=== PATIENT | male | born 1950 | race Caucasian/White ===

== ENCOUNTER 2018-03-09 01:03 | Inpatient (IN) | payer MEDICARE, MEDICAID ==
[2018-03-09] MEDS ORDERED: Rocuronium Bromide 10 MG/ML (10ML VIAL) ONE (01:10)
[2018-03-09] MEDS ORDERED: fentaNYL Citrate/PF 2,000 MCG in Sodium Chloride 0.9% 60 ML IV SCH (01:16)
[2018-03-09] MEDS ORDERED: Propofol 1,000 MG/100 ML VIAL IV ONE ×3 (01:18→05:57)
[2018-03-09 01:30] LABS: Bilirubin Small (Negative); Blood, Urine Negative (Negative); Clarity CLEAR (Clear); Glucose, Urine (Dipstick) 250 mg/dL (Negative); Leukocyte Negative (Negative); Nitrite Negative (Negative); Protein, Urine (Dipstick) 100 mg/dL (Neg-Trace); Specific Gravity, Urine 1.032 (1.002-1.036); pH, Urine 5.5 (5.0-9.0)
[2018-03-09 01:33] LABS: Bacteria/HPF None Seen HPF (None Seen); Hyaline Casts/LPF 7-10 HYALINE CAST LPF (0-3 Hyaline); Pathc Cast-AUWi Flag 0.87 (0-2.49); RBC/HPF 0-3 HPF (0-3); Squamous Epithelial 0-3 HPF (0-3); WBC/HPF 0-3 HPF (0-3)
[2018-03-09 01:39] LABS: Amphetamine Not Detected (NotDetected); Barbiturates Screen Not Detected (NotDetected); Benzodiazepine Screen Detected (NotDetected); Cocaine Metabolite Screen Not Detected (NotDetected); Medtox Control Line Valid? VALID (VALID); Medtox Reader # READER 4; Methadone Not Detected (NotDetected); Methamphetamine Not Detected (NotDetected); Opiate Screen Not Detected (NotDetected); Oxycodone Screen Not Detected (NotDetected); Phencyclidine (PCP) Not Detected (NotDetected); THC/Cannabinoid Screen Not Detected (NotDetected); Tricyclic Screen Detected (NotDetected)
[2018-03-09 01:40] LABS: #Eosinphils 0.1 thou/uL (0.0-0.7); #Lymphocytes 1.4 thou/uL (1.20-3.40); #Monocytes 0.7 thou/uL (0.11-0.59); #Neutrophils 6.8 thou/uL (1.40-6.50); %Basophils 0.4 % (0.0-1.0); %Eosinophils 1.3 % (0.0-10.0); %Lymphocytes 15.1 % (21.0-51.0); %Neutrophils 75.2 % (42.0-75.0); Hemoglobin 11.2 g/dL (14.0-18.0); Mean Corpuscular HGB CONC 30.7 g/dL (32.0-36.0); Mean Corpuscular Hemoglobin 25.7 pg (27.0-31.0); Mean Platelet Volume 8.9 fL (7.4-10.4); Platelet Count 214 thou/uL (130-400); RBC Distribution Width 17.7 % (11.5-14.5); Red Blood Cell (RBC) Count 4.33 mill/uL (4.70-6.10)
[2018-03-09 01:46] LABS: INR-International Normal Ratio 1.1; Prothrombin Time 14.7 SEC (12.0-14.7)
[2018-03-09] MEDS ORDERED: niCARdipine 20MG In NaCl 20 MG/200 ML BAG ONE (01:47)
[2018-03-09 01:53] LABS: Actual Bicarbonate (HCO3a) 35.4 mEq/L (22-28); Analyzer IN Cardio ER; Base Excess (BEa) 5.6 mEq/L (-2.0 to +3.0); Carboxyhemoglobin (COHb) 0.6 gm% (0.0-3.0); Hemoglobin (Hb) 11.6 g/dL (14.0-18.0); O2 Tension (PaO2) 319.2 mmHg (> 80.0); Potassium - ABG Lab 5.17 mmol/L (3.70-5.30)
[2018-03-09 01:55] LABS: pH, Arterial 7.24 (7.35-7.45)
[2018-03-09 01:56] LABS: CO2 Tension 84.6 mmHg (35.0-45.0); Puncture Site RBA
[2018-03-09 02:06] LABS: Acetaminophen Less than 6.0 mcg/mL (10.0-30.0); Alcohol Less than 10 mg/dL (Less than 10); Lipase 14 U/L (8-78); Salicylate Less than 8.0 mg/dL (15.0-30.0)
[2018-03-09 02:07] LABS: ALT (SGPT) 27 U/L (8-55); AST (SGOT) 22 U/L (5-34); Albumin 3.9 g/dL (3.4-4.8); Alkaline Phosphatase 96 U/L (40-150); Anion Gap 13 mmol/L (10-20); BUN (Urea Nitrogen) 20 mg/dL (8.4-25.7); Bilirubin, Total 0.6 mg/dL (0.2-1.2); Calc. Creatinine Clearance 0 mL/min (70-130); Calcium 9.2 mg/dL (7.8-10.44); Carbon Dioxide 29 mmol/L (23-31); Chloride 101 mmol/L (98-107); Estimated GFR-MDRD 66; Globulin 3.5 g/dL (2.4-3.5); Glucose 271 mg/dL (80-115); Potassium 5.3 mmol/L (3.5-5.1); Protein, Total 7.4 g/dL (5.8-8.1); Sodium 138 mmol/L (136-145)
[2018-03-09] MEDS ORDERED: Piperacillin/Tazobactam 4.5 GM VIAL ONE (02:58)
[2018-03-09] MEDS ORDERED: Lorazepam 2 MG/ML VIAL ONE (03:26)
[2018-03-09] MEDS ORDERED: methylPREDNISolone Sod Succ/PF 125 MG/2 ML VIAL ONE (04:46)
[2018-03-09] MEDS ORDERED: Fentanyl CADD 250 ML IVPB SCH (05:51)
[2018-03-09] MEDS ORDERED: Propofol BOLUS 1,000 MG/100 ML VIAL IV PRN (05:51)
[2018-03-09] MEDS ORDERED: Fentanyl BOLUS 250 ML IVPB PRN (05:51)
[2018-03-09] MEDS ORDERED: DISCONTINUE PREVIOUS NARCOTIC PAIN MEDICATIONS AND BENZODIAZEPINES FS SCH (05:51)
[2018-03-09] MEDS ORDERED: Morphine 4 MG/ML VIAL SLOW IVP PRN (05:52)
[2018-03-09] MEDS ORDERED: Sodium Chloride 0.65% Nasal 44 ML BOT EA NARE PRN (07:10)
[2018-03-09] MEDS ORDERED: Artificial Tears 18 DROP/0.9 ML EA EYE PRN (07:10)
[2018-03-09] MEDS ORDERED: Eucerin (Mineral Oil/Petrolatum,White) 30 gm Jar TOP PRN (07:10)
[2018-03-09] MEDS ORDERED: Diabetic Tussin 200 MG/10 ML UDCUP PO PRN (07:10)
[2018-03-09 07:27] LABS: Actual Bicarbonate (HCO3a) 27.9 mEq/L (22-28); Base Excess (BEa) 4.6 mEq/L (-2.0 to +3.0); CO2 Tension 36.4 mmHg (35.0-45.0); Calcium, Ionized 1.13 mmol/L (1.12-1.30); Carboxyhemoglobin (COHb) 1.2 gm% (0.0-3.0); Hemoglobin (Hb) 10.1 g/dL (14.0-18.0); O2 Tension (PaO2) 68.5 mmHg (> 80.0); Potassium - ABG Lab 4.58 mmol/L (3.70-5.30)
[2018-03-09 07:28] LABS: Puncture Site RRA
[2018-03-09] MEDS ORDERED: Prevnar 13-Val Conj/PF 0.5 ML SYRINGE IM ONE (07:45)
--- NOTE | 2018-03-09 08:32 | CT ---
PRELIMINARY REPORT/[facility]/EMERGENTY AFTER-HOURS PROCEDURE CT Head Without Contrast EXAM DATE/TIME: 03/09/2018 2:43 AM CLINICAL HISTORY: 67 years old, male; Signs and symptoms; Altered mental status/memory loss; Confusion or disorientatio n; Patient HX: M68 presents to the ed via ems due to AMS. Ems reports pinpoint pupils, gave PT 4 narc an and PT is still unresponsive. Edema all over per ems. told ems that "pt takes his medications all at once ". Opa placed by ems and gcs 8 ua. Reports pt's initial bld pressure was 200s/150s. TECHNIQUE: Axial computed tomography images of the head/brain without contrast. COMPARISON: No relevant prior studies available. FINDINGS: Brain: No intracrainal hemorrhage. No midline shift. The brain parenchyma appears normal for age. 6 m m calcified meningioma anterior to the left temporal lobe Ventricles: No ventriculomegaly. Bones/joints: Normal. No acute fracture. Sinuses: Normal as visualized. No acute sinusitis. Mastoid air cells: Normal as visualized. No mastoid effusion. Soft tissues: Normal. IMPRESSION: No acute intracranial abnormality. Thank you for allowing us to participate in the care of your patient. Dictated and Authenticated by: Brandon Townsend MD 03/09/2018 3:16 AM Central Time ([place] & [place]) FINAL REPORT EMERGENCY AFTER HOURS CT OF THE BRAIN WITHOUT CONTRAST: Date: 03/09/18 FINDINGS/IMPRESSION: I agree with the findings and impression given in the preliminary report per [facility] physician. No evide nce of acute intracranial abnormality. POS: [facility]
--- NOTE | 2018-03-09 08:47 | RAD ---
SINGLE VIEW OF THE CHEST: Comparison: 07-11-14 History: Unresponsive. Fall. FINDINGS: Single view of the chest shows an enlarged cardiomediastinal silhouette. An endotracheal tube is seen approximately 3.3 cm from the venita. An NG tube is seen in the stomach. Increased interstitial micheline ings are present. There is no evidence of consolidation, mass, or pleural effusion. IMPRESSION: 1. Appropriate position of lines and tubes. 2. Cardiomegaly. POS: [facility]
--- NOTE | 2018-03-09 08:49 | RAD ---
SINGLE VIEW OF THE CHEST: Comparison: 03-09-18 at 12:20 a.m. History: Central line placement Respiratory failure. Altered mental status. FINDINGS: Single view of the chest shows an enlarged but stable cardiomediastinal silhouette. Endotracheal tube and NG tube are unchanged in position. There is a left IJ central venous catheter with its tip in th e superior vena cava. No pneumothorax is seen. IMPRESSION: Status post central line placement without evidence of complication. POS: [facility]
[2018-03-09] MEDS ORDERED: Dextrose 5% in Water 1,000 ML IV PRN (09:00)
[2018-03-09] MEDS ORDERED: Dextrose 50% Abboject 50 ML SYRINGE SLOW IVP PRN (09:00)
[2018-03-09] MEDS ORDERED: Sodium Chloride 0.9% 1,000 ML IV SCH (09:15)
[2018-03-09] MEDS: Piperacillin/Tazobactam 3.375 GM in Sodium Chloride 0.9% 100 ML IVPB SCH ×3 (10:08→21:57)
[2018-03-09] MEDS: Enoxaparin Sodium 40 MG/0.4 ML SYRINGE SC SCH (10:08)
--- NOTE | 2018-03-09 10:57 | CON ---
DATE OF CONSULTATION: 03/09/2018 TIME SPENT: This is 35 minutes of critical care time. REASON FOR CONSULTATION: Acute respiratory failure. HISTORY OF PRESENT ILLNESS: At the time of this consultation, there is no history and physical available for review. I was able to talk to the daughter at bedside. The patient is 67-year-old. He has had altered mental status for several days. He went to his primary care physician twice, requesting oxygen, but it was determined that he did not need that. I do not have records from that visit, but it looks like he has been seeing doctors over at [facility]. The patient was picked up by EMS last night. He was intubated secondary to altered mental status. I do not see that any confirmatory diagnosis was made in regard to his medical condition. PAST MEDICAL HISTORY: 1. Diabetes mellitus, type 2. 2. Hypertension. 3. Obesity. PAST SURGICAL HISTORY: Cholecystectomy. SOCIAL HISTORY: Quit smoking some time ago. Does not consume alcohol. 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 He lives at home on his daughter's land in [place]. ALLERGIES: NONE. MEDICATIONS: Prior to admission; 1. Amitriptyline 100 mg daily. 2. Furosemide 80 mg daily. 3. Metoprolol 25 mg twice daily. 4. Nexium 40 mg daily. 5. Xanax 0.5 mg, currently 2 mg 3 times daily. 6. Valsartan 320 mg daily. 7. Buspirone 10 mg two times daily. REVIEW OF SYSTEMS: Unobtainable as the patient is currently on mechanical ventilation. PHYSICAL EXAMINATION: VITAL SIGNS: Temperature 98.5, pulse 77, blood pressure 169/95, and O2 sat 94%. Intake since admission not quantitated, output 509 mL. GENERAL: He is intubated and sedated on mechanical ventilation. He is a disheveled-appearing male, who was in no apparent distress. HEENT: Pupils are 2 mm, reactive. Sclerae are anicteric. Oropharynx clear. NECK: No JVD. LUNGS: Clear to auscultation anteriorly. CARDIOVASCULAR: S1 and S2, regular without audible murmur. ABDOMEN: Morbid obesity. EXTREMITIES: No clubbing, cyanosis, or edema. NEUROLOGIC: He withdrawals to pain in all 4 extremities. He has a gag reflex intact. He does not follow commands at this time. LABORATORY DATA: Sodium 138, potassium 5.3, chloride 101, CO2 of 29, BUN 20, creatinine 1.1, and glucose 271. BNP 119. Troponin 0.01. TSH is 0.52. PH was 7.50, pCO2 of 36, pO2 of 68 on SIMV rate of 20, tidal volume 550, PEEP 5, pressure support 10, and FiO2 of 50%. Initially, his pH was 7.24, pCO2 of 84, pO2 of 319 that was on SIMV rate of 16, tidal volume 550. White blood cell count 9, hematocrit 36.4, and platelet count 214. Urinalysis showed some glucosuria and proteinuria. Toxicology screen showed tricyclics and benzodiazepines. His head CT was negative. His chest x-ray shows some wispy bilateral infiltrative changes. ASSESSMENT: The patient presents with a fairly acute encephalopathy, which could be either from infection, metabolic in nature, medication induced, or perhaps due to hypercapnia. RECOMMENDATIONS: 1. I would go ahead and treat him for infection and draw the appropriate cultures. 2. Continue mechanical ventilation. 3. Slow hydration. 4. GI prophylaxis with Protonix. 5. DVT prophylaxis with Lovenox. 6. Consider Neurology consultation if altered mental status continues. Job ID: [id number]
--- NOTE | 2018-03-09 12:08 | HP ---
PRIMARY CARE PHYSICIAN: Maty Rivas, nurse practitioner. REASON FOR ADMISSION: Acute respiratory failure, acute metabolic encephalopathy , CO2 narcosis. HISTORY OF PRESENT ILLNESS: A 67-year-old male, who has underlying history of morbid obesity as well as hypertension, anxiety, and depression, who was brought to emergency room by Paramedics. The patient's daughter is present at bedside, who provided most of the history. The patient is currently intubated and that is why he is not able to provide any history. The patient's daughter reports that for last 2 to 3 days, the patient is acting strange. He is more somnolent, more lethargic. He was falling frequently at home. His speech was also garbled and unable to understand. He was not having any focal motor weakness or any sensory symptoms. He did not have any fever or chills. He has chronic early morning babysitter headache. He is chronically feels daytime somnolence. He has excessive snoring during nighttime. Last night, the patient fell down when he was walking around his home, that is why the patient's called her daughter, who lives nearby and she helped him to put in chair, but when he was in chair, again he fell down and he was fall on the ground without any injury and he was not able to get out from the floor by himself even with help. The patient did not hurt anywhere and he was conscious at that time , but he was appeared more lethargic and somnolent. Paramedics was called and Paramedics brought him to ER. He was more somnolent and that is why Paramedics intubated him. In the emergency room, the patient required central line placement. He was having high blood pressure. The patient's daughter reports that the patient is taking amitriptyline and gabapentin as well as some anxiety medication as well that making him sleepy. The patient's daughter also reports that he was told that he has sleep apnea, but he never had any sleep study done and he was not using any CPAP machine. In the emergency room before arrival, Paramedics tried to give him 4 of Narcan without any response. In the emergency room, the patient was given Solu-Medrol and Zosyn. REVIEW OF SYSTEMS: All review of systems tried to review with the patient, but unable to review at this point because of intubated and sedated. PAST MEDICAL HISTORY: Morbid obesity; obstructive sleep apnea, suspected; hypertension. PAST SURGICAL HISTORY: Cholecystectomy. PAST PSYCHIATRY HISTORY: Reviewed and negative SOCIAL HISTORY: The patient is a former smoker. He quit smoking more than 10 years ago. He lives with his . FAMILY HISTORY: No family history of coronary artery disease, stroke, or cancer. ALLERGIES: NO KNOWN DRUG ALLERGIES. CURRENT HOME MEDICATIONS: 1. Xanax 2 mg p.o. at bedtime p.r.n. 2. Amitriptyline 100 mg p.o. daily. 3. Buspirone 10 mg b.i.d. 4. Nexium 40 mg p.o. daily. 5. Lasix 120 mg daily. 6. Toprol-XL 25 mg p.o. daily. 7. Valsartan with hydrochlorothiazide 1 tablet p.o. daily. EMERGENCY ROOM COURSE: The patient was given Narcan by Paramedics. He was given Solu-Medrol, Zosyn in the emergency room. PHYSICAL EXAMINATION: VITAL SIGNS: On arrival; blood pressure 187/165, pulse 111, respiratory rate 16 , temperature 98.6, saturation 100% on ventilator. Weight 171 kg. GENERAL: The patient is currently intubated, sedated. HEENT: Head; normocephalic, atraumatic. Eyes; pupils are round, reactive to light. Extraocular muscle intact. ENT; oropharynx within normal limit. Endotracheal tube in place. NECK: Short neck. Difficult to assess JVD or thyromegaly. LUNGS: Clear to auscultation without any rhonchi or rales. CARDIAC: S1 and S2, regular without any murmur. ABDOMEN: Morbid obesity present. Bowel sounds present. No peritoneal sign. EXTREMITIES: Bilateral lower extremity edema noted. NEUROLOGIC: Unable to assess at this point because the patient is intubated and sedated. PSYCHIATRIC: Unable to assess at this point. SIGNIFICANT LABORATORY DATA: EKG showing atrial arrhythmia, nonspecific ST-T changes. CT of brain based on my review, no acute intracranial process. Chest x-ray, no acute cardiopulmonary process. CBC; WBC 9.0, hemoglobin 11.2, platelet 214. INR 1.1. Initial ABG; pH 7.24, CO2 is 84.6, O2 , bicarb 35.4, saturation 98.7. BMP; sodium 138, potassium 5.3, chloride 101, carbon dioxide 29, BUN 20, creatinine 1.1, glucose 271, calcium 9.2. LFT; AST 22, ALT 27, alkaline phosphatase 96, albumin 3.9, lipase 14. TSH 0.52. BNP 119.2. Troponin is negative. Lactic acid 0.88. Urinalysis is unremarkable. Urine drug screen; positive for tricyclic and benzodiazepine. Serum drug screen , negative. ASSESSMENT AND PLAN: 1. Acute metabolic encephalopathy due to likely CO2 narcosis. 2. Acute respiratory acidosis due to CO2 narcosis, underlying chronic respiratory acidosis with compensation cannot be entirely excluded. 3. Befgt-dg-ummldjc diastolic congestive heart failure stage C. 4. Obstructive sleep apnea, suspected. 5. Morbid obesity with BMI greater than 50. 6. Hypertension. 7. Anxiety and depression. 8. Normocytic normochromic anemia. PLAN: Admission in ICU. Empiric antibiotic therapy with Zosyn as started by food service aide. Ventilator as per food service aide. Pulmonary group will be consulted. This patient will need outpatient sleep study and possible CPAP machine. We will resume selected home medication including Diovan with hydrochlorothiazide for hypertension. We will also continue BuSpar. Echocardiography will be obtained. We will repeat labs tomorrow. DVT prophylaxis, Lovenox 40 mg subcu daily. Gastrointestinal prophylaxis, Protonix 40 mg IV daily. CODE STATUS: The patient is full code. The patient's is surrogate decision maker. DISPOSITION PLAN: Based on clinical course. Plan of care discussed with the patient's daughter at bedside and answered all her question in detail. Job ID: [id number] MTDD
[2018-03-09] MEDS: Propofol 1,000 MG/100 ML VIAL IV PRN ×3 (15:26→22:57)
--- NOTE | 2018-03-09 15:59 | ULT ---
ULTRASOUND TESTICULAR 03/09/18 HISTORY: Chronic enlarged testicle. COMPARISON: None. FINDINGS: A normal right testicle is not appreciated. There appears to be a fluid hematocrit level within the r ight scrotal sac. There is abnormal papillary mass-like projection along the periphery of the scrotal sac. Left testicle measures 4.6 x 2.4 x 2.7 cm. IMPRESSION: No normal right testicle is appreciated. Appears to be a fluid/hematocrit level in the right scrotal sac with normal papillary projections and thickening along the periphery. This may reflect underlying malignancy which is hemorrhaging. Recommend correlation for history of trauma as a fractured testicl e with hemorrhage and debris is also a possibility. Urology consultation is recommended. POS: [facility]
[2018-03-09] MEDS: Insulin Regular 300 UNITS/3 ML VIAL SC PRN (18:20)
[2018-03-09] MEDS: busPIRone HCl 10 MG TAB PER TUBE SCH (21:57)
[2018-03-09] MEDS: Pantoprazole 40 MG VIAL IVP SCH (21:57)
[2018-03-10] MEDS: fentaNYL Citrate/PF 2,000 MCG in Sodium Chloride 0.9% 60 ML IV SCH (00:29)
[2018-03-10] MEDS: Insulin Regular 300 UNITS/3 ML VIAL SC PRN ×4 (00:31→23:23)
[2018-03-10] MEDS: Piperacillin/Tazobactam 3.375 GM in Sodium Chloride 0.9% 100 ML IVPB SCH ×4 (02:53→22:38)
[2018-03-10 04:42] LABS: Band 7 % (5-11); Hemoglobin 9.9 g/dL (14.0-18.0); Lymphocytes 20 % (21-51); MDiff Complete? YES; Mean Corpuscular HGB CONC 32.5 g/dL (32.0-36.0); Mean Corpuscular Hemoglobin 26.4 pg (27.0-31.0); Mean Corpuscular Volume 81.2 fL (78.0-98.0); Mean Platelet Volume 8.8 fL (7.4-10.4); Monocytes 7 % (0-10); Neutrophil 66 % (42-75); Platelet Count 219 thou/uL (130-400); Platelet Morphology Comment Appears Adequate; RBC Distribution Width 17.6 % (11.5-14.5); Red Blood Cell (RBC) Count 3.75 mill/uL (4.70-6.10); White Blood Cell (WBC) Count 12.2 thou/uL (4.8-10.8)
[2018-03-10 05:19] LABS: Anion Gap 15 mmol/L (10-20); BUN (Urea Nitrogen) 36 mg/dL (8.4-25.7); Calc. Creatinine Clearance 106 mL/min (70-130); Calcium 8.5 mg/dL (7.8-10.44); Carbon Dioxide 29 mmol/L (23-31); Chloride 99 mmol/L (98-107); Estimated GFR-MDRD 43; Glucose 365 mg/dL (80-115); Potassium 4.6 mmol/L (3.5-5.1); Sodium 138 mmol/L (136-145)
[2018-03-10] MEDS: Propofol 1,000 MG/100 ML VIAL IV PRN ×3 (05:45→21:30)
[2018-03-10 07:33] LABS: Actual Bicarbonate (HCO3a) 28.9 mEq/L (22-28); Base Excess (BEa) 3.7 mEq/L (-2.0 to +3.0); CO2 Tension 46.6 mmHg (35.0-45.0); Calcium, Ionized 1.14 mmol/L (1.12-1.30); Carboxyhemoglobin (COHb) 1.5 gm% (0.0-3.0); Hemoglobin (Hb) 10.5 g/dL (14.0-18.0); O2 Tension (PaO2) 73.8 mmHg (> 80.0); Potassium - ABG Lab 4.45 mmol/L (3.70-5.30); pH, Arterial 7.41 (7.35-7.45)
[2018-03-10 07:37] LABS: Puncture Site RRA
[2018-03-10] MEDS ORDERED: Sodium Chloride 0.9% 1,000 ML IV SCH (08:00)
[2018-03-10] MEDS: Acetaminophen 1,000 MG in Premix Bag 1 BAG IVPB PRN ×2 (08:21→22:39)
[2018-03-10] MEDS: Enoxaparin Sodium 40 MG/0.4 ML SYRINGE SC SCH (08:22)
[2018-03-10] MEDS: Pantoprazole 40 MG VIAL IVP SCH (08:22)
[2018-03-10] MEDS: busPIRone HCl 10 MG TAB PER TUBE SCH ×2 (08:22→22:39)
--- NOTE | 2018-03-10 08:49 | PRG ---
DATE OF SERVICE: 03/10/2018 Thirty five minutes critical time. SUBJECTIVE: The patient remains intubated on mechanical ventilation. He becomes extremely agitated when the sedation is let up. OBJECTIVE: VITAL SIGNS: His temperature is 101.4, pulse is 106, blood pressure 100/53. Total intake for 24 hours 431, output 865. HEENT: Unremarkable. NECK: No JVD. LUNGS: Diminished breath sounds in both bases. Some crackles. CARDIAC: S1 and S2. Slightly tachycardic. ABDOMEN: Soft, obese, nontender, nondistended. EXTREMITIES: Edematous. LABORATORY DATA: Sodium 138, potassium 4.6, chloride 99, CO2 of 29, BUN 36, creatinine 1.6, glucose 365. White blood cell count 12.2, hematocrit 30.4, and platelet count 219. PH 7.41, pCO2 of 46, and pO2 of 73 on SIMV rate 14, tidal volume of 500, PEEP 5, pressure support 10, and FiO2 of 50%. An x-ray was not done today. Cultures remain sterile at this point. Testicular ultrasound showed a fluid-filled object in the right scrotal sac with hematocrit density. Echocardiogram demonstrates EF of 50% to 55%. A very difficult echo for them to determine to make definitive conclusions because of the patient's body size. ASSESSMENT: 1. Acute respiratory failure, requiring mechanical ventilation. 2. Bilateral pneumonia. 3. Encephalopathy. 4. Hypercapnic-hypoxic acute respiratory failure, requiring mechanical ventilation. 5. Scrotal mass. 6. Acute renal dysfunction secondary to sepsis. PLAN: 1. The patient is not weanable. I will turn up his PEEP to compensate for his low oxygenation. 2. Bolus with IV fluids. 3. Start maintenance IV fluids. 4. Hold valsartan and hydrochlorothiazide. 5. Continue IV antibiotics. 6. Update family when they become available. 7. Repeat chest x-ray tomorrow. 8. I anticipate him being on mechanical ventilation for the next several days. Job ID: [id number]
[2018-03-10] MEDS ORDERED: Valsartan 80 MG TAB PO SCH (09:00)
[2018-03-10] MEDS ORDERED: Hydrochlorothiazide 25 MG TAB PO SCH (09:00)
[2018-03-10] MEDS: Sodium Chloride 0.9% 1,000 ML IV SCH ×2 (09:00→21:30)
--- NOTE | 2018-03-10 10:54 | PDOC.PN ---
- Subjective Encounter Start Date: 03/10/18 Encounter Start Time: 09:30 -: old records requested/rev pt is on ventilator, today pt has high fever, his BP is low and his renal function worsened, daughter is bedside Patient seen and examined. No overnight events - Objective MAR Reviewed: Yes Vital Signs & Weight: Vital Signs (12 hours) Temp Pulse Resp BP Pulse Ox 03/10/18 10:27 106 H 106/55 L 03/10/18 07:13 106 H 105/54 L 03/10/18 07:00 101.4 F H 03/10/18 06:00 14 03/10/18 04:00 14 03/10/18 02:53 106 H 101/51 L 03/10/18 02:00 14 03/10/18 00:33 105 H 14 93 L 03/10/18 00:00 97.9 F 14 Weight Admit Weight 371 lb Weight 367 lb 4.642 oz Most Recent Monitor Data Heart Rate from ECG 106 NIBP 107/56 NIBP BP-Mean 73 Respiration from ECG 14 SpO2 97 I&O: 03/09/18 03/10/18 03/11/18 06:59 06:59 06:59 Intake Total 431 Output Total 590 865 25 Balance -590 -434 -25 Result Diagrams: 03/10/18 04:29 03/10/18 04:29 Additional Labs: Accuchecks 03/10/18 03/09/18 00:31 18:18 POC Glucose 337 H 322 H Radiology Reviewed by me: Yes (testicular US noted) EKG Reviewed by me: Yes (nsr) Phys Exam - Physical Examination Constitutional: NAD intubated and sedated HEENT: PERRLA, sclera anicteric Neck: supple, full ROM Respiratory: no wheezing, no rhonchi anteriorly Cardiovascular: RRR, no significant murmur, no rub Gastrointestinal: soft, positive bowel sounds Musculoskeletal: pulses present, edema present unable to examine as pt is intubated and sedated Lymphatic: no nodes Deviation from normal: unable to assess as he is intubated and sedated Skin: no rash, normal turgor Dx/Plan (1) Sepsis with acute organ dysfunction Code(s): A41.9 - SEPSIS, UNSPECIFIED ORGANISM; R65.20 - SEVERE SEPSIS WITHOUT SEPTIC SHOCK Status: Acute (2) Bilateral pneumonia Code(s): J18.9 - PNEUMONIA, UNSPECIFIED ORGANISM Status: Acute (3) Acute kidney injury Code(s): N17.9 - ACUTE KIDNEY FAILURE, UNSPECIFIED Status: Acute (4) Acute metabolic encephalopathy Code(s): G93.41 - METABOLIC ENCEPHALOPATHY Status: Acute (5) Acute respiratory acidosis Code(s): E87.2 - ACIDOSIS Status: Acute (6) CO2 narcosis Code(s): R06.89 - OTHER ABNORMALITIES OF BREATHING Status: Acute (7) Mass of right testicle Code(s): N50.9 - DISORDER OF MALE GENITAL ORGANS, UNSPECIFIED Status: Acute (8) NADIA (obstructive sleep apnea) Code(s): G47.33 - OBSTRUCTIVE SLEEP APNEA (ADULT) (PEDIATRIC) Status: Suspected (9) Hypertension Code(s): I10 - ESSENTIAL (PRIMARY) HYPERTENSION Status: Chronic (10) Morbid obesity with BMI of 50.0-59.9, adult Code(s): E66.01 - MORBID (SEVERE) OBESITY DUE TO EXCESS CALORIES; Z68.43 - BODY MASS INDEX (BMI) 50-59.9, ADULT Status: Chronic (11) GERD (gastroesophageal reflux disease) Code(s): K21.9 - GASTRO-ESOPHAGEAL REFLUX DISEASE WITHOUT ESOPHAGITIS Status: Chronic (12) Anxiety and depression Code(s): F41.9 - ANXIETY DISORDER, UNSPECIFIED; F32.9 - MAJOR DEPRESSIVE DISORDER, SINGLE EPISODE, UNSPECIFIED Status: Chronic - Plan cont current plan of care, plan discussed w/ family, continue antibiotics, respiratory therapy * start IVF after bolus * Hold BP meds * continue broad spectrum IV antibiotics * culture done and follow up on that * repeat labs and chest xray tomorrow * discussed with daughter about plan bedside * medication reviewed as below * symptomatic treatment * vent as per pulmonary. Review of Systems - Review of Systems Other: unable to review due to intubated status - Medications/Allergies Allergies/Adverse Reactions: Allergies Allergy/AdvReac Type Severity Reaction Status Date / Time No Allergy Information Allergy Verified 03/09/18 06:10 Available Medications: Current Medications Albuterol/Ipratropium (Duoneb) 3 ml NEB [id number] CELSA Last Admin: 03/10/18 07:13 Dose: 3 ml Artificial Tears (Tears Naturale) 2 drop EA EYE PRN PRN PRN Reason: Dry Eyes Buspirone HCl (Buspar) 10 mg PER TUBE BID [facility] Last Admin: 03/10/18 08:22 Dose: 10 mg Dextrose/Water (Dextrose 50%) 25 gm SLOW IVP PRN PRN PRN Reason: Hypoglycemia Enoxaparin Sodium (Lovenox) 40 mg SC 0900 [facility] Last Admin: 03/10/18 08:22 Dose: 40 mg Glucagon (Glucagon) 1 mg IM PRN PRN PRN Reason: Hypoglycemia Hydralazine HCl (Apresoline) 10 mg SLOW IVP Q4H PRN PRN Reason: SBP > 180 and HR < 70 Fentanyl Citrate 2,000 mcg/ (Sodium Chloride) 100 mls @ 0 mls/hr IV INF CELSA; Protocol Stop: 04/08/18 05:51 Last Admin: 03/10/18 00:29 Dose: 100 mls Fentanyl Citrate (Fentanyl Bolus) 250 mls @ 0 mls/hr IVPB PRN PRN PRN Reason: Breakthrough pain/agitation Stop: 04/08/18 05:51 Dextrose/Water (D5w) 1,000 mls @ 0 mls/hr IV .Q0M PRN PRN Reason: Hypoglycemia Piperacillin Sod/Tazobactam (Sod 3.375 gm/ Sodium Chloride) 100 mls @ 200 mls/ hr IVPB 0300,0900,1500,2100 [facility] Last Admin: 03/10/18 08:21 Dose: 100 mls Sodium Chloride (Normal Saline 0.9%) 1,000 mls @ 100 mls/hr IV .Q10H CELSA Acetaminophen 1,000 mg/ Device 100 mls @ 400 mls/hr IVPB Q6H PRN PRN Reason: Fever/Mild Pain Stop: 03/11/18 08:03 Last Admin: 03/10/18 08:21 Dose: 100 mls Insulin Human Regular (Humulin R) 0 units SC .AGGRESSIVE SLIDING PRN PRN Reason: Aggressive Sliding Scale Last Admin: 03/10/18 00:31 Dose: 11 unit Lorazepam (Ativan) 2 mg SLOW IVP Q1H PRN PRN Reason: Breakthrough agitation Stop: 04/08/18 05:51 Mineral Oil/White Petrolatum (Eucerin Cream) 0 gm TOP BIDPRN PRN PRN Reason: Dry Skin Morphine Sulfate (Morphine) 2 mg SLOW IVP Q4H PRN PRN Reason: Breakthrough Pain Discontinue Previous Narcotic Pain Medications And Benzodiazepines 1 each FS .ONE [facility] Stop: 04/08/18 05:51 Pantoprazole Sodium (Protonix) 40 mg IVP DAILY [facility] Last Admin: 03/10/18 08:22 Dose: 40 mg Propofol (Diprivan) 1,000 mg IV INF PRN; Protocol PRN Reason: TO ACHIEVE GOAL RASS Stop: 04/08/18 05:51 Last Admin: 03/10/18 05:45 Dose: 1,000 mg Propofol (Diprivan Bolus) 20 mg IV Q5MIN PRN PRN Reason: BREAKTHROUGH AGITATION Stop: 04/08/18 05:51 Sodium Chloride ([place] Nasal [place] 0.65%) 0 ml EA NARE QIDPRN PRN PRN Reason: Nasal Congestion Sodium Chloride (Flush - Normal Saline) 10 ml IVF Q12HR [facility] Last Admin: 03/10/18 08:22 Dose: 10 ml Sodium Chloride (Flush - Normal Saline) 10 ml IVF PRN PRN PRN Reason: Saline Flush
--- NOTE | 2018-03-10 21:00 | CON ---
DATE OF CONSULTATION: 03/10/2018 SOURCE OF CONSULTATION: Dr. Lundberg. CONSULTED PHYSICIAN: Dr. Xie. REASON FOR CONSULTATION: Testicular mass. HISTORY OF PRESENT ILLNESS: Mr. Melendrez is a 67-year-old white male, who was hospitalized secondary to not feeling well, being more lethargic with altered mental status and confusion. He was brought in to the hospital via ambulance after he was found unconscious and was ultimately diagnosed with bilateral pneumonia. He is currently on Solu-Medrol and Zosyn. During this time, it was noted the patient had a significantly enlarged scrotum. A scrotal ultrasound was performed, which demonstrates some type of fluid hematocrit level within the right testicle with papillary projections and thickening along the periphery. There were concerns about a possible malignancy and hemorrhage. Therefore, Urology was consulted for further assistance. Upon my arrival to the patient's bedside, he is currently intubated and sedated. There is no family at bedside. All history is obtained from the nursing staff. Per the patient's nurse, they had spoken with the patient's previously and he apparently has seen two urologists for his scrotal issues before. This apparently is a long-standing issue, which is not new. He has had two different opinions with the first urologist recommending some type of a drainage procedure, although the urologist did not feel comfortable performing this. They saw another urologist in [place] who recommended open surgical exploration, but he did not have time to actually undergo the procedure as the patient is now hospitalized here. I do not know either of these urologist's name. No other history can be obtained from the patient at this time. PAST MEDICAL HISTORY: 1. Morbid obesity. 2. Obstructive sleep apnea. 3. Hypertension. PAST SURGICAL HISTORY: Cholecystectomy. SOCIAL HISTORY: The patient is reportedly a former smoker, although he quit more than 10 years ago. He is . Drinking status and illicit drug use status are unknown. FAMILY HISTORY: Noncontributory with no reported history per medical records. REVIEW OF SYSTEMS: His 12-point review of systems cannot be obtained as the patient is currently intubated and sedated. PHYSICAL EXAMINATION: VITAL SIGNS: Temperature 101.1, heart rate 106, blood pressure 105/54, respirations 13, saturation 94% on ventilator. GENERAL: The patient is currently intubated and sedated. He is a large individual and appears morbidly obese. HEENT: Normocephalic, atraumatic. ET tube in place. Trachea midline. Pupils are small, but reactive. Sclerae nonicteric. HEART: Sinus tachycardic. Normal S1 and S2. CHEST: Bilateral coarse breath sounds and crackles. ABDOMEN: Soft, nontender, nondistended. Positive bowel sounds. No obvious masses. Protuberant belly, which is large. : The patient has an extremely large scrotum, which is hard and tense on the right with a mild left hydrocele. The left testicle appears normal by palpation. The penis is somewhat retracted secondary to the swelling in the scrotum. There is a Arellano catheter in place with clear yellow urine. EXTREMITIES: Mild clubbing. No cyanosis. 1+ edema bilaterally. SKIN: Warm and dry. Good turgor. No rashes or lesions. NEUROLOGIC: The patient is currently sedated and intubated. He is not following commands. A full exam was not performed. MUSCULOSKELETAL: No joint deformities or joint erythema noted. LABORATORY DATA: On laboratory evaluation, a full set of labs in the [employer] system, which I have reviewed. Of note, the patient's white count is 12.2 with hemoglobin of 9.9. Creatinine is 1.62. Urinalysis demonstrates small bilirubin, small ketones, negative blood, negative nitrite, negative leukocyte esterase, no rbc's or wbc's. No bacteria. Urine culture is negative. Testicular ultrasound from March 09 demonstrates an abnormal right testicle, which appears to have a fluid hematocrit level within the scrotal sac with papillary projections and thickening along the periphery, which may represent some underlying malignancy, which is hemorrhagic or some kind of testicular fracture. ASSESSMENT AND PLAN: A 67-year-old white male with a large right hydrocele with difficult to examine testicle, which is not entirely visualized properly on ultrasound or by exam. This does feel like hydrocele more than any other type of problem. He is generally beyond the age what will be considered expected for testicular malignancy, although this is not entirely ruled out. The projections seen within the scrotum on my evaluation are more than likely calcification such as "pearls" which are normally found within the hydrocele sacs. The patient may have multiple due to longstanding hydrocele with an inflammation, which may explain the ragged and irregular nature of the hydrocele sac. I would agree with the second urologist whom the patient has seen and the patient probably would do best with a hydrocelectomy with possible orchiectomy done at the same time depending on the evaluation of the testicle at that time. However, given the patient's pneumonia and current critical health status, this is not the time to be performing such as surgery, even in the case of malignancy, this is not an emergency and can be done at another date. I do not suspect malignancy and there is no evidence of infection either. I think this procedure can be deferred to a later date when the patient is more healthy. For now, I will sign off and I think the patient can either follow up with his previous urologist that he was seeing or if he would prefer to see me, he can be given my number and can follow up with me once he has recovered from this hospitalization. I will be available if there are any further questions, but for now, I would not recommend any current intervention. Job ID: [id number]
[2018-03-11] MEDS: Propofol 1,000 MG/100 ML VIAL IV PRN ×6 (01:30→21:01)
[2018-03-11] MEDS: Piperacillin/Tazobactam 3.375 GM in Sodium Chloride 0.9% 100 ML IVPB SCH ×4 (04:00→21:03)
[2018-03-11] MEDS: Sodium Chloride 0.9% 1,000 ML IV SCH ×2 (04:03→13:04)
[2018-03-11] MEDS: Insulin Regular 300 UNITS/3 ML VIAL SC PRN ×4 (04:28→21:10)
[2018-03-11 04:48] LABS: Anion Gap 11 mmol/L (10-20); BUN (Urea Nitrogen) 37 mg/dL (8.4-25.7); Calc. Creatinine Clearance 142 mL/min (70-130); Calcium 8.3 mg/dL (7.8-10.44); Carbon Dioxide 30 mmol/L (23-31); Chloride 101 mmol/L (98-107); Estimated GFR-MDRD 61; Glucose 280 mg/dL (80-115); Potassium 3.9 mmol/L (3.5-5.1); Sodium 138 mmol/L (136-145)
[2018-03-11 05:07] LABS: Hemoglobin 9.7 g/dL (14.0-18.0); Hypochromia SLIGHT = 6-15 cells (100X) (0-5/hpf); Lymphocytes 16 % (21-51); MDiff Complete? YES; Mean Corpuscular HGB CONC 32.5 g/dL (32.0-36.0); Mean Corpuscular Hemoglobin 26.4 pg (27.0-31.0); Mean Corpuscular Volume 81.4 fL (78.0-98.0); Mean Platelet Volume 8.8 fL (7.4-10.4); Monocytes 7 % (0-10); Neutrophil 77 % (42-75); Platelet Count 205 thou/uL (130-400); Platelet Morphology Comment Appears Adequate; RBC Distribution Width 17.8 % (11.5-14.5); Red Blood Cell (RBC) Count 3.66 mill/uL (4.70-6.10); White Blood Cell (WBC) Count 9.7 thou/uL (4.8-10.8)
--- NOTE | 2018-03-11 08:43 | RAD ---
PORTABLE SEMIUPRIGHT FRONTAL CHEST RADIOGRAPH: DATE: 03/11/2018. COMPARISON: 03/09/2018. HISTORY: Unresponsive patient, ventilated patient. FINDINGS: Endotracheal tube, nasogastric tube, and left-sided vascular catheter are present. There is dense op acity in the left base suggesting left lower lobe consolidation/collapse and/or small volume left ple ural effusion. Hazy increased density noted in the right base, nonspecific. IMPRESSION: Lines and tubes as detailed above. Increased density noted in bilateral lung bases. POS: [facility]
[2018-03-11] MEDS: Pantoprazole 40 MG VIAL IVP SCH (09:00)
[2018-03-11] MEDS: Enoxaparin Sodium 40 MG/0.4 ML SYRINGE SC SCH (09:00)
[2018-03-11] MEDS: busPIRone HCl 10 MG TAB PER TUBE SCH ×2 (09:00→21:03)
--- NOTE | 2018-03-11 10:20 | PRG ---
DATE OF SERVICE: 03/11/2018 SUBJECTIVE: Day #2 on the vent, intubated, the vent sedated. OBJECTIVE: VITAL SIGNS: Pulse is 104, blood pressure 106/75, saturations is 94%, respirations set at 10. When his sedation was decreased, became encephalopathic. His I's and O's have been 3540 in, 1410 out. CHEST: Bilateral rhonchi and crackles. CARDIAC: Normal S1, S2. No gallops. ABDOMEN: No masses. LABORATORY DATA: Creatinine is 1.19. White count 9000 and H and H 9 and 27. DIAGNOSTIC DATA: Chest x-ray shows cardiomegaly with bilateral pulmonary infiltrates. IMPRESSION: 1. Respiratory failure. 2. Morbid obesity. 3. Generalized anasarca. 4. Normal ejection fraction. PLAN: He is not weanable at this stage. Continue broad-spectrum antibiotics. All cultures so far negative. His renal function is improving. Continue nutrition and PT. One-half hour of critical time. Job ID: [id number]
--- NOTE | 2018-03-11 11:21 | PDOC.PN ---
- Subjective Encounter Start Date: 03/11/18 Encounter Start Time: 09:35 Patient seen and examined. pt is intubated and sedated, family bedside. No overnight events - Objective MAR Reviewed: Yes Vital Signs & Weight: Vital Signs (12 hours) Temp Pulse Resp BP Pulse Ox 03/11/18 10:00 12 03/11/18 08:00 99.1 F 12 03/11/18 07:47 92 L 03/11/18 06:53 90 104/66 03/11/18 06:00 12 03/11/18 04:00 99.7 F H 12 03/11/18 02:25 95 03/11/18 02:24 105 H 101/59 L 03/11/18 02:00 12 03/11/18 00:55 105 H 12 93 L 03/11/18 00:00 100.8 F H 12 Weight Admit Weight 371 lb Weight 373 lb 7.409 oz Most Recent Monitor Data Heart Rate from ECG 102 NIBP 101/64 NIBP BP-Mean 76 Respiration from ECG 12 SpO2 95 I&O: 03/10/18 03/11/18 03/12/18 06:59 06:59 06:59 Intake Total 431 3540.0 Output Total 865 1410 381 Balance -434 2130.0 -381 Result Diagrams: 03/11/18 04:10 03/11/18 04:10 Additional Labs: Accuchecks 03/11/18 03/10/18 03/10/18 04:13 21:17 18:28 POC Glucose 269 H 290 H 301 H 03/10/18 13:37 POC Glucose 315 H Radiology Reviewed by me: Yes (chest xray reviewed ) EKG Reviewed by me: Yes (nsr) Phys Exam - Physical Examination Constitutional: NAD intubated, sedated HEENT: PERRLA, sclera anicteric Neck: no JVD, supple Respiratory: clear to auscultation bilateral reduced air entry at base anteriorly Cardiovascular: RRR, no significant murmur, no rub Gastrointestinal: soft, no distention, positive bowel sounds Musculoskeletal: pulses present, edema present unable to assess as he is sedated Lymphatic: no nodes Deviation from normal: unable to assess Skin: no rash, normal turgor Dx/Plan (1) Sepsis with acute organ dysfunction Code(s): A41.9 - SEPSIS, UNSPECIFIED ORGANISM; R65.20 - SEVERE SEPSIS WITHOUT SEPTIC SHOCK Status: Acute (2) Bilateral pneumonia Code(s): J18.9 - PNEUMONIA, UNSPECIFIED ORGANISM Status: Acute (3) Acute kidney injury Code(s): N17.9 - ACUTE KIDNEY FAILURE, UNSPECIFIED Status: Acute (4) Acute metabolic encephalopathy Code(s): G93.41 - METABOLIC ENCEPHALOPATHY Status: Acute (5) Acute respiratory acidosis Code(s): E87.2 - ACIDOSIS Status: Acute (6) CO2 narcosis Code(s): R06.89 - OTHER ABNORMALITIES OF BREATHING Status: Acute (7) Mass of right testicle Code(s): N50.9 - DISORDER OF MALE GENITAL ORGANS, UNSPECIFIED Status: Acute (8) NADIA (obstructive sleep apnea) Code(s): G47.33 - OBSTRUCTIVE SLEEP APNEA (ADULT) (PEDIATRIC) Status: Suspected (9) Hypertension Code(s): I10 - ESSENTIAL (PRIMARY) HYPERTENSION Status: Chronic (10) Morbid obesity with BMI of 50.0-59.9, adult Code(s): E66.01 - MORBID (SEVERE) OBESITY DUE TO EXCESS CALORIES; Z68.43 - BODY MASS INDEX (BMI) 50-59.9, ADULT Status: Chronic (11) GERD (gastroesophageal reflux disease) Code(s): K21.9 - GASTRO-ESOPHAGEAL REFLUX DISEASE WITHOUT ESOPHAGITIS Status: Chronic (12) Anxiety and depression Code(s): F41.9 - ANXIETY DISORDER, UNSPECIFIED; F32.9 - MAJOR DEPRESSIVE DISORDER, SINGLE EPISODE, UNSPECIFIED Status: Chronic - Plan cont current plan of care, plan discussed w/ family, continue antibiotics, respiratory therapy * medication reviewed as below * symptomatic treatment * continue vancomycin and zosyn * reduce IVF * continue vent as per pulmonary * not weanable yet * discussed with family bedside and answered their questions * follow culture. Review of Systems - Review of Systems Other: unable to review due to intubated status - Medications/Allergies Allergies/Adverse Reactions: Allergies Allergy/AdvReac Type Severity Reaction Status Date / Time No Allergy Information Allergy Verified 03/09/18 06:10 Available Medications: Current Medications Albuterol/Ipratropium (Duoneb) 3 ml NEB [id number] [facility] Last Admin: 03/11/18 06:52 Dose: 3 ml Artificial Tears (Tears Naturale) 2 drop EA EYE PRN PRN PRN Reason: Dry Eyes Buspirone HCl (Buspar) 10 mg PER TUBE BID [facility] Last Admin: 03/11/18 09:00 Dose: 10 mg Dextrose/Water (Dextrose 50%) 25 gm SLOW IVP PRN PRN PRN Reason: Hypoglycemia Enoxaparin Sodium (Lovenox) 40 mg SC 0900 [facility] Last Admin: 03/11/18 09:00 Dose: 40 mg Glucagon (Glucagon) 1 mg IM PRN PRN PRN Reason: Hypoglycemia Hydralazine HCl (Apresoline) 10 mg SLOW IVP Q4H PRN PRN Reason: SBP > 180 and HR < 70 Fentanyl Citrate 2,000 mcg/ (Sodium Chloride) 100 mls @ 0 mls/hr IV INF [facility]; Protocol Stop: 04/08/18 05:51 Last Admin: 03/10/18 00:29 Dose: 100 mls Fentanyl Citrate (Fentanyl Bolus) 250 mls @ 0 mls/hr IVPB PRN PRN PRN Reason: Breakthrough pain/agitation Stop: 04/08/18 05:51 Dextrose/Water (D5w) 1,000 mls @ 0 mls/hr IV .Q0M PRN PRN Reason: Hypoglycemia Piperacillin Sod/Tazobactam (Sod 3.375 gm/ Sodium Chloride) 100 mls @ 200 mls/ hr IVPB 0300,0900,1500,2100 [facility] Last Admin: 03/11/18 09:00 Dose: 100 mls Sodium Chloride (Normal Saline 0.9%) 1,000 mls @ 100 mls/hr IV .Q10H [facility] Last Admin: 03/11/18 04:03 Dose: Not Given Insulin Human Regular (Humulin R) 0 units SC .AGGRESSIVE SLIDING PRN PRN Reason: Aggressive Sliding Scale Last Admin: 03/11/18 11:06 Dose: 9 unit Lorazepam (Ativan) 2 mg SLOW IVP Q1H PRN PRN Reason: Breakthrough agitation Stop: 04/08/18 05:51 Mineral Oil/White Petrolatum (Eucerin Cream) 0 gm TOP BIDPRN PRN PRN Reason: Dry Skin Morphine Sulfate (Morphine) 2 mg SLOW IVP Q4H PRN PRN Reason: Breakthrough Pain Discontinue Previous Narcotic Pain Medications And Benzodiazepines 1 each FS .ONE [facility] Stop: 04/08/18 05:51 Pantoprazole Sodium (Protonix) 40 mg IVP DAILY [facility] Last Admin: 03/11/18 09:00 Dose: 40 mg Propofol (Diprivan) 1,000 mg IV INF PRN; Protocol PRN Reason: TO ACHIEVE GOAL RASS Stop: 04/08/18 05:51 Last Admin: 03/11/18 09:37 Dose: 1,000 mg Propofol (Diprivan Bolus) 20 mg IV Q5MIN PRN PRN Reason: BREAKTHROUGH AGITATION Stop: 04/08/18 05:51 Sodium Chloride ([place] Nasal [place] 0.65%) 0 ml EA NARE QIDPRN PRN PRN Reason: Nasal Congestion Sodium Chloride (Flush - Normal Saline) 10 ml IVF Q12HR [facility] Last Admin: 03/11/18 09:04 Dose: 10 ml Sodium Chloride (Flush - Normal Saline) 10 ml IVF PRN PRN PRN Reason: Saline Flush
--- NOTE | 2018-03-11 23:30 | EKG ---
Test Reason : Blood Pressure : / mmHG Vent. Rate : 096 BPM Atrial Rate : 192 BPM P-R Int : 000 ms QRS Dur : 088 ms QT Int : 328 ms P-R-T Axes : 085 041 097 degrees QTc Int : 414 ms Atrial flutter with 2:1 A-V conduction Low voltage QRS Nonspecific ST and T wave abnormality Abnormal ECG Confirmed by HALI MEJIA DO ([id number]), medical transcription editor JASKARAN ALVAREZ ([id number]) on 03/11/2018 11:29:33 PM Referred By: Confirmed By:HALI MEJIA DO
--- NOTE | 2018-03-11 23:37 | EKG ---
Test Reason : Blood Pressure : / mmHG Vent. Rate : 083 BPM Atrial Rate : 192 BPM P-R Int : 000 ms QRS Dur : 084 ms QT Int : 392 ms P-R-T Axes : 000 033 052 degrees QTc Int : 460 ms Atrial Flutter Low voltage QRS Nonspecific ST and T wave abnormality Prolonged QT Abnormal ECG Confirmed by HALI MEJIA DO ([id number]), brands editor JASKARAN ALVAREZ ([id number]) on 03/11/2018 11:37:24 PM Referred By: Confirmed By:HALI MEJIA DO
[2018-03-12] MEDS: Propofol 1,000 MG/100 ML VIAL IV PRN ×6 (00:16→20:57)
[2018-03-12] MEDS: Piperacillin/Tazobactam 3.375 GM in Sodium Chloride 0.9% 100 ML IVPB SCH ×4 (03:39→20:01)
[2018-03-12] MEDS: Sodium Chloride 0.9% 1,000 ML IV SCH (03:44)
[2018-03-12 04:32] LABS: Anion Gap 13 mmol/L (10-20); BUN (Urea Nitrogen) 22 mg/dL (8.4-25.7); Calc. Creatinine Clearance 193 mL/min (70-130); Calcium 8.7 mg/dL (7.8-10.44); Carbon Dioxide 29 mmol/L (23-31); Chloride 102 mmol/L (98-107); Estimated GFR-MDRD 85; Glucose 315 mg/dL (80-115); Potassium 4.5 mmol/L (3.5-5.1); Sodium 139 mmol/L (136-145)
[2018-03-12 04:36] LABS: Band 4 % (5-11); Elliptocytes SLIGHT = 2-5 cells (100X) (0-1/hpf); Eosinophils 5 % (0-10); Hemoglobin 10.2 g/dL (14.0-18.0); Hypochromia SLIGHT = 6-15 cells (100X) (0-5/hpf); Lymphocytes 9 % (21-51); MDiff Complete? YES; Mean Corpuscular HGB CONC 29.9 g/dL (32.0-36.0); Mean Corpuscular Hemoglobin 24.7 pg (27.0-31.0); Mean Corpuscular Volume 82.5 fL (78.0-98.0); Mean Platelet Volume 8.8 fL (7.4-10.4); Monocytes 5 % (0-10); Neutrophil 76 % (42-75); Platelet Count 203 thou/uL (130-400); Platelet Morphology Comment Appears Adequate; RBC Distribution Width 17.7 % (11.5-14.5); Reactive Lymphocytes 1 % (0-10); Red Blood Cell (RBC) Count 4.13 mill/uL (4.70-6.10); White Blood Cell (WBC) Count 7.6 thou/uL (4.8-10.8)
[2018-03-12] MEDS: Insulin Regular 300 UNITS/3 ML VIAL SC PRN ×4 (04:50→21:57)
[2018-03-12] MEDS: fentaNYL Citrate/PF 2,000 MCG in Sodium Chloride 0.9% 60 ML IV SCH (06:48)
--- NOTE | 2018-03-12 09:11 | RAD ---
PORTABLE CHEST: HISTORY: On ventilator. CCU followup. COMPARISON: 03/11/2018. FINDINGS: Cardiomegaly. Vascular congestion. Bibasilar atelectasis and/or infiltrates with bilateral effusion s. IMPRESSION: Findings unchanged. POS: [facility]
[2018-03-12] MEDS ORDERED: Furosemide 40 MG/4 ML VIAL SLOW IVP SCH (09:15)
--- NOTE | 2018-03-12 09:26 | PRG ---
DATE OF SERVICE: SUBJECTIVE: A 67-year-old morbidly obese gentleman, remains intubated in the vent, sedated. OBJECTIVE: VITAL SIGNS: Blood pressure is 117/73, saturations are only 90%, pulse 80, respiratory rate 18. CHEST: Decreased breath sounds. No wheezing. CARDIAC: Normal S1 and S2. No gallop. ABDOMEN: No masses. LABORATORY DATA: White count 7000, H and H 10 and 34, platelet count normal. Lytes are normal. IMPRESSION: Respiratory failure, morbid obesity, bilateral bronchopneumonia, encephalopathy. Renal function improved. PLAN: Still not weanable. Continue broad-spectrum antibiotics, Zosyn, neb treatments, nutrition and PT. One-half hour of critical time. Job ID: [id number]
[2018-03-12] MEDS: Enoxaparin Sodium 40 MG/0.4 ML SYRINGE SC SCH (09:36)
[2018-03-12] MEDS: Pantoprazole 40 MG VIAL IVP SCH (09:36)
[2018-03-12] MEDS: busPIRone HCl 10 MG TAB PER TUBE SCH ×2 (09:44→20:01)
--- NOTE | 2018-03-12 10:08 | PDOC.PN ---
- Subjective Encounter Start Date: 03/12/18 Encounter Start Time: 09:30 Patient seen and examined. pt is intubated, No overnight events - Objective MAR Reviewed: Yes Vital Signs & Weight: Vital Signs (12 hours) Temp Pulse Resp BP Pulse Ox 03/12/18 08:00 98.7 F 03/12/18 07:01 95 117/73 03/12/18 06:00 12 03/12/18 04:00 98.8 F 12 03/12/18 02:29 78 105/72 03/12/18 02:00 12 03/12/18 00:39 86 12 93 L 03/12/18 00:00 98.7 F 12 Weight Admit Weight 371 lb Weight 370 lb 2.498 oz Most Recent Monitor Data Heart Rate from ECG 105 NIBP 135/86 NIBP BP-Mean 102 Respiration from ECG 12 SpO2 90 I&O: 03/11/18 03/12/18 03/13/18 06:59 06:59 06:59 Intake Total 3540.0 2916.0 Output Total 1410 2549 315 Balance 2130.0 367.0 -315 Result Diagrams: 03/12/18 04:08 03/12/18 04:08 Additional Labs: Accuchecks 03/12/18 03/11/18 03/11/18 04:01 20:07 16:19 POC Glucose 284 H 303 H 329 H 03/11/18 11:05 POC Glucose 288 H Radiology Reviewed by me: Yes (chest xray reviewed) EKG Reviewed by me: Yes (nsr) Phys Exam - Physical Examination Constitutional: NAD on vent HEENT: PERRLA, sclera anicteric Neck: no JVD, supple Respiratory: no wheezing, no rhonchi reduced air entry at base Cardiovascular: RRR, no significant murmur, no rub Gastrointestinal: soft, positive bowel sounds obesity+ Musculoskeletal: pulses present, edema present unable to assess Lymphatic: no nodes Deviation from normal: unable to assess Skin: no rash, normal turgor Dx/Plan (1) Sepsis with acute organ dysfunction Code(s): A41.9 - SEPSIS, UNSPECIFIED ORGANISM; R65.20 - SEVERE SEPSIS WITHOUT SEPTIC SHOCK Status: Acute (2) Bilateral pneumonia Code(s): J18.9 - PNEUMONIA, UNSPECIFIED ORGANISM Status: Acute (3) Acute kidney injury Code(s): N17.9 - ACUTE KIDNEY FAILURE, UNSPECIFIED Status: Acute (4) Acute metabolic encephalopathy Code(s): G93.41 - METABOLIC ENCEPHALOPATHY Status: Acute (5) Acute respiratory acidosis Code(s): E87.2 - ACIDOSIS Status: Acute (6) CO2 narcosis Code(s): R06.89 - OTHER ABNORMALITIES OF BREATHING Status: Acute (7) Mass of right testicle Code(s): N50.9 - DISORDER OF MALE GENITAL ORGANS, UNSPECIFIED Status: Acute (8) NADIA (obstructive sleep apnea) Code(s): G47.33 - OBSTRUCTIVE SLEEP APNEA (ADULT) (PEDIATRIC) Status: Suspected (9) Hypertension Code(s): I10 - ESSENTIAL (PRIMARY) HYPERTENSION Status: Chronic (10) Morbid obesity with BMI of 50.0-59.9, adult Code(s): E66.01 - MORBID (SEVERE) OBESITY DUE TO EXCESS CALORIES; Z68.43 - BODY MASS INDEX (BMI) 50-59.9, ADULT Status: Chronic (11) GERD (gastroesophageal reflux disease) Code(s): K21.9 - GASTRO-ESOPHAGEAL REFLUX DISEASE WITHOUT ESOPHAGITIS Status: Chronic (12) Anxiety and depression Code(s): F41.9 - ANXIETY DISORDER, UNSPECIFIED; F32.9 - MAJOR DEPRESSIVE DISORDER, SINGLE EPISODE, UNSPECIFIED Status: Chronic - Plan cont current plan of care, continue antibiotics, respiratory therapy * will stop IVF * give one dose of lasix * continue vent as per pulmonary * he is not weanble * continue empiric antibiotics as below. Review of Systems - Review of Systems Other: unable to review due to intubated status - Medications/Allergies Allergies/Adverse Reactions: Allergies Allergy/AdvReac Type Severity Reaction Status Date / Time No Allergy Information Allergy Verified 03/09/18 06:10 Available Medications: Current Medications Albuterol/Ipratropium (Duoneb) 3 ml NEB [id number] [facility] Last Admin: 03/12/18 06:57 Dose: 3 ml Artificial Tears (Tears Naturale) 2 drop EA EYE PRN PRN PRN Reason: Dry Eyes Buspirone HCl (Buspar) 10 mg PER TUBE BID [facility] Last Admin: 03/12/18 09:44 Dose: 10 mg Dextrose/Water (Dextrose 50%) 25 gm SLOW IVP PRN PRN PRN Reason: Hypoglycemia Enoxaparin Sodium (Lovenox) 40 mg SC 0900 [facility] Last Admin: 03/12/18 09:36 Dose: 40 mg Furosemide (Lasix) 40 mg SLOW IVP ONE [facility] Stop: 03/12/18 10:30 Last Admin: 03/12/18 09:44 Dose: 40 mg Glucagon (Glucagon) 1 mg IM PRN PRN PRN Reason: Hypoglycemia Hydralazine HCl (Apresoline) 10 mg SLOW IVP Q4H PRN PRN Reason: SBP > 180 and HR < 70 Fentanyl Citrate 2,000 mcg/ (Sodium Chloride) 100 mls @ 0 mls/hr IV INF [facility]; Protocol Stop: 04/08/18 05:51 Last Admin: 03/12/18 06:48 Dose: 100 mls Fentanyl Citrate (Fentanyl Bolus) 250 mls @ 0 mls/hr IVPB PRN PRN PRN Reason: Breakthrough pain/agitation Stop: 04/08/18 05:51 Dextrose/Water (D5w) 1,000 mls @ 0 mls/hr IV .Q0M PRN PRN Reason: Hypoglycemia Piperacillin Sod/Tazobactam (Sod 3.375 gm/ Sodium Chloride) 100 mls @ 200 mls/ hr IVPB 0300,0900,1500,2100 [facility] Last Admin: 03/12/18 09:36 Dose: 100 mls Insulin Human Regular (Humulin R) 0 units SC .AGGRESSIVE SLIDING PRN PRN Reason: Aggressive Sliding Scale Last Admin: 03/12/18 04:50 Dose: 9 unit Lorazepam (Ativan) 2 mg SLOW IVP Q1H PRN PRN Reason: Breakthrough agitation Stop: 04/08/18 05:51 Mineral Oil/White Petrolatum (Eucerin Cream) 0 gm TOP BIDPRN PRN PRN Reason: Dry Skin Morphine Sulfate (Morphine) 2 mg SLOW IVP Q4H PRN PRN Reason: Breakthrough Pain Discontinue Previous Narcotic Pain Medications And Benzodiazepines 1 each FS .ONE [facility] Stop: 04/08/18 05:51 Pantoprazole Sodium (Protonix) 40 mg IVP DAILY [facility] Last Admin: 03/12/18 09:36 Dose: 40 mg Propofol (Diprivan) 1,000 mg IV INF PRN; Protocol PRN Reason: TO ACHIEVE GOAL RASS Stop: 04/08/18 05:51 Last Admin: 03/12/18 09:37 Dose: 1,000 mg Propofol (Diprivan Bolus) 20 mg IV Q5MIN PRN PRN Reason: BREAKTHROUGH AGITATION Stop: 04/08/18 05:51 Sodium Chloride ([place] Nasal [place] 0.65%) 0 ml EA NARE QIDPRN PRN PRN Reason: Nasal Congestion Sodium Chloride (Flush - Normal Saline) 10 ml IVF Q12HR [facility] Last Admin: 03/12/18 09:37 Dose: 10 ml Sodium Chloride (Flush - Normal Saline) 10 ml IVF PRN PRN PRN Reason: Saline Flush
[2018-03-12] MEDS ORDERED: Insulin Glargine 10 UNITS in Pre-Filled Syringe SC SCH (22:00)
[2018-03-13] MEDS: Acetaminophen 650 MG/20.3 ML UDCUP PER TUBE PRN (00:28)
[2018-03-13] MEDS: Propofol 1,000 MG/100 ML VIAL IV PRN ×6 (00:32→20:30)
[2018-03-13] MEDS: Piperacillin/Tazobactam 3.375 GM in Sodium Chloride 0.9% 100 ML IVPB SCH ×4 (03:50→21:34)
[2018-03-13] MEDS: Insulin Regular 300 UNITS/3 ML VIAL SC PRN ×4 (03:51→21:35)
[2018-03-13 06:37] LABS: Band 1 % (5-11); Hemoglobin 9.9 g/dL (14.0-18.0); Hypochromia SLIGHT = 6-15 cells (100X) (0-5/hpf); Lymphocytes 12 % (21-51); MDiff Complete? YES; Mean Corpuscular HGB CONC 30.9 g/dL (32.0-36.0); Mean Corpuscular Hemoglobin 25.5 pg (27.0-31.0); Mean Corpuscular Volume 82.4 fL (78.0-98.0); Mean Platelet Volume 8.9 fL (7.4-10.4); Monocytes 5 % (0-10); Neutrophil 82 % (42-75); Platelet Count 191 thou/uL (130-400); Platelet Morphology Comment Appears Adequate; RBC Distribution Width 17.5 % (11.5-14.5); Red Blood Cell (RBC) Count 3.89 mill/uL (4.70-6.10); White Blood Cell (WBC) Count 7.1 thou/uL (4.8-10.8)
[2018-03-13 06:43] LABS: Anion Gap 9 mmol/L (10-20); BUN (Urea Nitrogen) 24 mg/dL (8.4-25.7); Calc. Creatinine Clearance 164 mL/min (70-130); Calcium 8.8 mg/dL (7.8-10.44); Carbon Dioxide 35 mmol/L (23-31); Chloride 100 mmol/L (98-107); Estimated GFR-MDRD 71; Glucose 391 mg/dL (80-115); Potassium 4.5 mmol/L (3.5-5.1); Sodium 139 mmol/L (136-145)
[2018-03-13 07:31] LABS: Actual Bicarbonate (HCO3a) 30.4 mEq/L (22-28); Base Excess (BEa) 4.2 mEq/L (-2.0 to +3.0); Calcium, Ionized 1.15 mmol/L (1.12-1.30); Carboxyhemoglobin (COHb) 2.6 gm% (0.0-3.0); Hemoglobin (Hb) 6.6 g/dL (14.0-18.0); O2 Tension (PaO2) 80.8 mmHg (> 80.0); Potassium - ABG Lab 4.33 mmol/L (3.70-5.30); pH, Arterial 7.34 (7.35-7.45)
[2018-03-13 07:32] LABS: Puncture Site RRA
[2018-03-13] MEDS: Lorazepam 2 MG/ML VIAL SLOW IVP PRN (07:57)
[2018-03-13] MEDS: Pantoprazole 40 MG VIAL IVP SCH (08:44)
[2018-03-13] MEDS: Enoxaparin Sodium 40 MG/0.4 ML SYRINGE SC SCH (08:45)
[2018-03-13] MEDS: busPIRone HCl 10 MG TAB PER TUBE SCH ×2 (08:51→21:33)
--- NOTE | 2018-03-13 08:58 | PRG ---
DATE OF SERVICE: 03/13/2018 TIME SPENT: 35 minutes of critical care time. SUBJECTIVE: The patient remains intubated on mechanical ventilation. He is fairly heavily sedated. His is at the bedside. I was able to speak to her. OBJECTIVE: VITAL SIGNS: Temperature is 100.5 with a T-max of 101.0, pulse 105, and blood pressure 121/69. HEENT: Unremarkable. NECK: No adenopathy or JVD. LUNGS: Diminished breath sounds at bases. CARDIAC: S1 and S2. Regular. ABDOMEN: Morbidly obese, soft, and nontender. EXTREMITIES: Edematous. LABORATORY DATA: A pH 7.34, pCO2 of 58, pO2 of 80 on SIMV rate 12, tidal volume 500, PEEP 10, pressure support 10, and FiO2 of 40%. White blood cell count 7.1, hematocrit 32.1, platelet count 191. Sodium 139, potassium 4.5, chloride 100, CO2 of 35, BUN 24, creatinine 1.0, and glucose 391. ASSESSMENT: 1. Bilateral bronchopneumonia. 2. Acute respiratory failure, requiring mechanical ventilation. 3. Hypercapnia. 4. Profound fluid overload. 5. Encephalopathy. 6. Acute renal dysfunction. PLAN: 1. Start acetazolamide. 2. Increase rate on mechanical ventilation. 3. Agree with increasing insulin. 4. Continue antibiotics. 5. Anticipate him being intubated several more days. Job ID: [id number]
--- NOTE | 2018-03-13 09:09 | RAD ---
FRONTAL VIEW CHEST: INDICATION: Ventilated patient. COMPARISON: Previous day. FINDINGS: There is progressive pleural-based density involving the mid to inferior right chest as well as invol ving the mid to inferior left chest. Cardiac silhouette is markedly enlarged with prominence of the pulmonary vasculature. Endotracheal tube terminates at the thoracic inlet level. Prior enteric cath eter is not well visualized on the current exam. There is a suggestion of faint linear density trave rsing the mediastinum that may relate to an indwelling catheter, although this is difficult to confir m. The exam is otherwise grossly stable. IMPRESSION: Progressive bilateral pleural fluid with evidence of decompensated congestive heart failure. POS: [facility]
[2018-03-13] MEDS: acetaZOLAMIDE Sodium 500 MG in Sodium Chloride 0.9% 50 ML IVPB SCH ×2 (09:30→21:33)
--- NOTE | 2018-03-13 10:07 | PDOC.PN ---
- Subjective Encounter Start Date: 03/13/18 Encounter Start Time: 09:00 Patient seen and examined. pt is intubated, sedated, bedside. No overnight events - Objective MAR Reviewed: Yes Vital Signs & Weight: Vital Signs (12 hours) Temp Pulse Resp BP Pulse Ox 03/13/18 08:00 15 03/13/18 07:10 97 03/13/18 07:00 99.3 F 03/13/18 06:36 104 H 114/66 03/13/18 06:35 104 H 12 97 03/13/18 06:00 12 03/13/18 04:00 100.5 F H 12 03/13/18 02:42 105 H 117/67 03/13/18 02:00 12 03/13/18 00:23 104 H 12 96 03/13/18 00:00 101.0 F H 12 03/12/18 22:31 104 H 117/66 Weight Admit Weight 371 lb Weight 370 lb 6.025 oz Most Recent Monitor Data Heart Rate from ECG 106 NIBP 126/73 NIBP BP-Mean 90 Respiration from ECG 18 SpO2 96 I&O: 03/12/18 03/13/18 03/14/18 06:59 06:59 06:59 Intake Total 2916.0 2924 0 Output Total 2549 3940 205 Balance 367.0 -1016 -205 Result Diagrams: 03/13/18 06:16 03/13/18 06:16 Additional Labs: Accuchecks 03/13/18 03/12/18 03/12/18 03:51 21:55 16:31 POC Glucose 370 H 356 H 338 H 03/12/18 11:28 POC Glucose 335 H Radiology Reviewed by me: Yes (chest xray reviewed) EKG Reviewed by me: Yes (nsr) Phys Exam - Physical Examination Constitutional: NAD intubated HEENT: PERRLA, sclera anicteric Neck: no JVD, supple Respiratory: no wheezing, no rales, no rhonchi anteriorly Cardiovascular: RRR, no significant murmur Gastrointestinal: soft, no distention, positive bowel sounds Musculoskeletal: pulses present, edema present Lymphatic: no nodes Skin: no rash, normal turgor Dx/Plan (1) Sepsis with acute organ dysfunction Code(s): A41.9 - SEPSIS, UNSPECIFIED ORGANISM; R65.20 - SEVERE SEPSIS WITHOUT SEPTIC SHOCK Status: Acute (2) Bilateral pneumonia Code(s): J18.9 - PNEUMONIA, UNSPECIFIED ORGANISM Status: Acute (3) Acute kidney injury Code(s): N17.9 - ACUTE KIDNEY FAILURE, UNSPECIFIED Status: Acute (4) Acute metabolic encephalopathy Code(s): G93.41 - METABOLIC ENCEPHALOPATHY Status: Acute (5) Acute respiratory acidosis Code(s): E87.2 - ACIDOSIS Status: Acute (6) CO2 narcosis Code(s): R06.89 - OTHER ABNORMALITIES OF BREATHING Status: Acute (7) Mass of right testicle Code(s): N50.9 - DISORDER OF MALE GENITAL ORGANS, UNSPECIFIED Status: Acute (8) NADIA (obstructive sleep apnea) Code(s): G47.33 - OBSTRUCTIVE SLEEP APNEA (ADULT) (PEDIATRIC) Status: Suspected (9) Hypertension Code(s): I10 - ESSENTIAL (PRIMARY) HYPERTENSION Status: Chronic (10) Morbid obesity with BMI of 50.0-59.9, adult Code(s): E66.01 - MORBID (SEVERE) OBESITY DUE TO EXCESS CALORIES; Z68.43 - BODY MASS INDEX (BMI) 50-59.9, ADULT Status: Chronic (11) GERD (gastroesophageal reflux disease) Code(s): K21.9 - GASTRO-ESOPHAGEAL REFLUX DISEASE WITHOUT ESOPHAGITIS Status: Chronic (12) Anxiety and depression Code(s): F41.9 - ANXIETY DISORDER, UNSPECIFIED; F32.9 - MAJOR DEPRESSIVE DISORDER, SINGLE EPISODE, UNSPECIFIED Status: Chronic - Plan cont current plan of care, continue antibiotics, respiratory therapy * give one dose of lasix * continue empiric antibiotics * discussed with * vent per pulmonary * medication reviewed as below * symptomatic treatment. Review of Systems - Review of Systems Other: unable to review due to intubated status - Medications/Allergies Allergies/Adverse Reactions: Allergies Allergy/AdvReac Type Severity Reaction Status Date / Time No Allergy Information Allergy Verified 03/09/18 06:10 Available Medications: Current Medications Acetaminophen (Tylenol Elixir) 650 mg PER TUBE Q6H PRN PRN Reason: Fever Last Admin: 03/13/18 00:28 Dose: 650 mg Albuterol/Ipratropium (Duoneb) 3 ml NEB [id number] Last Admin: 03/13/18 06:35 Dose: 3 ml Artificial Tears (Tears Naturale) 2 drop EA EYE PRN PRN PRN Reason: Dry Eyes Buspirone HCl (Buspar) 10 mg PER TUBE BID [facility] Last Admin: 03/13/18 08:51 Dose: 10 mg Dextrose/Water (Dextrose 50%) 25 gm SLOW IVP PRN PRN PRN Reason: Hypoglycemia Enoxaparin Sodium (Lovenox) 40 mg SC 0900 [facility] Last Admin: 03/13/18 08:45 Dose: 40 mg Glucagon (Glucagon) 1 mg IM PRN PRN PRN Reason: Hypoglycemia Hydralazine HCl (Apresoline) 10 mg SLOW IVP Q4H PRN PRN Reason: SBP > 180 and HR < 70 Fentanyl Citrate 2,000 mcg/ (Sodium Chloride) 100 mls @ 0 mls/hr IV INF [facility]; Protocol Stop: 04/08/18 05:51 Last Admin: 03/12/18 06:48 Dose: 100 mls Fentanyl Citrate (Fentanyl Bolus) 250 mls @ 0 mls/hr IVPB PRN PRN PRN Reason: Breakthrough pain/agitation Stop: 04/08/18 05:51 Dextrose/Water (D5w) 1,000 mls @ 0 mls/hr IV .Q0M PRN PRN Reason: Hypoglycemia Piperacillin Sod/Tazobactam (Sod 3.375 gm/ Sodium Chloride) 100 mls @ 200 mls/ hr IVPB 0300,0900,1500,2100 [facility] Last Admin: 03/13/18 08:44 Dose: 100 mls Insulin Glargine 10 units/ (Miscellaneous Medication) 0.1 mls @ 0 mls/hr SC HS [facility] Insulin Glargine 10 units/ (Miscellaneous Medication) 0.1 mls @ 0 mls/hr SC QAM [facility] Acetazolamide Sodium 500 mg/ (Sodium Chloride) 50 mls @ 100 mls/hr IVPB BID [facility] Last Admin: 03/13/18 09:30 Dose: 50 mls Insulin Human Regular (Humulin R) 0 units SC .AGGRESSIVE SLIDING PRN PRN Reason: Aggressive Sliding Scale Last Admin: 03/13/18 03:51 Dose: 13 unit Lorazepam (Ativan) 2 mg SLOW IVP Q1H PRN PRN Reason: Breakthrough agitation Stop: 04/08/18 05:51 Last Admin: 03/13/18 07:57 Dose: 2 mg Mineral Oil/White Petrolatum (Eucerin Cream) 0 gm TOP BIDPRN PRN PRN Reason: Dry Skin Morphine Sulfate (Morphine) 2 mg SLOW IVP Q4H PRN PRN Reason: Breakthrough Pain Discontinue Previous Narcotic Pain Medications And Benzodiazepines 1 each FS .ONE [facility] Stop: 04/08/18 05:51 Pantoprazole Sodium (Protonix) 40 mg IVP DAILY [facility] Last Admin: 03/13/18 08:44 Dose: 40 mg Propofol (Diprivan) 1,000 mg IV INF PRN; Protocol PRN Reason: TO ACHIEVE GOAL RASS Stop: 04/08/18 05:51 Last Admin: 03/13/18 07:57 Dose: 1,000 mg Propofol (Diprivan Bolus) 20 mg IV Q5MIN PRN PRN Reason: BREAKTHROUGH AGITATION Stop: 04/08/18 05:51 Sodium Chloride ([place] Nasal [place] 0.65%) 0 ml EA NARE QIDPRN PRN PRN Reason: Nasal Congestion Sodium Chloride (Flush - Normal Saline) 10 ml IVF Q12HR [facility] Last Admin: 03/13/18 08:44 Dose: 10 ml Sodium Chloride (Flush - Normal Saline) 10 ml IVF PRN PRN PRN Reason: Saline Flush
[2018-03-13] MEDS ORDERED: Furosemide 40 MG/4 ML VIAL SLOW IVP SCH (10:15)
[2018-03-13] MEDS: Insulin Glargine 10 UNITS in Pre-Filled Syringe 1 EACH SC SCH (10:25)
[2018-03-13] MEDS ORDERED: Insulin Glargine 10 UNITS in Pre-Filled Syringe SC SCH (21:00)
[2018-03-14] MEDS: Propofol 1,000 MG/100 ML VIAL IV PRN ×6 (00:25→23:12)
[2018-03-14] MEDS: Piperacillin/Tazobactam 3.375 GM in Sodium Chloride 0.9% 100 ML IVPB SCH ×4 (03:22→20:57)
[2018-03-14] MEDS: Insulin Regular 300 UNITS/3 ML VIAL SC PRN ×4 (04:48→20:56)
[2018-03-14 04:56] LABS: Band 16 % (5-11); Eosinophils 1 % (0-10); Hemoglobin 10.3 g/dL (14.0-18.0); Lymphocytes 11 % (21-51); MDiff Complete? YES; Mean Corpuscular HGB CONC 31.4 g/dL (32.0-36.0); Mean Corpuscular Hemoglobin 25.6 pg (27.0-31.0); Mean Corpuscular Volume 81.5 fL (78.0-98.0); Mean Platelet Volume 8.9 fL (7.4-10.4); Metamyelocyte 1 % (0-0); Monocytes 7 % (0-10); Neutrophil 64 % (42-75); Platelet Count 197 thou/uL (130-400); Platelet Morphology Comment Appears Adequate; RBC Distribution Width 17.4 % (11.5-14.5); Red Blood Cell (RBC) Count 4.02 mill/uL (4.70-6.10); White Blood Cell (WBC) Count 7.7 thou/uL (4.8-10.8)
[2018-03-14 05:06] LABS: Anion Gap 12 mmol/L (10-20); BUN (Urea Nitrogen) 19 mg/dL (8.4-25.7); Calc. Creatinine Clearance 191 mL/min (70-130); Calcium 8.9 mg/dL (7.8-10.44); Carbon Dioxide 25 mmol/L (23-31); Chloride 103 mmol/L (98-107); Estimated GFR-MDRD 85; Glucose 357 mg/dL (80-115); Potassium 4.2 mmol/L (3.5-5.1); Sodium 136 mmol/L (136-145)
[2018-03-14] MEDS: Lorazepam 2 MG/ML VIAL SLOW IVP PRN ×2 (06:59→16:28)
[2018-03-14 07:28] LABS: Actual Bicarbonate (HCO3a) 22.2 mEq/L (22-28); Base Excess (BEa) -3.4 mEq/L (-2.0 to +3.0); CO2 Tension 42.4 mmHg (35.0-45.0); Calcium, Ionized 1.19 mmol/L (1.12-1.30); Carboxyhemoglobin (COHb) 1.9 gm% (0.0-3.0); Hemoglobin (Hb) 10.9 g/dL (14.0-18.0); O2 Tension (PaO2) 66.1 mmHg (> 80.0); Puncture Site RRA; pH, Arterial 7.34 (7.35-7.45)
[2018-03-14] MEDS: acetaZOLAMIDE Sodium 500 MG in Sodium Chloride 0.9% 50 ML IVPB SCH ×2 (08:24→20:55)
[2018-03-14] MEDS: Insulin Glargine 10 UNITS in Pre-Filled Syringe 1 EACH SC SCH (08:27)
[2018-03-14] MEDS: Enoxaparin Sodium 40 MG/0.4 ML SYRINGE SC SCH (08:27)
[2018-03-14] MEDS: busPIRone HCl 10 MG TAB PER TUBE SCH ×2 (08:27→21:37)
[2018-03-14] MEDS: Pantoprazole 40 MG VIAL IVP SCH (08:33)
--- NOTE | 2018-03-14 08:47 | RAD ---
CHEST ONE VIEW: History: Dyspnea. Follow up. Comparison: 03-13-18 FINDINGS: Cardiac silhouette remains magnified, enlarged, and partially obscured by bilateral pleural fluid and bibasilar infiltrates that are similar to appearance to the prior study. Pulmonary vasculature remai ns enlarged with bilateral perihilar infiltrates. Patient is markedly rotated rightward on the curren t study. Endotracheal catheter appears unchanged in position. No evidence of pneumothorax. IMPRESSION: Pulmonary edema, pleural fluid, and other findings appear stable. POS: YUEH
[2018-03-14] MEDS ORDERED: Insulin Glargine 25 UNITS in Pre-Filled Syringe 1 EACH SC SCH ×2 (09:00→21:00)
[2018-03-14] MEDS ORDERED: Insulin Glargine 15 UNITS in Pre-Filled Syringe 1 EACH SC SCH (10:00)
--- NOTE | 2018-03-14 10:45 | PRG ---
DATE OF SERVICE: 03/14/2018 TIME SPENT: 35 minutes of critical care time. SUBJECTIVE: The patient remains intubated on mechanical ventilation. He will wake up and the sedation is lowered, but he gets extremely wild. OBJECTIVE: VITAL SIGNS: Temperature is 98.7, pulse 103, blood pressure 170/100, 24-hour intake 1860, output 4540, weight is 374 pounds. HEENT: Unremarkable. NECK: JVD. LUNGS: Coarse breath sounds. CARDIAC: S1, S2, tachycardic. ABDOMEN: Obese, soft. EXTREMITIES: Edematous. LABORATORY DATA: Sodium 136, potassium 4.2, chloride 103, CO2 of 25, BUN 19, creatinine 0.9, glucose 357. White blood cell count 7.7, hematocrit 32.8, and platelet count 197. PH 7.34, pCO2 of 42, pO2 of 66 on SIMV rate 18, tidal volume 500, PEEP 10, pressure support 10, and FiO2 of 40%. His chest x-ray is rotated, probably unchanged. ASSESSMENT: 1. Acute respiratory failure, requiring mechanical ventilation. 2. Bilateral pneumonia. 3. Possible component of diastolic cardiac dysfunction. 4. Improved metabolic alkalosis after being started on Diamox. 5. Fluid overloaded. 6. Encephalopathy. 7. Acute renal dysfunction, which has improved. 8. Diabetes mellitus with elevated blood sugars. PLAN: 1. Dr. Lundberg has increased the patient's insulin. 2. Continue the antibiotics. 3. Continue mechanical ventilation with current settings. 4. Ask Cardiology to consult in regard to the atrial fibrillation and heart failure management. Job ID: [id number]
--- NOTE | 2018-03-14 10:52 | PDOC.PN ---
- Subjective Encounter Start Date: 03/14/18 Encounter Start Time: 09:20 Patient seen and examined. pt is intubated, bedside, No overnight events - Objective MAR Reviewed: Yes Vital Signs & Weight: Vital Signs (12 hours) Temp Pulse Resp BP Pulse Ox 03/14/18 10:12 85 155/90 H 03/14/18 10:00 18 03/14/18 08:00 21 H 03/14/18 07:07 98 03/14/18 07:00 98.7 F 03/14/18 06:43 92 169/94 H 03/14/18 06:41 89 18 97 03/14/18 06:00 18 03/14/18 04:00 98.8 F 18 03/14/18 02:55 98 03/14/18 02:54 94 172/107 H 03/14/18 02:00 18 03/14/18 00:39 80 18 97 03/14/18 00:00 98.7 F 18 Weight Admit Weight 371 lb Weight 369 lb 14.97 oz Most Recent Monitor Data Heart Rate from ECG 89 NIBP 155/90 NIBP BP-Mean 111 Respiration from ECG 18 SpO2 98 I&O: 03/13/18 03/14/18 03/15/18 06:59 06:59 06:59 Intake Total 2924 1860 230 Output Total 3940 4540 840 Balance -1016 -2680 -610 Result Diagrams: 03/14/18 04:42 03/14/18 04:42 Additional Labs: Accuchecks 03/14/18 03/14/18 03/13/18 10:12 04:34 20:49 POC Glucose 335 H 320 H 316 H 03/13/18 16:55 POC Glucose 312 H Radiology Reviewed by me: Yes (chest xray reviewed) EKG Reviewed by me: Yes (nsr) Phys Exam - Physical Examination Constitutional: NAD on vent HEENT: PERRLA, sclera anicteric Neck: no JVD Respiratory: no wheezing, no rales, no rhonchi anteriorly Cardiovascular: RRR, no significant murmur, no rub Gastrointestinal: soft, no distention, positive bowel sounds obesity+ Musculoskeletal: edema present Lymphatic: no nodes Skin: no rash, normal turgor Dx/Plan (1) Sepsis with acute organ dysfunction Code(s): A41.9 - SEPSIS, UNSPECIFIED ORGANISM; R65.20 - SEVERE SEPSIS WITHOUT SEPTIC SHOCK Status: Acute (2) Bilateral pneumonia Code(s): J18.9 - PNEUMONIA, UNSPECIFIED ORGANISM Status: Acute (3) Acute kidney injury Code(s): N17.9 - ACUTE KIDNEY FAILURE, UNSPECIFIED Status: Acute (4) Acute metabolic encephalopathy Code(s): G93.41 - METABOLIC ENCEPHALOPATHY Status: Acute (5) Acute respiratory acidosis Code(s): E87.2 - ACIDOSIS Status: Acute (6) CO2 narcosis Code(s): R06.89 - OTHER ABNORMALITIES OF BREATHING Status: Acute (7) Mass of right testicle Code(s): N50.9 - DISORDER OF MALE GENITAL ORGANS, UNSPECIFIED Status: Acute (8) NADIA (obstructive sleep apnea) Code(s): G47.33 - OBSTRUCTIVE SLEEP APNEA (ADULT) (PEDIATRIC) Status: Suspected (9) Hypertension Code(s): I10 - ESSENTIAL (PRIMARY) HYPERTENSION Status: Chronic (10) Morbid obesity with BMI of 50.0-59.9, adult Code(s): E66.01 - MORBID (SEVERE) OBESITY DUE TO EXCESS CALORIES; Z68.43 - BODY MASS INDEX (BMI) 50-59.9, ADULT Status: Chronic (11) GERD (gastroesophageal reflux disease) Code(s): K21.9 - GASTRO-ESOPHAGEAL REFLUX DISEASE WITHOUT ESOPHAGITIS Status: Chronic (12) Anxiety and depression Code(s): F41.9 - ANXIETY DISORDER, UNSPECIFIED; F32.9 - MAJOR DEPRESSIVE DISORDER, SINGLE EPISODE, UNSPECIFIED Status: Chronic (13) Diabetes type 2, uncontrolled Code(s): E11.65 - TYPE 2 DIABETES MELLITUS WITH HYPERGLYCEMIA Status: Acute - Plan cont current plan of care, plan discussed w/ family, continue antibiotics * will increase lantus 25 unit sc bid * continue aggressive sliding scale insulin * continue lasix * continue IV antibiotics * vent as per pulmonary * discussed with * medication reviewed as below * symptomatic treatment. Review of Systems - Review of Systems Other: unable to review due to intubated status - Medications/Allergies Allergies/Adverse Reactions: Allergies Allergy/AdvReac Type Severity Reaction Status Date / Time No Allergy Information Allergy Verified 03/09/18 06:10 Available Medications: Current Medications Acetaminophen (Tylenol Elixir) 650 mg PER TUBE Q6H PRN PRN Reason: Fever Last Admin: 03/13/18 00:28 Dose: 650 mg Albuterol/Ipratropium (Duoneb) 3 ml NEB [id number] [facility] Last Admin: 03/14/18 06:41 Dose: 3 ml Artificial Tears (Tears Naturale) 2 drop EA EYE PRN PRN PRN Reason: Dry Eyes Buspirone HCl (Buspar) 10 mg PER TUBE BID [facility] Last Admin: 03/14/18 08:27 Dose: 10 mg Dextrose/Water (Dextrose 50%) 25 gm SLOW IVP PRN PRN PRN Reason: Hypoglycemia Enoxaparin Sodium (Lovenox) 40 mg SC 0900 [facility] Last Admin: 03/14/18 08:27 Dose: 40 mg Glucagon (Glucagon) 1 mg IM PRN PRN PRN Reason: Hypoglycemia Hydralazine HCl (Apresoline) 10 mg SLOW IVP Q4H PRN PRN Reason: SBP > 180 and HR < 70 Fentanyl Citrate 2,000 mcg/ (Sodium Chloride) 100 mls @ 0 mls/hr IV INF [facility]; Protocol Stop: 04/08/18 05:51 Last Admin: 03/12/18 06:48 Dose: 100 mls Fentanyl Citrate (Fentanyl Bolus) 250 mls @ 0 mls/hr IVPB PRN PRN PRN Reason: Breakthrough pain/agitation Stop: 04/08/18 05:51 Dextrose/Water (D5w) 1,000 mls @ 0 mls/hr IV .Q0M PRN PRN Reason: Hypoglycemia Piperacillin Sod/Tazobactam (Sod 3.375 gm/ Sodium Chloride) 100 mls @ 200 mls/ hr IVPB 0300,0900,1500,2100 [facility] Last Admin: 03/14/18 08:24 Dose: 100 mls Acetazolamide Sodium 500 mg/ (Sodium Chloride) 50 mls @ 100 mls/hr IVPB BID [facility] Last Admin: 03/14/18 08:24 Dose: 50 mls Insulin Glargine 25 units/ (Miscellaneous Medication) 0.25 mls @ 0 mls/hr SC HS [facility] Insulin Glargine 25 units/ (Miscellaneous Medication) 0.25 mls @ 0 mls/hr SC QAM [facility] Last Admin: 03/14/18 10:22 Dose: Not Given Insulin Glargine 15 units/ (Miscellaneous Medication) 0.15 mls @ 0 mls/hr SC NOW [facility] Stop: 03/14/18 12:00 Last Admin: 03/14/18 10:21 Dose: 0.15 mls Insulin Human Regular (Humulin R) 0 units SC .AGGRESSIVE SLIDING PRN PRN Reason: Aggressive Sliding Scale Last Admin: 03/14/18 10:22 Dose: 11 unit Lorazepam (Ativan) 2 mg SLOW IVP Q1H PRN PRN Reason: Breakthrough agitation Stop: 04/08/18 05:51 Last Admin: 03/14/18 06:59 Dose: 2 mg Mineral Oil/White Petrolatum (Eucerin Cream) 0 gm TOP BIDPRN PRN PRN Reason: Dry Skin Morphine Sulfate (Morphine) 2 mg SLOW IVP Q4H PRN PRN Reason: Breakthrough Pain Discontinue Previous Narcotic Pain Medications And Benzodiazepines 1 each FS .ONE [facility] Stop: 04/08/18 05:51 Pantoprazole Sodium (Protonix) 40 mg IVP DAILY [facility] Last Admin: 03/14/18 08:33 Dose: 40 mg Propofol (Diprivan) 1,000 mg IV INF PRN; Protocol PRN Reason: TO ACHIEVE GOAL RASS Stop: 04/08/18 05:51 Last Admin: 03/14/18 08:05 Dose: 1,000 mg Propofol (Diprivan Bolus) 20 mg IV Q5MIN PRN PRN Reason: BREAKTHROUGH AGITATION Stop: 04/08/18 05:51 Sodium Chloride ([place] Nasal [place] 0.65%) 0 ml EA NARE QIDPRN PRN PRN Reason: Nasal Congestion Sodium Chloride (Flush - Normal Saline) 10 ml IVF Q12HR [facility] Last Admin: 03/14/18 08:33 Dose: 10 ml Sodium Chloride (Flush - Normal Saline) 10 ml IVF PRN PRN PRN Reason: Saline Flush
--- NOTE | 2018-03-14 13:27 | CON ---
DATE OF CONSULTATION: 03/14/2018 INDICATION FOR CONSULTATION: A 67-year-old gentleman who was admitted with acute respiratory failure and metabolic encephalopathy. He has a history of diabetes and hypertension. He has actually been also having intermittent episodes of atrial flutter and atrial fibrillation. On this admission, EKG showed that he was in atrial flutter on the , had apparently been in and out of the atrial flutter and appeared to have some episodes also of atrial fibrillation, but then converted back to sinus rhythm. He has had no significant previous cardiac history. He did have a workup within the last year from a fluid power mechanic, which showed a normal ejection fraction with normal left atrial size. He also had a negative stress test in January 2018. He was admitted at this time due to respiratory failure. He had fallen at home and he was brought to the emergency room after he had some mental status changes and was found to have a low oxygen level, required intubation. He apparently has been remained intubated since the 09 of March and appears to have pneumonia. His BNP was only 119.2. He has had another repeat echocardiogram which shows still a normal ejection fraction. Ejection fraction 50% to 55% with only mild left atrial dilatation, but no other significant abnormalities were noted on the echocardiogram. He has had no EKG changes that would indicate ischemia. His chest x-ray continues to show congestion as well as what appears to be probable pneumonia with pleural effusions. His blood cultures have remained negative. His white blood cell count was elevated, but now has decreased down to 7.7. We were asked to see him due to what was felt to be atrial fibrillation and he did have some short episodes of this on the monitor, but goes in and out of atrial fibrillation to sinus rhythm and atrial flutter. His past medical history, he is still on the ventilator and history is obtained from the family and from the records and also review of the records from where they were sent from his previous fluid power mechanic over in [place]. PAST MEDICAL HISTORY: Significant for diabetes. He has some mild peripheral vascular disease with dilatation of the proximal celiac artery. He has history of hypertension, hypercholesterolemia, obstructive sleep apnea, morbid obesity. He has a history of venous insufficiency of the left greater saphenous vein. He has history of depression. He has had cholecystectomy. SOCIAL HISTORY: He is . He has children who is alive and well. He has smoked in the past about 30 years, stopped about 10 years ago. FAMILY HISTORY: Unremarkable. ALLERGIES: NONE. PRESENT MEDICATIONS: 1. Acetazolamide. 2. Fentanyl. 3. Insulin. 4. Piperacillin. 5. He is taking BuSpar. 6. Lovenox. 7. Ipratropium/albuterol. 8. Protonix. 9. Diprivan. 10. Other p.r.n. medications. 11. Prior to admission, he was taking amitriptyline, furosemide, metoprolol, Nexium, Xanax, valsartan, and buspirone. REVIEW OF SYSTEMS: Obtained via the family. He has had no new HEENT complaints such as visual changes, hearing loss or tinnitus. PULMONARY: He had no history in the past as far as the knows of any significant COPD, asthma, emphysema, bronchitis. He did smoke in the past. CARDIOVASCULAR: He denied any chest pain. There is no history of palpitations. GI: No nausea, vomiting, or diarrhea. : No dysuria, polyuria, or hematuria. He did have scrotal edema. NEUROLOGIC: No history of seizures or syncope. PHYSICAL EXAMINATION: GENERAL: Reveals an elderly gentleman, who is on the ventilator. VITAL SIGNS: Blood pressure is 146/89, heart rate in the 80s to 100s and is in and out of atrial fibrillation to normal sinus rhythm. HEENT: Shows head to be normocephalic and atraumatic. Carotid pulses are present. I could not hear any bruits at this time. There is upper airway noise associated with the ventilator. The patient is on the ventilator. CHEST: Clear to auscultation anteriorly. I could not auscultate posteriorly, but the breath sounds appear to be decreased in the bases. CARDIOVASCULAR: At this time reveals a regular rhythm. I did not hear any gross murmurs, heaves, thrills, bruits, or rubs. ABDOMEN: Shows morbid obesity. Positive bowel sounds are present, but diminished. Did not hear any tenderness obviously. There are no masses. EXTREMITIES: Showed mild lower extremity edema. He does have scrotal edema. Pedal pulses are present, but difficult to palpate due to the edema in the large size extremities. NEUROLOGIC: The patient is sedated. EKG shows atrial flutter and other time shows normal sinus rhythm. There are no acute changes with the rapid heart rate, but he is maintaining. He has not had any significant rapid tachycardia, but the admission EKG on March 09 shows evidence of atrial flutter with a heart rate of only 83 beats per minute. His chest x-ray continues to show pleural effusion and infiltrates and some mild pulmonary edema; however, his BNP was only 119. IMPRESSION: 1. Acute respiratory failure. The patient remains on the ventilator. Appears to have pneumonia, possible sepsis. He is being dealt by the elevated motorman. 2. Atrial fibrillation and flutter. Intermittently, we will start the patient on some IV diltiazem to see if this will control this. In future, may need to be seen by the button sewer hand to undergo ablation of the atrial flutter, then control of the atrial fibrillation. If we are not able to control this with diltiazem, then we could consider Multaq or even flecainide since he has no evidence of ischemia on the EKG and had a normal stress test in January 2018 and has a normal left ventricular systolic function. 3. Metabolic encephalopathy. This is most likely due to hypoxemia associated with chronic obstructive pulmonary disease or underlying respiratory failure. This will be monitored also by Neurology and the primary care service. 4. History of diabetes. This is actually very poor control, most likely associated with underlying infection at this time. 5. Hypertension. This is also slightly elevated, but with the addition of the diltiazem, this may decrease slightly. 6. History of possible diastolic dysfunction. I do not see this on the recent echocardiogram at least on the report, which was read by one of my colleagues. We will continue to follow the patient with you, but we will start low-dose IV diltiazem for the atrial flutter and fibrillation. If this continues, we will ask button sewer hand to see the patient. Job ID: [id number]
[2018-03-14] MEDS: Diltiazem 125 MG in Sodium Chloride 0.9% 100 ML IVPB SCH (13:28)
[2018-03-14] MEDS ORDERED: busPIRone HCl 5 MG TAB PER TUBE SCH (21:30)
[2018-03-15] MEDS: Piperacillin/Tazobactam 3.375 GM in Sodium Chloride 0.9% 100 ML IVPB SCH (02:09)
[2018-03-15] MEDS: Propofol 1,000 MG/100 ML VIAL IV PRN ×6 (02:18→22:40)
[2018-03-15] MEDS: Insulin Regular 300 UNITS/3 ML VIAL SC PRN ×4 (03:08→23:10)
[2018-03-15 06:40] LABS: Anion Gap 11 mmol/L (10-20); BUN (Urea Nitrogen) 16 mg/dL (8.4-25.7); Band 3 % (5-11); Calc. Creatinine Clearance 196 mL/min (70-130); Calcium 9.2 mg/dL (7.8-10.44); Carbon Dioxide 23 mmol/L (23-31); Chloride 105 mmol/L (98-107); Eosinophils 5 % (0-10); Estimated GFR-MDRD 90; Glucose 344 mg/dL (80-115); Hemoglobin 10.3 g/dL (14.0-18.0); Hypochromia SLIGHT = 6-15 cells (100X) (0-5/hpf); Lymphocytes 5 % (21-51); MDiff Complete? YES; Mean Corpuscular HGB CONC 31.1 g/dL (32.0-36.0); Mean Corpuscular Hemoglobin 25.2 pg (27.0-31.0); Mean Platelet Volume 9.1 fL (7.4-10.4); Monocytes 2 % (0-10); Neutrophil 85 % (42-75); Platelet Count 212 thou/uL (130-400); Platelet Morphology Comment Appears Adequate; Potassium 4.3 mmol/L (3.5-5.1); RBC Distribution Width 17.5 % (11.5-14.5); Red Blood Cell (RBC) Count 4.08 mill/uL (4.70-6.10); Sodium 135 mmol/L (136-145); White Blood Cell (WBC) Count 8.5 thou/uL (4.8-10.8)
[2018-03-15 07:00] LABS: Actual Bicarbonate (HCO3a) 21.6 mEq/L (22-28); Base Excess (BEa) -3.9 mEq/L (-2.0 to +3.0); CO2 Tension 41.2 mmHg (35.0-45.0); Calcium, Ionized 1.22 mmol/L (1.12-1.30); Carboxyhemoglobin (COHb) 1.5 gm% (0.0-3.0); Hemoglobin (Hb) 11.7 g/dL (14.0-18.0); O2 Tension (PaO2) 107.5 mmHg (> 80.0); Potassium - ABG Lab 4.11 mmol/L (3.70-5.30); pH, Arterial 7.34 (7.35-7.45)
[2018-03-15 07:07] LABS: Puncture Site RRA
--- NOTE | 2018-03-15 08:15 | RAD ---
PORTABLE CHEST: Comparison: Prior day's exam. History: Respiratory distress. FINDINGS: Endotracheal tube is in satisfactory position. Heart size is enlarged. Parenchymal lung changes appea r stable. IMPRESSION: Stable exam. POS: POPPY
--- NOTE | 2018-03-15 08:42 | PRG ---
DATE OF SERVICE: 03/15/2018 TIME SPENT: This is a 35 minutes of critical care time. SUBJECTIVE: This patient remains intubated on mechanical ventilation. We have been able to make some good progress on weaning his rate, PEEP, and oxygenation overnight. OBJECTIVE: VITAL SIGNS: On exam; his temperature is 98.9 with no recorded fever since midnight 1:14 when he was 101.0, pulse is 81, and blood pressure 155/83. A 24-hour intake 2511 and output 3825. Weight 262 pounds. HEENT: Unremarkable. NECK: No JVD. LUNGS: Diminished breath sounds at bases. CARDIAC: S1 and S2. No regular on a Cardizem drip. ABDOMEN: Soft, obese, nontender, and nondistended. EXTREMITIES: Decreased edema. LABORATORY DATA: Sodium 135, potassium 4.3, chloride 105, CO2 of 23, BUN 16, creatinine 0.8, glucose 344, and calcium 9.2. White blood cell count 8.5, hematocrit 33.1, and platelet count 212. ABG; pH of 7.34, pCO2 of 41, pO2 of 107 on SIMV rate 18, tidal volume of 500, PEEP 10, pressure support 10, and FiO2 of 40%. ASSESSMENT: 1. Acute respiratory failure requiring mechanical ventilation. The patient's oxygenation has improved, I think primarily due to diuresis. 2. Bilateral pneumonia, which also seems to be improving. 3. Atrial fibrillation/atrial flutter. 4. Encephalopathy. 5. Acute renal dysfunction, which is improved. 6. Diabetes mellitus with elevated blood sugars. PLAN: 1. I will switch his insulin over to NPH and increase the dose. 2. Continue antibiotics. 3. Begin weaning respiratory rate, PEEP, and FiO2. 4. Appreciate Dr. Barnes's help in regard to the atrial fibrillation/atrial flutter. 5. I have adjusted his diuretics, so that we are giving Diamox once a day and Lasix once a day, as he started developing mild metabolic acidosis from acetazolamide. I think it will probably take him 2 to 3 days more to get in position, where we can consider extubation. I will keep his family updated. Job ID: [id number]
[2018-03-15] MEDS: Pantoprazole 40 MG VIAL IVP SCH (08:43)
[2018-03-15] MEDS: busPIRone HCl 5 MG TAB PER TUBE SCH ×2 (08:43→19:16)
[2018-03-15] MEDS: Enoxaparin Sodium 40 MG/0.4 ML SYRINGE SC SCH ×2 (08:43→19:16)
[2018-03-15] MEDS: Amoxicillin/Potassium Clav 875 MG TAB PER TUBE SCH ×2 (08:48→19:16)
[2018-03-15] MEDS: acetaZOLAMIDE Sodium 500 MG in Sodium Chloride 0.9% 50 ML IVPB SCH (09:24)
--- NOTE | 2018-03-15 09:32 | PDOC.CTH ---
Cardiology Progress Note - Subjective The pt seen and examined. No overnight events. No response 2/2 vent sedation. Questions were answered to family. - Objective Vital Signs Temp Pulse Resp BP Pulse Ox 03/15/18 08:00 21 H 03/15/18 07:16 100 03/15/18 07:00 98.9 F 03/15/18 06:39 70 155/86 H 03/15/18 06:31 69 18 99 03/15/18 06:00 18 03/15/18 04:00 22 H 03/15/18 03:00 98.5 F 03/15/18 02:21 81 165/94 H 03/15/18 02:00 18 03/15/18 01:02 70 18 98 03/15/18 00:00 18 03/14/18 23:00 99.1 F 03/14/18 22:30 83 155/75 H 03/14/18 22:00 18 Admit Weight 371 lb Weight 362 lb 10.566 oz 03/14/18 03/15/18 03/16/18 06:59 06:59 06:59 Intake Total 1860 2511 30 Output Total 4540 3822 495 Balance -2680 -1314 -465 - Physical Examination Lungs: other: (diminished at bases) Heart: other: (irregular) Abdomen: soft Extremities: other: (BLE dicoloration) - Telemetry Telemetry Rhythm: Afib/Aflutter 80-90s - Labs Result Diagrams: 03/15/18 06:06 03/15/18 06:06 Troponin/CKMB Troponin I Less than 0.010 ng/mL (< 0.028) 03/09/18 01:25 - Assessment/Plan 1. Afib/Aflutter - Well controlled HR with Cardizem 10mg/h; Increase Lovenox to 100mg BID; resume Metoprolol 25mg qd as home med. EP consult was ordered for aflutter management. 2. Acute on Chronic diastolic HF - stable with Lasix 40mg IV qd; resume Metoprolol 25mg qd as home med. 3. Bilat PNA - on ABX IV; managed by PCP/drawing box tender 4. OLYA - improved 5. Acute metabolic encephalopathy - 6. HTN - stable 7. Hyperlipidemia - 8. Insulin depend-DM - 9. NADIA - 10. Mrbid Obesity - 11. Anxiety and depression - MAR reviewed Pt. seen and eval. by me. I agree with the A/P by the ROBOTICS ENGINEER. Chest clear anteriorly. Still on ventilator. Irreg. EP has eval. the pt. and agree that a flutter ablation may be advisable when his pulmonary status improves. * His communications professional is Dr Santino Emmanuel in [place], [place] Review of Systems - Review of Systems Constitutional: reports: see HPI
[2018-03-15] MEDS: Diltiazem 125 MG in Sodium Chloride 0.9% 100 ML IVPB SCH (09:47)
[2018-03-15] MEDS: NPH, Human Insulin Isophane 300 UNIT/3 ML VIAL SC SCH ×2 (09:50→19:17)
[2018-03-15] MEDS ORDERED: Enoxaparin Sodium 60 MG/0.6 ML SYRINGE SC SCH (10:30)
[2018-03-15] MEDS ORDERED: Enoxaparin Sodium 120 MG/0.8 ML SYRINGE SC SCH (10:30)
--- NOTE | 2018-03-15 11:26 | PDOC.PN ---
- Subjective Encounter Start Date: 03/15/18 Encounter Start Time: 09:45 Patient seen and examined. pt is on ventilator, bedside, No overnight events - Objective MAR Reviewed: Yes Vital Signs & Weight: Vital Signs (12 hours) Temp Pulse Resp BP Pulse Ox 03/15/18 10:46 83 143/75 H 03/15/18 10:00 22 H 03/15/18 08:00 21 H 03/15/18 07:16 100 03/15/18 07:00 98.9 F 03/15/18 06:39 70 155/86 H 03/15/18 06:31 69 18 99 03/15/18 06:00 18 03/15/18 04:00 22 H 03/15/18 03:00 98.5 F 03/15/18 02:21 81 165/94 H 03/15/18 02:00 18 03/15/18 01:02 70 18 98 03/15/18 00:00 18 Weight Admit Weight 371 lb Weight 362 lb 10.566 oz Most Recent Monitor Data Heart Rate from ECG 82 NIBP 139/76 NIBP BP-Mean 97 Respiration from ECG 23 SpO2 97 I&O: 03/14/18 03/15/18 03/16/18 06:59 06:59 06:59 Intake Total 1860 2511 90 Output Total 4540 3825 970 [facility] -2680 -1314 -880 Result Diagrams: 03/15/18 06:06 03/15/18 06:06 Additional Labs: Accuchecks 03/15/18 03/15/18 03/14/18 09:50 03:08 20:55 POC Glucose 332 H 333 H 333 H 03/14/18 15:49 POC Glucose 313 H Radiology Reviewed by me: Yes (chest xray reviewed) EKG Reviewed by me: Yes (atrial flutter) Phys Exam - Physical Examination Constitutional: NAD on vent HEENT: PERRLA, sclera anicteric Neck: no JVD, supple Respiratory: no wheezing, no rales, no rhonchi anteriorly Cardiovascular: no significant murmur, irregular Gastrointestinal: soft, no distention, positive bowel sounds Musculoskeletal: pulses present, edema present unable to assess as he is intubated Lymphatic: no nodes Deviation from normal: unable to assess Skin: no rash, normal turgor Dx/Plan (1) Sepsis with acute organ dysfunction Code(s): A41.9 - SEPSIS, UNSPECIFIED ORGANISM; R65.20 - SEVERE SEPSIS WITHOUT SEPTIC SHOCK Status: Acute (2) Bilateral pneumonia Code(s): J18.9 - PNEUMONIA, UNSPECIFIED ORGANISM Status: Acute (3) Acute kidney injury Code(s): N17.9 - ACUTE KIDNEY FAILURE, UNSPECIFIED Status: Acute (4) Acute metabolic encephalopathy Code(s): G93.41 - METABOLIC ENCEPHALOPATHY Status: Acute (5) Acute respiratory acidosis Code(s): E87.2 - ACIDOSIS Status: Acute (6) CO2 narcosis Code(s): R06.89 - OTHER ABNORMALITIES OF BREATHING Status: Acute (7) Mass of right testicle Code(s): N50.9 - DISORDER OF MALE GENITAL ORGANS, UNSPECIFIED Status: Acute (8) NADIA (obstructive sleep apnea) Code(s): G47.33 - OBSTRUCTIVE SLEEP APNEA (ADULT) (PEDIATRIC) Status: Suspected (9) Hypertension Code(s): I10 - ESSENTIAL (PRIMARY) HYPERTENSION Status: Chronic (10) Morbid obesity with BMI of 50.0-59.9, adult Code(s): E66.01 - MORBID (SEVERE) OBESITY DUE TO EXCESS CALORIES; Z68.43 - BODY MASS INDEX (BMI) 50-59.9, ADULT Status: Chronic (11) GERD (gastroesophageal reflux disease) Code(s): K21.9 - GASTRO-ESOPHAGEAL REFLUX DISEASE WITHOUT ESOPHAGITIS Status: Chronic (12) Anxiety and depression Code(s): F41.9 - ANXIETY DISORDER, UNSPECIFIED; F32.9 - MAJOR DEPRESSIVE DISORDER, SINGLE EPISODE, UNSPECIFIED Status: Chronic (13) Diabetes type 2, uncontrolled Code(s): E11.65 - TYPE 2 DIABETES MELLITUS WITH HYPERGLYCEMIA Status: Acute (14) Acute on chronic diastolic ACC/AHA stage C congestive heart failure Code(s): I50.33 - ACUTE ON CHRONIC DIASTOLIC (CONGESTIVE) HEART FAILURE Status : Acute (15) Atrial fibrillation and flutter Code(s): I48.91 - UNSPECIFIED ATRIAL FIBRILLATION; I48.92 - UNSPECIFIED ATRIAL FLUTTER Status: Acute (16) Volume overload Code(s): E87.70 - FLUID OVERLOAD, UNSPECIFIED Status: Acute (17) Anemia, normocytic normochromic Code(s): D64.9 - ANEMIA, UNSPECIFIED Status: Chronic - Plan cont current plan of care, plan discussed w/ family, continue antibiotics, respiratory therapy * medication reviewed as below * symptomatic treatment * insulin changed to NPH * continue IV antibiotics * vent as per pulmonary * continue diuresis * cardiology recommendation appreciated. Review of Systems - Review of Systems Other: unable to review due to intubated status - Medications/Allergies Allergies/Adverse Reactions: Allergies Allergy/AdvReac Type Severity Reaction Status Date / Time No Allergy Information Allergy Verified 03/09/18 06:10 Available Medications: Current Medications Acetaminophen (Tylenol Elixir) 650 mg PER TUBE Q6H PRN PRN Reason: Fever Last Admin: 03/13/18 00:28 Dose: 650 mg Albuterol/Ipratropium (Duoneb) 3 ml NEB [id number]-ON [facility] Last Admin: 03/15/18 06:31 Dose: 3 ml Amoxicillin/Clavulanate Potassium (Augmentin) 875 mg PER TUBE Q12HR [facility] Last Admin: 03/15/18 08:48 Dose: 875 mg Artificial Tears (Tears Naturale) 2 drop EA EYE PRN PRN PRN Reason: Dry Eyes Buspirone HCl (Buspar) 10 mg PER TUBE BID [facility] Last Admin: 03/15/18 08:43 Dose: 10 mg Dextrose/Water (Dextrose 50%) 25 gm SLOW IVP PRN PRN PRN Reason: Hypoglycemia Enoxaparin Sodium (Lovenox) 102 mg SC NOW [facility] Stop: 03/15/18 13:00 Last Admin: 03/15/18 10:16 Dose: 102 mg Enoxaparin Sodium (Lovenox) 120 mg SC 0900,2100 [facility] Enoxaparin Sodium (Lovenox) 40 mg SC 0900,2100 [facility] Furosemide (Lasix) 40 mg SLOW IVP DAILY [facility] Furosemide (Lasix) 40 mg SLOW IVP 1500 [facility] Stop: 03/15/18 17:00 Glucagon (Glucagon) 1 mg IM PRN PRN PRN Reason: Hypoglycemia Hydralazine HCl (Apresoline) 10 mg SLOW IVP Q4H PRN PRN Reason: SBP > 180 and HR < 70 Fentanyl Citrate 2,000 mcg/ (Sodium Chloride) 100 mls @ 0 mls/hr IV INF [facility]; Protocol Stop: 04/08/18 05:51 Last Admin: 03/12/18 06:48 Dose: 100 mls Fentanyl Citrate (Fentanyl Bolus) 250 mls @ 0 mls/hr IVPB PRN PRN PRN Reason: Breakthrough pain/agitation Stop: 04/08/18 05:51 Dextrose/Water (D5w) 1,000 mls @ 0 mls/hr IV .Q0M PRN PRN Reason: Hypoglycemia Diltiazem HCl 125 mg/ Sodium (Chloride) 125 mls @ 5 mls/hr IVPB INF [facility]; Protocol Last Admin: 03/15/18 09:47 Dose: 125 mls Acetazolamide Sodium 500 mg/ (Sodium Chloride) 50 mls @ 100 mls/hr IVPB DAILY [facility]; Protocol Last Admin: 03/15/18 09:24 Dose: 50 mls Insulin Human NPH (Humulin N) 40 unit SC BID [facility] Last Admin: 03/15/18 09:50 Dose: 40 unit Insulin Human Regular (Humulin R) 0 units SC .AGGRESSIVE SLIDING PRN PRN Reason: Aggressive Sliding Scale Last Admin: 03/15/18 09:51 Dose: 11 unit Lorazepam (Ativan) 2 mg SLOW IVP Q1H PRN PRN Reason: Breakthrough agitation Stop: 04/08/18 05:51 Last Admin: 03/14/18 16:28 Dose: 2 mg Metoprolol Succinate (Toprol Xl) 25 mg PO DAILY [facility] Last Admin: 03/15/18 10:16 Dose: 25 mg Mineral Oil/White Petrolatum (Eucerin Cream) 0 gm TOP BIDPRN PRN PRN Reason: Dry Skin Morphine Sulfate (Morphine) 2 mg SLOW IVP Q4H PRN PRN Reason: Breakthrough Pain Discontinue Previous Narcotic Pain Medications And Benzodiazepines 1 each FS .ONE [facility] Stop: 04/08/18 05:51 Pantoprazole Sodium (Protonix) 40 mg IVP DAILY [facility] Last Admin: 03/15/18 08:43 Dose: 40 mg Propofol (Diprivan) 1,000 mg IV INF PRN; Protocol PRN Reason: TO ACHIEVE GOAL RASS Stop: 04/08/18 05:51 Last Admin: 03/15/18 11:10 Dose: 1,000 mg Propofol (Diprivan Bolus) 20 mg IV Q5MIN PRN PRN Reason: BREAKTHROUGH AGITATION Stop: 04/08/18 05:51 Sodium Chloride ([employer] Nasal [place] 0.65%) 0 ml EA NARE QIDPRN PRN PRN Reason: Nasal Congestion Sodium Chloride (Flush - Normal Saline) 10 ml IVF Q12HR [facility] Last Admin: 03/15/18 08:44 Dose: 10 ml Sodium Chloride (Flush - Normal Saline) 10 ml IVF PRN PRN PRN Reason: Saline Flush
[2018-03-15] MEDS ORDERED: Furosemide 40 MG/4 ML VIAL SLOW IVP SCH ×2 (15:00)
[2018-03-15] MEDS: Enoxaparin Sodium 120 MG/0.8 ML SYRINGE SC SCH (19:16)
[2018-03-15] MEDS ORDERED: Enoxaparin Sodium 100 MG/ML SYRINGE SC SCH (21:00)
--- NOTE | 2018-03-15 22:12 | CON ---
DATE OF CONSULTATION: 03/15/2018 REFERRING PHYSICIAN: Dr. Ursula Barnes. REASON FOR CONSULTATION: I was seeing Mr. Melendrez at our [facility] ICU as an Electrophysiology health analytics consultant for the following problems: 1. Persisting atrial flutter, possible typical isthmus dependent in morphology. 2. Admission with acute respiratory arrest and metabolic encephalopathy, possibly due to hypoxia and pneumonia, still intubated. 3. No prior cardiac history. 4. History of echo from last year with normal LVF, normal left atrial size. a. Negative stress test in January 2008. 5. 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 ALLERGIES: NONE NOTED. MEDICATIONS: At home included: 1. Alprazolam. 2. Metoprolol. 3. Amitriptyline. 4. Valsartan. 5. Hydrochlorothiazide. 6. Furosemide. 7. Buspirone. 8. Esomeprazole. SUBJECTIVE: The patient is intubated. History obtained from the chart. It seems that he was admitted with progressive dyspnea for 2-3 days prior to admission. Also, some mental status changes were noted. He is more somnolent and lethargic , falling frequently at home. Speech was garbled, difficult to understand, but did not have any focalizing neurological symptoms otherwise. He had chronic headache, recurrent and has chronic daytime somnolence as well. On admission blood pressure was extremely high. Narcan was given, Solu-Medrol and eventually intubation was necessary. A diagnosis of CO2 narcosis was made. His EKGs were suggestive of atrial flutter throughout his stay. The rates were reasonably well controlled. The echo was evaluated as above. IV diltiazem was used for rate control. He is on full-dose Lovenox for thromboprophylaxis, being treated with antibiotics and respiratory therapy. Rest of 12-point system is unremarkable. PAST SURGICAL HISTORY: No prior history of heart disease or heart attacks. SOCIAL HISTORY: The patient denies smoking, EtOH or drug abuse. FAMILY HISTORY: Not contributory. OBJECTIVE DATA: VITAL SIGNS: Blood pressure is 156/82, heart rate 69, respirations 20, temperature 98.8 degrees Fahrenheit. GENERAL: Reveals a morbidly obese, intubated and sedated man, in no apparent distress and fully responsive. NECK: Supple. Jugular veins difficult to evaluate. CHEST: Coarse without crackles. HEART: Sounds are irregularly irregular. S1 is variable. No murmur or gallop. ABDOMEN: Benign. Bowel sounds positive. LOWER EXTREMITY: Without edema, clubbing, or cyanosis. NEUROLOGIC: The patient is nonfocal. MUSCULOSKELETAL: No joint swelling or deformity. SKIN: Without rash. DATABASE: Chest x-ray shows enlarged cardiac silhouette. Parenchymal lung changes appear to be stable. LABORATORY DATA: White count 7.7, hemoglobin 10.3, platelet count is 197. The sodium 135, potassium 4.3, BUN is 16, creatinine 0.85, 332. The EKG initially revealed a likely typical atrial flutter with variable AV conduction with 83 beats per minute. QT is prolonged at 460. Subsequent EKG shows similar findings. Occasional 2:1 AV conduction is noted. ASSESSMENT AND PLAN: Mr. Melendrez is a 67-year-old man with morbid obesity, diabetes, but preserved left ventricular function, presenting with respiratory failure. He also seems to be in atrial flutter, which he has no history of. IV diltiazem and Lovenox are on board. My plan would be: 1. I agree with the current management. Continue Lovenox and diltiazem for rate control. 2. After clinical stabilization, if atrial flutter persists, he might be considered for KATARINA guided cardioversion or ablation therapy. We will follow up with you. Thank you again for allowing to participate in care of this patient. Job ID: [id number] [facility]
[2018-03-16] MEDS: hydrALAZINE 20 MG/ML VIAL SLOW IVP PRN ×2 (02:07→08:18)
[2018-03-16] MEDS: Propofol 1,000 MG/100 ML VIAL IV PRN (02:10)
[2018-03-16 04:16] LABS: Band 9 % (5-11); Eosinophils 2 % (0-10); Hemoglobin 11.1 g/dL (14.0-18.0); Lymphocytes 18 % (21-51); MDiff Complete? YES; Mean Corpuscular HGB CONC 31.9 g/dL (32.0-36.0); Mean Corpuscular Hemoglobin 25.7 pg (27.0-31.0); Mean Corpuscular Volume 80.5 fL (78.0-98.0); Mean Platelet Volume 9.4 fL (7.4-10.4); Monocytes 9 % (0-10); Neutrophil 62 % (42-75); Platelet Count 236 thou/uL (130-400); Platelet Morphology Comment Appears Adequate; RBC Distribution Width 17.3 % (11.5-14.5); Red Blood Cell (RBC) Count 4.31 mill/uL (4.70-6.10); White Blood Cell (WBC) Count 8.6 thou/uL (4.8-10.8)
[2018-03-16 04:22] LABS: Anion Gap 14 mmol/L (10-20); BUN (Urea Nitrogen) 13 mg/dL (8.4-25.7); Calc. Creatinine Clearance 203 mL/min (70-130); Calcium 9.3 mg/dL (7.8-10.44); Carbon Dioxide 20 mmol/L (23-31); Chloride 106 mmol/L (98-107); Estimated GFR-MDRD Greater than 90; Glucose 268 mg/dL (80-115); Potassium 3.4 mmol/L (3.5-5.1); Sodium 137 mmol/L (136-145)
[2018-03-16] MEDS: Insulin Regular 300 UNITS/3 ML VIAL SC PRN ×4 (05:10→21:42)
[2018-03-16 07:26] LABS: Actual Bicarbonate (HCO3a) 19.9 mEq/L (22-28); Base Excess (BEa) -3.9 mEq/L (-2.0 to +3.0); CO2 Tension 32.2 mmHg (35.0-45.0); Calcium, Ionized 1.23 mmol/L (1.12-1.30); Carboxyhemoglobin (COHb) 1.8 gm% (0.0-3.0); Hemoglobin (Hb) 11.8 g/dL (14.0-18.0); O2 Tension (PaO2) 103.7 mmHg (> 80.0); Potassium - ABG Lab 3.52 mmol/L (3.70-5.30); pH, Arterial 7.41 (7.35-7.45)
[2018-03-16 07:27] LABS: Puncture Site RRA
[2018-03-16] MEDS ORDERED: CCU Electrolyte Replacement 1 EACH FS ONE (07:34)
[2018-03-16] MEDS ORDERED: Potassium Chloride 20 MEQ TAB PO PRN (07:59)
[2018-03-16] MEDS ORDERED: Magnesium 2 GM/NS 0.9% 100 ML 2 GM in Premix Bag 1 BAG IVPB PRN (07:59)
[2018-03-16] MEDS ORDERED: Potassium Phosphate 15 MMOL in Sodium Chloride 0.9% 250 ML 250 ML IV PRN (07:59)
[2018-03-16] MEDS ORDERED: Potassium Chloride 40 MEQ in Sodium Chloride 0.9% 250 ML 250 ML IVPB PRN (07:59)
[2018-03-16] MEDS ORDERED: Potassium Phosphate 12 MMOL in Sodium Chloride 0.9% 250 ML 250 ML IV PRN (07:59)
[2018-03-16] MEDS ORDERED: Magnesium Oxide 400 MG TAB PO PRN ×2 (07:59)
[2018-03-16] MEDS ORDERED: Potassium Phosphate 9 MMOL in Sodium Chloride 0.9% 100 ML IVPB PRN (07:59)
[2018-03-16] MEDS ORDERED: Furosemide 40 MG/4 ML VIAL SLOW IVP SCH (09:00)
--- NOTE | 2018-03-16 09:09 | RAD ---
AP VIEW CHEST: Date: 03/16/18 HISTORY: Ventilator-dependent patient. FINDINGS: Comparison made to previous exam from 03/15/18. AP view of chest demonstrates again endotracheal tube overlying the tracheal air column, distal tip a tacos the venita. There is a left jugular central line, distal tip overlying the SVC. Bilateral pleural effusions seen. Pulmonary vascular congestion seen. Diffuse bilateral air space opacities seen. These are stable and unchanged. IMPRESSION: Stable pleural effusions, pulmonary vascular congestion, and bilateral air space opacities. Radiograp hic appearance of the chest is stable. POS: [facility]
--- NOTE | 2018-03-16 09:38 | PRG ---
DATE OF SERVICE: 03/16/2018 SUBJECTIVE: The patient remains intubated on mechanical ventilation. There have been no acute changes overnight. OBJECTIVE: VITAL SIGNS: Temperature is 100.3, pulse is 93, blood pressure 175/93, and O2 saturation 100%. Total intake for 24 hours 2000, output 4820. Current weight 358 pounds. HEENT: His nguyen has been shaved off. NECK: No JVD. LUNGS: Fairly clear anteriorly. CARDIAC: S1 and S2, regular on a Cardizem drip. ABDOMEN: Obese, soft, and nontender. EXTREMITIES: No edema. LABORATORY DATA: White blood cell count 8.6, hematocrit 34.7, and platelet count 236. A pH 7.41, pCO2 of 33, pO2 of 104, that is on SIMV rate 16, tidal volume 500, PEEP 8, pressure support 10, and FiO2 of 35%. Sodium 137, potassium 3.4, chloride 106, CO2 of 20, BUN 13, creatinine 0.8, glucose 268. ASSESSMENT: 1. Acute respiratory failure, requiring mechanical ventilation. 2. Diastolic congestive heart failure. 3. Atrial flutter. 4. Pneumonia. 5. Encephalopathy. 6. Acute renal dysfunction, which is improved. 7. Diabetes mellitus with continued elevated blood sugars. PLAN: 1. I put him on spontaneous breathing this morning, he actually looks good on that. We are going to try to lighten his sedation and see if he might be a candidate for extubation. I have increased his NPH insulin. We will continue his oral antibiotics. 2. I will update the family when they arrive. 3. Continue with diuresis. Job ID: [id number]
[2018-03-16] MEDS: Enoxaparin Sodium 40 MG/0.4 ML SYRINGE SC SCH ×2 (10:41→21:41)
[2018-03-16] MEDS: Enoxaparin Sodium 120 MG/0.8 ML SYRINGE SC SCH ×2 (10:41→23:02)
[2018-03-16] MEDS: busPIRone HCl 5 MG TAB PER TUBE SCH ×2 (10:41→23:20)
[2018-03-16] MEDS: Amoxicillin/Potassium Clav 875 MG TAB PER TUBE SCH ×2 (10:43→21:47)
[2018-03-16] MEDS: Pantoprazole 40 MG VIAL IVP SCH (10:43)
[2018-03-16] MEDS: acetaZOLAMIDE Sodium 500 MG in Sodium Chloride 0.9% 50 ML IVPB SCH (10:43)
[2018-03-16] MEDS: NPH, Human Insulin Isophane 300 UNIT/3 ML VIAL SC SCH ×2 (10:45→21:42)
--- NOTE | 2018-03-16 10:50 | PDOC.PN ---
- Subjective Encounter Start Date: 03/16/18 Encounter Start Time: 10:00 Patient seen and examined. pt is on vent, No overnight events - Objective MAR Reviewed: Yes Vital Signs & Weight: Vital Signs (12 hours) Temp Pulse Resp BP Pulse Ox 03/16/18 10:34 106 H 206/121 H 03/16/18 08:18 88 199/131 H 03/16/18 08:00 99.7 F H 22 H 98 03/16/18 06:50 90 186/97 H 03/16/18 06:41 87 22 H 99 03/16/18 06:00 22 H 03/16/18 05:00 100.3 F H 03/16/18 04:00 22 H 03/16/18 02:44 79 193/95 H 03/16/18 02:07 69 03/16/18 02:00 98.5 F 21 H 03/16/18 00:17 69 18 95 03/16/18 00:00 16 98 03/15/18 23:00 98.7 F Weight Admit Weight 371 lb Weight 358 lb 0.491 oz Most Recent Monitor Data Heart Rate from ECG 105 NIBP 206/121 NIBP BP-Mean 149 Respiration from ECG 29 SpO2 98 I&O: 03/15/18 03/16/18 03/17/18 06:59 06:59 06:59 Intake Total 2511 2000 Output Total 5680 1217 240 [facility]1314 -2820 -240 Result Diagrams: 03/16/18 03:30 03/16/18 03:30 Additional Labs: Accuchecks 03/16/18 03/15/18 03/15/18 04:58 23:08 15:44 POC Glucose 243 H 274 H 296 H Radiology Reviewed by me: Yes (chest xray reviewed) EKG Reviewed by me: Yes (afib/flutter) Phys Exam - Physical Examination Constitutional: NAD on vent HEENT: PERRLA, sclera anicteric Neck: no JVD, supple Respiratory: no wheezing, no rales, no rhonchi anteriorly and limited due to obesity Cardiovascular: no significant murmur, irregular Gastrointestinal: soft, positive bowel sounds obesity+ Musculoskeletal: edema present Lymphatic: no nodes Skin: normal turgor Dx/Plan (1) Sepsis with acute organ dysfunction Code(s): A41.9 - SEPSIS, UNSPECIFIED ORGANISM; R65.20 - SEVERE SEPSIS WITHOUT SEPTIC SHOCK Status: Acute (2) Bilateral pneumonia Code(s): J18.9 - PNEUMONIA, UNSPECIFIED ORGANISM Status: Acute (3) Acute kidney injury Code(s): N17.9 - ACUTE KIDNEY FAILURE, UNSPECIFIED Status: Acute (4) Acute metabolic encephalopathy Code(s): G93.41 - METABOLIC ENCEPHALOPATHY Status: Acute (5) Acute respiratory acidosis Code(s): E87.2 - ACIDOSIS Status: Acute (6) CO2 narcosis Code(s): R06.89 - OTHER ABNORMALITIES OF BREATHING Status: Acute (7) Mass of right testicle Code(s): N50.9 - DISORDER OF MALE GENITAL ORGANS, UNSPECIFIED Status: Acute (8) NADIA (obstructive sleep apnea) Code(s): G47.33 - OBSTRUCTIVE SLEEP APNEA (ADULT) (PEDIATRIC) Status: Suspected (9) Hypertension Code(s): I10 - ESSENTIAL (PRIMARY) HYPERTENSION Status: Chronic (10) Morbid obesity with BMI of 50.0-59.9, adult Code(s): E66.01 - MORBID (SEVERE) OBESITY DUE TO EXCESS CALORIES; Z68.43 - BODY MASS INDEX (BMI) 50-59.9, ADULT Status: Chronic (11) GERD (gastroesophageal reflux disease) Code(s): K21.9 - GASTRO-ESOPHAGEAL REFLUX DISEASE WITHOUT ESOPHAGITIS Status: Chronic (12) Anxiety and depression Code(s): F41.9 - ANXIETY DISORDER, UNSPECIFIED; F32.9 - MAJOR DEPRESSIVE DISORDER, SINGLE EPISODE, UNSPECIFIED Status: Chronic (13) Diabetes type 2, uncontrolled Code(s): E11.65 - TYPE 2 DIABETES MELLITUS WITH HYPERGLYCEMIA Status: Acute (14) Acute on chronic diastolic ACC/AHA stage C congestive heart failure Code(s): I50.33 - ACUTE ON CHRONIC DIASTOLIC (CONGESTIVE) HEART FAILURE Status : Acute (15) Atrial fibrillation and flutter Code(s): I48.91 - UNSPECIFIED ATRIAL FIBRILLATION; I48.92 - UNSPECIFIED ATRIAL FLUTTER Status: Acute (16) Volume overload Code(s): E87.70 - FLUID OVERLOAD, UNSPECIFIED Status: Acute (17) Anemia, normocytic normochromic Code(s): D64.9 - ANEMIA, UNSPECIFIED Status: Chronic - Plan cont current plan of care, continue antibiotics, respiratory therapy * currently on cardizem drip * antibiotic changed to augmentin * medication reviewed as below * symptomatic treatment * vent as per pulmonary * supportive care. * insulin dose increased today by pulmonary Review of Systems - Review of Systems Other: unable to review due to intubated status - Medications/Allergies Allergies/Adverse Reactions: Allergies Allergy/AdvReac Type Severity Reaction Status Date / Time No Allergy Information Allergy Verified 03/09/18 06:10 Available Medications: Current Medications Acetaminophen (Tylenol Elixir) 650 mg PER TUBE Q6H PRN PRN Reason: Fever Last Admin: 03/13/18 00:28 Dose: 650 mg Albuterol/Ipratropium (Duoneb) 3 ml NEB [id number] COUNT INCLUDES THE [facility] Last Admin: 03/16/18 06:41 Dose: 3 ml Amoxicillin/Clavulanate Potassium (Augmentin) 875 mg PER TUBE Q12HR COUNT INCLUDES THE [facility] Last Admin: 03/15/18 19:16 Dose: 875 mg Artificial Tears (Tears Naturale) 2 drop EA EYE PRN PRN PRN Reason: Dry Eyes Buspirone HCl (Buspar) 10 mg PER TUBE BID COUNT INCLUDES THE [facility] Last Admin: 03/15/18 19:16 Dose: 10 mg Clonidine (Catapres) 0.2 mg PER TUBE TID PRN PRN Reason: SBP Greater Than 170 Dextrose/Water (Dextrose 50%) 25 gm SLOW IVP PRN PRN PRN Reason: Hypoglycemia Enoxaparin Sodium (Lovenox) 120 mg SC 0900,2100 COUNT INCLUDES THE [facility] Last Admin: 03/15/18 19:16 Dose: 120 mg Enoxaparin Sodium (Lovenox) 40 mg SC 0900,2100 COUNT INCLUDES THE [facility] Last Admin: 03/15/18 19:16 Dose: 40 mg Furosemide (Lasix) 40 mg SLOW IVP DAILY COUNT INCLUDES THE [facility] Glucagon (Glucagon) 1 mg IM PRN PRN PRN Reason: Hypoglycemia Hydralazine HCl (Apresoline) 10 mg SLOW IVP Q4H PRN PRN Reason: SBP > 180 and HR < 70 Last Admin: 03/16/18 08:18 Dose: 10 mg Fentanyl Citrate 2,000 mcg/ (Sodium Chloride) 100 mls @ 0 mls/hr IV INF COUNT INCLUDES THE [facility]; Protocol Stop: 04/08/18 05:51 Last Admin: 03/12/18 06:48 Dose: 100 mls Fentanyl Citrate (Fentanyl Bolus) 250 mls @ 0 mls/hr IVPB PRN PRN PRN Reason: Breakthrough pain/agitation Stop: 04/08/18 05:51 Dextrose/Water (D5w) 1,000 mls @ 0 mls/hr IV .Q0M PRN PRN Reason: Hypoglycemia Diltiazem HCl 125 mg/ Sodium (Chloride) 125 mls @ 5 mls/hr IVPB INF CELSA; Protocol Last Admin: 03/15/18 09:47 Dose: 125 mls Acetazolamide Sodium 500 mg/ (Sodium Chloride) 50 mls @ 100 mls/hr IVPB DAILY CELSA; Protocol Last Admin: 03/15/18 09:24 Dose: 50 mls Potassium Chloride 40 meq/ (Sodium Chloride) 270 mls @ 135 mls/hr IVPB ASDIR PRN PRN Reason: FOR SERUM K+ 2.5 - 3.5 Potassium Chloride 40 meq/ (Device) 100 mls @ 50 mls/hr IVPB ASDIR PRN PRN Reason: FOR SERUM K+ 2.5 - 3.5 Magnesium Sulfate 1 gm/ Sodium (Chloride) 102 mls @ 102 mls/hr IV PRN PRN PRN Reason: MAG LEVEL 1.4 - 2.0 Magnesium Sulfate 2 gm/ Device 100 mls @ 100 mls/hr IVPB ASDIR PRN PRN Reason: MAGNESIUM < 1.4 Potassium Phosphate 9 mmol/ (Sodium Chloride) 103 mls @ 25.75 mls/hr IVPB ASDIR PRN PRN Reason: Phosphate 1.0-1.8 Potassium Phosphate 12 mmol/ (Sodium Chloride) 254 mls @ 63.5 mls/hr IV ASDIR PRN PRN Reason: Serum phosphate 0.5-0.9 Potassium Phosphate 15 mmol/ (Sodium Chloride) 255 mls @ 63.75 mls/hr IV ASDIR PRN PRN Reason: Serum Phos < 0.5 Insulin Human NPH (Humulin N) 60 unit SC BID CELSA Insulin Human Regular (Humulin R) 0 units SC .AGGRESSIVE SLIDING PRN PRN Reason: Aggressive Sliding Scale Last Admin: 03/16/18 05:10 Dose: 6 unit Lorazepam (Ativan) 2 mg SLOW IVP Q1H PRN PRN Reason: Breakthrough agitation Stop: 04/08/18 05:51 Last Admin: 03/14/18 16:28 Dose: 2 mg Magnesium Oxide (Magnesium Oxide) 400 mg PO BIDPRN PRN PRN Reason: FOR SERUM MAG 1.4 - 2.0 Magnesium Oxide (Magnesium Oxide) 800 mg PO PRN PRN PRN Reason: FOR SERUM MAG < 1.4 Metoprolol Succinate (Toprol Xl) 25 mg PO DAILY COUNT INCLUDES THE [facility] Last Admin: 03/15/18 10:16 Dose: 25 mg Mineral Oil/White Petrolatum (Eucerin Cream) 0 gm TOP BIDPRN PRN PRN Reason: Dry Skin Miscellaneous Medication (Phos-Nak) 1 pkt PO TIDPRN PRN PRN Reason: FOR PHOS LEVEL 1.0 - 1.8 Miscellaneous Medication (Phos-Nak) 2 pkt PO TIDPRN PRN PRN Reason: FOR PHOS LEVEL 0.5 - 1.0 Morphine Sulfate (Morphine) 2 mg SLOW IVP Q4H PRN PRN Reason: Breakthrough Pain Discontinue Previous Narcotic Pain Medications And Benzodiazepines 1 each FS .ONE COUNT INCLUDES THE [facility] Stop: 04/08/18 05:51 Pantoprazole Sodium (Protonix) 40 mg IVP DAILY COUNT INCLUDES THE [facility] Last Admin: 03/15/18 08:43 Dose: 40 mg Potassium Chloride (K-Dur) 40 meq PO ASDIR PRN PRN Reason: FOR SERUM K+ 2.5 - 3.5 Potassium Chloride (Klor-Con) 40 meq PER TUBE ASDIR PRN PRN Reason: FOR SERUM K+ 2.5-3.5 Propofol (Diprivan) 1,000 mg IV INF PRN; Protocol PRN Reason: TO ACHIEVE GOAL RASS Stop: 04/08/18 05:51 Last Admin: 03/16/18 02:10 Dose: 1,000 mg Propofol (Diprivan Bolus) 20 mg IV Q5MIN PRN PRN Reason: BREAKTHROUGH AGITATION Stop: 04/08/18 05:51 Sodium Chloride ([place] Nasal [place] 0.65%) 0 ml EA NARE QIDPRN PRN PRN Reason: Nasal Congestion Sodium Chloride (Flush - Normal Saline) 10 ml IVF Q12HR COUNT INCLUDES THE [facility] Last Admin: 03/15/18 19:17 Dose: 10 ml Sodium Chloride (Flush - Normal Saline) 10 ml IVF PRN PRN PRN Reason: Saline Flush
[2018-03-16] MEDS: cloNIDine 0.2 MG TAB PER TUBE PRN (10:52)
[2018-03-16] MEDS: Potassium Chloride 40 MEQ in Premix Bag 1 BAG IVPB PRN (11:14)
[2018-03-16] MEDS: Diltiazem 125 MG in Sodium Chloride 0.9% 100 ML IVPB SCH ×2 (11:20→23:00)
--- NOTE | 2018-03-16 12:04 | PDOC.CTH ---
Cardiology Progress Note - Subjective The pt seen and examined. No overnight events. No cardiac complaints. No follow commands although off vent sedation since 0730 this AM. - Objective Vital Signs Temp Pulse Resp BP Pulse Ox 03/16/18 10:52 206/121 H 03/16/18 10:34 106 H 206/121 H 03/16/18 10:00 99.7 F H 25 H 03/16/18 08:18 88 199/131 H 03/16/18 08:00 99.7 F H 22 H 98 03/16/18 06:50 90 186/97 H 03/16/18 06:41 87 22 H 99 03/16/18 06:00 22 H 03/16/18 05:00 100.3 F H 03/16/18 04:00 22 H 03/16/18 02:44 79 193/95 H 03/16/18 02:07 69 03/16/18 02:00 98.5 F 21 H 03/16/18 00:17 69 18 95 03/16/18 00:00 16 98 Admit Weight 371 lb Weight 358 lb 0.491 oz 03/15/18 03/16/18 03/17/18 06:59 06:59 06:59 Intake Total 2511 2000 110 Output Total 3825 4868 600 Balance -0581 -7378 -162 - Physical Examination Lungs: other: (diminished at bases) Heart: other: (irregular) Abdomen: soft Extremities: other: (generalized edema) - Telemetry Telemetry Rhythm: AFlutter - Labs Result Diagrams: 03/16/18 03:30 03/16/18 03:30 Troponin/CKMB Troponin I Less than 0.010 ng/mL (< 0.028) 03/09/18 01:25 - Assessment/Plan 1. Afib/Aflutter - HR up to 100-110 with Cardizem 5 mg/h, which increased to 10mg/h now; Stop Toprol (since Toprol cannot crash) and change to Coreg 6.25mg BID. On Lovenox to 160 mg BID; possible CTI ablation by EP when he is extubated (thank you for EP input). 2. Acute on Chronic diastolic HF - stable with Lasix 40mg IV qd; Change Coreg 6.25mg BID (since Toprol cannot crash) 3. Bilat PNA - on ABX IV; managed by PCP/single stroke preformer 4. OLYA - improved 5. Acute metabolic encephalopathy - 6. HTN - stable 7. Hyperlipidemia - 8. Insulin depend-DM - 9. NADIA - 10. Mrbid Obesity - 11. Anxiety and depression - MAR reviewed * His scale operator is Dr Santino Emmanuel in [place], [place] Pt. seen and eval. by me. I agree with the A/P by the JEWEL[employer] CASTING MODEL MAKER. EP input appreciated. Neurologically he is still not responding. Chest is clear anteriorly. Regular rhythm but still in atrial flutter..Possible anoxic injury. Review of Systems - Review of Systems Constitutional: reports: see HPI EENTM: reports: see HPI Respiratory: reports: see HPI
[2018-03-16] MEDS ORDERED: Carvedilol 3.125 MG TAB PO SCH (12:30)
--- NOTE | 2018-03-16 16:51 | PRG ---
DATE OF SERVICE: 03/16/2018 ELECTROPHYSIOLOGY FOLLOWUP NOTE SUBJECTIVE: Mr. Melendrez seems to be doing unchanged, still intubated on ventilatory support overnight. OBJECTIVE: VITAL SIGNS: Blood pressure is 134/84, heart rate 87, respirations 25, temperature 99.7 degrees Fahrenheit. GENERAL: Reveals a morbidly obese, intubated, sedated man, in no apparent distress. NECK: Supple. Jugular veins not distended. CHEST: Coarse without crackles. HEART: Sounds are irregular. S1 and S2 are variable. No murmur or gallop. ET tube is in place. ABDOMEN: Benign. Bowel sounds positive. EXTREMITIES: Lower extremities without edema, clubbing, or cyanosis. DATABASE: EKG reviewed revealing continued atrial flutter with variable rate AV conduction. White cell count is 8.6, hemoglobin 11.1, platelet count is 236. Sodium 137, potassium 3.4, BUN 13, creatinine 0.82. ASSESSMENT AND PLAN: Mr. Melendrez is a pleasant 67-year-old man with history of respiratory failure, newly found atrial flutter with variable ventricular rate. He is still on respiratory support. Atrial flutter reasonably controlled with diltiazem. Our plan is to continue rate control until respiratory optimization and at that point, consideration for KATARINA-guided cardioversion or ablation therapy will be considered. We will follow with you. In the meantime, continue diltiazem and anticoagulation. Job ID: [id number]
[2018-03-16] MEDS: Carvedilol 6.25 MG TAB PO SCH (16:52)
--- NOTE | 2018-03-16 17:21 | CT ---
CT BRAIN: 03/16/18 HISTORY: Lethargy. Noncontrast enhanced CT images of the brain is obtained on 03/16/18. Comparison made to previous exam from 03/09/18. CT brain demonstrates nasogastric and endotracheal tubes to be in place. The brain demonstrates no evidence of acute intracranial masses, hemorrhages or strokes. No evidence of sub or epidural hematoma seen. Some mucosal thickening seen in the ethmoid sinuses and the right and left maxillary sinuses. Moderat e bilateral sphenoid sinus mucosal thickening also seen. IMPRESSION: No evidence of acute intracranial pathology seen. POS: [facility]
[2018-03-17 04:53] LABS: Hemoglobin 10.5 g/dL (14.0-18.0); Mean Corpuscular HGB CONC 31.5 g/dL (32.0-36.0); Mean Corpuscular Hemoglobin 25.8 pg (27.0-31.0); Mean Corpuscular Volume 81.9 fL (78.0-98.0); Mean Platelet Volume 9.7 fL (7.4-10.4); Platelet Count 266 thou/uL (130-400); RBC Distribution Width 17.6 % (11.5-14.5); Red Blood Cell (RBC) Count 4.09 mill/uL (4.70-6.10); White Blood Cell (WBC) Count 10.1 thou/uL (4.8-10.8)
[2018-03-17 05:10] LABS: Anion Gap 15 mmol/L (10-20); BUN (Urea Nitrogen) 20 mg/dL (8.4-25.7); Calc. Creatinine Clearance 196 mL/min (70-130); Calcium 9.3 mg/dL (7.8-10.44); Carbon Dioxide 22 mmol/L (23-31); Chloride 106 mmol/L (98-107); Estimated GFR-MDRD Greater than 90; Glucose 266 mg/dL (80-115); Potassium 3.5 mmol/L (3.5-5.1); Sodium 139 mmol/L (136-145)
[2018-03-17 05:16] LABS: Band 16 % (5-11); Eosinophils 3 % (0-10); Lymphocytes 4 % (21-51); MDiff Complete? YES; Monocytes 9 % (0-10); Neutrophil 68 % (42-75)
[2018-03-17] MEDS: Insulin Regular 300 UNITS/3 ML VIAL SC PRN ×4 (05:22→22:49)
[2018-03-17] MEDS: Potassium Chloride 40 MEQ in Premix Bag 1 BAG IVPB PRN (07:33)
[2018-03-17] MEDS ORDERED: NPH, Human Insulin Isophane 300 UNIT/3 ML VIAL SC SCH (07:48)
[2018-03-17 07:57] LABS: Actual Bicarbonate (HCO3a) 24.4 mEq/L (22-28); Base Excess (BEa) -0.7 mEq/L (-2.0 to +3.0); CO2 Tension 42.2 mmHg (35.0-45.0); Calcium, Ionized 1.22 mmol/L (1.12-1.30); Carboxyhemoglobin (COHb) 1.8 gm% (0.0-3.0); Hemoglobin (Hb) 11.1 g/dL (14.0-18.0); O2 Tension (PaO2) 84.2 mmHg (> 80.0); pH, Arterial 7.38 (7.35-7.45)
[2018-03-17 07:58] LABS: Puncture Site L.R.
[2018-03-17] MEDS ORDERED: DC Sedation Protocol FS SCH (08:17)
[2018-03-17] MEDS ORDERED: Furosemide 40 MG/4 ML VIAL SLOW IVP SCH (08:17)
[2018-03-17] MEDS: Enoxaparin Sodium 40 MG/0.4 ML SYRINGE SC SCH ×2 (08:22→21:54)
[2018-03-17] MEDS: busPIRone HCl 5 MG TAB PER TUBE SCH ×2 (08:22→21:53)
[2018-03-17] MEDS: Amoxicillin/Potassium Clav 875 MG TAB PER TUBE SCH ×2 (08:22→21:53)
[2018-03-17] MEDS: Enoxaparin Sodium 120 MG/0.8 ML SYRINGE SC SCH ×2 (08:22→21:54)
[2018-03-17] MEDS: Carvedilol 6.25 MG TAB PO SCH ×3 (08:22→17:40)
--- NOTE | 2018-03-17 08:22 | PDOC.CTH ---
Cardiology Progress Note - Subjective The pt seen and examined. No overnight events. Turn his head to voice stimulation, but no follow commands - Objective Vital Signs Temp Pulse Resp BP Pulse Ox 03/17/18 08:09 72 137/50 L 03/17/18 07:33 71 25 H 96 03/17/18 07:00 99.4 F 03/17/18 06:00 22 H 03/17/18 04:00 99.9 F H 23 H 03/17/18 02:39 71 132/63 03/17/18 02:00 23 H 03/17/18 00:58 70 23 H 92 L 03/17/18 00:00 100.0 F H 24 H 03/16/18 22:27 70 133/63 03/16/18 22:00 27 H Admit Weight 371 lb Weight 354 lb 11.58 oz 03/16/18 03/17/18 03/18/18 06:59 06:59 06:59 Intake Total 1999 1487.8 Output Total 4820 1735 45 Balance -2820 -247.2 -45 - Physical Examination Lungs: CTA Heart: other: (irregular) Abdomen: soft Extremities: other: (Generalized edema) - Telemetry Telemetry Rhythm: AFlutter 70-80s - Labs Result Diagrams: 03/17/18 03:15 03/17/18 03:15 Troponin/CKMB Troponin I Less than 0.010 ng/mL (< 0.028) 03/09/18 01:25 - Assessment/Plan 1. Afib/Aflutter - well controlled HR, 70-80s with Cardizem 10 mg/h and Coreg 6.25mg BID. On Lovenox to 160 mg BID; possible CTI ablation by EP when he is extubated (thank you for EP input). 2. Acute on Chronic diastolic HF - stable with Lasix 40mg IV qd and Coreg 6.25mg BID. 3. Bilat PNA - on ABX IV; managed by PCP/crude oil treater 4. OLYA - improved 5. Acute metabolic encephalopathy - responds to voice stimulation, but no movement to all ext. 6. HTN - stable 7. Hyperlipidemia - 8. Insulin depend-DM - 9. NADIA - 10. Mrbid Obesity - 11. Anxiety and depression - MAR reviewed * His fur glosser is Dr Santino Emmanuel in [place], [place] Pt. seen and eval. by me. I agree with the A/P by the CIGARETTE MAKING EXAMINER. He is still not responding and likely has suffered an anoxix injury. He remains in atrial fluttter but the rate is controlled. depending on the neurologic status he will be offerd ablation of the flutter.He remains on the vent. Review of Systems - Review of Systems Constitutional: reports: see HPI EENTM: reports: see HPI Respiratory: reports: see HPI Cardiac (ROS): reports: see HPI ABD/GI: reports: see HPI
[2018-03-17] MEDS: NPH, Human Insulin Isophane 300 UNIT/3 ML VIAL SC SCH ×2 (08:24→22:51)
[2018-03-17] MEDS: Pantoprazole 40 MG VIAL IVP SCH (08:25)
--- NOTE | 2018-03-17 08:48 | RAD ---
CHEST 1 VIEW: HISTORY: Dyspnea. Followup. COMPARISON: 03/16/2018. FINDINGS: Cardiac silhouette is magnified and enlarged. Pulmonary vasculature is engorged. Patchy bilateral p erihilar infiltrates and multifocal airspace disease are again demonstrated but slightly less than on the prior study. Hemidiaphragms are now better visualized. Mediastinum is midline. Endotracheal catheter is unchanged in position. Nasogastric tube remains in completely visualized. No evidence of pneumothorax. monitoring analyst leads overlie the chest. IMPRESSION: Some improvement in aeration of the lung bases, although extensive pulmonary edema with patchy infilt rates persist. POS: [facility]
[2018-03-17] MEDS: Furosemide 20 MG/2 ML VIAL SLOW IVP SCH (08:50)
--- NOTE | 2018-03-17 09:25 | PRG ---
DATE OF SERVICE: 03/17/2018 TIME SPENT: 35 minutes critical time. SUBJECTIVE: The patient remains intubated on mechanical ventilation. He will wake up and move his head from [id number]. He will not follow any other commands specifically. OBJECTIVE: VITAL SIGNS: His temperature is 99.4 with a T-max of 100, pulse 71, blood pressure 143/61. A 24-hour intake 1487, output 1735, weight is currently at 354 pounds. HEENT: Unremarkable except for the endotracheal tube and orogastric tube in place. NECK: No JVD. CHEST: Clear anteriorly. CARDIAC: S1, S2 regular. ABDOMEN: Morbidly obese. EXTREMITIES: Edematous. LABORATORY DATA: PH of 7.38, pCO2 of 42, PO2 of 84, that is on CPAP 5, pressure support 10, FiO2 of 35%. White blood cell count 10, hematocrit 33.5, platelet count 266. Sodium 139, potassium 3.5, chloride 106, CO2 of 23, BUN 20, creatinine 0.8, glucose 266. ASSESSMENT: 1. Acute respiratory failure requiring mechanical ventilation. 2. Acute diastolic heart failure. 3. Pneumonia. 4. Atrial flutter. 5. Encephalopathy with negative CT scan of the head yesterday. 6. Acute renal dysfunction, which is improved. 7. Diabetes mellitus. PLAN: 1. We are going to extubate him to high-flow oxygen and see how he does. I think he may have myopathy of critical illness too, so he will like to be monitored closely after extubation. 2. Discontinue the acetazolamide. Continue Lasix for 1 more day, then consider stopping. 3. Dr. Lundberg has increased NPH insulin. Job ID: [id number]
--- NOTE | 2018-03-17 10:03 | PDOC.PN ---
- Subjective Encounter Start Date: 03/17/18 Encounter Start Time: 09:00 Patient seen and examined. this morning pt is extubated, family bedside No overnight events - Objective MAR Reviewed: Yes Vital Signs & Weight: Vital Signs (12 hours) Temp Pulse Resp BP Pulse Ox 03/17/18 08:22 137/50 L 03/17/18 08:09 72 137/50 L 03/17/18 07:33 71 25 H 96 03/17/18 07:00 99.4 F 03/17/18 06:00 22 H 03/17/18 04:00 99.9 F H 23 H 03/17/18 02:39 71 132/63 03/17/18 02:00 23 H 03/17/18 00:58 70 23 H 92 L 03/17/18 00:00 100.0 F H 24 H 03/16/18 22:27 70 133/63 Weight Admit Weight 371 lb Weight 354 lb 11.58 oz Most Recent Monitor Data Heart Rate from ECG 72 NIBP 146/71 NIBP BP-Mean 96 Respiration from ECG 26 SpO2 100 I&O: 03/16/18 03/17/18 03/18/18 06:59 06:59 06:59 Intake Total 1999 1487.8 Output Total 4820 1735 310 Balance -2820 -247.2 -310 Result Diagrams: 03/17/18 03:15 03/17/18 03:15 Additional Labs: Accuchecks 03/17/18 03/17/18 03/16/18 09:44 04:52 21:05 POC Glucose 223 H 271 H 248 H 03/16/18 03/16/18 15:19 11:03 POC Glucose 279 H 260 H Radiology Reviewed by me: Yes (chest xray reivewed) EKG Reviewed by me: Yes (aflutter) Phys Exam - Physical Examination Constitutional: NAD HEENT: PERRLA, moist MMs, sclera anicteric Neck: no JVD, supple Respiratory: no wheezing, no rales, no rhonchi anteriorly limited due to obesity Cardiovascular: no significant murmur, irregular Gastrointestinal: soft, non-tender, no distention, positive bowel sounds obesity+ Musculoskeletal: pulses present, edema present Lymphatic: no nodes Skin: normal turgor Dx/Plan (1) Sepsis with acute organ dysfunction Code(s): A41.9 - SEPSIS, UNSPECIFIED ORGANISM; R65.20 - SEVERE SEPSIS WITHOUT SEPTIC SHOCK Status: Acute (2) Bilateral pneumonia Code(s): J18.9 - PNEUMONIA, UNSPECIFIED ORGANISM Status: Acute (3) Acute kidney injury Code(s): N17.9 - ACUTE KIDNEY FAILURE, UNSPECIFIED Status: Acute (4) Acute metabolic encephalopathy Code(s): G93.41 - METABOLIC ENCEPHALOPATHY Status: Acute (5) Acute respiratory acidosis Code(s): E87.2 - ACIDOSIS Status: Acute (6) CO2 narcosis Code(s): R06.89 - OTHER ABNORMALITIES OF BREATHING Status: Acute (7) Mass of right testicle Code(s): N50.9 - DISORDER OF MALE GENITAL ORGANS, UNSPECIFIED Status: Acute (8) NADIA (obstructive sleep apnea) Code(s): G47.33 - OBSTRUCTIVE SLEEP APNEA (ADULT) (PEDIATRIC) Status: Suspected (9) Hypertension Code(s): I10 - ESSENTIAL (PRIMARY) HYPERTENSION Status: Chronic (10) Morbid obesity with BMI of 50.0-59.9, adult Code(s): E66.01 - MORBID (SEVERE) OBESITY DUE TO EXCESS CALORIES; Z68.43 - BODY MASS INDEX (BMI) 50-59.9, ADULT Status: Chronic (11) GERD (gastroesophageal reflux disease) Code(s): K21.9 - GASTRO-ESOPHAGEAL REFLUX DISEASE WITHOUT ESOPHAGITIS Status: Chronic (12) Anxiety and depression Code(s): F41.9 - ANXIETY DISORDER, UNSPECIFIED; F32.9 - MAJOR DEPRESSIVE DISORDER, SINGLE EPISODE, UNSPECIFIED Status: Chronic (13) Diabetes type 2, uncontrolled Code(s): E11.65 - TYPE 2 DIABETES MELLITUS WITH HYPERGLYCEMIA Status: Acute (14) Acute on chronic diastolic ACC/AHA stage C congestive heart failure Code(s): I50.33 - ACUTE ON CHRONIC DIASTOLIC (CONGESTIVE) HEART FAILURE Status : Acute (15) Atrial fibrillation and flutter Code(s): I48.91 - UNSPECIFIED ATRIAL FIBRILLATION; I48.92 - UNSPECIFIED ATRIAL FLUTTER Status: Acute (16) Volume overload Code(s): E87.70 - FLUID OVERLOAD, UNSPECIFIED Status: Acute (17) Anemia, normocytic normochromic Code(s): D64.9 - ANEMIA, UNSPECIFIED Status: Chronic - Plan cont current plan of care, plan discussed w/ family, continue antibiotics, PT/OT , respiratory therapy * continue augmentin * continue lasix * currently on cardizem drip and lovenox, cardiology and EP following for aflutter/afib * will start PT * discussed with family bedside * monitor in CCU as he is still lethargic and weak, his CT brain is negative. Review of Systems - Review of Systems Other: not reliable with pt as he is lethargic and unable to communicate - Medications/Allergies Allergies/Adverse Reactions: Allergies Allergy/AdvReac Type Severity Reaction Status Date / Time No Allergy Information Allergy Verified 03/09/18 06:10 Available Medications: Current Medications Acetaminophen (Tylenol Elixir) 650 mg PER TUBE Q6H PRN PRN Reason: Fever Last Admin: 03/13/18 00:28 Dose: 650 mg Albuterol/Ipratropium (Duoneb) 3 ml NEB [id number] [facility] Last Admin: 03/17/18 07:33 Dose: 3 ml Amoxicillin/Clavulanate Potassium (Augmentin) 875 mg PER TUBE Q12HR [facility] Last Admin: 03/17/18 08:22 Dose: 875 mg Artificial Tears (Tears Naturale) 2 drop EA EYE PRN PRN PRN Reason: Dry Eyes Buspirone HCl (Buspar) 10 mg PER TUBE BID [facility] Last Admin: 03/17/18 08:22 Dose: 10 mg Carvedilol (Coreg) 6.25 mg PO BID-[facility] Last Admin: 03/17/18 08:22 Dose: 6.25 mg Clonidine (Catapres) 0.2 mg PER TUBE TID PRN PRN Reason: SBP Greater Than 170 Last Admin: 03/16/18 10:52 Dose: 0.2 mg Dextrose/Water (Dextrose 50%) 25 gm SLOW IVP PRN PRN PRN Reason: Hypoglycemia Enoxaparin Sodium (Lovenox) 120 mg SC 0900,2100 [facility] Last Admin: 03/17/18 08:22 Dose: 120 mg Enoxaparin Sodium (Lovenox) 40 mg SC 0900,2100 [facility] Last Admin: 03/17/18 08:22 Dose: 40 mg Furosemide (Lasix) 20 mg SLOW IVP DAILY [facility] Last Admin: 03/17/18 08:50 Dose: 20 mg Glucagon (Glucagon) 1 mg IM PRN PRN PRN Reason: Hypoglycemia Hydralazine HCl (Apresoline) 10 mg SLOW IVP Q4H PRN PRN Reason: SBP > 180 and HR < 70 Last Admin: 03/16/18 08:18 Dose: 10 mg Dextrose/Water (D5w) 1,000 mls @ 0 mls/hr IV .Q0M PRN PRN Reason: Hypoglycemia Diltiazem HCl 125 mg/ Sodium (Chloride) 125 mls @ 5 mls/hr IVPB INF [facility]; Protocol Last Admin: 03/16/18 23:00 Dose: 125 mls Potassium Chloride 40 meq/ (Sodium Chloride) 270 mls @ 135 mls/hr IVPB ASDIR PRN PRN Reason: FOR SERUM K+ 2.5 - 3.5 Potassium Chloride 40 meq/ (Device) 100 mls @ 50 mls/hr IVPB ASDIR PRN PRN Reason: FOR SERUM K+ 2.5 - 3.5 Last Admin: 03/17/18 07:33 Dose: 100 mls Magnesium Sulfate 1 gm/ Sodium (Chloride) 102 mls @ 102 mls/hr IV PRN PRN PRN Reason: MAG LEVEL 1.4 - 2.0 Magnesium Sulfate 2 gm/ Device 100 mls @ 100 mls/hr IVPB ASDIR PRN PRN Reason: MAGNESIUM < 1.4 Potassium Phosphate 9 mmol/ (Sodium Chloride) 103 mls @ 25.75 mls/hr IVPB ASDIR PRN PRN Reason: Phosphate 1.0-1.8 Potassium Phosphate 12 mmol/ (Sodium Chloride) 254 mls @ 63.5 mls/hr IV ASDIR PRN PRN Reason: Serum phosphate 0.5-0.9 Potassium Phosphate 15 mmol/ (Sodium Chloride) 255 mls @ 63.75 mls/hr IV ASDIR PRN PRN Reason: Serum Phos < 0.5 Insulin Human NPH (Humulin N) 75 unit SC BID [facility] Last Admin: 03/17/18 08:24 Dose: 75 unit Insulin Human Regular (Humulin R) 0 units SC .AGGRESSIVE SLIDING PRN PRN Reason: Aggressive Sliding Scale Last Admin: 03/17/18 05:22 Dose: 9 unit Magnesium Oxide (Magnesium Oxide) 400 mg PO BIDPRN PRN PRN Reason: FOR SERUM MAG 1.4 - 2.0 Magnesium Oxide (Magnesium Oxide) 800 mg PO PRN PRN PRN Reason: FOR SERUM MAG < 1.4 Mineral Oil/White Petrolatum (Eucerin Cream) 0 gm TOP BIDPRN PRN PRN Reason: Dry Skin Miscellaneous Medication (Phos-Nak) 1 pkt PO TIDPRN PRN PRN Reason: FOR PHOS LEVEL 1.0 - 1.8 Miscellaneous Medication (Phos-Nak) 2 pkt PO TIDPRN PRN PRN Reason: FOR PHOS LEVEL 0.5 - 1.0 Miscellaneous Medication (Dc Sedation Protocol) 1 each FS ASDIR [facility] Morphine Sulfate (Morphine) 2 mg SLOW IVP Q4H PRN PRN Reason: Breakthrough Pain Pantoprazole Sodium (Protonix) 40 mg IVP DAILY [facility] Last Admin: 03/17/18 08:25 Dose: 40 mg Potassium Chloride (K-Dur) 40 meq PO ASDIR PRN PRN Reason: FOR SERUM K+ 2.5 - 3.5 Potassium Chloride (Klor-Con) 40 meq PER TUBE ASDIR PRN PRN Reason: FOR SERUM K+ 2.5-3.5 Sodium Chloride ([place] Nasal [place] 0.65%) 0 ml EA NARE QIDPRN PRN PRN Reason: Nasal Congestion Sodium Chloride (Flush - Normal Saline) 10 ml IVF Q12HR [facility] Last Admin: 03/17/18 08:26 Dose: 10 ml Sodium Chloride (Flush - Normal Saline) 10 ml IVF PRN PRN PRN Reason: Saline Flush
[2018-03-17] MEDS: Diltiazem 125 MG in Sodium Chloride 0.9% 100 ML IVPB SCH (12:06)
--- NOTE | 2018-03-17 19:16 | RAD ---
KUB: 03/17/18 PROVIDED CLINICAL HISTORY: Dobhoff placement. FINDINGS: Evaluation is limited by patient motion. The distal aspects of an enteric catheter are suggested over lying the left upper quadrant. IMPRESSION: Limited exam. POS: PAVEL
[2018-03-18] MEDS: Diltiazem 125 MG in Sodium Chloride 0.9% 100 ML IVPB SCH (01:39)
[2018-03-18 05:20] LABS: Anion Gap 12 mmol/L (10-20); BUN (Urea Nitrogen) 20 mg/dL (8.4-25.7); Calc. Creatinine Clearance 227 mL/min (70-130); Calcium 9.3 mg/dL (7.8-10.44); Carbon Dioxide 27 mmol/L (23-31); Chloride 107 mmol/L (98-107); Estimated GFR-MDRD Greater than 90; Glucose 160 mg/dL (80-115); Potassium 3.6 mmol/L (3.5-5.1); Sodium 142 mmol/L (136-145)
[2018-03-18 05:33] LABS: Anisocytosis SLIGHT = 6-15 cells (100X) (0-5/hpf); Band 3 % (5-11); Eosinophils 5 % (0-10); Hemoglobin 10.7 g/dL (14.0-18.0); Hypochromia SLIGHT = 6-15 cells (100X) (0-5/hpf); Lymphocytes 15 % (21-51); MDiff Complete? YES; Mean Corpuscular HGB CONC 31.3 g/dL (32.0-36.0); Mean Corpuscular Hemoglobin 25.9 pg (27.0-31.0); Mean Corpuscular Volume 82.8 fL (78.0-98.0); Mean Platelet Volume 8.9 fL (7.4-10.4); Monocytes 12 % (0-10); Neutrophil 65 % (42-75); Platelet Count 290 thou/uL (130-400); Platelet Morphology Comment Appears Adequate; RBC Distribution Width 17.4 % (11.5-14.5); Red Blood Cell (RBC) Count 4.13 mill/uL (4.70-6.10); White Blood Cell (WBC) Count 9.6 thou/uL (4.8-10.8)
--- NOTE | 2018-03-18 08:14 | RAD ---
PORTABLE CHEST: Date: 03/18/18 PROVIDED CLINICAL HISTORY: Respiratory insufficiency. FINDINGS: Comparison with 03/17/18. Examination is limited by patient body habitus. Endotracheal and enteric catheters are suggested, not well visualized. Left IJ central line is again partially seen. Prominence of the pulmonary vasculatu re and pulmonary interstitium are redemonstrated. There is deviation of the tracheal air shadow right mann at the level of the thoracic inlet, the etiology and significance of which are not certain. IMPRESSION: 1. Findings compatible with volume overload/congestive failure with alveolar edema. Infection could also have this appearance. 2. Deviation of the tracheal air shadow rightward in the region of the thoracic inlet, etiology and significance are uncertain. Consider correlation with CT. CODE T. POS: POPPY
[2018-03-18] MEDS: Carvedilol 6.25 MG TAB PO SCH ×2 (08:36→16:51)
[2018-03-18] MEDS: busPIRone HCl 5 MG TAB PER TUBE SCH ×2 (08:36→20:38)
[2018-03-18] MEDS: Pantoprazole 40 MG VIAL IVP SCH (08:37)
[2018-03-18] MEDS: Amoxicillin/Potassium Clav 875 MG TAB PER TUBE SCH ×2 (08:37→20:39)
[2018-03-18] MEDS: Enoxaparin Sodium 40 MG/0.4 ML SYRINGE SC SCH ×2 (08:37→20:39)
[2018-03-18] MEDS: Furosemide 20 MG/2 ML VIAL SLOW IVP SCH (08:37)
[2018-03-18] MEDS: Enoxaparin Sodium 120 MG/0.8 ML SYRINGE SC SCH ×2 (08:37→20:39)
[2018-03-18] MEDS: NPH, Human Insulin Isophane 300 UNIT/3 ML VIAL SC SCH ×2 (08:42→20:46)
--- NOTE | 2018-03-18 10:08 | PDOC.PN ---
- Subjective Encounter Start Date: 03/18/18 Encounter Start Time: 09:30 pt continue to be lethargic, less responsive, Patient seen and examined. No overnight events - Objective MAR Reviewed: Yes Vital Signs & Weight: Vital Signs (12 hours) Temp Pulse Resp BP Pulse Ox 03/18/18 08:36 156/78 H 03/18/18 08:00 99 03/18/18 07:45 100 03/18/18 07:43 74 25 H 100 03/18/18 07:00 99.0 F 03/18/18 04:00 98.6 F 03/18/18 03:30 100 03/18/18 00:32 73 20 100 03/18/18 00:00 98.4 F Weight Admit Weight 371 lb Weight 267 lb 13.786 oz Most Recent Monitor Data Heart Rate from ECG 74 NIBP 154/76 NIBP BP-Mean 102 Respiration from ECG 25 SpO2 99 I&O: 03/17/18 03/18/18 03/19/18 06:59 06:59 06:59 Intake Total 1487.8 1279 Output Total 1735 2426 565 Balance -247.2 -1147 -565 Result Diagrams: 03/18/18 04:45 03/18/18 04:45 Additional Labs: Accuchecks 03/18/18 03/17/18 03/17/18 04:46 22:42 16:07 POC Glucose 149 H 169 H 151 H Radiology Reviewed by me: Yes (chest xray reviewed) EKG Reviewed by me: Yes (aflutter) Phys Exam - Physical Examination Constitutional: NAD lethargic HEENT: PERRLA, sclera anicteric dubhuff tube in place Neck: no JVD, supple Respiratory: no wheezing, no rales, no rhonchi Cardiovascular: no significant murmur, no rub Gastrointestinal: soft, non-tender, no distention, positive bowel sounds Musculoskeletal: pulses present, edema present Lymphatic: no nodes Skin: normal turgor Dx/Plan (1) Sepsis with acute organ dysfunction Code(s): A41.9 - SEPSIS, UNSPECIFIED ORGANISM; R65.20 - SEVERE SEPSIS WITHOUT SEPTIC SHOCK Status: Acute (2) Bilateral pneumonia Code(s): J18.9 - PNEUMONIA, UNSPECIFIED ORGANISM Status: Acute (3) Acute kidney injury Code(s): N17.9 - ACUTE KIDNEY FAILURE, UNSPECIFIED Status: Acute (4) Acute metabolic encephalopathy Code(s): G93.41 - METABOLIC ENCEPHALOPATHY Status: Acute (5) Acute respiratory acidosis Code(s): E87.2 - ACIDOSIS Status: Acute (6) CO2 narcosis Code(s): R06.89 - OTHER ABNORMALITIES OF BREATHING Status: Acute (7) Mass of right testicle Code(s): N50.9 - DISORDER OF MALE GENITAL ORGANS, UNSPECIFIED Status: Acute (8) NADIA (obstructive sleep apnea) Code(s): G47.33 - OBSTRUCTIVE SLEEP APNEA (ADULT) (PEDIATRIC) Status: Suspected (9) Hypertension Code(s): I10 - ESSENTIAL (PRIMARY) HYPERTENSION Status: Chronic (10) Morbid obesity with BMI of 50.0-59.9, adult Code(s): E66.01 - MORBID (SEVERE) OBESITY DUE TO EXCESS CALORIES; Z68.43 - BODY MASS INDEX (BMI) 50-59.9, ADULT Status: Chronic (11) GERD (gastroesophageal reflux disease) Code(s): K21.9 - GASTRO-ESOPHAGEAL REFLUX DISEASE WITHOUT ESOPHAGITIS Status: Chronic (12) Anxiety and depression Code(s): F41.9 - ANXIETY DISORDER, UNSPECIFIED; F32.9 - MAJOR DEPRESSIVE DISORDER, SINGLE EPISODE, UNSPECIFIED Status: Chronic (13) Diabetes type 2, uncontrolled Code(s): E11.65 - TYPE 2 DIABETES MELLITUS WITH HYPERGLYCEMIA Status: Acute (14) Acute on chronic diastolic ACC/AHA stage C congestive heart failure Code(s): I50.33 - ACUTE ON CHRONIC DIASTOLIC (CONGESTIVE) HEART FAILURE Status : Acute (15) Atrial fibrillation and flutter Code(s): I48.91 - UNSPECIFIED ATRIAL FIBRILLATION; I48.92 - UNSPECIFIED ATRIAL FLUTTER Status: Acute (16) Volume overload Code(s): E87.70 - FLUID OVERLOAD, UNSPECIFIED Status: Acute (17) Anemia, normocytic normochromic Code(s): D64.9 - ANEMIA, UNSPECIFIED Status: Chronic - Plan cont current plan of care, continue antibiotics * will consult neurology for his continuos encephalopathy * medication reviewed as below * symptomatic treatment. * monitor in ccu * continue tube feeding Review of Systems - Review of Systems Other: unable to review due to encephalopathy - Medications/Allergies Allergies/Adverse Reactions: Allergies Allergy/AdvReac Type Severity Reaction Status Date / Time No Allergy Information Allergy Verified 03/09/18 06:10 Available Medications: Current Medications Acetaminophen (Tylenol Elixir) 650 mg PER TUBE Q6H PRN PRN Reason: Fever Last Admin: 03/13/18 00:28 Dose: 650 mg Albuterol/Ipratropium (Duoneb) 3 ml NEB [id number] [facility] Last Admin: 03/18/18 07:43 Dose: 3 ml Amoxicillin/Clavulanate Potassium (Augmentin) 875 mg PER TUBE Q12HR [facility] Last Admin: 03/18/18 08:37 Dose: 875 mg Artificial Tears (Tears Naturale) 2 drop EA EYE PRN PRN PRN Reason: Dry Eyes Buspirone HCl (Buspar) 10 mg PER TUBE BID [facility] Last Admin: 03/18/18 08:36 Dose: 10 mg Carvedilol (Coreg) 6.25 mg PO BID-[facility] Last Admin: 03/18/18 08:36 Dose: 6.25 mg Clonidine (Catapres) 0.2 mg PER TUBE TID PRN PRN Reason: SBP Greater Than 170 Last Admin: 03/16/18 10:52 Dose: 0.2 mg Dextrose/Water (Dextrose 50%) 25 gm SLOW IVP PRN PRN PRN Reason: Hypoglycemia Enoxaparin Sodium (Lovenox) 120 mg SC 0900,2100 [facility] Last Admin: 03/18/18 08:37 Dose: 120 mg Enoxaparin Sodium (Lovenox) 40 mg SC 0900,2100 [facility] Last Admin: 03/18/18 08:37 Dose: 40 mg Furosemide (Lasix) 20 mg SLOW IVP DAILY [facility] Last Admin: 03/18/18 08:37 Dose: 20 mg Glucagon (Glucagon) 1 mg IM PRN PRN PRN Reason: Hypoglycemia Hydralazine HCl (Apresoline) 10 mg SLOW IVP Q4H PRN PRN Reason: SBP > 180 and HR < 70 Last Admin: 03/16/18 08:18 Dose: 10 mg Dextrose/Water (D5w) 1,000 mls @ 0 mls/hr IV .Q0M PRN PRN Reason: Hypoglycemia Diltiazem HCl 125 mg/ Sodium (Chloride) 125 mls @ 5 mls/hr IVPB INF [facility]; Protocol Last Admin: 03/18/18 01:39 Dose: 125 mls Potassium Chloride 40 meq/ (Sodium Chloride) 270 mls @ 135 mls/hr IVPB ASDIR PRN PRN Reason: FOR SERUM K+ 2.5 - 3.5 Potassium Chloride 40 meq/ (Device) 100 mls @ 50 mls/hr IVPB ASDIR PRN PRN Reason: FOR SERUM K+ 2.5 - 3.5 Last Admin: 03/17/18 07:33 Dose: 100 mls Magnesium Sulfate 1 gm/ Sodium (Chloride) 102 mls @ 102 mls/hr IV PRN PRN PRN Reason: MAG LEVEL 1.4 - 2.0 Magnesium Sulfate 2 gm/ Device 100 mls @ 100 mls/hr IVPB ASDIR PRN PRN Reason: MAGNESIUM < 1.4 Potassium Phosphate 9 mmol/ (Sodium Chloride) 103 mls @ 25.75 mls/hr IVPB ASDIR PRN PRN Reason: Phosphate 1.0-1.8 Potassium Phosphate 12 mmol/ (Sodium Chloride) 254 mls @ 63.5 mls/hr IV ASDIR PRN PRN Reason: Serum phosphate 0.5-0.9 Potassium Phosphate 15 mmol/ (Sodium Chloride) 255 mls @ 63.75 mls/hr IV [facility]IR PRN PRN Reason: Serum Phos < 0.5 Insulin Human NPH (Humulin N) 75 unit SC BID [facility] Last Admin: 03/18/18 08:42 Dose: 75 unit Insulin Human Regular (Humulin R) 0 units SC .AGGRESSIVE SLIDING PRN PRN Reason: Aggressive Sliding Scale Last Admin: 03/17/18 22:49 Dose: 3 unit Magnesium Oxide (Magnesium Oxide) 400 mg PO BIDPRN PRN PRN Reason: FOR SERUM MAG 1.4 - 2.0 Magnesium Oxide (Magnesium Oxide) 800 mg PO PRN PRN PRN Reason: FOR SERUM MAG < 1.4 Mineral Oil/White Petrolatum (Eucerin Cream) 0 gm TOP BIDPRN PRN PRN Reason: Dry Skin Miscellaneous Medication (Phos-Nak) 1 pkt PO TIDPRN PRN PRN Reason: FOR PHOS LEVEL 1.0 - 1.8 Miscellaneous Medication (Phos-Nak) 2 pkt PO TIDPRN PRN PRN Reason: FOR PHOS LEVEL 0.5 - 1.0 Miscellaneous Medication (Dc Sedation Protocol) 1 each FS ASDIR [facility] Morphine Sulfate (Morphine) 2 mg SLOW IVP Q4H PRN PRN Reason: Breakthrough Pain Pantoprazole Sodium (Protonix) 40 mg IVP DAILY [facility] Last Admin: 03/18/18 08:37 Dose: 40 mg Potassium Chloride (K-Dur) 40 meq PO ASDIR PRN PRN Reason: FOR SERUM K+ 2.5 - 3.5 Potassium Chloride (Klor-Con) 40 meq PER TUBE ASDIR PRN PRN Reason: FOR SERUM K+ 2.5-3.5 Sodium Chloride ([place] Nasal [place] 0.65%) 0 ml EA NARE QIDPRN PRN PRN Reason: Nasal Congestion Sodium Chloride (Flush - Normal Saline) 10 ml IVF Q12HR [facility] Last Admin: 03/18/18 08:38 Dose: 10 ml Sodium Chloride (Flush - Normal Saline) 10 ml IVF PRN PRN PRN Reason: Saline Flush
[2018-03-18 13:58] LABS: Actual Bicarbonate (HCO3a) 29.9 mEq/L (22-28); Base Excess (BEa) 3.4 mEq/L (-2.0 to +3.0); CO2 Tension 55.1 mmHg (35.0-45.0); Calcium, Ionized 1.22 mmol/L (1.12-1.30); Carboxyhemoglobin (COHb) 1.6 gm% (0.0-3.0); Hemoglobin (Hb) 11.5 g/dL (14.0-18.0); O2 Tension (PaO2) 87.2 mmHg (> 80.0); Potassium - ABG Lab 3.62 mmol/L (3.70-5.30); pH, Arterial 7.35 (7.35-7.45)
[2018-03-18] MEDS ORDERED: Scopolamine 1.5 mg/72 hour Patch TD SCH (14:00)
[2018-03-18 14:04] LABS: ALV-art Gradient 93.475 (0-20); Puncture Site L.R.
[2018-03-18] MEDS: Insulin Regular 300 UNITS/3 ML VIAL SC PRN (16:22)
[2018-03-18] MEDS: cloNIDine 0.2 MG TAB PER TUBE PRN (20:39)
[2018-03-18] MEDS: hydrALAZINE 20 MG/ML VIAL SLOW IVP PRN (20:40)
--- NOTE | 2018-03-18 23:59 | PRG ---
DATE OF SERVICE: 03/18/2018 SUBJECTIVE: Mr. Melendrez remains encephalopathic. OBJECTIVE: He is quite large, 5 foot 10, 267 pounds. He has significant abdominal obesity. His heart rate in the 80s, blood pressure 150/75, respiratory rate in the 20s. His lungs are clear. Heart, regular rhythm. Abdomen is soft. Extremities without asymmetry. LABORATORY DATA: White count 9.6, hemoglobin 10.7, platelets 290. Sodium 142, potassium 3.6, chloride 107, bicarb 27, BUN 20, creatinine 0.72. Blood gas on high-flow nasal cannula 35%, pH 7.35, CO2 55, pO2 87. Chest radiograph suggestive of pulmonary edema. Intake and output was negative 1147 today. IMPRESSION: 1. Status post extubation yesterday for acute diastolic heart failure, respiratory failure, pulmonary edema and pneumonia. 2. Atrial flutter. 3. Encephalopathy of unclear etiology. 4. Acute on chronic kidney disease. 5. Diabetes. PLAN: To place him back on BiPAP just for support for now. Continue to monitor him in the critical care unit. PROGNOSIS: Remains quite guarded. Critical care time 35 minutes throughout the day Job ID: [id number] MTDD
--- NOTE | 2018-03-19 00:57 | CON ---
DATE OF CONSULTATION: CHIEF COMPLAINT: Altered mental status. HISTORY OF PRESENT ILLNESS: Neurology consult was requested to evaluate the patient for encephalopathy. I reviewed his medical record and the patient seems to have been admitted earlier this month on March 09. Per ER note, the patient was completely unresponsive with a Rawlins Coma Scale of 8, and with initial blood pressures of 200s over 150s. He was brought in and did not respond to Narcan. The patient was intubated for a while and he has just been extubated 24 hours ago. The patient was altered for several days. He went to his primary care physician twice prior to that hospitalization, requesting oxygen, but his pulse ox was normal, but he has been seeing various physicians over [facility] [place], he was intubated due to altered mental status and for airway protection. PREVIOUS MEDICAL HISTORY: 1. Diabetes, type 2. 2. Hypertension. 3. Obesity. PAST SURGICAL HISTORY: Per chart, cholecystectomy. SOCIAL HISTORY: Not drinking or smoking. 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 Lives at home in [place]. ALLERGIES: NO KNOWN DRUG ALLERGIES. MEDICATIONS: Medications prior to admission seem to be listed in the chart as: 1. Amitriptyline. 2. Furosemide. 3. Metoprolol. 4. Nexium. 5. Xanax. 6. Valsartan. 7. Buspirone. REVIEW OF SYSTEMS: Unobtainable. PHYSICAL EXAMINATION: VITAL SIGNS: Blood pressure was 143/76, pulse is 74, and respiratory rate 27. He was extubated. He was mouth breathing and he was on high-flow nasal cannula. CHEST: Clear vesicular breathing. CARDIOVASCULAR: S1 and S2 heard. No murmurs. ABDOMEN: Soft. No organomegaly noted. NEUROLOGIC: Motor examination, bulk normal. Tone was decreased on the right side with flaccidity in the right upper extremity. He has bilateral leg edema and normal tone in the lower extremities. Pupils were 3 mm reactive. Gag was present. On motor exam, he had no withdrawal to any stimuli other than slight movement of his face. Deep tendon reflexes were absent. DIAGNOSTIC DATA: Review of his lab workup, he had CT of the brain performed on 03/09/2018, and that imaging showed normal appearance of brain parenchyma, 6 mm calcified meningioma anterior to the left temporal lobe. No ventriculomegaly. No fracture. LABORATORY WORKUP: White count 9.6, hemoglobin 10.7, hematocrit 34.1, and platelets are 290. Chemistry; sodium 142, potassium 3.6, chloride 107, bicarbonate 27, BUN 20, creatinine 0.72, and glucose is 160. Coags, no recent coagulation workup was available. IMPRESSION: The patient is a 67-year-old man with unknown cause of his altered mental status. He had 2 CT scans performed so far, none of them have shown any acute intracranial pathology and is unable to do an MRI due to his size. At this time, I am unable to determine why he would have altered mental status unless he has had a small pontine infarct which may not be seen on the CT head. TREATMENT PLAN: I recommend another CT head. I will try to obtain it in the morning, and if we do not see any further strokes, the best imaging we can do at that point would be a CT angiogram to look at his cerebral vasculature in more detail. I will follow up the patient with you tomorrow. Job ID: [id number]
[2018-03-19] MEDS: hydrALAZINE 20 MG/ML VIAL SLOW IVP PRN (03:36)
[2018-03-19] MEDS: Insulin Regular 300 UNITS/3 ML VIAL SC PRN ×4 (03:37→20:58)
[2018-03-19 04:21] LABS: Anion Gap 12 mmol/L (10-20); BUN (Urea Nitrogen) 22 mg/dL (8.4-25.7); Calc. Creatinine Clearance 216 mL/min (70-130); Calcium 9.4 mg/dL (7.8-10.44); Carbon Dioxide 28 mmol/L (23-31); Chloride 106 mmol/L (98-107); Estimated GFR-MDRD Greater than 90; Glucose 225 mg/dL (80-115); Potassium 3.5 mmol/L (3.5-5.1); Sodium 142 mmol/L (136-145)
[2018-03-19 04:27] LABS: Hemoglobin 10.8 g/dL (14.0-18.0); Mean Corpuscular HGB CONC 30.4 g/dL (32.0-36.0); Mean Corpuscular Hemoglobin 24.6 pg (27.0-31.0); Mean Platelet Volume 8.9 fL (7.4-10.4); Platelet Count 333 thou/uL (130-400); RBC Distribution Width 17.2 % (11.5-14.5); White Blood Cell (WBC) Count 8.5 thou/uL (4.8-10.8)
[2018-03-19] MEDS: cloNIDine 0.2 MG TAB PER TUBE PRN (04:31)
[2018-03-19] MEDS: Potassium Chloride 40 MEQ in Premix Bag 1 BAG IVPB PRN (05:08)
[2018-03-19 06:43] LABS: Band 12 % (5-11); Lymphocytes 11 % (21-51); MDiff Complete? YES; Monocytes 9 % (0-10); Neutrophil 68 % (42-75)
[2018-03-19] MEDS: Carvedilol 6.25 MG TAB PER TUBE SCH ×2 (08:14→17:06)
[2018-03-19] MEDS: Pantoprazole 40 MG VIAL IVP SCH (09:27)
[2018-03-19] MEDS: Enoxaparin Sodium 40 MG/0.4 ML SYRINGE SC SCH ×2 (09:28→20:56)
[2018-03-19] MEDS: Furosemide 20 MG/2 ML VIAL SLOW IVP SCH (09:28)
[2018-03-19] MEDS: Enoxaparin Sodium 120 MG/0.8 ML SYRINGE SC SCH ×2 (09:28→20:56)
[2018-03-19] MEDS: Amoxicillin/Potassium Clav 875 MG TAB PER TUBE SCH ×2 (09:29→20:56)
[2018-03-19] MEDS: NPH, Human Insulin Isophane 300 UNIT/3 ML VIAL SC SCH ×2 (09:29→21:16)
--- NOTE | 2018-03-19 10:02 | PDOC.PN ---
- Subjective Encounter Start Date: 03/19/18 Encounter Start Time: 10:00 Subjective: Seen and examined still very somnolent/lethargic - Objective Vital Signs & Weight: Vital Signs (12 hours) Temp Pulse Resp BP Pulse Ox 03/19/18 08:14 170/77 H 03/19/18 08:00 99.6 F 03/19/18 07:36 81 24 H 98 03/19/18 07:34 78 26 H 98 03/19/18 04:31 228/112 H 03/19/18 03:36 90 03/19/18 03:00 98.0 F 03/19/18 00:25 90 20 98 03/19/18 00:23 88 21 H 98 03/19/18 00:00 99.8 F H Weight Admit Weight 371 lb Weight 351 lb 10.197 oz Most Recent Monitor Data Heart Rate from ECG 92 NIBP 170/77 NIBP BP-Mean 108 Respiration from ECG 23 SpO2 97 I&O: 03/18/18 03/19/18 03/20/18 06:59 06:59 06:59 Intake Total 1279 1783 80 Output Total 2426 2568 230 Balance -1147 -785 -150 Result Diagrams: 03/19/18 03:30 03/19/18 03:30 Additional Labs: Accuchecks 03/19/18 03/18/18 03/18/18 03:35 20:46 16:03 POC Glucose 214 H 229 H 184 H 03/18/18 10:03 POC Glucose 144 H Phys Exam - Physical Examination HEENT: PERRLA, moist MMs, sclera anicteric Neck: no nodes, no JVD, supple Respiratory: no wheezing, no rales, no rhonchi, clear to auscultation bilateral Cardiovascular: RRR, no significant murmur, no rub Gastrointestinal: non-tender, no distention, positive bowel sounds Musculoskeletal: pulses present Dx/Plan (1) Acute kidney injury Code(s): N17.9 - ACUTE KIDNEY FAILURE, UNSPECIFIED Status: Acute (2) Acute metabolic encephalopathy Code(s): G93.41 - METABOLIC ENCEPHALOPATHY Status: Acute (3) Acute on chronic diastolic ACC/AHA stage C congestive heart failure Code(s): I50.33 - ACUTE ON CHRONIC DIASTOLIC (CONGESTIVE) HEART FAILURE Status : Acute (4) Acute respiratory acidosis Code(s): E87.2 - ACIDOSIS Status: Acute (5) Atrial fibrillation and flutter Code(s): I48.91 - UNSPECIFIED ATRIAL FIBRILLATION; I48.92 - UNSPECIFIED ATRIAL FLUTTER Status: Acute (6) Diabetes type 2, uncontrolled Code(s): E11.65 - TYPE 2 DIABETES MELLITUS WITH HYPERGLYCEMIA Status: Acute (7) Hypertension Code(s): I10 - ESSENTIAL (PRIMARY) HYPERTENSION Status: Chronic (8) Morbid obesity with BMI of 50.0-59.9, adult Code(s): E66.01 - MORBID (SEVERE) OBESITY DUE TO EXCESS CALORIES; Z68.43 - BODY MASS INDEX (BMI) 50-59.9, ADULT Status: Chronic - Plan 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
--- NOTE | 2018-03-19 10:03 | RAD ---
PORTABLE CHEST: Date: 03/19/18 HISTORY: Respiratory distress. COMPARISON: Prior day's study. FINDINGS: Heart size is enlarged. Parenchymal lung changes in the left base appear improved as compared to the prior exam. Dobbhoff feeding tube is seen, tip below hemidiaphragm. Aorta appears tortuous. IMPRESSION: 1. Cardiomegaly. No change in position of left sided central line. 2. Improving parenchymal changes in the left base. POS: [facility]
[2018-03-19] MEDS: busPIRone HCl 5 MG TAB PER TUBE SCH ×2 (10:46→20:56)
[2018-03-19] MEDS: Diltiazem 125 MG in Sodium Chloride 0.9% 100 ML IVPB SCH (11:56)
--- NOTE | 2018-03-19 13:37 | PRG ---
DATE OF SERVICE: 03/19/2018 SUBJECTIVE: Tnoe Melendrez remains on BiPAP. He is actually more lucid this morning. He answered yes and no and nodded to some questions and did squeeze hands. OBJECTIVE: VITAL SIGNS: Afebrile. Heart rates in the 70s, blood pressure 139/77, respiratory rate 21. LUNGS: Clear. HEART: Regular rate and rhythm. ABDOMEN: Soft and fairly massive. LABORATORY DATA: White count 8.5, hemoglobin 10.8, and platelets 333,000. Sodium 142, potassium 3.5, chloride 106, bicarb 28, BUN 22, and creatinine 0.7, glucose 225. Intake and outputs, negative 785. Chest radiograph reviewed by me is unchanged. The haziness at the left base may be a little bit better. IMPRESSION: 1. Acute on chronic respiratory failure with hypercarbia. 2. Morbid obesity. 3. Status post mechanical ventilation, extubated on Tuesday, clinically stable with BiPAP. 4. Atrial flutter. 5. Improving encephalopathy likely of critical illness. 6. Acute on chronic kidney disease. 7. Diabetes. PLAN: Continue supportive care. Might consider with removing the BiPAP during the day tomorrow. Job ID: [id number]
--- NOTE | 2018-03-19 15:59 | PRG ---
DATE OF SERVICE: 03/19/2018 CHIEF COMPLAINT: Altered mental status. HISTORY OF PRESENT ILLNESS: I spoke to his in great detail. The patient's reported 3 to 4 months ago, he had gained a lot of fluid and he has congestive heart failure and was weighing up to 360 pounds and he was told by his doctor that he had 35 pounds of fluid within him. He cut out a lot of the eating, but he again started eating heavy. He was getting sick. thought he was also developing dementia. He has had forgetfulness 2 days before this admission and he was talking out of his head per . On the day of admission, she found him on the floor in the bathroom. He locked himself in, but was able to open the door for her to go in. She brought him to a chair and he then slumped to the floor while she was still in the kitchen. He did not become unconscious. He was never unconscious at home and looked like during the EMS transit, he became unconscious. Because in the ER note, it was stated that the patient was unconscious at the time he arrived to the ER. He could not get off the floor at home. Today, he is much more alert and awake. He is being ventilated with CPAP and is following commands. INTERVAL WORKUP,: VITAL SIGNS: Blood pressure was 154/76 and pulse was 76. He is on BiPAP and O2 saturations are 100 on BiPAP. He is afebrile and temperature is 99.6. GENERAL APPEARANCE: He is on CPAP and is following all commands. NEUROLOGIC: He is able to follow simple one-step commands. Does laugh. He has hand floral assistant of 80% bilaterally and he is able to move all 4 extremities, although he has generalized weakness likely due to deconditioning. IMPRESSION: The patient is a 68-year-old man. This consult was requested for altered level of consciousness, but now that he is much more alert and waking up. is quite satisfied with his progress. TREATMENT/RECOMMENDATIONS: I requested another CT of the head just to make sure there was no interval change. Call Neurology as needed. Job ID: [id number]
[2018-03-20] MEDS: cloNIDine 0.2 MG TAB PER TUBE PRN ×2 (01:14→13:27)
[2018-03-20] MEDS: Insulin Regular 300 UNITS/3 ML VIAL SC PRN ×3 (04:34→20:47)
[2018-03-20 04:53] LABS: Band 5 % (5-11); Eosinophils 8 % (0-10); Hemoglobin 10.8 g/dL (14.0-18.0); Lymphocytes 22 % (21-51); MDiff Complete? YES; Mean Corpuscular HGB CONC 30.7 g/dL (32.0-36.0); Mean Corpuscular Hemoglobin 25.5 pg (27.0-31.0); Mean Platelet Volume 9.1 fL (7.4-10.4); Monocytes 5 % (0-10); Neutrophil 60 % (42-75); Platelet Count 366 thou/uL (130-400); RBC Distribution Width 17.3 % (11.5-14.5); Red Blood Cell (RBC) Count 4.26 mill/uL (4.70-6.10)
[2018-03-20 05:05] LABS: Anion Gap 15 mmol/L (10-20); BUN (Urea Nitrogen) 24 mg/dL (8.4-25.7); Calc. Creatinine Clearance 227 mL/min (70-130); Calcium 9.5 mg/dL (7.8-10.44); Carbon Dioxide 28 mmol/L (23-31); Chloride 106 mmol/L (98-107); Estimated GFR-MDRD Greater than 90; Glucose 193 mg/dL (80-115); Potassium 3.6 mmol/L (3.5-5.1); Sodium 145 mmol/L (136-145)
[2018-03-20] MEDS: busPIRone HCl 5 MG TAB PER TUBE SCH ×2 (08:01→20:45)
[2018-03-20] MEDS: Pantoprazole 40 MG VIAL IVP SCH (08:02)
[2018-03-20] MEDS: Amoxicillin/Potassium Clav 875 MG TAB PER TUBE SCH ×2 (08:02→20:45)
[2018-03-20] MEDS: Enoxaparin Sodium 120 MG/0.8 ML SYRINGE SC SCH ×2 (08:02→20:45)
[2018-03-20] MEDS: Carvedilol 6.25 MG TAB PER TUBE SCH ×2 (08:02→16:23)
[2018-03-20] MEDS: Furosemide 20 MG/2 ML VIAL SLOW IVP SCH (08:03)
[2018-03-20] MEDS: Enoxaparin Sodium 40 MG/0.4 ML SYRINGE SC SCH ×2 (08:03→20:45)
--- NOTE | 2018-03-20 08:23 | RAD ---
AP CHEST: History: Ventilator dependent patient. Date: 03-20-18 Comparison: 03-19-18 FINDINGS: AP chest demonstrates placement of a left jugular central line, distal tip overlying the SVC. A feedi ng tube is in place. Pulmonary vascular congestion is seen. No evidence of effusions seen. EKG leads seen over the chest. IMPRESSION: Pulmonary vascular congestion seen. No evidence of acute intrathoracic abnormalities seen. POS: [facility]
--- NOTE | 2018-03-20 09:02 | PRG ---
DATE OF SERVICE: 03/20/2018 SUBJECTIVE: Mr. Melendrez has remained extubated over the weekend. He is still extremely weak. He is requiring BiPAP intermittently. OBJECTIVE: VITAL SIGNS: On exam, his temperature is 98.5, pulse 77, and blood pressure 170/110. A 24-hour intake 1985 and output 2079. HEENT: Unremarkable. NECK: No adenopathy, JVD, or bruits. LUNGS: Fairly clear anteriorly. CARDIAC: S1 and S2. Regular. ABDOMEN: Obese and soft. EXTREMITIES: No edema. NEUROMUSCULAR: He has difficulty moving all 4 extremities. LABORATORY DATA: White blood cell count 8, hematocrit 35.3, and platelet count 366. Sodium 145, potassium 3.6, chloride 106, CO2 of 28, BUN 24, creatinine 0.7, and glucose 193. ASSESSMENT: 1. Critical illness myopathy. 2. Status post mechanical ventilation for pneumonia and diastolic heart failure. 3. Atrial flutter. 4. Encephalopathy. 5. Diabetes mellitus. PLAN: 1. Continue BiPAP intermittently as needed. 2. Continue care in CCU as he is too weak to go to the floor. 3. At some point, he will need an EP study. I am not sure he is strong enough to endure that yet. 4. Continue daily low-dose diuretics. 5. Continue NPH insulin. Job ID: [id number]
--- NOTE | 2018-03-20 09:03 | PDOC.CTH ---
Cardiology Progress Note - Subjective The pt seen and examined. No overnight events. On Bipap and try to speak. Plan for ablation by EP today. - Objective Vital Signs Temp Pulse Resp BP Pulse Ox 03/20/18 08:50 99 03/20/18 08:02 171/77 H 03/20/18 08:00 98.7 F 03/20/18 07:33 77 23 H 96 03/20/18 07:32 77 30 H 96 03/20/18 04:00 98.5 F 03/20/18 02:25 77 25 H 97 03/20/18 01:14 171/77 H 03/20/18 00:00 97.5 F L Admit Weight 371 lb Weight 349 lb 13.977 oz 03/19/18 03/20/18 03/21/18 06:59 06:59 06:59 Intake Total 1783 1986 100 Output Total 2568 2080 500 Balance -025 94 400 - Physical Examination Lungs: other: (coarses and diminished at bases) Heart: other: (irregular) Abdomen: soft Extremities: other: (generalized edema) - Telemetry Telemetry Rhythm: Aflutter - Labs Result Diagrams: 03/20/18 03:30 03/20/18 03:30 Troponin/CKMB Troponin I Less than 0.010 ng/mL (< 0.028) 03/09/18 01:25 - Assessment/Plan 1. Afib/Aflutter - well controlled HR, 70-80s with Coreg 12.5mg BID. On Lovenox to 160 mg BID; Plan for CTI ablation by EP today. 2. Acute on Chronic diastolic HF - stable with Lasix 20mg IV qd and Coreg 12.5mg BID. 3. Bilat PNA - on ABX IV; managed by PCP/timber selector 4. OLYA - improved 5. Acute metabolic encephalopathy - responds to voice stimulation and try to speak; Managed by neurology service. 6. HTN - stable 7. Hyperlipidemia - 8. Insulin depend-DM - 9. NADIA - 10. Mrbid Obesity - 11. Anxiety and depression - MAR reviewed * His housing liaison is Dr Santino Emmanuel in [place], [place] Pt. seen and eval. by me. I agree with the A/P by the SOCK LINING EXAMINER. He remains extremely weak and deconditioned. His mental status has significantly improved. He remains in atrial flutter. When strong and stable enough he will likely undergo ablation of flutter. Review of Systems - Review of Systems Constitutional: reports: see HPI
[2018-03-20] MEDS: NPH, Human Insulin Isophane 300 UNIT/3 ML VIAL SC SCH ×2 (10:27→20:47)
[2018-03-20] MEDS ORDERED: NPH, Human Insulin Isophane 300 UNIT/3 ML VIAL SC SCH (11:00)
--- NOTE | 2018-03-20 11:45 | PDOC.PN ---
- Subjective Encounter Start Date: 03/20/18 Encounter Start Time: 11:43 Subjective: Seen and examined still very weak - Objective Vital Signs & Weight: Vital Signs (12 hours) Temp Pulse Resp BP Pulse Ox 03/20/18 10:42 95 03/20/18 08:50 99 03/20/18 08:02 171/77 H 03/20/18 08:00 98.7 F 95 03/20/18 07:33 77 23 H 96 03/20/18 07:32 77 30 H 96 03/20/18 04:00 98.5 F 03/20/18 02:25 77 25 H 97 03/20/18 01:14 171/77 H 03/20/18 00:00 97.5 F L Weight Admit Weight 371 lb Weight 349 lb 13.977 oz Most Recent Monitor Data Heart Rate from ECG 77 NIBP 144/89 NIBP BP-Mean 107 Respiration from ECG 25 SpO2 95 I&O: 03/19/18 03/20/18 03/21/18 06:59 06:59 06:59 Intake Total 1783 1986 100 Output Total 2568 2080 1100 Balance - Result Diagrams: 03/20/18 03:30 03/20/18 03:30 Additional Labs: Accuchecks 03/20/18 03/20/18 03/19/18 10:36 04:34 20:54 POC Glucose 158 H 169 H 230 H 03/19/18 03/19/18 15:51 12:03 POC Glucose 227 H 203 H Phys Exam - Physical Examination Weak HEENT: moist MMs, sclera anicteric Neck: no nodes, supple Respiratory: no wheezing, no rales, no rhonchi Transmitted sounds Cardiovascular: no significant murmur Gastrointestinal: soft, non-tender, positive bowel sounds obese Musculoskeletal: pulses present Dx/Plan (1) Acute kidney injury Code(s): N17.9 - ACUTE KIDNEY FAILURE, UNSPECIFIED Status: Acute (2) Acute metabolic encephalopathy Code(s): G93.41 - METABOLIC ENCEPHALOPATHY Status: Acute (3) Acute on chronic diastolic ACC/AHA stage C congestive heart failure Code(s): I50.33 - ACUTE ON CHRONIC DIASTOLIC (CONGESTIVE) HEART FAILURE Status : Acute (4) Acute respiratory acidosis Code(s): E87.2 - ACIDOSIS Status: Acute (5) Atrial fibrillation and flutter Code(s): I48.91 - UNSPECIFIED ATRIAL FIBRILLATION; I48.92 - UNSPECIFIED ATRIAL FLUTTER Status: Acute (6) Diabetes type 2, uncontrolled Code(s): E11.65 - TYPE 2 DIABETES MELLITUS WITH HYPERGLYCEMIA Status: Acute (7) Hypertension Code(s): I10 - ESSENTIAL (PRIMARY) HYPERTENSION Status: Chronic (8) Morbid obesity with BMI of 50.0-59.9, adult Code(s): E66.01 - MORBID (SEVERE) OBESITY DUE TO EXCESS CALORIES; Z68.43 - BODY MASS INDEX (BMI) 50-59.9, ADULT Status: Chronic (9) Lethargic Code(s): R53.83 - OTHER FATIGUE Status: Acute - Plan plan discussed w/ family, PT/OT, respiratory therapy CT scan and EP study on hold till tommorrow -: Resume tube feeding -: Gentle diuresis -: 1/2 dose of insulin this morning untill tube feeding fully re-established * .
[2018-03-20] MEDS: Acetaminophen 650 MG/20.3 ML UDCUP PER TUBE PRN (13:28)
[2018-03-20] MEDS: hydrALAZINE 20 MG/ML VIAL SLOW IVP PRN ×2 (15:09→21:04)
--- NOTE | 2018-03-20 16:00 | PRG ---
DATE OF SERVICE: 03/20/2018 This is an electrophysiology followup note. REFERRING PHYSICIAN: Dr. Ursula Barnes. SUBJECTIVE: Aneesh is extubated over 24 hours. Still has required high-flow oxygen supplementation and poorly conversational. Continues in atrial flutter. OBJECTIVE DATA: VITAL SIGNS: Blood pressure is 170/103, heart rate 92, respirations 12. The patient is afebrile. GENERAL: Alert and oriented man with elevated BMI, in no apparent distress. NECK: Supple. Jugular veins not distended. CHEST: Coarse. No wheezing or crackles are heard. HEART: Sounds are regular rate and rhythm. No murmur or gallop. ABDOMEN: Benign. Bowel sounds positive. EXTREMITIES: Lower extremity without edema, clubbing, or cyanosis. DATABASE: The EKG was reviewed today revealing an atrial flutter with 3:1 AV conduction. Telemetry strips reveals continued rate control. White count 8, hemoglobin 10.8 , platelet count is 366. Sodium 145, potassium 3.6, BUN is 24, and creatinine 0.7. ASSESSMENT AND PLAN: Mr. Melendrez is a 68-year-old man, who presented with newly found atrial flutter with rapid rates and respiratory failure. He is now better from the respiratory standpoint, extubated after adequate treatment for pneumonia. He has been continuing in atrial flutter, even though now the ventricular rates are much better from the carvedilol p.o. and his IV diltiazem drip is off. I have discussed the treatment options with the sister at the bedside, also over the phone with the . The pros and cons about potential KATARINA guided ablation therapy. At this point, I would like to hold off, hence recent extubation with improvement in respiratory status, this option could be re-entertained. In the meantime, continue carvedilol and anticoagulation with Lovenox. We will follow with you. Job ID: [id number] [facility]
[2018-03-20] MEDS: Fluconazole In NaCl,Iso-Osm 200 MG in Premix Bag 1 BAG IVPB SCH (18:02)
[2018-03-21] MEDS: hydrALAZINE 20 MG/ML VIAL SLOW IVP PRN ×2 (02:02→06:32)
[2018-03-21] MEDS: Insulin Regular 300 UNITS/3 ML VIAL SC PRN ×5 (04:04→20:42)
[2018-03-21 05:25] LABS: Hemoglobin 11.5 g/dL (14.0-18.0); Mean Corpuscular HGB CONC 30.7 g/dL (32.0-36.0); Mean Corpuscular Hemoglobin 25.4 pg (27.0-31.0); Mean Corpuscular Volume 82.8 fL (78.0-98.0); Mean Platelet Volume 9.1 fL (7.4-10.4); Platelet Count 393 thou/uL (130-400); RBC Distribution Width 17.3 % (11.5-14.5); White Blood Cell (WBC) Count 8.3 thou/uL (4.8-10.8)
[2018-03-21 05:29] LABS: Anion Gap 13 mmol/L (10-20); BUN (Urea Nitrogen) 27 mg/dL (8.4-25.7); Calc. Creatinine Clearance 209 mL/min (70-130); Calcium 9.5 mg/dL (7.8-10.44); Carbon Dioxide 30 mmol/L (23-31); Chloride 104 mmol/L (98-107); Estimated GFR-MDRD Greater than 90; Glucose 242 mg/dL (80-115); Potassium 3.8 mmol/L (3.5-5.1); Sodium 143 mmol/L (136-145)
[2018-03-21 05:33] LABS: Band 6 % (5-11); Eosinophils 9 % (0-10); Lymphocytes 18 % (21-51); MDiff Complete? YES; Monocytes 3 % (0-10); Neutrophil 64 % (42-75)
--- NOTE | 2018-03-21 07:53 | RAD ---
AP CHEST: History: Ventilator dependent patient. Date: 03-21-18 Comparison: 03-20-18 FINDINGS: AP view chest demonstrates Dobbhoff feeding tube in place. Left jugular central line is in place. Dis mina tip overlies the superior SVC. Pulmonary vascular congestion is seen. No evidence of effusions, pneumonia, or pneumothorax seen. IMPRESSION: Pulmonary vascular congestion. Otherwise unremarkable AP chest. POS: [facility]
[2018-03-21] MEDS: Carvedilol 6.25 MG TAB PER TUBE SCH (08:19)
[2018-03-21] MEDS: busPIRone HCl 5 MG TAB PER TUBE SCH ×2 (08:19→20:41)
[2018-03-21] MEDS: Valsartan 80 MG TAB PER TUBE SCH (08:20)
[2018-03-21] MEDS: Amoxicillin/Potassium Clav 875 MG TAB PER TUBE SCH ×2 (08:20→20:41)
[2018-03-21] MEDS: Amlodipine 10 MG TAB PER TUBE SCH (08:20)
[2018-03-21] MEDS: Furosemide 20 MG/2 ML VIAL SLOW IVP SCH (08:21)
[2018-03-21] MEDS: Pantoprazole 40 MG VIAL IVP SCH (08:22)
[2018-03-21] MEDS: Enoxaparin Sodium 40 MG/0.4 ML SYRINGE SC SCH ×2 (08:22→20:41)
[2018-03-21] MEDS: Enoxaparin Sodium 120 MG/0.8 ML SYRINGE SC SCH ×2 (08:22→20:41)
[2018-03-21] MEDS: NPH, Human Insulin Isophane 300 UNIT/3 ML VIAL SC SCH ×2 (08:24→20:42)
--- NOTE | 2018-03-21 08:42 | CT ---
PRELIMINARY REPORT/[facility]/EMERGENTY AFTER-HOURS PROCEDURE CT Head Without Contrast EXAM DATE/TIME: 03/21/2018 3:37 AM CLINICAL HISTORY: 68 years old, male; Signs and symptoms; Altered mental status/memory loss and other: Respiratory fail ure; Confusion or disorientation; Patient HX: AMS, respiratory failure. PT is intubated, respiratory failure and pneumonia. PT is coming off sedation. No waking up as he should. TECHNIQUE: Axial computed tomography images of the head/brain without contrast. COMPARISON: CT Brain WO Con 03/16/2018 4:26 PM FINDINGS: Brain: Mild generalized volume loss of the brain. Small calcified meningioma at the anterior left tem poral lobe. No brain edema. No intracranial hemorrhage. Ventricles: Normal. No ventriculomegaly. Bones/joints: See Mastoid Air Cells Finding. Sinuses: Dependent fluid in the sphenoid sinus may signify sinusitis. Mastoid air cells: Mild partial opacification of the mastoid air cells. No perceptible mastoid fractu re. No osseous erosion, overlying inflammation, or subperiosteal abscess to indicate mastoiditis. Soft tissues: Normal. IMPRESSION: 1. Dependent fluid in the sphenoid sinus may signify sinusitis. 2. No acute brain findings. Thank you for allowing us to participate in the care of your patient. Dictated and Authenticated by: Henrry Beck MD 03/21/2018 3:57 AM Central Time ([place] & [place]) FINAL REPORT CT BRAIN WITHOUT CONTRAST: I agree with the preliminary report given by Dr. Henrry Beck of [facility]. POS: [facility]
--- NOTE | 2018-03-21 10:21 | PRG ---
DATE OF SERVICE: 03/21/2018 SUBJECTIVE: The patient remains in the CCU. He is actually up in a chair today. He will speak to me when spoken to and he follows some commands. OBJECTIVE: VITAL SIGNS: Temperature is 98.4, pulse 79, blood pressure 185/126, 24-hour intake 1546, output 2470. Weight 321 pounds. HEENT: Unremarkable. NECK: No JVD. LUNGS: Clear anteriorly. CARDIAC: S1 and S2, regular. ABDOMEN: Soft, obese, and nontender. EXTREMITIES: Edematous. LABORATORY DATA: Sodium 143, potassium 3.8, chloride 104, CO2 of 30, BUN 27, creatinine 0.7, glucose 242. White blood cell count 8.3, hematocrit 37.3, and platelet count 393. Chest x-ray, lung field looks fairly clear. ASSESSMENT: 1. Slowly improving encephalopathy. 2. Status post acute respiratory failure requiring mechanical ventilation. 3. Critical illness myopathy. 4. Atrial flutter. 5. Diabetes mellitus. PLAN: 1. Added valsartan to his antihypertensive regimen. 2. Up in a chair as tolerated. 3. Continue ICU care for the time being. Job ID: [id number]
--- NOTE | 2018-03-21 10:52 | PDOC.PN ---
- Subjective Encounter Start Date: 03/21/18 Encounter Start Time: 10:50 Subjective: arousable, minimally responsive to questions - Objective MAR Reviewed: Yes Vital Signs & Weight: Vital Signs (12 hours) Temp Pulse Resp BP Pulse Ox 03/21/18 08:20 103 H 155/92 H 03/21/18 08:19 155/92 H 03/21/18 07:37 99 03/21/18 07:14 100 29 H 99 03/21/18 06:32 87 185/126 H 03/21/18 03:00 98.4 F 03/21/18 02:24 87 25 H 100 03/21/18 02:02 90 181/101 H 03/21/18 01:45 100 03/21/18 00:00 98.5 F Weight Admit Weight 371 lb Weight 321 lb 3.416 oz Most Recent Monitor Data Heart Rate from ECG 79 NIBP 185/126 NIBP BP-Mean 145 Respiration from ECG 19 SpO2 100 I&O: 03/20/18 03/21/18 03/22/18 06:59 06:59 06:59 Intake Total 1985 1546 Output Total 2079 2470 Balance -94 -924 Result Diagrams: 03/21/18 04:00 03/21/18 04:00 Additional Labs: Accuchecks 03/21/18 03/21/18 03/20/18 08:31 04:05 20:47 POC Glucose 197 H 241 H 229 H 03/20/18 15:24 POC Glucose 210 H Phys Exam - Physical Examination Neck: no JVD bilat rhonchi Cardiovascular: no significant murmur, irregular Gastrointestinal: soft, positive bowel sounds Musculoskeletal: edema present Dx/Plan (1) Acute metabolic encephalopathy Code(s): G93.41 - METABOLIC ENCEPHALOPATHY Status: Acute (2) Acute on chronic diastolic ACC/AHA stage C congestive heart failure Code(s): I50.33 - ACUTE ON CHRONIC DIASTOLIC (CONGESTIVE) HEART FAILURE Status : Acute (3) Acute respiratory acidosis Code(s): E87.2 - ACIDOSIS Status: Acute (4) Atrial fibrillation and flutter Code(s): I48.91 - UNSPECIFIED ATRIAL FIBRILLATION; I48.92 - UNSPECIFIED ATRIAL FLUTTER Status: Acute (5) CO2 narcosis Code(s): R06.89 - OTHER ABNORMALITIES OF BREATHING Status: Chronic (6) Diabetes type 2, uncontrolled Code(s): E11.65 - TYPE 2 DIABETES MELLITUS WITH HYPERGLYCEMIA Status: Acute Qualifiers: Glycemic state: with hyperglycemia Qualified Code(s): E11.65 - Type 2 diabetes mellitus with hyperglycemia (7) Anemia, normocytic normochromic Code(s): D64.9 - ANEMIA, UNSPECIFIED Status: Chronic (8) GERD (gastroesophageal reflux disease) Code(s): K21.9 - GASTRO-ESOPHAGEAL REFLUX DISEASE WITHOUT ESOPHAGITIS Status: Chronic Qualifiers: Esophagitis presence: esophagitis presence not specified Qualified Code(s) : K21.9 - Gastro-esophageal reflux disease without esophagitis (9) Hypertension Code(s): I10 - ESSENTIAL (PRIMARY) HYPERTENSION Status: Chronic Qualifiers: Hypertension type: essential hypertension Qualified Code(s): I10 - Essential (primary) hypertension (10) Morbid obesity with BMI of 50.0-59.9, adult Code(s): E66.01 - MORBID (SEVERE) OBESITY DUE TO EXCESS CALORIES; Z68.43 - BODY MASS INDEX (BMI) 50-59.9, ADULT Status: Chronic - Plan cont coreg, anticoag -: BIPAP prn -: Nutrition per Dobhof -: accu/ss/long acting insulin * .
[2018-03-21] MEDS ORDERED: Carvedilol 6.25 MG TAB PO SCH (12:15)
--- NOTE | 2018-03-21 12:17 | PDOC.CTH ---
Cardiology Progress Note - Subjective The pt seen and examined. No overnight events. No cardiac complaints. He was up to chair this AM. - Objective Vital Signs Temp Pulse Resp BP Pulse Ox 03/21/18 08:20 103 H 155/92 H 03/21/18 08:19 155/92 H 03/21/18 07:37 99 03/21/18 07:14 100 29 H 99 03/21/18 06:32 87 185/126 H 03/21/18 03:00 98.4 F 03/21/18 02:24 87 25 H 100 03/21/18 02:02 90 181/101 H 03/21/18 01:45 100 Admit Weight 371 lb Weight 321 lb 3.416 oz 03/20/18 03/21/18 03/22/18 06:59 06:59 06:59 Intake Total 1985 1546 Output Total 2079 2310 Balance -94 -924 - Physical Examination General/Neuro: other: (drowsy and confused) Lungs: other: (coarses and diminished at bases) Heart: other: (irregular) Abdomen: soft Extremities: other: (Generalized edema) - Telemetry Telemetry Rhythm: Aflutter - Labs Result Diagrams: 03/21/18 04:00 03/21/18 04:00 Troponin/CKMB Troponin I Less than 0.010 ng/mL (< 0.028) 03/09/18 01:25 - Assessment/Plan 1. Afib/Aflutter - well controlled HR, 70-80s with Coreg, which changed from 12.5mg to 25mg BID. On Lovenox to 160 mg BID; Plan for CTI ablation by EP when the family agree. 2. Acute on Chronic diastolic HF - stable with Lasix 20mg IV qd and Coreg. 3. Bilat PNA - on ABX IV; managed by PCP/nuclear plant technical advisor 4. OLYA - improved 5. Acute metabolic encephalopathy - responds to voice stimulation and try to speak; Managed by neurology service. 6. HTN - Increase Coreg from 12.5mg to 25mg BID. 7. Hyperlipidemia - 8. Insulin depend-DM - 9. NADIA - 10. Mrbid Obesity - 11. Anxiety and depression - MAR reviewed * His associate brand manager is Dr Santino Emmanuel in [place], [place] Pt. seen and tolerated by me. I agree with the A/P by the PNEUMATIC TESTER.He is more alert each day but still extremely weak. Plan for flutter ablation when stable. Review of Systems - Review of Systems Constitutional: reports: see HPI EENTM: reports: see HPI Respiratory: reports: see HPI
--- NOTE | 2018-03-21 13:41 | PDOC.CTH ---
Cardiology Progress Note - Subjective EP PROGRESS NOTE: 03/21/18 Seen and evaluated as follow up for atrial flutter. Extubated x 2 days. On room air. Poor interaction with questionable orientationl. No family bedside - ROS not able to obtain ROS - Objective Vital Signs Temp Pulse Resp BP Pulse Ox 03/21/18 08:20 103 H 155/92 H 03/21/18 08:19 155/92 H 03/21/18 07:37 99 03/21/18 07:14 100 29 H 99 03/21/18 06:32 87 185/126 H 03/21/18 03:00 98.4 F 03/21/18 02:24 87 25 H 100 03/21/18 02:02 90 181/101 H 03/21/18 01:45 100 Admit Weight 371 lb Weight 321 lb 3.416 oz 03/20/18 03/21/18 03/22/18 06:59 06:59 06:59 Intake Total 1986 1546 Output Total 2080 2470 Balance -94 -924 - Physical Examination General/Neuro: alert & oriented x3, NAD Neck: carotid US brisk, no JVD present Lungs: unlabored respirations Heart: PMI normal, other: Abdomen: NT/ND, soft - Telemetry Telemetry Rhythm: 2:1 Atrial flutter. ventricular rates 75-90 - Labs Result Diagrams: 03/21/18 04:00 03/21/18 04:00 Troponin/CKMB Troponin I Less than 0.010 ng/mL (< 0.028) 03/09/18 01:25 - Assessment/Plan 1. Atrial flutter, -likely typical morphology -rate controlled -recommend KATARINA guided EP study with ablation once family is agreeable 2. CHADS2-VASC: 4 (age, HTN, DM, vascular disease) - continue lovenox 120mg for anticoagulation 3. Pneumonia -resolving -per pulmonology
[2018-03-21] MEDS: Carvedilol 25 MG TAB PO SCH (17:00)
[2018-03-21] MEDS: Fluconazole In NaCl,Iso-Osm 200 MG in Premix Bag 1 BAG IVPB SCH (18:05)
[2018-03-22] MEDS: Insulin Regular 300 UNITS/3 ML VIAL SC PRN (05:25)
[2018-03-22 05:51] LABS: Band 4 % (5-11); Eosinophils 5 % (0-10); Hemoglobin 10.6 g/dL (14.0-18.0); Lymphocytes 19 % (21-51); MDiff Complete? YES; Mean Corpuscular HGB CONC 30.5 g/dL (32.0-36.0); Mean Corpuscular Hemoglobin 25.4 pg (27.0-31.0); Mean Corpuscular Volume 83.3 fL (78.0-98.0); Mean Platelet Volume 8.7 fL (7.4-10.4); Monocytes 7 % (0-10); Neutrophil 65 % (42-75); Platelet Count 375 thou/uL (130-400); RBC Distribution Width 17.2 % (11.5-14.5); Red Blood Cell (RBC) Count 4.15 mill/uL (4.70-6.10); White Blood Cell (WBC) Count 8.5 thou/uL (4.8-10.8)
[2018-03-22 06:05] LABS: Anion Gap 13 mmol/L (10-20); BUN (Urea Nitrogen) 30 mg/dL (8.4-25.7); Calc. Creatinine Clearance 205 mL/min (70-130); Calcium 9.4 mg/dL (7.8-10.44); Carbon Dioxide 30 mmol/L (23-31); Chloride 105 mmol/L (98-107); Estimated GFR-MDRD Greater than 90; Glucose 201 mg/dL (80-115); Potassium 3.7 mmol/L (3.5-5.1); Sodium 144 mmol/L (136-145)
--- NOTE | 2018-03-22 08:59 | PRG ---
DATE OF SERVICE: 03/22/2018 SUBJECTIVE: Mr. Melendrez has progressed to where he can answer yes/no questions fairly reliably. He is still disoriented to time and place. OBJECTIVE: VITAL SIGNS: Temperature 97.9, pulse 80, blood pressure 181/88. A 24-hour intake 2207, output 1635. HEENT: Unremarkable except for left naris NG tube. NECK: No JVD. CHEST: Clear anteriorly. CARDIAC: S1, S2. Regular. ABDOMEN: Soft, obese, nontender. EXTREMITIES: No profound edema. LABORATORY DATA: White blood cell count 8.5, hematocrit 34.6, platelet count 375. Sodium 144, potassium 3.7, chloride 105, CO2 of 30, BUN 30, creatinine 0.7, glucose 201. ASSESSMENT: 1. Status post prolonged respiratory failure requiring mechanical ventilation from diastolic heart failure and pneumonia. 2. Critical illness myopathy, which is slowly improving. 3. Atrial flutter. 4. Diabetes mellitus. PLAN: He has probably progressed to the point where he can go to [facility]. I have encouraged the to begin thinking about LTAC placement. He will probably need to have his atrial flutter addressed prior to going to the LTAC. Job ID: [id number]
[2018-03-22] MEDS: Valsartan 80 MG TAB PER TUBE SCH (09:38)
[2018-03-22] MEDS: Amoxicillin/Potassium Clav 875 MG TAB PER TUBE SCH ×2 (09:38→22:23)
[2018-03-22] MEDS: Amlodipine 10 MG TAB PER TUBE SCH (09:38)
[2018-03-22] MEDS: Carvedilol 25 MG TAB PO SCH ×2 (09:38→17:32)
[2018-03-22] MEDS: busPIRone HCl 5 MG TAB PER TUBE SCH ×2 (09:39→22:23)
[2018-03-22] MEDS: NPH, Human Insulin Isophane 300 UNIT/3 ML VIAL SC SCH ×2 (09:40→22:24)
[2018-03-22] MEDS: Pantoprazole 40 MG VIAL IVP SCH (09:40)
[2018-03-22] MEDS: Enoxaparin Sodium 120 MG/0.8 ML SYRINGE SC SCH ×2 (09:40→22:24)
[2018-03-22] MEDS: Enoxaparin Sodium 40 MG/0.4 ML SYRINGE SC SCH ×2 (09:40→22:24)
[2018-03-22] MEDS: Furosemide 20 MG/2 ML VIAL SLOW IVP SCH (09:40)
--- NOTE | 2018-03-22 10:31 | PDOC.PN ---
- Subjective Encounter Start Date: 03/22/18 Encounter Start Time: 10:30 Subjective: alert, follows simple instructions - Objective MAR Reviewed: Yes Vital Signs & Weight: Vital Signs (12 hours) Temp Pulse Resp Pulse Ox 03/22/18 08:00 97.9 F 03/22/18 07:22 78 25 H 98 03/22/18 04:00 97.5 F L 03/22/18 02:24 22 H 99 03/22/18 00:00 98.0 F 03/21/18 23:56 78 24 H 99 Weight Admit Weight 371 lb Weight 329 lb 2.402 oz Most Recent Monitor Data Heart Rate from ECG 79 NIBP 169/88 NIBP BP-Mean 115 Respiration from ECG 21 SpO2 94 I&O: 03/21/18 03/22/18 03/23/18 06:59 06:59 06:59 Intake Total 1546 2207 90 Output Total 2470 1635 340 Balance -924 572 -250 Result Diagrams: 03/22/18 05:30 03/22/18 05:30 Additional Labs: Accuchecks 03/22/18 03/21/18 03/21/18 05:22 20:41 16:55 POC Glucose 199 H 255 H 242 H 03/21/18 11:37 POC Glucose 217 H Phys Exam - Physical Examination Neck: no JVD Respiratory: clear to auscultation bilateral Cardiovascular: no significant murmur, irregular Gastrointestinal: soft, positive bowel sounds Musculoskeletal: edema present Neurological: non-focal Dx/Plan (1) Acute metabolic encephalopathy Code(s): G93.41 - METABOLIC ENCEPHALOPATHY Status: Acute (2) Acute on chronic diastolic ACC/AHA stage C congestive heart failure Code(s): I50.33 - ACUTE ON CHRONIC DIASTOLIC (CONGESTIVE) HEART FAILURE Status : Acute (3) Acute respiratory acidosis Code(s): E87.2 - ACIDOSIS Status: Acute (4) Atrial fibrillation and flutter Code(s): I48.91 - UNSPECIFIED ATRIAL FIBRILLATION; I48.92 - UNSPECIFIED ATRIAL FLUTTER Status: Acute (5) CO2 narcosis Code(s): R06.89 - OTHER ABNORMALITIES OF BREATHING Status: Chronic (6) Diabetes type 2, uncontrolled Code(s): E11.65 - TYPE 2 DIABETES MELLITUS WITH HYPERGLYCEMIA Status: Acute Qualifiers: Glycemic state: with hyperglycemia Qualified Code(s): E11.65 - Type 2 diabetes mellitus with hyperglycemia (7) Anemia, normocytic normochromic Code(s): D64.9 - ANEMIA, UNSPECIFIED Status: Chronic (8) GERD (gastroesophageal reflux disease) Code(s): K21.9 - GASTRO-ESOPHAGEAL REFLUX DISEASE WITHOUT ESOPHAGITIS Status: Chronic Qualifiers: Esophagitis presence: esophagitis presence not specified Qualified Code(s) : K21.9 - Gastro-esophageal reflux disease without esophagitis (9) Hypertension Code(s): I10 - ESSENTIAL (PRIMARY) HYPERTENSION Status: Chronic Qualifiers: Hypertension type: essential hypertension Qualified Code(s): I10 - Essential (primary) hypertension (10) Morbid obesity with BMI of 50.0-59.9, adult Code(s): E66.01 - MORBID (SEVERE) OBESITY DUE TO EXCESS CALORIES; Z68.43 - BODY MASS INDEX (BMI) 50-59.9, ADULT Status: Chronic - Plan has dobhoff, speech eval -: rate controlled atrial flutter- future EP eval -: cont coreg, amlodipine, lasix -: long discssion with daughter-does not listen to suggestions ongoing. she -: decided on her plan- home with home health * .
[2018-03-22] MEDS: Acetaminophen 650 MG/20.3 ML UDCUP PER TUBE PRN (10:40)
[2018-03-22] MEDS: Ibuprofen 100 MG/5 ML UDCUP PER TUBE PRN (13:54)
[2018-03-22] MEDS: Fluconazole In NaCl,Iso-Osm 200 MG in Premix Bag 1 BAG IVPB SCH (17:39)
--- NOTE | 2018-03-22 19:29 | PDOC.CTH ---
Cardiology Progress Note - Subjective The pt seen and examined. No overnight events. No cardiac complaints. - Objective Vital Signs Temp Pulse Pulse Pulse Resp BP BP 03/22/18 18:31 99.0 F 78 20 03/22/18 16:00 97.7 F 03/22/18 13:45 78 77 140/82 126/74 03/22/18 12:57 77 21 H 03/22/18 12:00 99.2 F 03/22/18 08:00 97.9 F BP Pulse Ox Pulse Ox Pulse Ox 03/22/18 18:31 145/83 H 96 03/22/18 16:00 03/22/18 13:45 90 L 94 L 03/22/18 12:57 100 03/22/18 12:00 03/22/18 08:00 96 Admit Weight 371 lb Weight 329 lb 2.402 oz 03/21/18 03/22/18 03/23/18 06:59 06:59 06:59 Intake Total 1546 2207 640 Output Total 2470 1635 1190 Balance -924 572 -550 - Physical Examination General/Neuro: alert & oriented x3 Lungs: other: (diminished at bases) Heart: other: (irregular) Abdomen: soft Extremities: other: (generalized edema) - Telemetry Telemetry Rhythm: afib/aflutter - Labs Result Diagrams: 03/22/18 05:30 03/22/18 05:30 Troponin/CKMB Troponin I Less than 0.010 ng/mL (< 0.028) 03/09/18 01:25 - Assessment/Plan 1. Afib/Aflutter - well controlled HR, 70-80s with Coreg 25mg BID. On Lovenox to 160 mg BID; Plan for CTI ablation by EP when the family is agreeable. 2. Acute on Chronic diastolic HF - stable with Lasix 20mg IV qd and Coreg. 3. Bilat PNA - on ABX IV; managed by PCP/patient coordinator front desk 4. OLYA - improved 5. Acute metabolic encephalopathy - responds to voice stimulation and try to speak; Managed by neurology service. 6. HTN - Increase Coreg from 12.5mg to 25mg BID. 7. Hyperlipidemia - 8. Insulin depend-DM - 9. NADIA - 10. Mrbid Obesity - 11. Anxiety and depression - MAR reviewed * His hand wrapper operator is Dr Santino Emmanuel in [place], [place] Pt. seen and eval. by me. He is somewhat improved over yesterday. I agree with the A/P by the OPERATIONS VOCATIONAL INSTRUCTOR. Chest clear. irreg. Rate controlled. Review of Systems - Review of Systems Cardiac (ROS): reports: no symptoms reported
--- NOTE | 2018-03-23 00:47 | PRG ---
DATE OF SERVICE: 03/22/2018 SUBJECTIVE: Mr. Melendrez is still poorly responsive. Discussed with the since he is responding to her better, but no apparent distress is present. He continues to be monitored in the ICU. His blood pressure and vital signs are stable. OBJECTIVE: VITAL SIGNS: Blood pressure is , heart rate 78, and respirations 12. The patient is afebrile. GENERAL: This is an alert, but poorly responsive man, who is morbidly obese, in no apparent distress. NECK: Supple. Jugular veins not distended. LUNGS: Coarse, but without crackles. HEART: Sounds are irregular. S1 and S2 are variable. No murmur or gallop. ABDOMEN: Benign. Bowel sounds positive. EXTREMITIES: Lower extremities without edema, clubbing, or cyanosis. DATABASE: The telemetry strips reviewed, continued atrial flutter with controlled ventricular rates are present. ASSESSMENT AND PLAN: Mr. Melendrez is a very pleasant 68-year-old man, who presented with respiratory failure and newly found atrial flutter. He is now finally extubated and seems to be stabilizing from a pulmonary standpoint. He continues in atrial flutter, but with controlled rate. His hemodynamics are also stable. As I discussed with the again today, it would be reasonable to consider him to undergo a KATARINA and cardioversion versus a flutter ablation procedure. Long-term, this likely reduces his chance for strokes as well as improve hemodynamics and less chance for heart failure recurrence either. For now, they are still awaiting for the patient's mental status to improve. Please notify us once the patient and family is ready for the procedure. Job ID: [id number] [facility]
[2018-03-23] MEDS: hydrALAZINE 20 MG/ML VIAL SLOW IVP PRN ×2 (03:39→16:54)
[2018-03-23] MEDS: Insulin Regular 300 UNITS/3 ML VIAL SC PRN ×3 (05:21→16:48)
[2018-03-23 05:36] LABS: Band 16 % (5-11); Eosinophils 5 % (0-10); Hemoglobin 11.1 g/dL (14.0-18.0); Lymphocytes 23 % (21-51); MDiff Complete? YES; Mean Corpuscular HGB CONC 30.8 g/dL (32.0-36.0); Mean Corpuscular Hemoglobin 25.7 pg (27.0-31.0); Mean Corpuscular Volume 83.6 fL (78.0-98.0); Mean Platelet Volume 9.1 fL (7.4-10.4); Monocytes 7 % (0-10); Neutrophil 49 % (42-75); Platelet Count 417 thou/uL (130-400); RBC Distribution Width 17.2 % (11.5-14.5); White Blood Cell (WBC) Count 9.9 thou/uL (4.8-10.8)
[2018-03-23 06:02] LABS: Anion Gap 14 mmol/L (10-20); BUN (Urea Nitrogen) 31 mg/dL (8.4-25.7); Calc. Creatinine Clearance 200 mL/min (70-130); Calcium 9.7 mg/dL (7.8-10.44); Carbon Dioxide 29 mmol/L (23-31); Chloride 104 mmol/L (98-107); Estimated GFR-MDRD Greater than 90; Glucose 245 mg/dL (80-115); Potassium 4.1 mmol/L (3.5-5.1); Sodium 143 mmol/L (136-145)
[2018-03-23] MEDS: Ibuprofen 100 MG/5 ML UDCUP PER TUBE PRN (08:46)
[2018-03-23] MEDS: Furosemide 20 MG/2 ML VIAL SLOW IVP SCH (08:46)
[2018-03-23] MEDS: Enoxaparin Sodium 40 MG/0.4 ML SYRINGE SC SCH ×2 (08:47→20:55)
[2018-03-23] MEDS: Enoxaparin Sodium 120 MG/0.8 ML SYRINGE SC SCH ×2 (08:47→20:56)
[2018-03-23] MEDS: Amoxicillin/Potassium Clav 875 MG TAB PER TUBE SCH ×2 (08:48→20:55)
[2018-03-23] MEDS: busPIRone HCl 5 MG TAB PER TUBE SCH ×2 (08:48→20:55)
[2018-03-23] MEDS: Valsartan 80 MG TAB PER TUBE SCH (08:48)
[2018-03-23] MEDS: NPH, Human Insulin Isophane 300 UNIT/3 ML VIAL SC SCH ×2 (08:48→20:56)
[2018-03-23] MEDS: Carvedilol 25 MG TAB PO SCH ×2 (08:48→16:48)
[2018-03-23] MEDS: Amlodipine 10 MG TAB PER TUBE SCH (08:48)
[2018-03-23] MEDS: Pantoprazole 40 MG VIAL IVP SCH (08:49)
--- NOTE | 2018-03-23 09:43 | PRG ---
DATE OF SERVICE: 03/23/2018 SUBJECTIVE: Mr. Melendrez is not near as talkative as he was in the preceding 2 days. His is at the bedside. It has been his first night outside of the ICU last night. He did wear BiPAP. OBJECTIVE: VITAL SIGNS: Temperature 98.8, pulse 98, O2 saturation 98%, blood pressure 154/95. HEENT: Unremarkable. NECK: No JVD. LUNGS: Distant, but clear breath sounds. CARDIAC: S1 and S2, regular. ABDOMEN: Obese. EXTREMITIES: Edematous. LABORATORY DATA: White blood cell count 9.9, hematocrit 36, and platelet count 417. Sodium 143, potassium 4.1, chloride 104, CO2 of 29, BUN 31, creatinine 0.7, glucose 245. ASSESSMENT: 1. Status post respiratory failure for pneumonia and heart failure. 2. Atrial flutter. 3. Critical illness myopathy. 4. Diabetes mellitus. PLAN: 1. Increase activity as tolerated. 2. LTAC placement. 3. Need to back down on his NPH insulin given the hypoglycemia noted earlier today. Job ID: [id number]
--- NOTE | 2018-03-23 10:13 | PDOC.PN ---
- Subjective Encounter Start Date: 03/23/18 Encounter Start Time: 10:12 Subjective: minimal verbal responce - Objective MAR Reviewed: Yes Vital Signs & Weight: Vital Signs (12 hours) Temp Pulse Resp BP BP Pulse Ox 03/23/18 08:48 98 161/105 H 03/23/18 08:02 98 03/23/18 08:00 98 24 H 99 03/23/18 07:45 98.8 F 101 H 24 H 154/95 H 94 L 03/23/18 03:56 99.2 F 94 22 H 181/104 H 100 03/23/18 03:39 91 03/23/18 02:28 91 28 H 97 03/23/18 00:24 98 03/23/18 00:20 88 27 H 03/22/18 23:57 99.0 F 82 20 171/89 H 96 Weight Admit Weight 371 lb 11.19 oz Weight 331 lb Most Recent Monitor Data Heart Rate from ECG 78 NIBP 139/75 NIBP BP-Mean 96 Respiration from ECG 20 SpO2 96 I&O: 03/22/18 03/23/18 03/24/18 06:59 06:59 06:59 Intake Total 2207 1910 80 Output Total 1635 1890 Balance 572 20 80 Result Diagrams: 03/23/18 04:37 03/23/18 04:37 Additional Labs: Accuchecks 03/23/18 03/22/18 03/22/18 04:37 20:20 17:58 POC Glucose 232 H 106 118 H 03/22/18 03/22/18 03/22/18 17:25 16:23 11:08 POC Glucose 54 L* 65 L 134 H Phys Exam - Physical Examination Neck: no JVD decresed BS Cardiovascular: irregular Gastrointestinal: soft, non-tender, positive bowel sounds Musculoskeletal: edema present Dx/Plan (1) Acute metabolic encephalopathy Code(s): G93.41 - METABOLIC ENCEPHALOPATHY Status: Acute (2) Acute on chronic diastolic ACC/AHA stage C congestive heart failure Code(s): I50.33 - ACUTE ON CHRONIC DIASTOLIC (CONGESTIVE) HEART FAILURE Status : Acute (3) Acute respiratory acidosis Code(s): E87.2 - ACIDOSIS Status: Acute (4) Atrial fibrillation and flutter Code(s): I48.91 - UNSPECIFIED ATRIAL FIBRILLATION; I48.92 - UNSPECIFIED ATRIAL FLUTTER Status: Acute (5) CO2 narcosis Code(s): R06.89 - OTHER ABNORMALITIES OF BREATHING Status: Chronic (6) Diabetes type 2, uncontrolled Code(s): E11.65 - TYPE 2 DIABETES MELLITUS WITH HYPERGLYCEMIA Status: Acute Qualifiers: Glycemic state: with hyperglycemia Qualified Code(s): E11.65 - Type 2 diabetes mellitus with hyperglycemia (7) Anemia, normocytic normochromic Code(s): D64.9 - ANEMIA, UNSPECIFIED Status: Chronic (8) GERD (gastroesophageal reflux disease) Code(s): K21.9 - GASTRO-ESOPHAGEAL REFLUX DISEASE WITHOUT ESOPHAGITIS Status: Chronic Qualifiers: Esophagitis presence: esophagitis presence not specified Qualified Code(s) : K21.9 - Gastro-esophageal reflux disease without esophagitis (9) Hypertension Code(s): I10 - ESSENTIAL (PRIMARY) HYPERTENSION Status: Chronic Qualifiers: Hypertension type: essential hypertension Qualified Code(s): I10 - Essential (primary) hypertension (10) Morbid obesity with BMI of 50.0-59.9, adult Code(s): E66.01 - MORBID (SEVERE) OBESITY DUE TO EXCESS CALORIES; Z68.43 - BODY MASS INDEX (BMI) 50-59.9, ADULT Status: Chronic - Plan atrial flutter -rate controlled on coreg -: nutrition per dobhoff- failed swallow -: cont acccu/ss-LA insulin dose decreased -hypoglcia -: probable LTAC- discuaaed with family * .
--- NOTE | 2018-03-23 11:05 | PDOC.CTH ---
Cardiology Progress Note - Subjective The pt seen and examined. No overnight events. He nodded his head with questions; however, he cannot follow any commands or answer questions. - Objective Vital Signs Temp Pulse Resp BP BP Pulse Ox 03/23/18 08:48 98 161/105 H 03/23/18 08:02 98 03/23/18 08:00 98 24 H 94 L 03/23/18 07:45 98.8 F 101 H 24 H 154/95 H 94 L 03/23/18 03:56 99.2 F 94 22 H 181/104 H 100 03/23/18 03:39 91 03/23/18 02:28 91 28 H 97 03/23/18 00:24 98 03/23/18 00:20 88 27 H 03/22/18 23:57 99.0 F 82 20 171/89 H 96 Admit Weight 371 lb 11.19 oz Weight 331 lb 03/22/18 03/23/18 03/24/18 06:59 06:59 06:59 Intake Total 2207 1910 80 Output Total 1635 1890 Balance 572 20 80 - Physical Examination Lungs: other: (corases and diminished at bases) Heart: RRR Abdomen: soft Extremities: other: (generalized edema) - Telemetry Telemetry Rhythm: SR90s - Labs Result Diagrams: 03/24/18 04:20 03/24/18 04:20 Troponin/CKMB Troponin I Less than 0.010 ng/mL (< 0.028) 03/09/18 01:25 - Assessment/Plan 1. Afib/Aflutter - well controlled HR, 80-90s with Coreg 25mg BID. On Lovenox to 160 mg BID; Plan for CTI ablation by EP when the family is agreeable. 2. Acute on Chronic diastolic HF - stable with Lasix 20mg IV qd, BBlocker and ARB. 3. Bilat PNA - on ABX IV; managed by PCP/call center coordinator 4. OLYA - improved 5. Acute metabolic encephalopathy - responds to voice stimulation and try to speak; Managed by neurology service. 6. HTN - Incrases Valsartan 80mg from qd to BID. 7. Hyperlipidemia - 8. Insulin depend-DM - 9. NADIA - 10. Mrbid Obesity - 11. Anxiety and depression - MAR reviewed * His underground bolting machine operator is Dr Santino Emmanuel in [place], [place] Pt. seen and eval. by me. I agree with the A/P by the NURSE COORDINATOR. I spoke to the family today and answered their questions. he was up in the Tesha-chair. still not conversing. Chest clear anteriorly. irreg. Plan for possible ablation when stable. Review of Systems - Review of Systems Constitutional: reports: see HPI EENTM: reports: see HPI
[2018-03-23] MEDS ORDERED: Metoprolol Tartrate 25 MG TAB PO SCH (11:30)
--- NOTE | 2018-03-23 13:41 | PDOC.CTH ---
Cardiology Progress Note - Subjective EP PROGRESS NOTE: 03/23/18 Seen and evaluated as follow up for atrial flutter. remains extubated on room air. Poor interaction with questionable orientation. bedside. Reporting hypertension today. - ROS not able to obtain ROS - Objective Vital Signs Temp Pulse Resp BP BP Pulse Ox 03/23/18 11:54 98 F 78 18 137/76 94 L 03/23/18 08:48 98 161/105 H 03/23/18 08:02 98 03/23/18 08:00 98 24 H 94 L 03/23/18 07:45 98.8 F 101 H 24 H 154/95 H 94 L 03/23/18 03:56 99.2 F 94 22 H 181/104 H 100 03/23/18 03:39 91 03/23/18 02:28 91 28 H 97 Admit Weight 371 lb 11.19 oz Weight 331 lb 03/22/18 03/23/18 03/24/18 06:59 06:59 06:59 Intake Total 2207 1910 160 Output Total 1635 1890 Balance 572 20 160 - Physical Examination General/Neuro: NAD Neck: carotid US brisk, no JVD present Lungs: CTA, unlabored respirations Heart: PMI normal Abdomen: NT/ND, soft - Telemetry Telemetry Rhythm: AFlutter, CVR - Labs Result Diagrams: 03/24/18 04:20 03/24/18 04:20 Troponin/CKMB Troponin I Less than 0.010 ng/mL (< 0.028) 03/09/18 01:25 - Assessment/Plan 1. Atrial flutter, -likely typical morphology -rate controlled -recommend KATARINA guided EP study with CTI ablation once family is agreeable 2. CHADS2-VASC: 4 (age, HTN, DM, vascular disease) - continue lovenox 120mg for anticoagulation 3. Pneumonia -resolving -per pulmonology 4. Hypertension Spoke with at length yesterday and again today. Not ready to move forward with ablation yet, she is waiting for mental status to clear. Continue anticoagulation for CVA prevention. Addendum - Physician - Physician Attestation Date/Time: 03/24/18 9704 I personally performed or re-performed the physical examination and medical decision making. I have verified all documentation or findings, including history, physical exam and/or medical decision making documented by Ms. Velazquez.
[2018-03-23] MEDS: Acetaminophen 650 MG/20.3 ML UDCUP PER TUBE PRN (16:48)
[2018-03-23] MEDS: Fluconazole In NaCl,Iso-Osm 200 MG in Premix Bag 1 BAG IVPB SCH (19:00)
[2018-03-23] MEDS: Valsartan 80 MG TAB PO SCH (20:55)
--- NOTE | 2018-03-23 23:07 | EKG ---
Test Reason : Blood Pressure : / mmHG Vent. Rate : 077 BPM Atrial Rate : 231 BPM P-R Int : 000 ms QRS Dur : 074 ms QT Int : 360 ms P-R-T Axes : 250 -09 023 degrees QTc Int : 407 ms Atrial flutter with 3:1 A-V conduction Low voltage QRS Nonspecific ST and T wave abnormality Abnormal ECG When compared with ECG of 09-MAR-2018 03:05, QT has shortened Confirmed by SHREYA CASTANEDA M.D. ([id number]) on 03/23/2018 11:07:43 PM Referred By: [facility] Confirmed By:SHREYA CASTANEDA M.D.
[2018-03-24 04:41] LABS: Band 3 % (5-11); Eosinophils 1 % (0-10); Hemoglobin 10.5 g/dL (14.0-18.0); Hypochromia SLIGHT = 6-15 cells (100X) (0-5/hpf); Lymphocytes 16 % (21-51); MDiff Complete? YES; Mean Corpuscular HGB CONC 30.3 g/dL (32.0-36.0); Mean Corpuscular Hemoglobin 25.4 pg (27.0-31.0); Mean Corpuscular Volume 83.7 fL (78.0-98.0); Monocytes 6 % (0-10); Neutrophil 74 % (42-75); Platelet Count 388 thou/uL (130-400); Platelet Morphology Comment Appears Adequate; RBC Distribution Width 17.2 % (11.5-14.5); Red Blood Cell (RBC) Count 4.15 mill/uL (4.70-6.10); White Blood Cell (WBC) Count 8.6 thou/uL (4.8-10.8)
[2018-03-24 04:44] LABS: Anion Gap 13 mmol/L (10-20); BUN (Urea Nitrogen) 29 mg/dL (8.4-25.7); Calc. Creatinine Clearance 192 mL/min (70-130); Calcium 9.6 mg/dL (7.8-10.44); Carbon Dioxide 31 mmol/L (23-31); Chloride 103 mmol/L (98-107); Estimated GFR-MDRD Greater than 90; Glucose 218 mg/dL (80-115); Potassium 4.1 mmol/L (3.5-5.1); Sodium 143 mmol/L (136-145)
[2018-03-24] MEDS: Insulin Regular 300 UNITS/3 ML VIAL SC PRN (05:06)
[2018-03-24] MEDS: Valsartan 80 MG TAB PO SCH ×2 (08:31→21:33)
[2018-03-24] MEDS: Amoxicillin/Potassium Clav 875 MG TAB PER TUBE SCH ×2 (08:31→21:33)
[2018-03-24] MEDS: Amlodipine 10 MG TAB PER TUBE SCH (08:31)
[2018-03-24] MEDS: busPIRone HCl 5 MG TAB PER TUBE SCH ×2 (08:31→21:33)
[2018-03-24] MEDS: Carvedilol 25 MG TAB PO SCH ×2 (08:31→17:45)
[2018-03-24] MEDS: Furosemide 20 MG/2 ML VIAL SLOW IVP SCH (08:32)
[2018-03-24] MEDS: Enoxaparin Sodium 120 MG/0.8 ML SYRINGE SC SCH ×2 (08:32→21:33)
[2018-03-24] MEDS: Enoxaparin Sodium 40 MG/0.4 ML SYRINGE SC SCH ×2 (08:32→21:34)
[2018-03-24] MEDS: NPH, Human Insulin Isophane 300 UNIT/3 ML VIAL SC SCH ×2 (08:58→22:05)
[2018-03-24] MEDS: Pantoprazole 40 MG VIAL IVP SCH (09:22)
--- NOTE | 2018-03-24 09:41 | PRG ---
DATE OF SERVICE: Mr. Melendrez is doing better. He is starting to converse a little more with his family. OBJECTIVE: VITAL SIGNS: On exam, his temperature is 98.5, pulse 80, respiratory rate 24, O2 saturation 92% on room air, blood pressure 171/90. HEENT: Unremarkable. NECK: No JVD. LUNGS: Clear. CARDIAC: S1 and S2 regular. ABDOMEN: Soft. EXTREMITIES: No edema. LABORATORY: Sodium 143, potassium 4.1, chloride 103, CO2 of 31, BUN 29, creatinine 0.7, glucose 218. White blood cell count 8.6, hematocrit 34.7, platelet count 388. ASSESSMENT: 1. Status post acute respiratory failure requiring mechanical ventilation. 2. Status post diastolic heart failure. 3. Atrial flutter. 4. Critical illness myopathy. 5. Status post pneumonia. 6. Diabetes mellitus. PLAN: The patient needs to continue physical therapy. He is on oral antibiotics. We will stop Diflucan after tomorrow's dose. I still would encourage LTAC placement if possible, although family seems resistant to that happening. Job ID: [id number]
--- NOTE | 2018-03-24 10:32 | PDOC.PN ---
- Subjective Encounter Start Date: 03/24/18 Encounter Start Time: 10:30 Subjective: oriented to person and year - Objective MAR Reviewed: Yes Vital Signs & Weight: Vital Signs (12 hours) Temp Pulse Resp BP Pulse Ox 03/24/18 08:31 80 03/24/18 08:06 80 24 H 92 L 03/24/18 08:00 92 L 03/24/18 07:58 94 L 03/24/18 07:26 98.5 F 77 24 H 171/90 H 94 L 03/24/18 04:00 98.9 F 77 18 138/104 H 97 03/24/18 02:34 24 H 97 03/24/18 00:16 78 22 H 97 03/24/18 00:00 98.6 F 70 18 167/97 H 97 03/23/18 23:12 76 24 H 93 L Weight Admit Weight 371 lb 11.19 oz Weight 346 lb 3 oz Most Recent Monitor Data Heart Rate from ECG 78 NIBP 139/75 NIBP BP-Mean 96 Respiration from ECG 20 SpO2 96 I&O: 03/23/18 03/24/18 03/25/18 06:59 06:59 06:59 Intake Total 1910 2470 30 Output Total 1890 1800 Balance 20 670 30 Result Diagrams: 03/24/18 04:20 03/24/18 04:20 Additional Labs: Accuchecks 03/23/18 03/23/18 03/23/18 20:14 16:48 10:56 POC Glucose 198 H 221 H 248 H Phys Exam - Physical Examination Neck: no JVD Respiratory: clear to auscultation bilateral Cardiovascular: RRR, no significant murmur Gastrointestinal: soft, non-tender, positive bowel sounds Musculoskeletal: no edema Dx/Plan (1) Acute metabolic encephalopathy Code(s): G93.41 - METABOLIC ENCEPHALOPATHY Status: Acute (2) Acute on chronic diastolic ACC/AHA stage C congestive heart failure Code(s): I50.33 - ACUTE ON CHRONIC DIASTOLIC (CONGESTIVE) HEART FAILURE Status : Acute (3) Acute respiratory acidosis Code(s): E87.2 - ACIDOSIS Status: Acute (4) Atrial fibrillation and flutter Code(s): I48.91 - UNSPECIFIED ATRIAL FIBRILLATION; I48.92 - UNSPECIFIED ATRIAL FLUTTER Status: Acute (5) CO2 narcosis Code(s): R06.89 - OTHER ABNORMALITIES OF BREATHING Status: Chronic (6) Diabetes type 2, uncontrolled Code(s): E11.65 - TYPE 2 DIABETES MELLITUS WITH HYPERGLYCEMIA Status: Acute Qualifiers: Glycemic state: with hyperglycemia Qualified Code(s): E11.65 - Type 2 diabetes mellitus with hyperglycemia (7) Anemia, normocytic normochromic Code(s): D64.9 - ANEMIA, UNSPECIFIED Status: Chronic (8) GERD (gastroesophageal reflux disease) Code(s): K21.9 - GASTRO-ESOPHAGEAL REFLUX DISEASE WITHOUT ESOPHAGITIS Status: Chronic Qualifiers: Esophagitis presence: esophagitis presence not specified Qualified Code(s) : K21.9 - Gastro-esophageal reflux disease without esophagitis (9) Hypertension Code(s): I10 - ESSENTIAL (PRIMARY) HYPERTENSION Status: Chronic Qualifiers: Hypertension type: essential hypertension Qualified Code(s): I10 - Essential (primary) hypertension (10) Morbid obesity with BMI of 50.0-59.9, adult Code(s): E66.01 - MORBID (SEVERE) OBESITY DUE TO EXCESS CALORIES; Z68.43 - BODY MASS INDEX (BMI) 50-59.9, ADULT Status: Chronic - Plan some improvement in mentation -: still on nutrition per Dobhoff -: cont lasix, coreg, valsartan, amlodipine -: cont po antibx -: family still committed to home with HH * .
--- NOTE | 2018-03-24 14:10 | PDOC.CTH ---
Cardiology Progress Note - Subjective The pt seen and examined. No overnight events. No cardiac complaints. He is more alerted and speaks clear more today. - Objective Vital Signs Temp Pulse Pulse Pulse Resp BP BP 03/24/18 13:03 74 20 03/24/18 11:15 98.6 F 77 19 03/24/18 10:55 77 75 146/87 H 146/90 H 03/24/18 08:31 80 03/24/18 08:06 80 24 H 03/24/18 08:00 03/24/18 07:58 03/24/18 07:26 98.5 F 77 24 H 03/24/18 04:00 98.9 F 77 18 03/24/18 02:34 24 H BP Pulse Ox Pulse Ox Pulse Ox 03/24/18 13:03 93 L 03/24/18 11:15 169/103 H 03/24/18 10:55 90 L 92 L 03/24/18 08:31 03/24/18 08:06 92 L 03/24/18 08:00 92 L 03/24/18 07:58 94 L 03/24/18 07:26 171/90 H 94 L 03/24/18 04:00 138/104 H 97 03/24/18 02:34 97 Admit Weight 371 lb 11.19 oz Weight 346 lb 3 oz 03/23/18 03/24/18 03/25/18 06:59 06:59 06:59 Intake Total 1910 2470 60 Output Total 1890 1800 Balance 20 670 60 - Physical Examination General/Neuro: other: (intermittent confused) Lungs: other: (diminished at bases) Heart: other: (irregular) Abdomen: soft Extremities: other: (generalized edema) - Telemetry Telemetry Rhythm: AFib - Labs Result Diagrams: 03/24/18 04:20 03/24/18 04:20 Troponin/CKMB Troponin I Less than 0.010 ng/mL (< 0.028) 03/09/18 01:25 - Assessment/Plan 1. Afib/Aflutter - well controlled HR, 80-90s with Coreg 25mg BID. On Lovenox to 160 mg BID; Plan for CTI ablation by EP when the family is agreeable. 2. Acute on Chronic diastolic HF - stable with Lasix 20mg IV qd, BBlocker and ARB. 3. Bilat PNA - on ABX IV; managed by PCP/stem processing machine operator 4. OLYA - improved 5. Acute metabolic encephalopathy - responds to voice stimulation and try to speak; Managed by neurology service. 6. HTN - Incrases Valsartan 80mg from qd to BID. 7. Hyperlipidemia - 8. Insulin depend-DM - 9. NADIA - 10. Mrbid Obesity - 11. Anxiety and depression - MAR reviewed * His video game technician is Dr Santino Emmanuel in [place], [place] Pt. seen and eval. by me. I agree with the A/P by the HEAD OF QUALITY. I spoke to the family yesterday and answered their questions. He is still not conversing very well but better than yesterday. Chest clear anteriorly. irreg. Plan for possible ablation when stable. Review of Systems - Review of Systems Constitutional: reports: no symptoms reported EENTM: reports: no symptoms reported Respiratory: reports: no symptoms reported Cardiac (ROS): reports: no symptoms reported ABD/GI: reports: no symptoms reported : reports: no symptoms reported
--- NOTE | 2018-03-24 15:04 | PDOC.CTH ---
Cardiology Progress Note - Subjective EP PROGRESS NOTE: 03/24/18 Seen and evaluated as follow up for atrial flutter. Remains extubated on room air. Poor interaction with questionable orientation. bedside. No significant changes overnight. - Objective Vital Signs Temp Pulse Pulse Pulse Resp BP BP 03/24/18 13:03 74 20 03/24/18 11:15 98.6 F 77 19 03/24/18 10:55 77 75 146/87 H 146/90 H 03/24/18 08:31 80 03/24/18 08:06 80 24 H 03/24/18 08:00 03/24/18 07:58 03/24/18 07:26 98.5 F 77 24 H 03/24/18 04:00 98.9 F 77 18 BP Pulse Ox Pulse Ox Pulse Ox 03/24/18 13:03 93 L 03/24/18 11:15 169/103 H 03/24/18 10:55 90 L 92 L 03/24/18 08:31 03/24/18 08:06 92 L 03/24/18 08:00 92 L 03/24/18 07:58 94 L 03/24/18 07:26 171/90 H 94 L 03/24/18 04:00 138/104 H 97 Admit Weight 371 lb 11.19 oz Weight 346 lb 3 oz 03/23/18 03/24/18 03/25/18 06:59 06:59 06:59 Intake Total 1910 2470 60 Output Total 1890 1800 Balance 20 670 60 - Physical Examination General/Neuro: NAD, other: (alert.) Neck: carotid US brisk, no JVD present Lungs: CTA, unlabored respirations Heart: PMI normal Abdomen: NT/ND, soft - Telemetry Telemetry Rhythm: Atrial flutter, controlled ventricular rates - Labs Result Diagrams: 03/24/18 04:20 03/24/18 04:20 Troponin/CKMB Troponin I Less than 0.010 ng/mL (< 0.028) 03/09/18 01:25 - Assessment/Plan 1. Atrial flutter, -likely typical morphology -rate controlled -recommend KATARINA guided EP study with CTI ablation once family is agreeable 2. CHADS2-VASC: 4 (age, HTN, DM, vascular disease) - continue lovenox 120mg for anticoagulation 3. Pneumonia -resolving -per pulmonology 4. Hypertension Not ready to move forward with ablation yet, as is wanting for mental status to clear first. Continue anticoagulation for CVA prevention. Signing off. If family decides they are ready to proceed with ablation please do not hesitate to contact me.
[2018-03-24] MEDS: Fluconazole In NaCl,Iso-Osm 200 MG in Premix Bag 1 BAG IVPB SCH (17:54)
[2018-03-25 04:51] LABS: Anion Gap 14 mmol/L (10-20); BUN (Urea Nitrogen) 24 mg/dL (8.4-25.7); Calc. Creatinine Clearance 215 mL/min (70-130); Calcium 9.6 mg/dL (7.8-10.44); Carbon Dioxide 30 mmol/L (23-31); Chloride 103 mmol/L (98-107); Estimated GFR-MDRD Greater than 90; Glucose 175 mg/dL (80-115); Sodium 143 mmol/L (136-145)
[2018-03-25 04:54] LABS: Band 7 % (5-11); Eosinophils 3 % (0-10); Hemoglobin 10.9 g/dL (14.0-18.0); Lymphocytes 21 % (21-51); MDiff Complete? YES; Mean Corpuscular Hemoglobin 25.9 pg (27.0-31.0); Mean Corpuscular Volume 83.5 fL (78.0-98.0); Mean Platelet Volume 9.5 fL (7.4-10.4); Monocytes 6 % (0-10); Neutrophil 62 % (42-75); Platelet Count 368 thou/uL (130-400); Platelet Morphology Comment Appears Adequate; RBC Distribution Width 17.2 % (11.5-14.5); Red Blood Cell (RBC) Count 4.21 mill/uL (4.70-6.10); White Blood Cell (WBC) Count 8.6 thou/uL (4.8-10.8)
[2018-03-25] MEDS: Insulin Regular 300 UNITS/3 ML VIAL SC PRN (05:27)
--- NOTE | 2018-03-25 08:55 | PDOC.PN ---
- Subjective Encounter Start Date: 03/25/18 (f/u critical illness myopathy) Encounter Start Time: 08:54 Subjective: Pt grunts answers - not forming words, not able to lift arms or move hands -: No overnight events - Objective Vital Signs & Weight: Vital Signs (12 hours) Temp Pulse Resp BP Pulse Ox 03/25/18 08:00 99.4 F 82 32 H 166/101 H 93 L 03/25/18 07:24 83 22 H 93 L 03/25/18 04:00 98.8 F 82 27 H 174/99 H 95 03/25/18 00:00 98.1 F 77 28 H 146/77 H 95 03/24/18 23:47 78 25 H 97 Weight Admit Weight 371 lb 11.19 oz Weight 348 lb 4 oz Most Recent Monitor Data Heart Rate from ECG 78 NIBP 139/75 NIBP BP-Mean 96 Respiration from ECG 20 SpO2 96 I&O: 03/24/18 03/25/18 03/26/18 06:59 06:59 06:59 Intake Total 2470 2630 Output Total 1800 2500 Balance 670 130 Result Diagrams: 03/25/18 04:15 03/25/18 04:15 Additional Labs: Accuchecks 03/25/18 03/24/18 03/24/18 04:37 22:06 16:18 POC Glucose 171 H 154 H 116 H 03/24/18 10:29 POC Glucose 173 H EKG Reviewed by me: Yes (tele - a flutter 80's, occ pvc's) Phys Exam - Physical Examination Constitutional: NAD smiles, moves head to voice, attempts to answer questions pupils equal and round decreased breath sounds at bases Cardiovascular: RRR, no significant murmur Gastrointestinal: soft abdominal wall edema generalized edema throughout arms/legs Deviation from normal: bilateral heel ulcers Dx/Plan (1) Acute respiratory failure Code(s): J96.00 - ACUTE RESPIRATORY FAILURE, UNSP W HYPOXIA OR HYPERCAPNIA Status: Resolved Qualifiers: Respiratory failure complication: hypercapnia Qualified Code(s): J96.02 - Acute respiratory failure with hypercapnia (2) Atrial fibrillation and flutter Code(s): I48.91 - UNSPECIFIED ATRIAL FIBRILLATION; I48.92 - UNSPECIFIED ATRIAL FLUTTER Status: Chronic (3) Bilateral pneumonia Code(s): J18.9 - PNEUMONIA, UNSPECIFIED ORGANISM Status: Acute (4) Diabetes type 2, uncontrolled Code(s): E11.65 - TYPE 2 DIABETES MELLITUS WITH HYPERGLYCEMIA Status: Acute Qualifiers: Glycemic state: with hyperglycemia Qualified Code(s): E11.65 - Type 2 diabetes mellitus with hyperglycemia (5) Anxiety and depression Code(s): F41.9 - ANXIETY DISORDER, UNSPECIFIED; F32.9 - MAJOR DEPRESSIVE DISORDER, SINGLE EPISODE, UNSPECIFIED Status: Chronic (6) CO2 narcosis Code(s): R06.89 - OTHER ABNORMALITIES OF BREATHING Status: Chronic (7) GERD (gastroesophageal reflux disease) Code(s): K21.9 - GASTRO-ESOPHAGEAL REFLUX DISEASE WITHOUT ESOPHAGITIS Status: Chronic Qualifiers: Esophagitis presence: esophagitis presence not specified Qualified Code(s) : K21.9 - Gastro-esophageal reflux disease without esophagitis (8) Hypertension Code(s): I10 - ESSENTIAL (PRIMARY) HYPERTENSION Status: Chronic Qualifiers: Hypertension type: essential hypertension Qualified Code(s): I10 - Essential (primary) hypertension (9) Morbid obesity with BMI of 50.0-59.9, adult Code(s): E66.01 - MORBID (SEVERE) OBESITY DUE TO EXCESS CALORIES; Z68.43 - BODY MASS INDEX (BMI) 50-59.9, ADULT Status: Chronic (10) NADIA (obstructive sleep apnea) Code(s): G47.33 - OBSTRUCTIVE SLEEP APNEA (ADULT) (PEDIATRIC) Status: Suspected (11) Critical illness myopathy Code(s): G72.81 - CRITICAL ILLNESS MYOPATHY Status: Acute - Plan * Reviewed orders - change PPI to oral * Pt passed swallow test - diet with limitations per ST * d/c dobhoff if doing well today * continue other meds - appreciate multiple specialists following patient for heart, breathing * pneumonia - on oral antibiotics * heel ulcers - appreciate wound care * * PT/OT - anticipate pt will require LTAC due to the profound weakness * IS as able * * dvt prophy - on full dose lovenox for a flutter * gi prophy - for now, PPI. do not see this on his home med list * code status full * * discussed basic details about plan of care with patient who nodded, and RN. * pt remains at high risk in current condition.
[2018-03-25] MEDS: Enoxaparin Sodium 120 MG/0.8 ML SYRINGE SC SCH ×2 (09:50→20:50)
[2018-03-25] MEDS: Enoxaparin Sodium 40 MG/0.4 ML SYRINGE SC SCH ×2 (09:51→20:51)
[2018-03-25] MEDS: Carvedilol 25 MG TAB PO SCH ×2 (09:51→16:27)
[2018-03-25] MEDS: Amlodipine 10 MG TAB PER TUBE SCH (09:51)
[2018-03-25] MEDS: Furosemide 20 MG/2 ML VIAL SLOW IVP SCH (09:52)
[2018-03-25] MEDS: Valsartan 80 MG TAB PO SCH ×2 (09:52→20:51)
[2018-03-25] MEDS: Amoxicillin/Potassium Clav 875 MG TAB PER TUBE SCH ×2 (09:52→20:51)
[2018-03-25] MEDS: NPH, Human Insulin Isophane 300 UNIT/3 ML VIAL SC SCH ×2 (09:53→22:37)
[2018-03-25] MEDS: busPIRone HCl 5 MG TAB PER TUBE SCH ×2 (10:01→20:51)
--- NOTE | 2018-03-25 13:07 | PRG ---
DATE OF SERVICE: 03/25/2018 SUBJECTIVE: He is actually more talkative today than he has been. He is partially oriented. OBJECTIVE: VITAL SIGNS: On exam, temperature 98.6, pulse 80, respirations 24, O2 saturations 96%, and blood pressure 164/91. HEENT: Unremarkable. He has Dobhoff tube in his left naris. NECK: No JVD. CHEST: Clear. CARDIAC: S1, S2. Regular. ABDOMEN: Obese. EXTREMITIES: No edema. LABORATORY DATA: Sodium 143, potassium 4, chloride 103, CO2 of 30, BUN 24, creatinine 0.7, glucose 175. White blood cell count 8.6, hematocrit 35.2, and platelet count 368. ASSESSMENT: 1. Slowly improving encephalopathy. 2. Status post respiratory failure from diastolic heart failure and pneumonia. 3. Atrial flutter. 4. Critical illness myopathy. 5. Diabetes mellitus. PLAN: He is to the point where he needs to go to an LTAC or to rehab for further care. I reviewed his orders have nothing to add to the present situation. I think Diflucan can be stopped after today as I will give him 5 days of treatment for the thrush. Job ID: [id number]
[2018-03-25] MEDS: Acetaminophen 650 MG/20.3 ML UDCUP PER TUBE PRN (16:27)
[2018-03-25] MEDS: Fluconazole In NaCl,Iso-Osm 200 MG in Premix Bag 1 BAG IVPB SCH (17:03)
[2018-03-26 04:41] LABS: Anion Gap 14 mmol/L (10-20); BUN (Urea Nitrogen) 19 mg/dL (8.4-25.7); Calc. Creatinine Clearance 219 mL/min (70-130); Calcium 9.4 mg/dL (7.8-10.44); Carbon Dioxide 29 mmol/L (23-31); Chloride 103 mmol/L (98-107); Estimated GFR-MDRD Greater than 90; Glucose 117 mg/dL (80-115); Sodium 142 mmol/L (136-145)
[2018-03-26 04:47] LABS: Band 8 % (5-11); Eosinophils 9 % (0-10); Hemoglobin 10.9 g/dL (14.0-18.0); Lymphocytes 19 % (21-51); MDiff Complete? YES; Mean Corpuscular HGB CONC 30.2 g/dL (32.0-36.0); Mean Corpuscular Hemoglobin 25.2 pg (27.0-31.0); Mean Corpuscular Volume 83.2 fL (78.0-98.0); Mean Platelet Volume 9.1 fL (7.4-10.4); Monocytes 4 % (0-10); Neutrophil 60 % (42-75); Platelet Count 400 thou/uL (130-400); Platelet Morphology Comment Appears Increased; RBC Morphology Normal; Red Blood Cell (RBC) Count 4.34 mill/uL (4.70-6.10); White Blood Cell (WBC) Count 8.4 thou/uL (4.8-10.8)
[2018-03-26] MEDS: Valsartan 80 MG TAB PO SCH ×2 (09:28→20:33)
[2018-03-26] MEDS: Amlodipine 10 MG TAB PER TUBE SCH (09:28)
[2018-03-26] MEDS: busPIRone HCl 5 MG TAB PER TUBE SCH ×2 (09:28→20:33)
[2018-03-26] MEDS: Furosemide 20 MG/2 ML VIAL SLOW IVP SCH (09:28)
[2018-03-26] MEDS: Carvedilol 25 MG TAB PO SCH ×2 (09:28→17:10)
[2018-03-26] MEDS: Enoxaparin Sodium 120 MG/0.8 ML SYRINGE SC SCH ×2 (09:29→20:33)
[2018-03-26] MEDS: Amoxicillin/Potassium Clav 875 MG TAB PER TUBE SCH (09:30)
[2018-03-26] MEDS: Acetaminophen 650 MG/20.3 ML UDCUP PER TUBE PRN (09:35)
[2018-03-26] MEDS: Enoxaparin Sodium 40 MG/0.4 ML SYRINGE SC SCH ×2 (09:36→20:33)
[2018-03-26] MEDS: NPH, Human Insulin Isophane 300 UNIT/3 ML VIAL SC SCH ×2 (09:38→21:12)
--- NOTE | 2018-03-26 14:04 | PRG ---
DATE OF SERVICE: 03/26/2018 SUBJECTIVE: Mr. Melendrez is doing fairly well. He is actually carrying on a conversation without much difficulty. OBJECTIVE: VITAL SIGNS: On exam, temperature 98, pulse 79, respirations 20, O2 saturation 94% on room air. HEENT: Unremarkable. NECK: No JVD. LUNGS: Clear. CARDIAC: S1, S2. Regular. ABDOMEN: Obese, soft. EXTREMITIES: Trace edema. LABORATORY DATA: White blood cell count 8.4, hematocrit 36.1, and platelet count 400. Sodium 142, potassium 4, chloride 103, CO2 of 29, BUN 19, creatinine 0.7, and glucose 117. ASSESSMENT: 1. The patient is recovering nicely after episode of acute respiratory failure. 2. Improved encephalopathy. 3. Diastolic cardiac dysfunction. 4. Pneumonia. 5. Atrial flutter. PLAN: He is mainly a rehab project at this point. I think it would be okay to go ahead and safely discontinue his antibiotics, would anticipate him going to rehab soon. Job ID: [id number]
[2018-03-27 05:07] LABS: Band 7 % (5-11); Eosinophils 7 % (0-10); Hemoglobin 10.9 g/dL (14.0-18.0); Lymphocytes 24 % (21-51); MDiff Complete? YES; Mean Corpuscular HGB CONC 30.2 g/dL (32.0-36.0); Mean Corpuscular Hemoglobin 24.9 pg (27.0-31.0); Mean Corpuscular Volume 82.5 fL (78.0-98.0); Mean Platelet Volume 9.4 fL (7.4-10.4); Metamyelocyte 1 % (0-0); Monocytes 8 % (0-10); Neutrophil 51 % (42-75); Platelet Count 363 thou/uL (130-400); Platelet Morphology Comment Appears Adequate; RBC Distribution Width 16.9 % (11.5-14.5); Red Blood Cell (RBC) Count 4.35 mill/uL (4.70-6.10); White Blood Cell (WBC) Count 8.1 thou/uL (4.8-10.8)
[2018-03-27 05:08] LABS: Anion Gap 13 mmol/L (10-20); BUN (Urea Nitrogen) 19 mg/dL (8.4-25.7); Calc. Creatinine Clearance 216 mL/min (70-130); Calcium 9.5 mg/dL (7.8-10.44); Carbon Dioxide 29 mmol/L (23-31); Chloride 103 mmol/L (98-107); Estimated GFR-MDRD Greater than 90; Glucose 153 mg/dL (80-115); Potassium 4.1 mmol/L (3.5-5.1); Sodium 141 mmol/L (136-145)
--- NOTE | 2018-03-27 09:54 | PRG ---
DATE OF SERVICE: 03/27/2018 SUBJECTIVE: He is awake, alert, in good spirits. OBJECTIVE: VITAL SIGNS: On exam, temperature 99, pulse 102, respirations 18, O2 saturation 93% on room air, blood pressure 158/100. HEENT: Unremarkable. NECK: No adenopathy, JVD, or bruits. LUNGS: Clear. CARDIAC: S1, S2 regular. ABDOMEN: Soft, obese. EXTREMITIES: No edema. LABORATORY DATA: White blood cell count 8.1, hematocrit 35.9, and platelet count 363. Sodium 141, potassium 4.1, chloride 103, CO2 of 29, BUN 19, creatinine 0.7, glucose 153. ASSESSMENT: 1. No change in clinical status. The patient continues to recover nicely after episode of acute respiratory failure. 2. Encephalopathy, improved. 3. Diastolic cardiac dysfunction. 4. Pneumonia. 5. Atrial flutter. PLAN: 1. I really think he needs to go to rehab, but his is insisting on taking him home after he has a little more rehab here. I am somewhat concerned about him being on high-dose anticoagulation and I would encourage Cardiology to convert him over to Eliquis or Xarelto if this is needed because I am worried about development of abdominal hematomas in this patient. 2. Antibiotics were stopped yesterday. Job ID: [id number]
[2018-03-27] MEDS: busPIRone HCl 5 MG TAB PER TUBE SCH ×2 (10:15→21:16)
[2018-03-27] MEDS: Valsartan 80 MG TAB PO SCH ×2 (10:16→21:16)
[2018-03-27] MEDS: Carvedilol 25 MG TAB PO SCH ×2 (10:17→19:05)
[2018-03-27] MEDS: Amlodipine 10 MG TAB PER TUBE SCH (10:17)
[2018-03-27] MEDS: Furosemide 20 MG/2 ML VIAL SLOW IVP SCH (10:18)
[2018-03-27] MEDS: Acetaminophen 650 MG/20.3 ML UDCUP PER TUBE PRN (10:18)
[2018-03-27] MEDS: NPH, Human Insulin Isophane 300 UNIT/3 ML VIAL SC SCH ×2 (10:18→21:15)
[2018-03-27] MEDS: Enoxaparin Sodium 120 MG/0.8 ML SYRINGE SC SCH ×2 (10:18→21:16)
[2018-03-27] MEDS: Enoxaparin Sodium 40 MG/0.4 ML SYRINGE SC SCH ×2 (10:19→21:15)
--- NOTE | 2018-03-27 13:19 | PDOC.CTH ---
Cardiology Progress Note - Subjective The pt seen and examined. No overnight events. No cardiac complaints. - Objective Vital Signs Temp Pulse Resp BP Pulse Ox 03/27/18 10:59 98.2 F 25 H 148/101 H 03/27/18 10:17 102 H 03/27/18 07:36 102 H 18 93 L 03/27/18 07:19 99.0 F 85 26 H 158/100 H 92 L 03/27/18 04:00 98.7 F 83 20 143/94 H 96 Admit Weight 371 lb 11.19 oz Weight 337 lb 2 oz 03/26/18 03/27/18 03/28/18 06:59 06:59 06:59 Intake Total 1440 320 Output Total 2875 1900 Balance -1435 -1580 - Physical Examination General/Neuro: other: Lungs: CTA (diminished at bases) Heart: other: (irregular) Abdomen: soft Extremities: other: (generalized edema) - Telemetry Telemetry Rhythm: Aflutter 90s - Labs Result Diagrams: 03/28/18 04:29 03/28/18 04:29 Troponin/CKMB Troponin I Less than 0.010 ng/mL (< 0.028) 03/09/18 01:25 - Assessment/Plan 1. Afib/Aflutter - well controlled HR, 80-90s with Coreg 25mg BID. On Lovenox 160 mg BID; Plan for CTI ablation by EP when the family is agreeable. 2. Acute on Chronic diastolic HF - stable with Lasix 20mg IV qd, BBlocker and ARB. 3. Bilat PNA - on ABX IV; managed by PCP/deep sea diver 4. OLYA - improved 5. Acute metabolic encephalopathy - responds to voice stimulation and try to speak; Managed by neurology service. 6. HTN - stable 7. Hyperlipidemia - 8. Insulin depend-DM - managed by PCP 9. NADIA - about 10-15 sec NADIA during sleep; may need Cpap during sleep 10. Mrbid Obesity - 11. Anxiety and depression - MAR reviewed * His order booker is Dr Santino Emmanuel in [place], [place] Pt. seen and eval. by me. No cardiac problems, he remains in atrial flutter with a controlled rate . I agree with the A/P by the DRILLING RIG OPERATOR. Chest clear. Irreg, no edema. Cardiac status stable. Review of Systems - Review of Systems Constitutional: reports: no symptoms reported EENTM: reports: no symptoms reported Respiratory: reports: no symptoms reported Cardiac (ROS): reports: no symptoms reported ABD/GI: reports: no symptoms reported : reports: no symptoms reported Musculoskeletal: reports: no symptoms reported
--- NOTE | 2018-03-27 14:24 | PDOC.PN ---
- Subjective Encounter Start Date: 03/26/18 Encounter Start Time: 14:22 Subjective: Lying in med, minimally responding, awake but not alert - Objective Vital Signs & Weight: Vital Signs (12 hours) Temp Pulse Pulse Pulse Resp BP BP 03/27/18 13:24 78 20 03/27/18 10:59 98.2 F 25 H 03/27/18 10:17 102 H 100 102 H 162/102 H 144/122 H 03/27/18 07:36 102 H 18 03/27/18 07:19 99.0 F 85 26 H 03/27/18 04:00 98.7 F 83 20 BP Pulse Ox 03/27/18 13:24 92 L 03/27/18 10:59 148/101 H 03/27/18 10:17 03/27/18 07:36 93 L 03/27/18 07:19 158/100 H 92 L 03/27/18 04:00 143/94 H 96 Weight Admit Weight 371 lb 11.19 oz Weight 337 lb 2 oz Most Recent Monitor Data Heart Rate from ECG 78 NIBP 139/75 NIBP BP-Mean 96 Respiration from ECG 20 SpO2 96 I&O: 03/26/18 03/27/18 03/28/18 06:59 06:59 06:59 Intake Total 1440 320 Output Total 2875 1900 Balance -1435 -1580 Result Diagrams: 03/27/18 04:45 03/27/18 04:45 Additional Labs: Accuchecks 03/27/18 03/26/18 10:57 16:39 POC Glucose 206 H 72 Phys Exam - Physical Examination HEENT: PERRLA, moist MMs, sclera anicteric, TM's clear, oral pharynx no lesions , 2+ tonsils Neck: no nodes, no JVD Respiratory: no wheezing, no rales, no rhonchi Cardiovascular: RRR, no significant murmur Gastrointestinal: soft, non-tender, no distention Musculoskeletal: edema present spontaneolusly moves his extremities some, but no meaningful movement, not Deviation from normal: awake, minimally alert Dx/Plan (1) Acute metabolic encephalopathy Code(s): G93.41 - METABOLIC ENCEPHALOPATHY Status: Acute Comment: Minimal improveement in the last few days, awake, minimally alert. Some times follows command (2) Bilateral pneumonia Code(s): J18.9 - PNEUMONIA, UNSPECIFIED ORGANISM Status: Acute Comment: completed abx, extubated 03/21 (3) Acute on chronic diastolic ACC/AHA stage C congestive heart failure Code(s): I50.33 - ACUTE ON CHRONIC DIASTOLIC (CONGESTIVE) HEART FAILURE Status : Acute Comment: lasix (4) Critical illness myopathy Code(s): G72.81 - CRITICAL ILLNESS MYOPATHY Status: Acute Comment: PT (5) Diabetes type 2, uncontrolled Code(s): E11.65 - TYPE 2 DIABETES MELLITUS WITH HYPERGLYCEMIA Status: Acute Qualifiers: Glycemic state: with hyperglycemia Qualified Code(s): E11.65 - Type 2 diabetes mellitus with hyperglycemia Comment: CONTINUE INSULIN, ACCUCHECK AND SS (6) Morbid obesity with BMI of 50.0-59.9, adult Code(s): E66.01 - MORBID (SEVERE) OBESITY DUE TO EXCESS CALORIES; Z68.43 - BODY MASS INDEX (BMI) 50-59.9, ADULT Status: Chronic (7) NADIA (obstructive sleep apnea) Code(s): G47.33 - OBSTRUCTIVE SLEEP APNEA (ADULT) (PEDIATRIC) Status: Suspected (8) Afib Code(s): I48.91 - UNSPECIFIED ATRIAL FIBRILLATION Status: Acute Comment: RATE CONTROLLED WITH BB, Therapeutic Lovenox, convert to oral AC before DC, OP ablation if interested - Plan cont current plan of care, plan discussed w/ family, mckinnon catheter, PT/OT, speech therapy, DVT proph w/lovenox to decide inpatient rehab/ [facility]/ Home She has wheel chair, walker, hospital bed I have discontinued Dobhoff and Mckinnon OK to DC at any point once placement is decided. I have just placed order for DC in am, not reconciled medicines as i ma not sure when DC happens. This is just to start the process of discharge. Start AC before DC and advise follow up with PCP, NEURO, CARDS, EP for possible ablation * .
--- NOTE | 2018-03-27 14:39 | PDOC.PN ---
- Subjective Encounter Start Date: 03/27/18 Encounter Start Time: 14:37 Subjective: responding minimally, eating more compared to previous days - Objective Vital Signs & Weight: Vital Signs (12 hours) Temp Pulse Pulse Pulse Resp BP BP 03/27/18 13:24 78 20 03/27/18 10:59 98.2 F 25 H 03/27/18 10:17 102 H 100 102 H 162/102 H 144/122 H 03/27/18 07:36 102 H 18 03/27/18 07:19 99.0 F 85 26 H 03/27/18 04:00 98.7 F 83 20 BP Pulse Ox 03/27/18 13:24 92 L 03/27/18 10:59 148/101 H 03/27/18 10:17 03/27/18 07:36 93 L 03/27/18 07:19 158/100 H 92 L 03/27/18 04:00 143/94 H 96 Weight Admit Weight 371 lb 11.19 oz Weight 337 lb 2 oz Most Recent Monitor Data Heart Rate from ECG 78 NIBP 139/75 NIBP BP-Mean 96 Respiration from ECG 20 SpO2 96 I&O: 03/26/18 03/27/18 03/28/18 06:59 06:59 06:59 Intake Total 1440 320 Output Total 2875 1900 Balance -1435 -1580 Result Diagrams: 03/27/18 04:45 03/27/18 04:45 Additional Labs: Accuchecks 03/27/18 03/26/18 10:57 16:39 POC Glucose 206 H 72 Phys Exam - Physical Examination HEENT: PERRLA, moist MMs, sclera anicteric, TM's clear, oral pharynx no lesions , 2+ tonsils Neck: no nodes, no JVD, supple, full ROM Respiratory: no wheezing, no rales Cardiovascular: no significant murmur, no rub, irregular Gastrointestinal: soft, non-tender, no distention Musculoskeletal: edema present spontaneouly moves limbs, does not follow commands Deviation from normal: awake, minimally alert Dx/Plan (1) Acute metabolic encephalopathy Code(s): G93.41 - METABOLIC ENCEPHALOPATHY Status: Acute Comment: Minimal improveement in the last few days, awake, minimally alert. Some times follows command (2) Bilateral pneumonia Code(s): J18.9 - PNEUMONIA, UNSPECIFIED ORGANISM Status: Acute Comment: completed abx, extubated 03/21 (3) Acute on chronic diastolic ACC/AHA stage C congestive heart failure Code(s): I50.33 - ACUTE ON CHRONIC DIASTOLIC (CONGESTIVE) HEART FAILURE Status : Acute Comment: lasix (4) Critical illness myopathy Code(s): G72.81 - CRITICAL ILLNESS MYOPATHY Status: Acute Comment: PT (5) Diabetes type 2, uncontrolled Code(s): E11.65 - TYPE 2 DIABETES MELLITUS WITH HYPERGLYCEMIA Status: Acute Qualifiers: Glycemic state: with hyperglycemia Qualified Code(s): E11.65 - Type 2 diabetes mellitus with hyperglycemia Comment: CONTINUE INSULIN, ACCUCHECK AND SS (6) Morbid obesity with BMI of 50.0-59.9, adult Code(s): E66.01 - MORBID (SEVERE) OBESITY DUE TO EXCESS CALORIES; Z68.43 - BODY MASS INDEX (BMI) 50-59.9, ADULT Status: Chronic (7) NADIA (obstructive sleep apnea) Code(s): G47.33 - OBSTRUCTIVE SLEEP APNEA (ADULT) (PEDIATRIC) Status: Suspected (8) Afib Code(s): I48.91 - UNSPECIFIED ATRIAL FIBRILLATION Status: Acute Comment: RATE CONTROLLED WITH BB, Therapeutic Lovenox, convert to oral AC before DC, OP ablation if interested - Plan cont current plan of care, plan discussed w/ family, mckinnon catheter, PT/OT, speech therapy, DVT proph w/lovenox to decide inpatient rehab/ [facility]/ Home She has wheel chair, walker, hospital bed I have discontinued Dobhoff and Mckinnon OK to DC at any point once placement is decided. I have just placed order for DC in am, not reconciled medicines as i ma not sure when DC happens. This is just to start the process of discharge. Start AC before DC and advise follow up with PCP, NEURO, CARDS, EP for possible ablation * .
[2018-03-28 04:53] LABS: Anion Gap 15 mmol/L (10-20); BUN (Urea Nitrogen) 16 mg/dL (8.4-25.7); Calc. Creatinine Clearance 247 mL/min (70-130); Calcium 8.9 mg/dL (7.8-10.44); Carbon Dioxide 26 mmol/L (23-31); Chloride 105 mmol/L (98-107); Estimated GFR-MDRD Greater than 90; Glucose 174 mg/dL (80-115); Potassium 3.7 mmol/L (3.5-5.1); Sodium 142 mmol/L (136-145)
[2018-03-28 05:00] LABS: Hemoglobin 10.8 g/dL (14.0-18.0); Hypochromia SLIGHT = 6-15 cells (100X) (0-5/hpf); Lymphocytes 10 % (21-51); MDiff Complete? YES; Mean Corpuscular Hemoglobin 25.5 pg (27.0-31.0); Mean Corpuscular Volume 82.2 fL (78.0-98.0); Mean Platelet Volume 9.6 fL (7.4-10.4); Monocytes 6 % (0-10); Neutrophil 84 % (42-75); Platelet Count 376 thou/uL (130-400); Platelet Morphology Comment Appears Adequate; RBC Distribution Width 16.7 % (11.5-14.5); Red Blood Cell (RBC) Count 4.25 mill/uL (4.70-6.10); White Blood Cell (WBC) Count 7.5 thou/uL (4.8-10.8)
[2018-03-28] MEDS: Furosemide 20 MG/2 ML VIAL SLOW IVP SCH ×2 (05:44→15:05)
--- NOTE | 2018-03-28 08:17 | PRG ---
DATE OF SERVICE: 03/28/2018 SUBJECTIVE: The patient remains in the IMCU. He is a little less talkative today than he has been in the previous days. OBJECTIVE: VITAL SIGNS: Temperature 98.7, pulse 102, respirations 26, O2 sat 94%, and blood pressure 161/99. HEENT: Unremarkable. NECK: No JVD. LUNGS: Clear. CARDIAC: S1 and S2, regular. ABDOMEN: Soft. EXTREMITIES: No edema. LABORATORY DATA: White blood cell count 7.5, hematocrit of 34.9, and platelet count 376. Sodium 142, potassium 3.7, chloride 105, CO2 of 26, BUN 16, creatinine 0.6, and glucose 174. ASSESSMENT: 1. Status post respiratory failure related to pneumonia and diastolic heart failure. 2. Severe deconditioning. 3. Atrial flutter. PLAN: 1. From my standpoint, he is ready for the next level of care, whether that be medical floor, rehab, or LTAC. There are no acute pulmonary issues. I would withhold any sedating medication. 2. I would recommend clarifying with Cardiology whether or not he needs to be on the high-dose Lovenox. Job ID: [id number]
--- NOTE | 2018-03-28 08:38 | PDOC.CTH ---
Cardiology Progress Note - Subjective The pt seen and examined. No overnight events. He is very upset this AM and does not answer any questions. - Objective Vital Signs Temp Pulse Resp BP Pulse Ox 03/28/18 07:35 98.7 F 102 H 26 H 161/99 H 94 L 03/28/18 07:29 91 28 H 94 L 03/28/18 04:00 99.1 F 81 22 H 142/80 H 91 L 03/28/18 02:14 78 20 92 L 03/27/18 23:55 75 26 H 95 03/27/18 23:53 98.6 F 77 20 132/82 96 Admit Weight 371 lb 11.19 oz Weight 336 lb 6 oz 03/27/18 03/28/18 03/29/18 06:59 06:59 06:59 Intake Total 320 682 Output Total 1900 3000 Balance -9900 -4998 - Physical Examination Lungs: other: (coarses and dminished at bases) Heart: other: (irregular) Abdomen: soft Extremities: other: (mild generalized edema) - Telemetry Telemetry Rhythm: Aflutter 80s - Labs Result Diagrams: 03/28/18 04:29 03/28/18 04:29 Troponin/CKMB Troponin I Less than 0.010 ng/mL (< 0.028) 03/09/18 01:25 - Assessment/Plan 1. Afib/Aflutter - well controlled HR, 80-90s with Coreg 25mg BID. On Lovenox 160 mg BID, which will be stopped and start Eliquis 5mg BID from tonight. Plan for CTI ablation by EP when the family is agreeable. 2. Acute on Chronic diastolic HF - stable with Lasix 20mg IV qd, BBlocker and ARB. 3. Bilat PNA - on ABX IV; managed by PCP/ceramic research engineer 4. OLYA - improved 5. Acute metabolic encephalopathy - responds to voice stimulation and try to speak; Managed by neurology service. 6. HTN - stable 7. Hyperlipidemia - 8. Insulin depend-DM - managed by PCP 9. NADIA - about 10-15 sec NADIA during sleep; may need Cpap during sleep 10. Mrbid Obesity - 11. Anxiety and depression - The pt is very upset today for unknown reason today. MAR reviewed * His quilting machine helper is Dr Santino Emmanuel in [place], [place] Pt. seen and eval. by me. No cardiac problems . I agree with the A/P by the SUPERVISOR CELL MAINTENANCE. Chest clear. Irreg, trace edema. Cardiac status stable. Review of Systems - Review of Systems Constitutional: reports: see HPI
[2018-03-28] MEDS: busPIRone HCl 5 MG TAB PER TUBE SCH ×2 (09:36→20:20)
[2018-03-28] MEDS: Valsartan 80 MG TAB PO SCH ×2 (09:36→20:20)
[2018-03-28] MEDS: Carvedilol 25 MG TAB PO SCH ×2 (09:36→17:59)
[2018-03-28] MEDS: Amlodipine 10 MG TAB PER TUBE SCH (09:36)
[2018-03-28] MEDS: Enoxaparin Sodium 40 MG/0.4 ML SYRINGE SC SCH (09:37)
[2018-03-28] MEDS: Enoxaparin Sodium 120 MG/0.8 ML SYRINGE SC SCH (09:37)
[2018-03-28] MEDS: NPH, Human Insulin Isophane 300 UNIT/3 ML VIAL SC SCH (09:39)
[2018-03-28 14:30] VITALS: BMI 48.2
--- NOTE | 2018-03-28 16:38 | PDOC.PN ---
- Subjective Encounter Start Date: 03/28/18 Encounter Start Time: 16:36 Subjective: no new events ON.care discussed w at bedside -: does not want ablation this admit.Would like [facility] or home w HH -: Max assist per PT - Objective MAR Reviewed: Yes Vital Signs & Weight: Vital Signs (12 hours) Temp Pulse Pulse Pulse Resp BP BP 03/28/18 15:57 97.6 F 74 22 H 03/28/18 13:13 74 28 H 03/28/18 10:26 69 106 H 94/57 L 144/87 H 03/28/18 09:36 102 H 03/28/18 09:00 03/28/18 07:35 98.7 F 102 H 26 H 03/28/18 07:29 91 28 H BP Pulse Ox 03/28/18 15:57 128/66 03/28/18 13:13 99 03/28/18 10:26 03/28/18 09:36 03/28/18 09:00 88 L 03/28/18 07:35 161/99 H 94 L 03/28/18 07:29 94 L Weight Admit Weight 371 lb 11.19 oz Weight 336 lb 6 oz Most Recent Monitor Data Heart Rate from ECG 78 NIBP 139/75 NIBP BP-Mean 96 Respiration from ECG 20 SpO2 96 I&O: 03/27/18 03/28/18 03/29/18 06:59 06:59 06:59 Intake Total 320 682 Output Total 1900 3000 Balance -1580 -2318 Result Diagrams: 03/28/18 04:29 03/28/18 04:29 Additional Labs: Accuchecks 03/28/18 03/28/18 03/27/18 16:18 10:10 21:04 POC Glucose 90 154 H 146 H 03/27/18 16:29 POC Glucose 142 H Microbiology 03/09/18 09:59 Venous blood - Right Hand Blood Culture - Final NO GROWTH IN 5 DAYS 03/09/18 09:45 Central Line - Left external jugular vein Blood Culture - Final NO GROWTH IN 5 DAYS 03/09/18 01:25 Venous blood - Right Hand Blood Culture - Final NO GROWTH IN 5 DAYS 03/09/18 01:25 Venous blood - Right Arm Blood Culture - Final NO GROWTH IN 5 DAYS 03/09/18 01:15 Urine Bladder Tap Urine Culture - Final NO GROWTH AT 48 HOURS Laboratory Tests 03/09/18 01:25 B-Natriuretic Peptide 119.2 H Phys Exam - Physical Examination Constitutional: NAD pale,being held up in sitting position by two people HEENT: PERRLA, moist MMs, sclera anicteric, oral pharynx no lesions Neck: no nodes Respiratory: no wheezing, no rales, no rhonchi reduced at bases Cardiovascular: no significant murmur, irregular Gastrointestinal: soft, non-tender, no distention, positive bowel sounds Musculoskeletal: no edema, pulses present Neurological: non-focal, normal sensation, moves all 4 limbs Psychiatric: normal affect Skin: no rash Dx/Plan (1) Atrial fibrillation and flutter Code(s): I48.91 - UNSPECIFIED ATRIAL FIBRILLATION; I48.92 - UNSPECIFIED ATRIAL FLUTTER Status: Chronic (2) Acute on chronic diastolic ACC/AHA stage C congestive heart failure Code(s): I50.33 - ACUTE ON CHRONIC DIASTOLIC (CONGESTIVE) HEART FAILURE Status : Acute Comment: lasix (3) Bilateral pneumonia Code(s): J18.9 - PNEUMONIA, UNSPECIFIED ORGANISM Status: Acute Comment: completed abx, extubated 03/21 (4) Critical illness myopathy Code(s): G72.81 - CRITICAL ILLNESS MYOPATHY Status: Acute Comment: PT (5) Acute metabolic encephalopathy Code(s): G93.41 - METABOLIC ENCEPHALOPATHY Status: Acute Comment: Minimal improveement in the last few days, awake, minimally alert. Some times follows command (6) Diabetes type 2, uncontrolled Code(s): E11.65 - TYPE 2 DIABETES MELLITUS WITH HYPERGLYCEMIA Status: Acute Qualifiers: Glycemic state: with hyperglycemia Qualified Code(s): E11.65 - Type 2 diabetes mellitus with hyperglycemia Comment: CONTINUE INSULIN, ACCUCHECK AND SS (7) Anemia, normocytic normochromic Code(s): D64.9 - ANEMIA, UNSPECIFIED Status: Chronic (8) Anxiety and depression Code(s): F41.9 - ANXIETY DISORDER, UNSPECIFIED; F32.9 - MAJOR DEPRESSIVE DISORDER, SINGLE EPISODE, UNSPECIFIED Status: Chronic (9) GERD (gastroesophageal reflux disease) Code(s): K21.9 - GASTRO-ESOPHAGEAL REFLUX DISEASE WITHOUT ESOPHAGITIS Status: Chronic Qualifiers: Esophagitis presence: esophagitis presence not specified Qualified Code(s) : K21.9 - Gastro-esophageal reflux disease without esophagitis (10) Hypertension Code(s): I10 - ESSENTIAL (PRIMARY) HYPERTENSION Status: Chronic Qualifiers: Hypertension type: essential hypertension Qualified Code(s): I10 - Essential (primary) hypertension (11) Morbid obesity with BMI of 50.0-59.9, adult Code(s): E66.01 - MORBID (SEVERE) OBESITY DUE TO EXCESS CALORIES; Z68.43 - BODY MASS INDEX (BMI) 50-59.9, ADULT Status: Chronic (12) NADIA (obstructive sleep apnea) Code(s): G47.33 - OBSTRUCTIVE SLEEP APNEA (ADULT) (PEDIATRIC) Status: Suspected Comment: Refusing Bipap (13) Acute kidney injury Code(s): N17.9 - ACUTE KIDNEY FAILURE, UNSPECIFIED Status: Resolved - Plan plan discussed w/ family, PT/OT, respiratory therapy, incentive spirometry, out of bed/ambulate, DVT proph w/SCDs had a long,futile discussion w who exhibit no grasp of prognosis -: cont supportive care. Pt needs Bipap once finishes OP sleep study -: Home O2 eval and arrangements ordered -: OAC per cardiology.discussed .cont Lasix,BB,ARB.stop lovenox BID -: finished ABx.monitor. * .Pt in no shape to go home even w HH.Family expect a different result though most likely will be re-admitted soon . * will try to arrange [facility] for rehab. * HD stable. * am labs Review of Systems - Review of Systems Other: can not be obtained as he doesn't participate. speaks for him - Medications/Allergies Allergies/Adverse Reactions: Allergies Allergy/AdvReac Type Severity Reaction Status Date / Time No Allergy Information Allergy Verified 03/09/18 06:10 Available Medications: Current Medications Acetaminophen (Tylenol Elixir) 650 mg PER TUBE Q6H PRN PRN Reason: Fever Last Admin: 03/27/18 10:18 Dose: 650 mg Albuterol/Ipratropium (Duoneb) 3 ml NEB [id number] [facility] Last Admin: 03/28/18 13:13 Dose: 3 ml Amlodipine Besylate (Norvasc) 10 mg PER TUBE DAILY [facility] Last Admin: 03/28/18 09:36 Dose: 10 mg Apixaban (Eliquis) 5 mg PO BID [facility] Artificial Tears (Tears Naturale) 2 drop EA EYE PRN PRN PRN Reason: Dry Eyes Last Admin: 03/21/18 14:16 Dose: 2 drop Buspirone HCl (Buspar) 10 mg PER TUBE BID [facility] Last Admin: 03/28/18 09:36 Dose: 10 mg Carvedilol (Coreg) 25 mg PO BID-[facility] Last Admin: 03/28/18 09:36 Dose: 25 mg Dextrose/Water (Dextrose 50%) 25 gm SLOW IVP PRN PRN PRN Reason: Hypoglycemia Last Admin: 03/22/18 17:32 Dose: 25 gm Furosemide (Lasix) 20 mg SLOW IVP 0600,1400 [facility] Last Admin: 03/28/18 15:05 Dose: 20 mg Glucagon (Glucagon) 1 mg IM PRN PRN PRN Reason: Hypoglycemia Hydralazine HCl (Apresoline) 10 mg SLOW IVP Q4H PRN PRN Reason: SBP > 180 and HR < 70 Last Admin: 03/23/18 16:54 Dose: 10 mg Dextrose/Water (D5w) 1,000 mls @ 0 mls/hr IV .Q0M PRN PRN Reason: Hypoglycemia Potassium Chloride 40 meq/ (Sodium Chloride) 270 mls @ 135 mls/hr IVPB ASDIR PRN PRN Reason: FOR SERUM K+ 2.5 - 3.5 Potassium Chloride 40 meq/ (Device) 100 mls @ 50 mls/hr IVPB ASDIR PRN PRN Reason: FOR SERUM K+ 2.5 - 3.5 Last Admin: 03/19/18 05:08 Dose: 100 mls Magnesium Sulfate 1 gm/ Sodium (Chloride) 102 mls @ 102 mls/hr IV PRN PRN PRN Reason: MAG LEVEL 1.4 - 2.0 Magnesium Sulfate 2 gm/ Device 100 mls @ 100 mls/hr IVPB ASDIR PRN PRN Reason: MAGNESIUM < 1.4 Potassium Phosphate 9 mmol/ (Sodium Chloride) 103 mls @ 25.75 mls/hr IVPB ASDIR PRN PRN Reason: Phosphate 1.0-1.8 Potassium Phosphate 12 mmol/ (Sodium Chloride) 254 mls @ 63.5 mls/hr IV ASDIR PRN PRN Reason: Serum phosphate 0.5-0.9 Potassium Phosphate 15 mmol/ (Sodium Chloride) 255 mls @ 63.75 mls/hr IV ASDIR PRN PRN Reason: Serum Phos < 0.5 Insulin Human NPH (Humulin N) 50 unit SC BID [facility] Last Admin: 03/28/18 09:39 Dose: 50 unit Insulin Human Regular (Humulin R) 0 units SC .AGGRESSIVE SLIDING PRN PRN Reason: Aggressive Sliding Scale Last Admin: 03/25/18 05:27 Dose: 3 unit Magnesium Oxide (Magnesium Oxide) 400 mg PO BIDPRN PRN PRN Reason: FOR SERUM MAG 1.4 - 2.0 Magnesium Oxide (Magnesium Oxide) 800 mg PO PRN PRN PRN Reason: FOR SERUM MAG < 1.4 Mineral Oil/White Petrolatum (Eucerin Cream) 0 gm TOP BIDPRN PRN PRN Reason: Dry Skin Miscellaneous Medication (Phos-Nak) 1 pkt PO TIDPRN PRN PRN Reason: FOR PHOS LEVEL 1.0 - 1.8 Miscellaneous Medication (Phos-Nak) 2 pkt PO TIDPRN PRN PRN Reason: FOR PHOS LEVEL 0.5 - 1.0 Pantoprazole Sodium (Protonix) 40 mg PO DAILY [facility] Last Admin: 03/28/18 09:36 Dose: 40 mg Potassium Chloride (K-Dur) 40 meq PO ASDIR PRN PRN Reason: FOR SERUM K+ 2.5 - 3.5 Potassium Chloride (Klor-Con) 40 meq PER TUBE ASDIR PRN PRN Reason: FOR SERUM K+ 2.5-3.5 Sodium Chloride ([place] Nasal [place] 0.65%) 0 ml EA NARE QIDPRN PRN PRN Reason: Nasal Congestion Sodium Chloride (Flush - Normal Saline) 10 ml IVF Q12HR [facility] Last Admin: 03/28/18 09:38 Dose: 10 ml Sodium Chloride (Flush - Normal Saline) 10 ml IVF PRN PRN PRN Reason: Saline Flush Last Admin: 03/28/18 05:44 Dose: 10 ml Valsartan (Diovan) 80 mg PO BID [facility] Last Admin: 03/28/18 09:36 Dose: 80 mg
[2018-03-28] MEDS: Apixaban 5 MG TAB PO SCH (20:20)
[2018-03-28] MEDS: Acetaminophen 650 MG/20.3 ML UDCUP PER TUBE PRN (20:21)
[2018-03-29 04:59] LABS: Anion Gap 15 mmol/L (10-20); BUN (Urea Nitrogen) 16 mg/dL (8.4-25.7); Calc. Creatinine Clearance 209 mL/min (70-130); Calcium 9.4 mg/dL (7.8-10.44); Carbon Dioxide 27 mmol/L (23-31); Chloride 103 mmol/L (98-107); Estimated GFR-MDRD Greater than 90; Glucose 147 mg/dL (80-115); Potassium 3.6 mmol/L (3.5-5.1); Sodium 141 mmol/L (136-145)
[2018-03-29 05:10] LABS: Hemoglobin 11.4 g/dL (14.0-18.0); Mean Corpuscular HGB CONC 30.7 g/dL (32.0-36.0); Mean Corpuscular Hemoglobin 25.3 pg (27.0-31.0); Mean Corpuscular Volume 82.5 fL (78.0-98.0); Platelet Count 387 thou/uL (130-400); RBC Distribution Width 16.7 % (11.5-14.5); Red Blood Cell (RBC) Count 4.52 mill/uL (4.70-6.10); White Blood Cell (WBC) Count 7.4 thou/uL (4.8-10.8)
[2018-03-29 05:11] LABS: Band 3 % (5-11); Eosinophils 5 % (0-10); Lymphocytes 33 % (21-51); MDiff Complete? YES; Monocytes 10 % (0-10); Neutrophil 49 % (42-75); Platelet Morphology Comment Appears Adequate
[2018-03-29] MEDS: NPH, Human Insulin Isophane 300 UNIT/3 ML VIAL SC SCH ×3 (06:35→20:43)
--- NOTE | 2018-03-29 09:04 | PRG ---
DATE OF SERVICE: 03/29/2018 SUBJECTIVE: The patient is more talkative today. No distress. His is at the bedside. OBJECTIVE: VITAL SIGNS: On exam, temperature is 99.0, pulse 99, blood pressure 150/76, and O2 sat 92%. HEENT: Unremarkable. NECK: No JVD. LUNGS: Diminished, but clear breath sounds. CARDIAC: S1 and S2, regular. ABDOMEN: Soft. EXTREMITIES: No edema. LABORATORY DATA: White blood cell count 7.4, hematocrit 37.3, and platelet count 387. Sodium 141, potassium 3.6, BUN 16, creatinine 0.7, and glucose 147. ASSESSMENT: 1. Severe debilitation. 2. Status post respiratory failure, requiring mechanical ventilation. 3. Pneumonia, diastolic heart failure. 4. Atrial flutter. PLAN: At this point, really just awaiting placement at rehab. He is doing well, otherwise. Job ID: [id number]
[2018-03-29] MEDS: Carvedilol 25 MG TAB PO SCH ×2 (10:02→17:00)
[2018-03-29] MEDS: busPIRone HCl 5 MG TAB PER TUBE SCH ×2 (10:02→20:42)
[2018-03-29] MEDS: Amlodipine 10 MG TAB PER TUBE SCH (10:02)
[2018-03-29] MEDS: Apixaban 5 MG TAB PO SCH ×2 (10:02→20:42)
[2018-03-29] MEDS: Valsartan 80 MG TAB PO SCH ×2 (10:02→20:42)
[2018-03-29] MEDS: Furosemide 20 MG/2 ML VIAL SLOW IVP SCH (10:06)
--- NOTE | 2018-03-29 11:51 | PDOC.PN ---
- Subjective Encounter Start Date: 03/29/18 Encounter Start Time: 11:50 Subjective: feels weak but OK. at bedside and care discussed -: all Qs answered.reports poor appetite -: Pt does not particpate in interview much likley too weak - Objective MAR Reviewed: Yes Vital Signs & Weight: Vital Signs (12 hours) Temp Pulse Resp BP Pulse Ox 03/29/18 10:02 99 03/29/18 07:55 92 L 03/29/18 07:14 92 L 03/29/18 07:12 99 25 H 92 L 03/29/18 07:10 99.0 F 97 25 H 150/76 H 99 03/29/18 04:00 99.1 F 85 22 H 157/91 H 92 L 03/29/18 02:28 89 33 H 93 L 03/29/18 00:47 81 22 H 96 03/29/18 00:00 99.1 F 84 21 H 130/73 95 Weight Admit Weight 371 lb 11.19 oz Weight 316 lb 3.2 oz Most Recent Monitor Data Heart Rate from ECG 78 NIBP 139/75 NIBP BP-Mean 96 Respiration from ECG 20 SpO2 96 I&O: 03/28/18 03/29/18 03/30/18 06:59 06:59 06:59 Intake Total 682 1290 Output Total 3000 3700 Balance -2318 -2410 Result Diagrams: 03/29/18 04:33 03/29/18 04:33 Additional Labs: Accuchecks 03/29/18 03/29/18 03/28/18 10:47 04:12 20:18 POC Glucose 226 H 132 H 100 03/28/18 16:18 POC Glucose 90 Microbiology 03/09/18 09:59 Venous blood - Right Hand Blood Culture - Final NO GROWTH IN 5 DAYS 03/09/18 09:45 Central Line - Left external jugular vein Blood Culture - Final NO GROWTH IN 5 DAYS 03/09/18 01:25 Venous blood - Right Hand Blood Culture - Final NO GROWTH IN 5 DAYS 03/09/18 01:25 Venous blood - Right Arm Blood Culture - Final NO GROWTH IN 5 DAYS 03/09/18 01:15 Urine Bladder Tap Urine Culture - Final NO GROWTH AT 48 HOURS Selected Entries 03/09/18 03/28/18 03/29/18 05:41 14:30 05:00 Weight 371 lb 11.19 oz 336 lb 6 oz 316 lb 3.2 oz Phys Exam - Physical Examination Constitutional: NAD pale and somnolent HEENT: PERRLA, sclera anicteric, oral pharynx no lesions dry mucosa Neck: no nodes, no JVD, supple, full ROM Respiratory: no wheezing, no rales, no rhonchi Cardiovascular: no significant murmur, irregular Gastrointestinal: soft, non-tender, positive bowel sounds distenede. large testicular swelling likley hydrocoele Musculoskeletal: pulses present, edema present Neurological: non-focal, normal sensation, moves all 4 limbs Psychiatric: normal affect, A&O x 3 Skin: no rash Dx/Plan (1) Atrial fibrillation and flutter Code(s): I48.91 - UNSPECIFIED ATRIAL FIBRILLATION; I48.92 - UNSPECIFIED ATRIAL FLUTTER Status: Chronic Comment: on BB,Eliquis. Rate controlled. (2) Acute on chronic diastolic ACC/AHA stage C congestive heart failure Code(s): I50.33 - ACUTE ON CHRONIC DIASTOLIC (CONGESTIVE) HEART FAILURE Status : Acute Comment: lasix.will change to PO (3) Bilateral pneumonia Code(s): J18.9 - PNEUMONIA, UNSPECIFIED ORGANISM Status: Acute Comment: completed abx, extubated 03/21 (4) Critical illness myopathy Code(s): G72.81 - CRITICAL ILLNESS MYOPATHY Status: Acute Comment: PT (5) Acute metabolic encephalopathy Code(s): G93.41 - METABOLIC ENCEPHALOPATHY Status: Acute Comment: much improved (6) Diabetes type 2, uncontrolled Code(s): E11.65 - TYPE 2 DIABETES MELLITUS WITH HYPERGLYCEMIA Status: Acute Qualifiers: Glycemic state: with hyperglycemia Qualified Code(s): E11.65 - Type 2 diabetes mellitus with hyperglycemia Comment: CONTINUE INSULIN, ACCUCHECK AND SS (7) Anemia, normocytic normochromic Code(s): D64.9 - ANEMIA, UNSPECIFIED Status: Chronic (8) Anxiety and depression Code(s): F41.9 - ANXIETY DISORDER, UNSPECIFIED; F32.9 - MAJOR DEPRESSIVE DISORDER, SINGLE EPISODE, UNSPECIFIED Status: Chronic (9) GERD (gastroesophageal reflux disease) Code(s): K21.9 - GASTRO-ESOPHAGEAL REFLUX DISEASE WITHOUT ESOPHAGITIS Status: Chronic Qualifiers: Esophagitis presence: esophagitis presence not specified Qualified Code(s) : K21.9 - Gastro-esophageal reflux disease without esophagitis (10) Hypertension Code(s): I10 - ESSENTIAL (PRIMARY) HYPERTENSION Status: Chronic Qualifiers: Hypertension type: essential hypertension Qualified Code(s): I10 - Essential (primary) hypertension (11) Morbid obesity with BMI of 50.0-59.9, adult Code(s): E66.01 - MORBID (SEVERE) OBESITY DUE TO EXCESS CALORIES; Z68.43 - BODY MASS INDEX (BMI) 50-59.9, ADULT Status: Chronic (12) NADIA (obstructive sleep apnea) Code(s): G47.33 - OBSTRUCTIVE SLEEP APNEA (ADULT) (PEDIATRIC) Status: Suspected Comment: Refusing Bipap (13) Acute kidney injury Code(s): N17.9 - ACUTE KIDNEY FAILURE, UNSPECIFIED Status: Resolved (14) Hydrocele Code(s): N43.3 - HYDROCELE, UNSPECIFIED Status: Chronic Qualifiers: Hydrocele type: unspecified Qualified Code(s): N43.3 - Hydrocele, unspecified - Plan plan discussed w/ family, PT/OT, respiratory therapy, incentive spirometry, out of bed/ambulate, DVT proph w/SCDs Clinically stable and ready for next site of care.Refreed to [facility] -: cont meds as below. change Lasix to PO. leave Arellano in as pt not able to -: get OOB to BSC/bathroom. -: OP urology F/U for testicular swelling/hydrocoele. -: monitor lytes. * . Review of Systems - Review of Systems Constitutional: weakness, malaise. negative: fever, chills, sweats, other Cardiovascular: negative: chest pain, palpitations, orthopnea, paroxysmal nocturnal dyspnea, edema, light headedness, other Gastrointestinal: Nausea. negative: Vomiting, Abdominal Pain, Diarrhea, Constipation, Melena, Hematochezia, Other Genitourinary: negative: Dysuria, Frequency, Incontinence, Hematuria, Retention , Other Musculoskeletal: negative: Neck Pain, Shoulder Pain, Arm Pain, Back Pain, Hand Pain, Leg Pain, Foot Pain, Other - Medications/Allergies Allergies/Adverse Reactions: Allergies Allergy/AdvReac Type Severity Reaction Status Date / Time No Allergy Information Allergy Verified 03/09/18 06:10 Available Medications: Current Medications Acetaminophen (Tylenol Elixir) 650 mg PER TUBE Q6H PRN PRN Reason: Fever Last Admin: 03/28/18 20:21 Dose: 650 mg Albuterol/Ipratropium (Duoneb) 3 ml NEB [id number] [facility] Last Admin: 03/29/18 07:12 Dose: 3 ml Amlodipine Besylate (Norvasc) 10 mg PER TUBE DAILY [facility] Last Admin: 03/29/18 10:02 Dose: 10 mg Apixaban (Eliquis) 5 mg PO BID [facility] Last Admin: 03/29/18 10:02 Dose: 5 mg Artificial Tears (Tears Naturale) 2 drop EA EYE PRN PRN PRN Reason: Dry Eyes Last Admin: 03/21/18 14:16 Dose: 2 drop Buspirone HCl (Buspar) 10 mg PER TUBE BID [facility] Last Admin: 03/29/18 10:02 Dose: 10 mg Carvedilol (Coreg) 25 mg PO BID-[facility] Last Admin: 03/29/18 10:02 Dose: 25 mg Dextrose/Water (Dextrose 50%) 25 gm SLOW IVP PRN PRN PRN Reason: Hypoglycemia Last Admin: 03/22/18 17:32 Dose: 25 gm Furosemide (Lasix) 20 mg SLOW IVP 0600,1400 [facility] Last Admin: 03/29/18 10:06 Dose: 20 mg Glucagon (Glucagon) 1 mg IM PRN PRN PRN Reason: Hypoglycemia Hydralazine HCl (Apresoline) 10 mg SLOW IVP Q4H PRN PRN Reason: SBP > 180 and HR < 70 Last Admin: 03/23/18 16:54 Dose: 10 mg Dextrose/Water (D5w) 1,000 mls @ 0 mls/hr IV .Q0M PRN PRN Reason: Hypoglycemia Potassium Chloride 40 meq/ (Sodium Chloride) 270 mls @ 135 mls/hr IVPB ASDIR PRN PRN Reason: FOR SERUM K+ 2.5 - 3.5 Potassium Chloride 40 meq/ (Device) 100 mls @ 50 mls/hr IVPB ASDIR PRN PRN Reason: FOR SERUM K+ 2.5 - 3.5 Last Admin: 03/19/18 05:08 Dose: 100 mls Magnesium Sulfate 1 gm/ Sodium (Chloride) 102 mls @ 102 mls/hr IV PRN PRN PRN Reason: MAG LEVEL 1.4 - 2.0 Magnesium Sulfate 2 gm/ Device 100 mls @ 100 mls/hr IVPB ASDIR PRN PRN Reason: MAGNESIUM < 1.4 Potassium Phosphate 9 mmol/ (Sodium Chloride) 103 mls @ 25.75 mls/hr IVPB ASDIR PRN PRN Reason: Phosphate 1.0-1.8 Potassium Phosphate 12 mmol/ (Sodium Chloride) 254 mls @ 63.5 mls/hr IV ASDIR PRN PRN Reason: Serum phosphate 0.5-0.9 Potassium Phosphate 15 mmol/ (Sodium Chloride) 255 mls @ 63.75 mls/hr IV ASDIR PRN PRN Reason: Serum Phos < 0.5 Insulin Human NPH (Humulin N) 50 unit SC BID [facility] Last Admin: 03/29/18 10:03 Dose: 50 unit Insulin Human Regular (Humulin R) 0 units SC .AGGRESSIVE SLIDING PRN PRN Reason: Aggressive Sliding Scale Last Admin: 03/25/18 05:27 Dose: 3 unit Magnesium Oxide (Magnesium Oxide) 400 mg PO BIDPRN PRN PRN Reason: FOR SERUM MAG 1.4 - 2.0 Magnesium Oxide (Magnesium Oxide) 800 mg PO PRN PRN PRN Reason: FOR SERUM MAG < 1.4 Mineral Oil/White Petrolatum (Eucerin Cream) 0 gm TOP BIDPRN PRN PRN Reason: Dry Skin Miscellaneous Medication (Phos-Nak) 1 pkt PO TIDPRN PRN PRN Reason: FOR PHOS LEVEL 1.0 - 1.8 Miscellaneous Medication (Phos-Nak) 2 pkt PO TIDPRN PRN PRN Reason: FOR PHOS LEVEL 0.5 - 1.0 Pantoprazole Sodium (Protonix) 40 mg PO DAILY [facility] Last Admin: 03/29/18 10:02 Dose: 40 mg Potassium Chloride (K-Dur) 40 meq PO ASDIR PRN PRN Reason: FOR SERUM K+ 2.5 - 3.5 Potassium Chloride (Klor-Con) 40 meq PER TUBE ASDIR PRN PRN Reason: FOR SERUM K+ 2.5-3.5 Sodium Chloride ([place] Nasal [place] 0.65%) 0 ml EA NARE QIDPRN PRN PRN Reason: Nasal Congestion Sodium Chloride (Flush - Normal Saline) 10 ml IVF Q12HR [facility] Last Admin: 03/29/18 10:03 Dose: 10 ml Sodium Chloride (Flush - Normal Saline) 10 ml IVF PRN PRN PRN Reason: Saline Flush Last Admin: 03/28/18 05:44 Dose: 10 ml Valsartan (Diovan) 80 mg PO BID [facility] Last Admin: 03/29/18 10:02 Dose: 80 mg
--- NOTE | 2018-03-29 11:52 | PDOC.CTH ---
Cardiology Progress Note - Subjective The pt seen and examined. No overnight events. No cardiac complaints. The pt is more alert today, but not follows commands well. Eating well without any difficulties. has not decided about Aflutter tx, including RFA. She concerns if the pt will have another sedation which may affect his mental status. - Objective Vital Signs Temp Pulse Resp BP Pulse Ox 03/29/18 10:02 99 03/29/18 07:55 92 L 03/29/18 07:14 92 L 03/29/18 07:12 99 25 H 92 L 03/29/18 07:10 99.0 F 97 25 H 150/76 H 99 03/29/18 04:00 99.1 F 85 22 H 157/91 H 92 L 03/29/18 02:28 89 33 H 93 L 03/29/18 00:47 81 22 H 96 03/29/18 00:00 99.1 F 84 21 H 130/73 95 Admit Weight 371 lb 11.19 oz Weight 316 lb 3.2 oz 03/28/18 03/29/18 03/30/18 06:59 06:59 06:59 Intake Total 682 1290 Output Total 3000 3700 Balance -2318 -2410 - Physical Examination General/Neuro: other: (confused) Lungs: other: (coarses and diminished at bases) Heart: other: (irregular) Abdomen: soft Extremities: other: (mild generalized edema) - Telemetry Telemetry Rhythm: Aflutter 80s - Labs Result Diagrams: 03/29/18 04:33 03/29/18 04:33 Troponin/CKMB Troponin I Less than 0.010 ng/mL (< 0.028) 03/09/18 01:25 - Assessment/Plan 1. Afib/Aflutter - well controlled HR 80-90s with Coreg 25mg BID. On Eliquis 5mg BID. Plan for CTI ablation by EP when the family is agreeable. 2. Acute on Chronic diastolic HF - stable with Lasix 20mg IV qd, BBlocker and ARB. 3. 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 OLYA - improved 5. Acute metabolic encephalopathy - responds to voice stimulation and try to speak; Managed by neurology service. 6. HTN - stable 7. Hyperlipidemia - 8. Insulin depend-DM - managed by PCP 9. NADIA - about 10-15 sec NADIA during sleep; may need Cpap during sleep 10. Mrbid Obesity - 11. Anxiety and depression - The pt is very upset today for unknown reason today. MAR reviewed * His die presser is Dr Santino Emmanuel in [place], [place] Overall cardiac status is stable. I will sign off. Review of Systems - Review of Systems Constitutional: reports: see HPI EENTM: reports: see HPI Respiratory: reports: see HPI Cardiac (ROS): reports: see HPI ABD/GI: reports: see HPI
[2018-03-29] MEDS: Acetaminophen 650 MG/20.3 ML UDCUP PER TUBE PRN (13:03)
[2018-03-29] MEDS ORDERED: ALPRAZolam 0.5 MG TAB PO PRN (16:27)
[2018-03-30 04:37] LABS: Mean Corpuscular HGB CONC 30.8 g/dL (32.0-36.0); Mean Corpuscular Hemoglobin 25.5 pg (27.0-31.0); Mean Platelet Volume 9.7 fL (7.4-10.4); Platelet Count 347 thou/uL (130-400); RBC Distribution Width 16.8 % (11.5-14.5); White Blood Cell (WBC) Count 6.9 thou/uL (4.8-10.8)
[2018-03-30 04:46] LABS: Anion Gap 15 mmol/L (10-20); BUN (Urea Nitrogen) 19 mg/dL (8.4-25.7); Calc. Creatinine Clearance 203 mL/min (70-130); Calcium 9.2 mg/dL (7.8-10.44); Carbon Dioxide 28 mmol/L (23-31); Chloride 103 mmol/L (98-107); Estimated GFR-MDRD Greater than 90; Glucose 191 mg/dL (80-115); Potassium 3.7 mmol/L (3.5-5.1); Sodium 142 mmol/L (136-145)
[2018-03-30 05:05] LABS: Band 6 % (5-11); Eosinophils 1 % (0-10); Hypochromia SLIGHT = 6-15 cells (100X) (0-5/hpf); Lymphocytes 22 % (21-51); MDiff Complete? YES; Monocytes 2 % (0-10); Neutrophil 67 % (42-75); Platelet Morphology Comment Appears Adequate; Reactive Lymphocytes 2 % (0-10)
[2018-03-30] MEDS: Insulin Regular 300 UNITS/3 ML VIAL SC PRN ×2 (06:27→11:34)
[2018-03-30] MEDS ORDERED: Furosemide 80 MG TAB PO SCH (07:30)
[2018-03-30] MEDS: Carvedilol 25 MG TAB PO SCH (09:11)
[2018-03-30] MEDS: Acetaminophen 650 MG/20.3 ML UDCUP PER TUBE PRN (09:17)
[2018-03-30] MEDS: Amlodipine 10 MG TAB PER TUBE SCH (09:17)
[2018-03-30] MEDS: Apixaban 5 MG TAB PO SCH (09:17)
[2018-03-30] MEDS: Valsartan 80 MG TAB PO SCH (09:18)
[2018-03-30] MEDS: busPIRone HCl 5 MG TAB PER TUBE SCH (09:18)
[2018-03-30] MEDS: NPH, Human Insulin Isophane 300 UNIT/3 ML VIAL SC SCH (09:19)
--- NOTE | 2018-03-30 09:39 | PRG ---
DATE OF SERVICE: 03/30/2018 SUBJECTIVE: It is anticipated that Mr. Melendrez will move down to [place] for rehab today. He seems to be doing well. He is having some peripheral neuropathy pain. He has been off his gabapentin since admission. OBJECTIVE: VITAL SIGNS: Today, temperature is 98.6, pulse 79, blood pressure 107/66. A 24-hour intake 880, output 1200. HEENT: Unremarkable. NECK: No JVD. CHEST: Clear anteriorly. CARDIAC: S1, S2. Regular. ABDOMEN: Soft. EXTREMITIES: No edema. LABORATORY DATA: White blood cell count 6.9, hematocrit 35.7, and platelet count 347. Sodium 142, potassium 3.7, chloride 103, CO2 of 28, BUN 19, creatinine 0.7, glucose 191. ASSESSMENT: 1. No overall change in his pulmonary status. He is doing well extubated. 2. Severe debilitation. 3. Status post respiratory failure related to heart failure and pneumonia. 4. Atrial flutter. 5. Peripheral neuropathy. PLAN: 1. Restart his gabapentin. 2. He is stable for transfer to rehab. Job ID: [id number]
[2018-03-30] MEDS ORDERED: Gabapentin 300 MG CAP PO SCH ×2 (10:00→15:00)
[2018-03-30 12:36] VITALS: TEMP 98.8
--- NOTE | 2018-03-30 13:37 | DIS ---
DATE OF ADMISSION: 03/09/2018 DATE OF DISCHARGE: 03/30/2018 CONDITION AT THE TIME OF DISCHARGE: Stable and improved. DISCHARGE DISPOSITION: [facility] in [place]. PRIMARY CARE PHYSICIAN: Maty Rivas. PRIMARY PROGRAM WRITER: Dr. Santino Jordan in [place], [place]. DISCHARGE DIAGNOSES: 1. Atrial fibrillation and flutter, currently controlled on beta-blockers. Family has refused ablation during this hospitalization. 2. Acute on chronic diastolic heart failure. 3. Bilateral pneumonia. 4. Acute kidney insufficiency, improved. 5. Acute metabolic encephalopathy, resolved. 6. Hypertension. 7. Dyslipidemia. 8. Diabetes mellitus. 9. Severe obstructive sleep apnea. 10. Morbid obesity. 11. Anxiety and depression. DISCHARGE MEDICATIONS: As follows; gabapentin 800 mg p.o. t.i.d., Nexium 40 mg daily. Valsartan/hydrochlorothiazide 320/12.5 mg daily, Elavil 100 mg daily, Xanax 2 mg at bedtime p.r.n., buspirone 10 mg p.o. b.i.d., NPH 50 units b.i.d., DuoNeb's p.r.n. every 6 hours, Lasix 80 mg daily, carvedilol 25 mg daily, Eliquis 5 mg p.o. b.i.d., amlodipine 10 mg daily, Xanax 1 mg p.o. b.i.d., Tylenol p.r.n. IN-HOUSE CONSULTATION: 1. Pulmonary Medicine, Dr. Pollard. 2. Urology, Dr. Xie. 3. Cardiology, Dr. Barnes. 4. Neurology, Dr. Parada and Dr. Randi Briseno. 5. Electrophysiology, Dr. Hendrickson. PROCEDURES DONE IN THE HOSPITAL: 1. CT scan of the brain upon presentation, which did not show any acute intracranial abnormality. 2. Transthoracic echocardiogram on 03/09/2018, which shows EF of 50% to 55%. 3. Testicular ultrasound, which shows findings consistent with a possible testicular most likely hydrocele with fluid and hematocrit level in the right scrotal sac with papillary projections. 4. Multiple chest x-rays while he was here. 5. Repeat CT scan of the brain on 03/16/2018, which was once again negative for any acute intracranial pathology. HISTORY OF PRESENTING ILLNESS: Mr. Melendrez is a 68-year-old male with known history of diabetes, obesity, sleep apnea, anxiety and depression, who was brought to the ER by Paramedics for altered mental status. He was reportedly more lethargic and somnolent, and was falling frequently at home. In the emergency room, he was hypertensive. A central line was placed. He was also given Solu-Medrol and Zosyn in the ER. His blood pressure was 187/165. He was intubated and sedated for airway protection. Presumptive admission diagnosis is acute metabolic encephalopathy, likely due to CO2 narcosis with underlying chronic respiratory acidosis and sleep apnea. He was also found to have acute on chronic diastolic congestive heart failure with elevated BNP. Please see admission history and physical for further details. HOSPITAL COURSE: The patient was seen by Pulmonary Critical Care physician, Dr. Pollard, after he was admitted to CCU. He was gradually weaned off mechanical ventilation and was extubated successfully. Neurology was consulted as well for his presentation with significant altered mental status. He was seen by Dr. Briseno on 03/18/[address] scan was once again repeated, which did not show any acute intracranial abnormality. It was thought to be secondary to metabolic encephalopathy, which gradually improved. The patient was found to have significant testicular swelling, and then, testicular ultrasound was done, which showed some concerns for right testicular mass. Urology was consulted, and Dr. Xie saw the patient. His recommendations were that this mass is likely a hydrocele with calcifications. He was not a surgical candidate because of acute illness, and in any case, this was not an emergency, and it was recommended that he follows up with Urology in the outpatient setting for a hydrocelectomy. Cardiology was consulted. The patient developed atrial fibrillation with RVR in the hospital. Dr. Barnes saw the patient, and echo was done, which was consistent with some diastolic dysfunction. He was treated initially with Cardizem and later amiodarone drip, which was later changed to oral. He was also started on anticoagulation with initially Lovenox b.i.d., which was changed later to Eliquis p.o. b.i.d. once he was extubated. He was also seen by Dr. Hendrickson for atrial fibrillation versus flutter, and he recommended ablation, which the patient's family, mainly his declined. She would rather get it done in the outpatient setting. The patient eventually stabilized up to the point, where next level of care was recommended for him. Rehab was recommended, but the family wanted to take him home. The patient was maximum assist with any movement and the most he can do by himself is lie in bed. Eventually, the family came around and agreed that they cannot take care of this patient at home and requested rehab placement. [facility] was recommended and they accepted the patient today, and he will be discharged. The patient was also treated with IV antibiotics and later oral antibiotics for possible bilateral pneumonia in the hospital and he has finished the course of antibiotics. His encephalopathy has significantly improved, and he has been started on his Neurontin. He was seen and examined prior to discharge. PHYSICAL EXAMINATION: VITAL SIGNS: This morning vital signs, temperature 98.8, heart rate anywhere from 80s to 90s, blood pressure of 132/86, respirations 20 to 22, saturating anywhere from 93% to 98% on nasal cannula at 2 L/minute. It is recommended that he undergo a formal sleep study as he most likely has undiagnosed sleep apnea. He will see Dr. Pollard in the outpatient setting once he is done with his rehab. He was noncompliant with his BiPAP that was ordered for him for nighttime in the hospital. The patient remains somewhat in a guarded condition, but much improved condition at the time of discharge. The family has exhibited lack of knowledge and lack of understanding about prognosis. This makes the patient more susceptible for readmission or decompensation. At this time, he is hemodynamically stable and cleared by Cardiology and Pulmonary Medicine for discharge. He is being discharged. DISCHARGE PLAN: Discharge plan was discussed with the , who verbalized understanding. TOTAL TIME SPENT: 40 minutes. Job ID: [id number]
[2018-03-30 16:13] VITALS: BP 113/73
--- NOTE | 2018-03-31 17:43 | PQF ---
JORGE SEYMOUR RICHA MD [id number] CLINICAL DOCUMENTATION CLARIFICATION FORM: POST DISCHARGE Addendum to original discharge summary date: ____ Late entry note date: __ DATE: 03/31/18 ATTN: Please exercise your independent, professional judgment in responding to the clarification form. Clinical indicators are provided on the bottom of this form for your review Diagnosis: Sepsis Present on Admission (POA): [ ] Yes [ ] No [ ] Unable to determine Coding guidelines require hospitals to identify whether a diagnosis was present on admission (POA) or not. To accurately assign the appropriate POA indicator, this information must be clearly documented within the medical record. CLINICAL INDICATORS - SIGNS / SYMPTOMS / LABS Documentation to support POA status Elevated WBC Elevated respiratory rate RISK FACTORS: Documentation to support POA status Acute respiratory failure Acute heart failure TREATMENT: Documentation to support POA status Zosyn on admission (This form is maintained as a part of the permanent medical record) 2014 [employer]. All Rights Reserved Cristian [email or web address] [phone] MTDD
== END 2018-03-30 13:17 | DRG 207 ==
LOC: ERS 01:03 → CCU 05:30 → IMCU/EMU 03-22 18:30
PROVIDERS: ADMIT Internal Medicine; ATTEND Internal Medicine
PROC: 5A1955Z Respiratory Ventilation, Greater than 96 Consecutive Hours (ICD-10-PCS; principal; 2018-03-09)
PROC: 0BH17EZ Insertion of Endotracheal Airway into Trachea, Via Natural or Artificial Opening (ICD-10-PCS; 2018-03-09)
DX: J96.01 Acute respiratory failure with hypoxia (principal); J18.9 Pneumonia, unspecified organism; I50.33 Acute on chronic diastolic (congestive) heart failure; G93.41 Metabolic encephalopathy; A41.9 Sepsis, unspecified organism; R65.20 Severe sepsis without septic shock; I48.92 Unspecified atrial flutter; N17.9 Acute kidney failure, unspecified; G72.81 Critical illness myopathy; Z68.43 Body mass index [BMI] 50.0-59.9, adult; G47.33 Obstructive sleep apnea (adult) (pediatric); E66.01 Morbid (severe) obesity due to excess calories; F41.9 Anxiety disorder, unspecified; F32.9 Major depressive disorder, single episode, unspecified; I48.91 Unspecified atrial fibrillation; E11.9 Type 2 diabetes mellitus without complications; I11.0 Hypertensive heart disease with heart failure; E78.5 Hyperlipidemia, unspecified; N43.3 Hydrocele, unspecified; Z79.899 Other long term (current) drug therapy; Z79.4 Long term (current) use of insulin; D64.9 Anemia, unspecified; K21.9 Gastro-esophageal reflux disease without esophagitis
CPT/HCPCS: 31500; 36415; 36416; 36556; 51702; 70450; 70460; 71045; 74018; 76870; 80048; 80053; 80306; 80307; 81003; 81015; 82805; 83605; 83690; 83880; 84145; 84443; 84484; 85007; 85025; 85027; 85610; 85730; 87040; 87086; 93005; 93010; 93306; 94002; 94003; 94640; 94660; 96365; 96366; 96368; 96375; 99292; C9113; J0131; J0360; J1120; J1450; J1650; J1815; J1825; J1940; J2060; J2543; J2704; J2930; J3010; J3480; J7050; J7620

== ENCOUNTER 2019-02-07 20:24 | Inpatient (IN) | payer MEDICARE, MEDICAID ==
[2019-02-07] MEDS ORDERED: Furosemide 40 MG/4 ML VIAL ONE (20:52)
[2019-02-07] MEDS ORDERED: Labetalol HCl 100 MG/20 ML VIAL ONE (20:52)
[2019-02-07 20:56] LABS: #Eosinphils 0.1 thou/uL (0.0-0.7); #Lymphocytes 1.2 thou/uL (1.20-3.40); #Monocytes 1.2 thou/uL (0.11-0.59); #Neutrophils 12.9 thou/uL (1.40-6.50); %Basophils 0.3 % (0.0-1.0); %Eosinophils 0.8 % (0.0-10.0); %Lymphocytes 7.6 % (21.0-51.0); %Monocytes 7.7 % (0.0-10.0); %Neutrophils 83.6 % (42.0-75.0); Hemoglobin 12.8 g/dL (14.0-18.0); Mean Corpuscular HGB CONC 31.9 g/dL (32.0-36.0); Mean Corpuscular Hemoglobin 26.5 pg (27.0-31.0); Mean Corpuscular Volume 83.2 fL (78.0-98.0); Mean Platelet Volume 9.1 fL (7.4-10.4); Platelet Count 221 thou/uL (130-400); RBC Distribution Width 15.3 % (11.5-14.5); Red Blood Cell (RBC) Count 4.84 mill/uL (4.70-6.10); White Blood Cell (WBC) Count 15.4 thou/uL (4.8-10.8)
[2019-02-07 20:58] LABS: Actual Bicarbonate (HCO3a) 25.4 mEq/L (22-28); Analyzer IN Cardio ER; Base Excess (BEa) 0.2 mEq/L (-2.0 to +3.0); CO2 Tension 43.4 mmHg (35.0-45.0); Calcium, Ionized 1.19 mmol/L (1.12-1.30); Carboxyhemoglobin (COHb) 1.2 gm% (0.0-3.0); Hemoglobin (Hb) 12.9 g/dL (14.0-18.0); Potassium - ABG Lab 4.26 mmol/L (3.70-5.30); pH, Arterial 7.39 (7.35-7.45)
[2019-02-07 21:04] LABS: O2 Tension (PaO2) 57.8 mmHg (> 80.0); Puncture Site RRA
[2019-02-07 21:18] LABS: ALT (SGPT) 22 U/L (8-55); AST (SGOT) 21 U/L (5-34); Alkaline Phosphatase 75 U/L (40-110); Anion Gap 14 mmol/L (10-20); BUN (Urea Nitrogen) 18 mg/dL (8.4-25.7); Bilirubin, Total 0.7 mg/dL (0.2-1.2); Calc. Creatinine Clearance 0 mL/min (70-130); Calcium 9.3 mg/dL (7.8-10.44); Carbon Dioxide 30 mmol/L (23-31); Chloride 98 mmol/L (98-107); Estimated GFR-MDRD 74; Globulin 3.7 g/dL (2.4-3.5); Glucose 351 mg/dL (80-115); Potassium 4.5 mmol/L (3.5-5.1); Protein, Total 7.7 g/dL (5.8-8.1); Sodium 137 mmol/L (136-145)
--- NOTE | 2019-02-07 21:21 | RAD ---
EXAM: XR Chest 1 View Portable PROVIDED CLINICAL HISTORY: Dyspnea COMPARISON: 03/21/2018 FINDINGS: Evaluation is limited by patient body habitus. The cardiac silhouette appears enlarged, which may be least partially on the basis of portable technique. Prominence of the pulmonary vasculature. No focal airspace disease, pleural fluid or pneumothorax apparent. IMPRESSION: Limited study with findings suggesting congestive failure.
[2019-02-07] MEDS ORDERED: Dextrose 5% in Water 1,000 ML IV PRN (22:14)
[2019-02-07] MEDS ORDERED: Dextrose 50% Abboject 50 ML SYRINGE SLOW IVP PRN (22:14)
--- NOTE | 2019-02-07 22:44 | PDOC.EVN ---
Event Note - Event Note Event Note: [id number]
[2019-02-08 00:17] LABS: Troponin I Less than 0.010 ng/mL (< 0.028)
[2019-02-08 03:04] LABS: Troponin I Less than 0.010 ng/mL (< 0.028)
--- NOTE | 2019-02-08 03:08 | HP ---
CHIEF COMPLAINT: Shortness of breath. HISTORY OF PRESENT ILLNESS: Mr. Melendrez is a 68-year-old male with past medical history of congestive heart failure, diastolic; diabetes type 2; obesity, among others, was brought to the emergency room by EMS with shortness of breath for the last 2 days. Denies chest pain, nausea, vomiting, or abdominal pain. Patient also noticed significant weight gain and bilateral leg swelling. The patient arrived on CPAP to the emergency room. The patient's blood pressure on route was 230 systolic. The patient was given 3 sprays of nitroglycerin and 1 inch of paste. In the emergency room, the patient was in respiratory distress on CPAP. Chest x-ray shows pulmonary vascular congestion. The patient was given 40 mg of IV Lasix. The patient is feeling little better. The patient is being admitted to hospital for further management. PAST MEDICAL HISTORY: 1. Congestive heart failure, diastolic. 2. Obesity. 3. Diabetes mellitus type 2. 4. Anxiety and depression. 5. Atrial fibrillation. 6. Obstructive sleep apnea. PAST SURGICAL HISTORY: Cholecystectomy. SOCIAL HISTORY: The patient is a former smoker. Lives at home with family. FAMILY HISTORY: Reviewed and noncontributory. HOME MEDICATIONS: Please see home medication reconciliation form for updated medications. ALLERGIES: NO KNOWN ALLERGIES, UNCONFIRMED. REVIEW OF SYSTEMS: Review of 14 systems negative except what is mentioned in history of present illness. PHYSICAL EXAMINATION: GENERAL: The patient is awake, alert, in moderate respiratory distress, morbidly obese. VITAL SIGNS: Blood pressure 132/85, pulse is 90, respiratory rate is 20, oxygen saturations 94% on 2 L/minute nasal cannula, temperature 99.1. HEAD: Normocephalic, atraumatic. NECK: Supple. No JVD. CHEST: Few bibasilar crackles. HEART: S1, S2. Regular, tachycardic. ABDOMEN: Obese, soft. Bowel sounds present. NEUROLOGIC: Awake, alert, and oriented. The patient is slow in answering questions and sometimes he gets confused. PSYCHIATRIC: Unable to assess. EXTREMITIES: Both legs are swollen, edematous, and erythematous. LABORATORY DATA: Chest x-ray as mentioned above in history of present illness. Glucose is elevated at 351. ABGs showed a pH of 7.39, pCO2 of 43, PO2 of 57. This was done on room air. WBC count is 15.4, hemoglobin 12.8, and platelets 221. BNP is 62. Troponin 0.01. ASSESSMENT AND PLAN: 1. Acute on chronic congestive heart failure, diastolic. 2. Morbid obesity. 3. Diabetes mellitus type 2 with hyperglycemia. 4. History of atrial fibrillation. 5. Anticoagulated on Eliquis. 6. Hypertension. PLAN: 1. Admit. 2. Telemetry monitoring. 3. IV diuresis. 4. 2D echo. 5. Consider Cardiology consultation in a.m. for evaluation and further recommendations. 6. Oxygen to keep saturation more than 92%. 7. Reconcile home medications. 8. DVT prophylaxis. Continue home anticoagulants. 9. Expected length of stay, 2 midnights or more. Job ID: [id number]
[2019-02-08 05:18] LABS: #Eosinphils 0.2 thou/uL (0.0-0.7); #Lymphocytes 1.5 thou/uL (1.20-3.40); #Monocytes 1.3 thou/uL (0.11-0.59); #Neutrophils 11.6 thou/uL (1.40-6.50); %Basophils 0.2 % (0.0-1.0); %Eosinophils 1.1 % (0.0-10.0); %Lymphocytes 10.2 % (21.0-51.0); %Monocytes 8.6 % (0.0-10.0); Hemoglobin 12.4 g/dL (14.0-18.0); Mean Corpuscular Hemoglobin 26.8 pg (27.0-31.0); Mean Corpuscular Volume 83.7 fL (78.0-98.0); Mean Platelet Volume 9.1 fL (7.4-10.4); Platelet Count 212 thou/uL (130-400); RBC Distribution Width 15.2 % (11.5-14.5); Red Blood Cell (RBC) Count 4.62 mill/uL (4.70-6.10); White Blood Cell (WBC) Count 14.5 thou/uL (4.8-10.8)
[2019-02-08 05:21] LABS: Anion Gap 15 mmol/L (10-20); BUN (Urea Nitrogen) 16 mg/dL (8.4-25.7); Calc. Creatinine Clearance 159 mL/min (70-130); Calcium 9.5 mg/dL (7.8-10.44); Carbon Dioxide 30 mmol/L (23-31); Chloride 97 mmol/L (98-107); Estimated GFR-MDRD 84; Glucose 312 mg/dL (80-115); Potassium 4.3 mmol/L (3.5-5.1); Sodium 138 mmol/L (136-145)
[2019-02-08] MEDS: Furosemide 40 MG/4 ML VIAL SLOW IVP SCH ×2 (06:09→13:39)
[2019-02-08] MEDS: Aspirin Chewable 81 MG TAB PO SCH (08:06)
[2019-02-08] MEDS: Famotidine 20 MG TAB PO SCH ×2 (08:06→21:11)
[2019-02-08] MEDS: HumaLOG 300 UNITS/3 ML VIAL SC PRN ×4 (08:13→21:12)
[2019-02-08] MEDS ORDERED: Lorazepam 2 MG/ML VIAL SLOW IVP PRN (10:04)
[2019-02-08] MEDS ORDERED: buPROPion HCl 100 MG TAB PO SCH (10:30)
[2019-02-08] MEDS ORDERED: Gabapentin 300 MG CAP PO SCH (10:30)
[2019-02-08] MEDS ORDERED: Apixaban 5 MG TAB PO SCH (10:30)
[2019-02-08] MEDS ORDERED: Carvedilol 25 MG TAB PO SCH (10:30)
[2019-02-08] MEDS: Donepezil HCl 5 MG TAB PO SCH (10:40)
[2019-02-08] MEDS ORDERED: Insulin Glargine 70 UNITS in Pre-Filled Syringe 1 EACH SC SCH (10:45)
--- NOTE | 2019-02-08 14:30 | PDOC.HOSPP ---
- Subjective Encounter Date: 02/08/19 Encounter Time: 14:20 Subjective: f/u for acute dyspnea with hx of diastolic dysfunction, NADIA but not on CPAP and tx with IV Lasix. Family reports pt non-compliant at home with diet, limited mobility after doing well with Home health and PT services over the last several months. Family not able to manage him or motivate him to do anything or adhere to treatments. - Objective Vital Signs & Weight: Vital Signs (12 hours) Temp Pulse Resp BP Pulse Ox 02/08/19 11:22 98.1 F 95 18 162/79 H 96 02/08/19 07:51 98.2 F 95 18 150/80 H 95 02/08/19 04:04 98.3 F 107 H 18 157/73 H 97 Weight Weight 315 lb 12.8 oz I&O: 02/07/19 02/08/19 02/09/19 06:59 06:59 06:59 Output Total 400 Balance -400 Result Diagrams: 02/08/19 04:38 02/08/19 04:38 Additional Labs: Accuchecks 02/08/19 10:39 POC Glucose 396 H Laboratory Tests 02/07/19 02/07/19 02/07/19 20:34 20:34 20:34 WBC 15.4 H Hgb 12.8 L Neutrophils % 83.6 H Troponin I 0.010 B-Natriuretic Peptide 62.3 02/07/19 02/08/19 02/08/19 23:41 02:29 04:38 WBC Hgb Neutrophils % 80.0 H Troponin I Less than 0.010 Less than 0.010 B-Natriuretic Peptide Radiology Reviewed by me: Yes (PCXR - bilat vasc prominence) EKG Reviewed by me: Yes (Tele - A-fib in 70's) Hospitalist ROS - Medication Medications: Active Medications Generic Name Dose Route Start Last Admin Trade Name Freq PRN Reason Stop Dose Admin Aspirin 81 mg 02/08/19 09:00 02/08/19 08:06 Aspirin Chewable PO 81 mg DAILY CELSA Administration Donepezil HCl 5 mg 02/08/19 21:00 02/08/19 10:40 Aricept PO 5 mg HS CELSA Administration Famotidine 20 mg 02/08/19 09:00 02/08/19 08:06 Pepcid PO 20 mg BID CELSA Administration Furosemide 40 mg 02/08/19 06:00 02/08/19 13:39 Lasix SLOW IVP 40 mg 0600,1400 CELSA Administration Insulin Human Lispro 0 units 02/07/19 22:14 02/08/19 11:30 Humalog SC 6 unit .MILD SLIDING SCALE PRN Administration Mild Correctional Scale - Exam General - other findings: falls asleep while talking Eye: PERRL, anicteric sclera ENT: normocephalic atraumatic, no oropharyngeal lesions Neck: supple, symmetric, no JVD, no thyromegaly Heart: no murmur, no gallops, no rubs, normal peripheral pulses, irregular Respiratory: no wheezes Respiratory - other findings: diminished bilat, few crackles Gastrointestinal: soft, non-tender, normal bowel sounds, no palpable masses Gastrointestinal - other findings: obese Extremities: no cyanosis, 2+ LE edema Skin: normal turgor, no lesions Neurological: cranial nerve grossly intact, no new deficit Musculoskeletal: normal tone, generalized weakness Psychiatric: A&O x 3, lethargic Hosp A/P (1) Acute on chronic diastolic ACC/AHA stage C congestive heart failure Code(s): I50.33 - ACUTE ON CHRONIC DIASTOLIC (CONGESTIVE) HEART FAILURE Status : Acute Plan: Continue Lasix 40mg IV BID, check 2D echo, consider Cardiology evaluation, appears exacerbation related to non-compliance with fluids/diet/meds (2) Acute metabolic encephalopathy Code(s): G93.41 - METABOLIC ENCEPHALOPATHY Status: Acute Plan: Multifactorial including non-compliance with CPAP tx, meds/diet/hypoxia (3) Diabetes type 2, uncontrolled Code(s): E11.65 - TYPE 2 DIABETES MELLITUS WITH HYPERGLYCEMIA Status: Chronic Qualifiers: Glycemic state: with hyperglycemia Qualified Code(s): E11.65 - Type 2 diabetes mellitus with hyperglycemia Plan: Resume home insulin regimen, ISS, check A1C, consider dietitian consult (4) Anxiety and depression Code(s): F41.9 - ANXIETY DISORDER, UNSPECIFIED; F32.9 - MAJOR DEPRESSIVE DISORDER, SINGLE EPISODE, UNSPECIFIED Status: Chronic Plan: Resume home regimen, monitor clinical response (5) Morbid obesity with BMI of 50.0-59.9, adult Code(s): E66.01 - MORBID (SEVERE) OBESITY DUE TO EXCESS CALORIES; Z68.43 - BODY MASS INDEX (BMI) 50.0-59.9, ADULT Status: Chronic (6) NADIA (obstructive sleep apnea) Code(s): G47.33 - OBSTRUCTIVE SLEEP APNEA (ADULT) (PEDIATRIC) Status: Chronic Plan: Non-compliant with any tx and family report pt will not wear a CPAP - Plan plan discussed w/ family, PT/OT, social sciences professor, respiratory therapy, out of bed/ambulate, DVT proph w/SCDs Continue Lasix 40mg IV BID Consult Pulmonology service regarding NADIA Resume home BP regimen Check 2D echo PT evaluation for functional assessment AM lab: BMP, CBC, A1C
[2019-02-08] MEDS: Carvedilol 25 MG TAB PO SCH (15:58)
[2019-02-08] MEDS ORDERED: Ziprasidone 20 MG VIAL IM PRN (20:01)
[2019-02-08] MEDS ORDERED: INSULIN GLARGINE HUM REC ANLOG 70 UNIT SC SCH (21:00)
[2019-02-08] MEDS: Insulin Glargine 70 UNITS in Pre-Filled Syringe 1 EACH SC SCH (21:10)
[2019-02-08] MEDS: buPROPion HCl 100 MG TAB PO SCH (21:11)
[2019-02-08] MEDS: traZODone HCl 50 MG TAB PO SCH (21:11)
[2019-02-08] MEDS: Apixaban 5 MG TAB PO SCH (21:11)
[2019-02-08] MEDS: Gabapentin 300 MG CAP PO SCH (21:19)
[2019-02-08 22:40] LABS: Actual Bicarbonate (HCO3a) 35.6 mEq/L (22-28); Base Excess (BEa) 7.8 mEq/L (-2.0 to +3.0); Calcium, Ionized 1.18 mmol/L (1.12-1.30); Carboxyhemoglobin (COHb) 2.2 gm% (0.0-3.0); Hemoglobin (Hb) 12.4 g/dL (14.0-18.0); O2 Tension (PaO2) 61.8 mmHg (> 80.0); Potassium - ABG Lab 4.07 mmol/L (3.70-5.30); pH, Arterial 7.35 (7.35-7.45)
[2019-02-08 22:41] LABS: CO2 Tension 66.1 mmHg (35.0-45.0)
[2019-02-08 22:42] LABS: Puncture Site RRADIAL
[2019-02-08 22:43] LABS: ALV-art Gradient 112.255 (0-20)
[2019-02-09] MEDS: Furosemide 40 MG/4 ML VIAL SLOW IVP SCH ×2 (06:16→13:04)
[2019-02-09] MEDS: Apixaban 5 MG TAB PO SCH ×2 (08:43→20:02)
[2019-02-09] MEDS: Carvedilol 25 MG TAB PO SCH ×2 (08:43→18:00)
[2019-02-09] MEDS: Aspirin Chewable 81 MG TAB PO SCH (08:43)
[2019-02-09] MEDS: Gabapentin 300 MG CAP PO SCH ×2 (08:43→20:01)
[2019-02-09] MEDS: Famotidine 20 MG TAB PO SCH ×2 (08:44→20:02)
[2019-02-09] MEDS: buPROPion HCl 100 MG TAB PO SCH ×2 (08:44→20:01)
[2019-02-09] MEDS: Insulin Glargine 70 UNITS in Pre-Filled Syringe 1 EACH SC SCH (08:46)
[2019-02-09] MEDS: HumaLOG 300 UNITS/3 ML VIAL SC PRN ×3 (08:47→18:27)
[2019-02-09] MEDS: ZINC 50 MG PO SCH (08:55)
[2019-02-09] MEDS ORDERED: Spironolactone 25 MG TAB PO SCH (12:15)
[2019-02-09 13:11] LABS: Hemoglobin 12.3 g/dL (14.0-18.0); Mean Corpuscular HGB CONC 31.7 g/dL (32.0-36.0); Mean Corpuscular Hemoglobin 26.3 pg (27.0-31.0); Mean Corpuscular Volume 83.1 fL (78.0-98.0); Mean Platelet Volume 9.1 fL (7.4-10.4); Platelet Count 225 thou/uL (130-400); RBC Distribution Width 15.1 % (11.5-14.5); Red Blood Cell (RBC) Count 4.67 mill/uL (4.70-6.10); White Blood Cell (WBC) Count 13.9 thou/uL (4.8-10.8)
[2019-02-09 13:16] LABS: Hemoglobin A1c 9.8 % (4.0-6.0)
[2019-02-09 13:29] LABS: Anion Gap 12 mmol/L (10-20); BUN (Urea Nitrogen) 21 mg/dL (8.4-25.7); Calc. Creatinine Clearance 147 mL/min (70-130); Calcium 9.7 mg/dL (7.8-10.44); Carbon Dioxide 32 mmol/L (23-31); Chloride 95 mmol/L (98-107); Estimated GFR-MDRD 77; Glucose 343 mg/dL (80-115); Potassium 4.3 mmol/L (3.5-5.1); Sodium 135 mmol/L (136-145)
[2019-02-09 13:33] LABS: Anisocytosis SLIGHT = 6-15 cells (100X) (0-5/hpf); Band 14 % (5-11); Hypochromia SLIGHT = 6-15 cells (100X) (0-5/hpf); Lymphocytes 11 % (21-51); MDiff Complete? YES; Monocytes 10 % (0-10); Neutrophil 65 % (42-75); Platelet Morphology Comment Appears Adequate; Polychromasia SLIGHT = 2-3 cells (100X) (0-2/hpf)
--- NOTE | 2019-02-09 15:52 | PDOC.HOSPP ---
- Subjective Encounter Date: 02/09/19 Encounter Time: 15:49 Subjective: 68 y/o male with morbid obesity associated with NADIA and OHS, chronic CHF, DM, atrial fib/flutter admitted with worsening SOB. Report feeling marginalaly better. No fever. - Objective Vital Signs & Weight: Vital Signs (12 hours) Temp Pulse Pulse Resp BP BP BP 02/09/19 11:57 97.8 F 78 17 139/71 02/09/19 10:58 71 131/69 02/09/19 08:00 96.8 F L 105 H 18 165/79 H 02/09/19 06:00 88 20 166/77 H 02/09/19 04:01 97.3 F L 94 18 124/58 L Pulse Ox 02/09/19 11:57 90 L 02/09/19 10:58 02/09/19 08:00 94 L 02/09/19 06:00 97 02/09/19 04:01 96 Weight Weight 314 lb 12.8 oz I&O: 02/08/19 02/09/19 02/10/19 06:59 06:59 06:59 Intake Total 1240 Output Total 400 2300 Balance -400 -1060 Result Diagrams: 02/09/19 13:00 02/09/19 13:00 Additional Labs: Accuchecks 02/09/19 02/09/19 02/08/19 10:49 05:49 21:11 POC Glucose 353 H 295 H 341 H 02/08/19 02/08/19 17:13 05:17 POC Glucose 382 H 275 H Hospitalist ROS - Medication Medications: Active Medications Generic Name Dose Route Start Last Admin Trade Name Howie PRN Reason Stop Dose Admin Apixaban 5 mg 02/08/19 21:00 02/09/19 08:43 Eliquis PO 5 mg BID CELSA Administration Aspirin 81 mg 02/08/19 09:00 02/09/19 08:43 Aspirin Chewable PO 81 mg DAILY CELSA Administration Bupropion HCl 100 mg 02/08/19 21:00 02/09/19 08:44 Wellbutrin PO 100 mg BID CELSA Administration Carvedilol 25 mg 02/08/19 17:00 02/09/19 08:43 Coreg PO 25 mg BID-WM CELSA Administration Donepezil HCl 5 mg 02/08/19 21:00 02/08/19 10:40 Aricept PO 5 mg HS CELSA Administration Famotidine 20 mg 02/08/19 09:00 02/09/19 08:44 Pepcid PO 20 mg BID CELSA Administration Furosemide 40 mg 02/08/19 06:00 02/09/19 13:04 Lasix SLOW IVP 40 mg 0600,1400 CELSA Administration Gabapentin 600 mg 02/08/19 21:00 02/09/19 08:43 Neurontin PO 600 mg BID CELSA Administration Insulin Human Lispro 0 units 02/07/19 22:14 02/09/19 13:09 Humalog SC 6 unit .MILD SLIDING SCALE PRN Administration Mild Correctional Scale Patient's Home 0 each 02/09/19 09:00 02/09/19 08:55 Medication Zinc 50 PO Not Given Mg DAILY CELSA Trazodone HCl 50 mg 02/08/19 21:00 02/08/19 21:11 Desyrel PO 50 mg HS CELSA Administration Ziprasidone 10 mg 02/08/19 20:01 02/08/19 20:36 Geodon IM 02/09/19 20:02 10 mg ONE PRN Administration Agitation - Exam General - other findings: sleepy. morbidly obese Eye: anicteric sclera ENT: normocephalic atraumatic Neck: supple Heart: irregular Respiratory: no ronchi Respiratory - other findings: diminished air movement both bases. Gastrointestinal: soft, normal bowel sounds Extremities - other findings: mild to moderate bilateral leg edema Neurological: cranial nerve grossly intact, no focal deficits Neurological - other findings: drowsy. Oriented x 3 Hosp A/P (1) Acute respiratory failure Code(s): J96.00 - ACUTE RESPIRATORY FAILURE, UNSP W HYPOXIA OR HYPERCAPNIA Status: Resolved Qualifiers: Respiratory failure complication: hypercapnia Qualified Code(s): J96.02 - Acute respiratory failure with hypercapnia (2) Acute metabolic encephalopathy Code(s): G93.41 - METABOLIC ENCEPHALOPATHY Status: Acute (3) Acute on chronic diastolic ACC/AHA stage C congestive heart failure Code(s): I50.33 - ACUTE ON CHRONIC DIASTOLIC (CONGESTIVE) HEART FAILURE Status : Acute (4) Acute respiratory acidosis Code(s): E87.2 - ACIDOSIS Status: Acute (5) Afib Code(s): I48.91 - UNSPECIFIED ATRIAL FIBRILLATION Status: Acute (6) Volume overload Code(s): E87.70 - FLUID OVERLOAD, UNSPECIFIED Status: Acute (7) Atrial fibrillation and flutter Code(s): I48.91 - UNSPECIFIED ATRIAL FIBRILLATION; I48.92 - UNSPECIFIED ATRIAL FLUTTER Status: Chronic (8) CO2 narcosis Code(s): R06.89 - OTHER ABNORMALITIES OF BREATHING Status: Chronic (9) Diabetes type 2, uncontrolled Code(s): E11.65 - TYPE 2 DIABETES MELLITUS WITH HYPERGLYCEMIA Status: Chronic Qualifiers: Glycemic state: with hyperglycemia Qualified Code(s): E11.65 - Type 2 diabetes mellitus with hyperglycemia (10) GERD (gastroesophageal reflux disease) Code(s): K21.9 - GASTRO-ESOPHAGEAL REFLUX DISEASE WITHOUT ESOPHAGITIS Status: Chronic Qualifiers: Esophagitis presence: esophagitis presence not specified Qualified Code(s) : K21.9 - Gastro-esophageal reflux disease without esophagitis (11) Hypertension Code(s): I10 - ESSENTIAL (PRIMARY) HYPERTENSION Status: Chronic Qualifiers: Hypertension type: essential hypertension Qualified Code(s): I10 - Essential (primary) hypertension (12) Morbid obesity with BMI of 50.0-59.9, adult Code(s): E66.01 - MORBID (SEVERE) OBESITY DUE TO EXCESS CALORIES; Z68.43 - BODY MASS INDEX (BMI) 50.0-59.9, ADULT Status: Chronic (13) NADIA (obstructive sleep apnea) Code(s): G47.33 - OBSTRUCTIVE SLEEP APNEA (ADULT) (PEDIATRIC) Status: Chronic - Plan Add spironolactone to lasix Increase lantus to 80 bid . Continue sliding scale insulin Consult cardiology Monitor electrolytes and replete as needed Pulmonology consulted also.
--- NOTE | 2019-02-09 17:48 | CON ---
DATE OF CONSULTATION: 02/09/2019 SERVICE: Pulmonary Medicine. REASON FOR CONSULTATION: Sleep apnea. HISTORY OF PRESENT ILLNESS: The patient is a 68-year-old white male with past medical history significant for morbid obesity and metabolic syndrome. He presents to the hospital with increasing shortness of breath. Since he has been in the hospital, he was found to have high blood pressures, was given some nitroglycerin paste. His blood pressures came down, he has been aggressively diuresed. He has tolerated this well, and shortness of breath is improved dramatically. He denies any current fevers, chills, nausea, or vomiting. His shortness of breath came on over about a week. PAST MEDICAL HISTORY: 1. Chronic diastolic heart failure. 2. Morbid obesity. 3. Type 2 diabetes mellitus. 4. Anxiety disorder. 5. Major depressive disorder. 6. Atrial fibrillation. 7. Obstructive sleep apnea. PAST SURGICAL HISTORY: Cholecystectomy. SOCIAL HISTORY: Negative for alcohol, tobacco, or illicit drug use that we are aware of. He has a former history of smoking. He has greater than [id number] history of smoking. Denies any exposure to chemicals, dust, asbestos, or tuberculosis. FAMILY HISTORY: Noncontributory. ALLERGIES: NO KNOWN DRUG ALLERGIES. MEDICATIONS: List of his inpatient medications was reviewed. No specific updates were made at this time. REVIEW OF SYSTEMS: General; head, ears, eyes, nose, throat; cardiovascular; respiratory; GI; ; musculoskeletal; neurologic; and skin are negative except as assessment in the HPI. PHYSICAL EXAMINATION: VITAL SIGNS: Afebrile, pulse 75, respirations 14, and saturation 98% on room air. GENERAL: The patient is awake and alert, in no apparent distress. LUNGS: Wonderful air entry with no prolonged expiratory phase. Dependent crackles are noted. HEART: Normal rate and regular. ABDOMEN: Soft, nontender, and nondistended. Bowel sounds are positive. MUSCULOSKELETAL: No cyanosis or clubbing. No pitting in the bilateral lower extremities. NEUROLOGIC: Grossly nonfocal. LABORATORY DATA: WBC 13.9, hemoglobin 12.3, platelets 225,000. A pH 7.35, pCO2 of 66, pO2 of 62. Creatinine 0.97. Basic metabolic profile is otherwise unremarkable. Troponin is negative x3, BNP 62. Liver function studies are unremarkable. IMAGIN. Chest x-ray demonstrates elevated left hemidiaphragm. Pulmonary vascular congestion and possible left-sided pleural effusion are noted. Soft tissue attenuation is present. 2. Echocardiogram demonstrates absolutely nothing. Soft tissue attenuation prevents any accurate windows. ASSESSMENT: 1. Acute hypoxic respiratory failure. 2. Acute on chronic diastolic heart failure. 3. Morbid obesity. 4. Obstructive sleep apnea, established. DISCUSSION AND PLAN: The patient is doing fine from respiratory standpoint. He needs to be diuresed down to euvolemia. In the outpatient setting, he can follow up with Dr. Pollard if Mr. Melendrez is committed to getting on non-invasive therapy for NADIA again. He tells me today that he has a history of not being complaint with therapy for NADIA and is not interested in pursuing therapy. He understands that failing to treat severe NADIA can result in sudden cardiac , atrial fibrillation, kidney problems, stroke, and dementia. At this point, he has no requirements for in-hospital Pulmonary opinion, and I will sign off. Please call if the patient's condition deteriorates. 70 minutes have been devoted to this patient in various activities. I personally reviewed all imaging studies and laboratory data noted within this document. For fifty percent of this time, I was interacting with the patient at the bedside or coordinating care with the care team. For the remainder of the time I was immediately available to the patient in the hospital unit. Job ID: [id number] MTDD
[2019-02-09] MEDS: Donepezil HCl 5 MG TAB PO SCH (20:02)
[2019-02-09] MEDS: Atorvastatin Calcium 20 MG TAB PO SCH (20:02)
[2019-02-09] MEDS: traZODone HCl 50 MG TAB PO SCH (20:03)
[2019-02-09] MEDS: Insulin Glargine 80 UNITS in Pre-Filled Syringe 1 EACH SC SCH (21:33)
--- NOTE | 2019-02-09 23:54 | CON ---
DATE OF CONSULTATION: HISTORY OF PRESENT ILLNESS: The patient is an unfortunate 68-year-old gentleman ,who presented with increasing dyspnea. The patient has a previous history of diastolic heart failure. He was admitted with difficulty breathing and dyspnea. The patient is confused and unable to give a coherent history. PAST MEDICAL HISTORY: 1. Congestive heart failure. 2. Diabetes mellitus. 3. History of atrial fibrillation. 4. Morbid obesity. 5. Dementia. PAST SURGICAL HISTORY: Cholecystectomy. SOCIAL HISTORY: ALLERGIES: NO KNOWN DRUG ALLERGIES. MEDICATIONS: See nursing. PHYSICAL EXAMINATION: GENERAL: Obese gentleman, who is confused. VITAL SIGNS: Blood pressure 149/80. NECK: Full. LUNGS: Clear to auscultation. HEART: Regular rate and rhythm. Normal S1 and S2. ABDOMEN: Markedly distended. EXTREMITIES: Showed moderate bilateral edema. LABORATORY RESULTS: Sodium 135, potassium 4.3, chloride 95, bicarbonate 32, BUN 21, creatinine 0.96, glucose 343. White blood cell count 13.9, hemoglobin 12.3, hematocrit 38.8, platelets are 225. His EKG revealed sinus tachycardia, otherwise normal ECG. Chest x-ray revealed mild pulmonary edema. IMPRESSION: 1. Hypertensive crisis. 2. Mild pulmonary edema. 3. History of atrial fibrillation. 4. Diabetes mellitus. 5. Morbid obesity. 6. History of dementia. This gentleman presented with a hypertensive crisis with systolic blood pressure over 230. The patient is morbidly obese. It is imperative that he have a close monitoring with his blood pressure. We will follow this patient with you through his hospitalization. Job ID: [id number] MTDD
[2019-02-10 05:29] LABS: Albumin 3.8 g/dL (3.4-4.8); Anion Gap 12 mmol/L (10-20); BUN (Urea Nitrogen) 28 mg/dL (8.4-25.7); BUN/Creatinine Ratio 31.11; Calc. Creatinine Clearance 154 mL/min (70-130); Carbon Dioxide 36 mmol/L (23-31); Chloride 96 mmol/L (98-107); Estimated GFR-MDRD 84; Glucose 248 mg/dL (80-115); Phosphorus 3.9 mg/dL (2.3-4.7); Potassium 4.4 mmol/L (3.5-5.1); Sodium 140 mmol/L (136-145)
[2019-02-10] MEDS: Furosemide 40 MG/4 ML VIAL SLOW IVP SCH ×2 (06:12→13:48)
[2019-02-10] MEDS ORDERED: Spironolactone 25 MG TAB PO SCH (08:00)
[2019-02-10] MEDS: Gabapentin 300 MG CAP PO SCH ×3 (08:52→22:10)
[2019-02-10] MEDS: Spironolactone 25 MG TAB PO SCH (08:52)
[2019-02-10] MEDS: buPROPion HCl 100 MG TAB PO SCH ×3 (08:53→22:09)
[2019-02-10] MEDS: Apixaban 5 MG TAB PO SCH ×3 (08:53→22:11)
[2019-02-10] MEDS: Metolazone 2.5 MG TAB PO SCH (08:53)
[2019-02-10] MEDS: Famotidine 20 MG TAB PO SCH ×3 (08:53→22:13)
[2019-02-10] MEDS: metFORMIN 500 MG TAB PO SCH ×2 (08:53→16:37)
[2019-02-10] MEDS: Aspirin Chewable 81 MG TAB PO SCH (08:53)
[2019-02-10] MEDS: Lisinopril 10 MG TAB PO SCH (08:53)
[2019-02-10] MEDS: Carvedilol 25 MG TAB PO SCH ×2 (08:53→16:37)
[2019-02-10] MEDS: Insulin Glargine 80 UNITS in Pre-Filled Syringe 1 EACH SC SCH ×2 (08:54→21:58)
[2019-02-10] MEDS: HumaLOG 300 UNITS/3 ML VIAL SC PRN ×2 (08:59→11:49)
[2019-02-10] MEDS: ZINC 50 MG PO SCH (09:27)
[2019-02-10 13:51] LABS: Actual Bicarbonate (HCO3a) 34.7 mEq/L (22-28); Analyzer IN Cardio OR; Base Excess (BEa) 6.7 mEq/L (-2.0 to +3.0); Calcium, Ionized 1.21 mmol/L (1.12-1.30); Carboxyhemoglobin (COHb) 1.6 gm% (0.0-3.0); Hemoglobin (Hb) 11.9 g/dL (14.0-18.0); O2 Tension (PaO2) 74.6 mmHg (> 80.0); Potassium - ABG Lab 4.07 mmol/L (3.70-5.30); pH, Arterial 7.32 (7.35-7.45)
[2019-02-10 13:52] LABS: CO2 Tension 68.6 mmHg (35.0-45.0); Puncture Site RR
--- NOTE | 2019-02-10 15:41 | PDOC.HOSPP ---
- Subjective Subjective: Patient appeared somnolent and mildly encephalopathic. - Objective Vital Signs & Weight: Vital Signs (12 hours) Temp Pulse Resp BP BP Pulse Ox 02/10/19 12:21 98.0 F 81 16 116/62 94 L 02/10/19 08:00 98.5 F 94 23 H 140/74 93 L 02/10/19 03:43 96.4 F L 68 20 149/73 H 96 Weight Weight 305 lb I&O: 02/09/19 02/10/19 02/11/19 06:59 06:59 06:59 Intake Total 1240 680 Output Total 2300 800 Balance -1060 -120 Result Diagrams: 02/09/19 13:00 02/10/19 04:49 Additional Labs: Accuchecks 02/10/19 02/10/19 02/09/19 10:47 05:41 20:44 POC Glucose 262 H 237 H 402 H 02/09/19 16:42 POC Glucose 246 H Hospitalist ROS - Medication Medications: Active Medications Generic Name Dose Route Start Last Admin Trade Name Howie PRN Reason Stop Dose Admin Apixaban 5 mg 02/08/19 21:00 02/10/19 08:53 Eliquis PO 5 mg BID CELSA Administration Aspirin 81 mg 02/08/19 09:00 02/10/19 08:53 Aspirin Chewable PO 81 mg DAILY CELSA Administration Atorvastatin Calcium 20 mg 02/09/19 21:00 02/09/19 20:02 Lipitor PO 20 mg HS CELSA Administration Bupropion HCl 100 mg 02/08/19 21:00 02/10/19 08:53 Wellbutrin PO 100 mg BID CELSA Administration Carvedilol 25 mg 02/08/19 17:00 02/10/19 08:53 Coreg PO 25 mg BID-WM CELSA Administration Donepezil HCl 5 mg 02/08/19 21:00 02/09/19 20:02 Aricept PO 5 mg HS CELSA Administration Famotidine 20 mg 02/08/19 09:00 02/10/19 08:53 Pepcid PO 20 mg BID CELSA Administration Furosemide 40 mg 02/08/19 06:00 02/10/19 13:48 Lasix SLOW IVP 40 mg 0600,1400 CELSA Administration Gabapentin 600 mg 02/08/19 21:00 02/10/19 08:52 Neurontin PO 600 mg BID CELSA Administration Insulin Glargine 80 units/ 0.8 mls @ 0 mls/hr 02/09/19 21:00 02/10/19 08:54 Miscellaneous Medication SC 0.8 mls BID CELSA Administration As Directed Insulin Human Lispro 0 units 02/10/19 07:17 02/10/19 11:49 Humalog SC 9 unit .AGGRESSIVE SLIDING PRN Administration Aggressive Correctional Scale Lisinopril 10 mg 02/10/19 09:00 02/10/19 08:53 Zestril PO 10 mg DAILY CELSA Administration Metformin HCl 500 mg 02/10/19 08:00 02/10/19 08:53 Glucophage PO 500 mg BID-WM CELSA Administration Metolazone 2.5 mg 02/10/19 08:30 02/10/19 08:53 Zaroxolyn PO 2.5 mg 0830 CELSA Administration Patient's Home 0 each 02/09/19 09:00 02/10/19 09:27 Medication Zinc 50 PO Not Given Mg DAILY CELSA Spironolactone 100 mg 02/10/19 08:00 02/10/19 08:52 Aldactone PO 100 mg QAM-WM CELSA Administration Trazodone HCl 50 mg 02/08/19 21:00 02/09/19 20:03 Desyrel PO 50 mg HS CELSA Administration - Exam General Appearance: NAD, awake alert Heart: no murmur, no gallops, no rubs, normal peripheral pulses, irregular Respiratory: CTAB, no wheezes, no ronchi, normal chest expansion, no tachypnea, normal percussion, rales (Mild basilar) Respiratory - other findings: Diminished Gastrointestinal: soft, non-tender, non-distended, normal bowel sounds, no palpable masses, no hepatomegaly, no splenomegaly, no bruit Extremities: 1+ LE edema Skin: normal turgor Musculoskeletal: normal tone, generalized weakness Psychiatric: somnolent, lethargic Hosp A/P (1) Morbid obesity with BMI of 40.0-44.9, adult Code(s): E66.01 - MORBID (SEVERE) OBESITY DUE TO EXCESS CALORIES; Z68.41 - BODY MASS INDEX (BMI) 40.0-44.9, ADULT Status: Acute (2) Acute metabolic encephalopathy Code(s): G93.41 - METABOLIC ENCEPHALOPATHY Status: Acute (3) Acute on chronic diastolic ACC/AHA stage C congestive heart failure Code(s): I50.33 - ACUTE ON CHRONIC DIASTOLIC (CONGESTIVE) HEART FAILURE Status : Acute (4) Acute respiratory acidosis Code(s): E87.2 - ACIDOSIS Status: Acute (5) Afib Code(s): I48.91 - UNSPECIFIED ATRIAL FIBRILLATION Status: Acute (6) Volume overload Code(s): E87.70 - FLUID OVERLOAD, UNSPECIFIED Status: Acute (7) CO2 narcosis Code(s): R06.89 - OTHER ABNORMALITIES OF BREATHING Status: Chronic (8) Diabetes type 2, uncontrolled Code(s): E11.65 - TYPE 2 DIABETES MELLITUS WITH HYPERGLYCEMIA Status: Chronic Qualifiers: Glycemic state: with hyperglycemia Qualified Code(s): E11.65 - Type 2 diabetes mellitus with hyperglycemia (9) GERD (gastroesophageal reflux disease) Code(s): K21.9 - GASTRO-ESOPHAGEAL REFLUX DISEASE WITHOUT ESOPHAGITIS Status: Chronic Qualifiers: Esophagitis presence: esophagitis presence not specified Qualified Code(s) : K21.9 - Gastro-esophageal reflux disease without esophagitis (10) Hypertension Code(s): I10 - ESSENTIAL (PRIMARY) HYPERTENSION Status: Chronic Qualifiers: Hypertension type: essential hypertension Qualified Code(s): I10 - Essential (primary) hypertension (11) NADIA (obstructive sleep apnea) Code(s): G47.33 - OBSTRUCTIVE SLEEP APNEA (ADULT) (PEDIATRIC) Status: Chronic (12) Acute respiratory failure with hypoxia Code(s): J96.01 - ACUTE RESPIRATORY FAILURE WITH HYPOXIA Status: Acute - Plan Repeated ABG today because of the somnolence. His CO2 is higher and his pH is lower. Discussed with Dr. Cunha. Transfer to [facility]. Initiate Bipap. Continue diuresis for volume overload. Lasix, aldactone, metolazone. Appears to be working well. Good UOP and weight is down.
[2019-02-10] MEDS: Atorvastatin Calcium 20 MG TAB PO SCH ×2 (21:58→22:13)
[2019-02-10] MEDS: Donepezil HCl 5 MG TAB PO SCH ×2 (21:59→22:11)
[2019-02-10] MEDS: traZODone HCl 50 MG TAB PO SCH ×2 (21:59→22:11)
[2019-02-11 04:18] LABS: Albumin 3.5 g/dL (3.4-4.8); BUN (Urea Nitrogen) 34 mg/dL (8.4-25.7); BUN/Creatinine Ratio 35.42; Calc. Creatinine Clearance 144 mL/min (70-130); Calcium 9.6 mg/dL (7.8-10.44); Estimated GFR-MDRD 78; Glucose 164 mg/dL (80-115); Phosphorus 3.5 mg/dL (2.3-4.7)
[2019-02-11 04:27] LABS: Anion Gap 19 mmol/L (10-20); Carbon Dioxide 31 mmol/L (23-31); Chloride 94 mmol/L (98-107); Potassium 3.8 mmol/L (3.5-5.1); Sodium 140 mmol/L (136-145)
[2019-02-11] MEDS: Furosemide 40 MG/4 ML VIAL SLOW IVP SCH (06:29)
[2019-02-11] MEDS: Spironolactone 25 MG TAB PO SCH (08:43)
[2019-02-11] MEDS: buPROPion HCl 100 MG TAB PO SCH (08:43)
[2019-02-11] MEDS: Metolazone 2.5 MG TAB PO SCH (08:43)
[2019-02-11] MEDS: metFORMIN 500 MG TAB PO SCH ×2 (08:43→17:10)
[2019-02-11] MEDS: Aspirin Chewable 81 MG TAB PO SCH (08:44)
[2019-02-11] MEDS: Insulin Glargine 80 UNITS in Pre-Filled Syringe 1 EACH SC SCH (08:44)
[2019-02-11] MEDS: Carvedilol 25 MG TAB PO SCH ×2 (08:44→17:10)
[2019-02-11] MEDS: Apixaban 5 MG TAB PO SCH ×2 (08:44→23:55)
[2019-02-11] MEDS: Gabapentin 300 MG CAP PO SCH ×2 (08:44→23:55)
[2019-02-11] MEDS: Lisinopril 10 MG TAB PO SCH ×2 (08:44→23:56)
[2019-02-11] MEDS: Famotidine 20 MG TAB PO SCH ×2 (08:44→23:56)
[2019-02-11] MEDS: ZINC 50 MG PO SCH (08:52)
[2019-02-11] MEDS ORDERED: Lisinopril 10 MG TAB PO SCH (09:15)
[2019-02-11] MEDS: HumaLOG 300 UNITS/3 ML VIAL SC PRN (11:10)
--- NOTE | 2019-02-11 11:48 | PRG ---
DATE OF SERVICE: 02/11/2019 SUBJECTIVE: Tone Melendrez is a morbidly obese gentleman, who saw Dr. Moreno several days ago with respiratory failure, COPD, sleep apnea, was to be followed up on outpatient basis with Dr. Pollard. However, yesterday, became mostly more lethargic and was transferred to the MICU after his pCO2 was elevated. He has been intubated before on the vent. He has had previous history of metabolic encephalopathy secondary to his chronic lung disease. He saw Dr. Pollard during the previous visit. His compliance has been poor. He has not been keeping a followup regarding his sleep study. OBJECTIVE: GENERAL: This morning, he is still confused, but somewhat more appropriate. VITAL SIGNS: Temperature is 98, blood pressure 157/102, respiratory rate 18, pulse 80, saturations are 92% on 3 L. CHEST: Decreased breath sounds. Prolonged expiration. CARDIAC: Normal S1, S2. No gallops. ABDOMEN: No masses. LABORATORY AND DIAGNOSTIC DATA: Bicarb is 34. On admission, his bicarb was only 18. This is probably secondary to volume contraction with diuretics. His chest x-ray taken several days ago on admission shows that he had minimal cardiomegaly, but no obvious infiltrates. Echo is nondiagnostic, but previous echo shows his EF has been normal. IMPRESSION: 1. Metabolic encephalopathy, acute on chronic. 2. Respiratory failure, chronic obstructive pulmonary disease, hypoventilation. 3. Morbid obesity. 4. Dementia as per family. 5. Diabetes. PLAN: Minimize sedation. Minimize diuretics. Clearly, he has volume contraction accounting for his elevated bicarb accounting for his hypoventilation. I have added nocturnal nasal CPAP, which he may tolerate at nighttime. Continue aggressive PT, supportive care. We will follow while in the MICU. Job ID: [id number]
--- NOTE | 2019-02-11 15:29 | PDOC.HOSPP ---
- Subjective Subjective: Says he is doing ok. Still seems encephalopathic. Did manage to eat most of a large order of chili cheese tater tots from [employer] that his apparently brought him today. - Objective Vital Signs & Weight: Vital Signs (12 hours) Temp Pulse Pulse Pulse Resp BP BP 02/11/19 14:35 02/11/19 14:33 88 21 H 02/11/19 14:05 85 99 137/78 02/11/19 10:28 98.6 F 02/11/19 09:37 157/102 H 02/11/19 08:44 174/96 H 02/11/19 07:54 02/11/19 07:08 98.7 F 02/11/19 04:32 91 BP Pulse Ox Pulse Ox Pulse Ox 02/11/19 14:35 92 L 02/11/19 14:33 92 L 02/11/19 14:05 145/81 H 91 L 92 L 02/11/19 10:28 02/11/19 09:37 02/11/19 08:44 02/11/19 07:54 91 L 02/11/19 07:08 02/11/19 04:32 Weight Weight 302 lb 9.6 oz Most Recent Monitor Data Heart Rate from ECG 86 NIBP 134/78 NIBP BP-Mean 96 Respiration from ECG 25 SpO2 93 I&O: 02/10/19 02/11/19 02/12/19 06:59 06:59 06:59 Intake Total 680 230 350 Output Total 800 560 Balance -120 -330 350 Result Diagrams: 02/09/19 13:00 02/11/19 03:33 Additional Labs: Accuchecks 02/11/19 02/11/19 02/10/19 10:08 06:06 23:44 POC Glucose 222 H 156 H 177 H 02/10/19 02/10/19 20:12 16:29 POC Glucose 145 H 202 H Hospitalist ROS - Medication Medications: Active Medications Generic Name Dose Route Start Last Admin Trade Name Freq PRN Reason Stop Dose Admin Albuterol/Ipratropium 3 ml 02/11/19 15:00 02/11/19 14:33 Duoneb NEB 3 ml [id number] CELSA Administration Apixaban 5 mg 02/08/19 21:00 02/11/19 08:44 Eliquis PO 5 mg BID CELSA Administration Aspirin 81 mg 02/08/19 09:00 02/11/19 08:44 Aspirin Chewable PO 81 mg DAILY CELSA Administration Atorvastatin Calcium 20 mg 02/09/19 21:00 02/10/19 22:13 Lipitor PO 20 mg HS CELSA Administration Carvedilol 25 mg 02/08/19 17:00 02/11/19 08:44 Coreg PO 25 mg BID-WM CELSA Administration Donepezil HCl 5 mg 02/08/19 21:00 02/10/19 22:11 Aricept PO 5 mg HS CELSA Administration Famotidine 20 mg 02/08/19 09:00 02/11/19 08:44 Pepcid PO 20 mg BID CELSA Administration Gabapentin 600 mg 02/08/19 21:00 02/11/19 08:44 Neurontin PO 600 mg BID CELSA Administration Insulin Glargine 80 units/ 0.8 mls @ 0 mls/hr 02/09/19 21:00 02/11/19 08:44 Miscellaneous Medication SC 0.8 mls BID CELSA Administration As Directed Insulin Human Lispro 0 units 02/10/19 07:17 02/11/19 11:10 Humalog SC 6 unit .AGGRESSIVE SLIDING PRN Administration Aggressive Correctional Scale Metformin HCl 500 mg 02/10/19 08:00 02/11/19 08:43 Glucophage PO 500 mg BID-WM CELSA Administration Patient's Home 0 each 02/09/19 09:00 02/11/19 08:52 Medication Zinc 50 PO Not Given Mg DAILY CELSA - Exam General Appearance: NAD, awake alert Heart: RRR, no murmur, no gallops, no rubs, normal peripheral pulses Respiratory: CTAB, no wheezes, no rales, no ronchi, normal chest expansion, no tachypnea, normal percussion Gastrointestinal: soft, non-tender, non-distended, normal bowel sounds, no palpable masses, no hepatomegaly, no splenomegaly, no bruit Extremities: no cyanosis, no clubbing Extremities - other findings: Trace edema. Musculoskeletal: normal tone, no muscle wasting, generalized weakness Psychiatric: somnolent, lethargic Hosp A/P (1) Acute on chronic diastolic ACC/AHA stage C congestive heart failure Code(s): I50.33 - ACUTE ON CHRONIC DIASTOLIC (CONGESTIVE) HEART FAILURE Status : Acute (2) Morbid obesity with BMI of 40.0-44.9, adult Code(s): E66.01 - MORBID (SEVERE) OBESITY DUE TO EXCESS CALORIES; Z68.41 - BODY MASS INDEX (BMI) 40.0-44.9, ADULT Status: Acute (3) Acute metabolic encephalopathy Code(s): G93.41 - METABOLIC ENCEPHALOPATHY Status: Acute (4) Acute respiratory acidosis Code(s): E87.2 - ACIDOSIS Status: Acute (5) Afib Code(s): I48.91 - UNSPECIFIED ATRIAL FIBRILLATION Status: Acute (6) Volume overload Code(s): E87.70 - FLUID OVERLOAD, UNSPECIFIED Status: Acute (7) CO2 narcosis Code(s): R06.89 - OTHER ABNORMALITIES OF BREATHING Status: Chronic (8) Diabetes type 2, uncontrolled Code(s): E11.65 - TYPE 2 DIABETES MELLITUS WITH HYPERGLYCEMIA Status: Chronic Qualifiers: Glycemic state: with hyperglycemia Qualified Code(s): E11.65 - Type 2 diabetes mellitus with hyperglycemia (9) GERD (gastroesophageal reflux disease) Code(s): K21.9 - GASTRO-ESOPHAGEAL REFLUX DISEASE WITHOUT ESOPHAGITIS Status: Chronic Qualifiers: Esophagitis presence: esophagitis presence not specified Qualified Code(s) : K21.9 - Gastro-esophageal reflux disease without esophagitis (10) Hypertension Code(s): I10 - ESSENTIAL (PRIMARY) HYPERTENSION Status: Chronic Qualifiers: Hypertension type: essential hypertension Qualified Code(s): I10 - Essential (primary) hypertension (11) NADIA (obstructive sleep apnea) Code(s): G47.33 - OBSTRUCTIVE SLEEP APNEA (ADULT) (PEDIATRIC) Status: Chronic (12) Acute respiratory failure with hypoxia Code(s): J96.01 - ACUTE RESPIRATORY FAILURE WITH HYPOXIA Status: Acute - Plan Transferred to [facility] yesterday due to lethargy and the CO2 and pH trending in the wrong direction. He did not tolerate Bipap well. His oxygen was decreased a bit. Still looks encephalopathic. Pulmonary following. He was acidotic, but there was apparently some concern about contraction alkalosis and he has had diamox added to his regimen. Continue diuresis for volume overload. Lasix, aldactone, metolazone. Appears to be working well. Good UOP and weight is down. Need to establish what his baseline mental status. Actually is. On meds for dementia with behavior disturbance. May be a little too much, but he does still demonstrate some agitation at times.
[2019-02-11] MEDS: Atorvastatin Calcium 20 MG TAB PO SCH (23:54)
[2019-02-11] MEDS: Donepezil HCl 5 MG TAB PO SCH (23:56)
[2019-02-12] MEDS: Insulin Glargine 80 UNITS in Pre-Filled Syringe 1 EACH SC SCH ×3 (01:09→22:09)
[2019-02-12 04:13] LABS: Albumin 3.4 g/dL (3.4-4.8); BUN (Urea Nitrogen) 34 mg/dL (8.4-25.7); BUN/Creatinine Ratio 36.96; Calc. Creatinine Clearance 149 mL/min (70-130); Calcium 9.8 mg/dL (7.8-10.44); Estimated GFR-MDRD 82; Glucose 105 mg/dL (80-115); Phosphorus 3.6 mg/dL (2.3-4.7)
[2019-02-12 04:22] LABS: Anion Gap 20 mmol/L (10-20); Carbon Dioxide 31 mmol/L (23-31); Chloride 92 mmol/L (98-107); Potassium 3.7 mmol/L (3.5-5.1); Sodium 139 mmol/L (136-145)
--- NOTE | 2019-02-12 11:59 | PDOC.CPN ---
- Subjective Date: 02/12/19 Time: 08:30 Interval history: The pt seen and examined. No overnight events. No cardiac complaints. - Objective Allergies/Adverse Reactions: Allergies Allergy/AdvReac Type Severity Reaction Status Date / Time No Allergy Information Allergy Verified 02/08/19 03:38 Available Visit Medications: Current Medications Acetaminophen (Tylenol) 650 mg PO Q4H PRN PRN Reason: Headache/Fever/Mild Pain (1-3) Acetazolamide (Diamox) 250 mg PO DAILY [facility] Albuterol/Ipratropium (Duoneb) 3 ml NEB [id number] [facility] Last Admin: 02/12/19 10:12 Dose: 3 ml Apixaban (Eliquis) 5 mg PO BID [facility] Last Admin: 02/11/19 23:55 Dose: 5 mg Aspirin (Aspirin Chewable) 81 mg PO DAILY [facility] Last Admin: 02/11/19 08:44 Dose: 81 mg Atorvastatin Calcium (Lipitor) 20 mg PO HS [facility] Last Admin: 02/11/19 23:54 Dose: 20 mg Carvedilol (Coreg) 25 mg PO BID-WM [facility] Last Admin: 02/11/19 17:10 Dose: 25 mg Dextrose/Water (Dextrose 50%) 25 gm SLOW IVP PRN PRN PRN Reason: Hypoglycemia Donepezil HCl (Aricept) 5 mg PO HS [facility] Last Admin: 02/11/19 23:56 Dose: 5 mg Famotidine (Pepcid) 20 mg PO BID [facility] Last Admin: 02/11/19 23:56 Dose: 20 mg Gabapentin (Neurontin) 600 mg PO BID [facility] Last Admin: 02/11/19 23:55 Dose: 600 mg Glucagon (Glucagon) 1 mg IM PRN PRN PRN Reason: Hypoglycemia Dextrose/Water (D5w) 1,000 mls @ 0 mls/hr IV .Q0M PRN PRN Reason: Hypoglycemia Insulin Glargine 80 units/ (Miscellaneous Medication) 0.8 mls @ 0 mls/hr SC BID [facility] Last Admin: 02/12/19 01:09 Dose: Not Given Insulin Human Lispro (Humalog) 0 units SC .AGGRESSIVE SLIDING PRN PRN Reason: Aggressive Correctional Scale Last Admin: 02/11/19 11:10 Dose: 6 unit Isosorbide Dinitrate (Isordil) 10 mg PO BID [facility] Lisinopril (Zestril) 20 mg PO BID [facility] Last Admin: 02/11/19 23:56 Dose: 20 mg Metformin HCl (Glucophage) 500 mg PO BID-WM [facility] Last Admin: 02/11/19 17:10 Dose: 500 mg Patient's Home Medication Zinc 50 Mg 0 each PO DAILY [facility] Last Admin: 02/11/19 08:52 Dose: Not Given Vital Signs & Weight: Vital Signs Temp Pulse Resp Pulse Ox 02/12/19 11:15 98.2 F 02/12/19 10:12 95 29 H 97 02/12/19 08:00 95 02/12/19 07:28 101 H 02/12/19 07:27 89 27 H 96 02/12/19 07:19 98.0 F 02/12/19 04:00 98.4 F Weight 302 lb 6.4 oz - Physical Exam General: other (sleeping with bipap) Cardiac: irregularly regular Lungs: decreased breath sounds - Labs Result Diagrams: 02/09/19 13:00 02/12/19 03:34 Troponin/CKMB Troponin I Less than 0.010 ng/mL (< 0.028) 02/08/19 02:29 - Telemetry Supraventricular conduction: atrial flutter - Assessment/Plan Assessment/Plan: 1. HTN urgency - Will start Isosorbide Dinitrate 10mg BID for HTN and Diastlic CHF management 2. Acute on chronic diastolic HF - On Coreg and Lisinopril, but no diuretic 3. Afib/Aflutter - Tele record showing AFlutter with HR 80-100s. On Coreg 25mg BID and Eliquis 5mg BID; according to last Hospital note, CTI RFA by EP was planned when the family was agreeable. Will request EP consult. At this condition he is not a candidate for intervention. If he improves then he may be a reasonable candidate if the HR becomes uncontrolled. 4. Acute metabolic encephalopathy - sitter at bedside 5. Acute respiratory acidosis - on Bipap this AM 6. HLD - On statin 7. Insulin depend DM - 8. NADIA - on Bipap 9. Mrbid Obesity - 10. Anxiety and depression - MAR reviewed * The pt's Manager Pacu is Dr Santino Emmanuel in [place], [place] Pt. seen and eval. by me. I agree with the A/P by the [employer]. He will open his eyes but is not able to communicate coherently. CPAP mask is in place. O2 Sats. are stable with the mask. Chest clear anteriorly. HR irregular.
[2019-02-12] MEDS ORDERED: Isosorbide Dinitrate 20 MG TAB PO SCH (12:15)
[2019-02-12] MEDS: Carvedilol 25 MG TAB PO SCH ×2 (13:38→17:47)
[2019-02-12] MEDS: Famotidine 20 MG TAB PO SCH ×2 (13:38→22:09)
[2019-02-12] MEDS: AcetaZOLAMIDE 250 MG TAB PO SCH (13:38)
[2019-02-12] MEDS: Aspirin Chewable 81 MG TAB PO SCH (13:38)
[2019-02-12] MEDS: metFORMIN 500 MG TAB PO SCH ×2 (13:38→17:47)
[2019-02-12] MEDS: Apixaban 5 MG TAB PO SCH ×2 (13:38→22:08)
[2019-02-12] MEDS: Gabapentin 300 MG CAP PO SCH ×2 (13:39→22:09)
[2019-02-12] MEDS: Lisinopril 10 MG TAB PO SCH ×2 (13:39→22:10)
[2019-02-12] MEDS: ZINC 50 MG PO SCH (13:39)
--- NOTE | 2019-02-12 14:56 | CON ---
DATE OF CONSULTATION: 02/12/2019 HISTORY OF PRESENT ILLNESS: I am seeing Mr. Melendrez at our [place] [facility] consultant. His problems are; 1. Chronic atrial flutter, possibly isthmus dependent in morphology. 2. History of congestive heart failure, possible diastolic. 3. Severe dementia. 4. Obesity. 5. Diabetes with insulin dependent. 6. Hypertension. ALLERGIES: NONE. MEDICATIONS: At home included; 1. Esomeprazole. 2. Eliquis. 3. Carvedilol. 4. Zinc. 5. Donepezil. 6. Lipitor. 7. Trazodone. 8. Gabapentin. 9. Metformin. 10. Bupropion. 11. Insulin. 12. Furosemide. SUBJECTIVE: Mr. Melendrez is here with progressive dyspnea for 2 days prior to admission. No chest pains, nausea, vomiting, or abdominal pains are noted. He seems to have been noticing significant weight gain and bilateral leg swelling. CPAP was initiated and blood pressure is noted to be markedly elevated up to 230 systolic. Nitroglycerin sprays got the blood pressure under control and CPAP continued, IV Lasix initiated. Now seems to be doing better and continues to wear CPAP. He was noted to be in atrial flutter, which is a chronic finding for him and I was consulted for further management. Currently, the patient is resting comfortably on CPAP, poor historian. Most of the history obtained from the chart. Rest of 12-point system otherwise unremarkable/unavailable. PAST MEDICAL HISTORY: Past history as above. I have seen this patient back in February, at which point, he was also evaluated for atrial flutter. Even then, mental status was poor and eventually family did not come up with the decision for progressing with atrial flutter ablation. SOCIAL HISTORY: The patient lives at home. He is . His is his main decision maker. No history of smoking, EtOH, or drug abuse are noted. FAMILY HISTORY: Not contributory. OBJECTIVE DATA: VITAL SIGNS: Blood pressure is 153/104, heart rate is 74, and respirations 12. The patient's temperature is 98.2 degrees Fahrenheit. GENERAL: Alert, somewhat somnolent man on BiPAP, in no apparent distress. NECK: Supple. Jugular veins difficult to visualize. CHEST: Coarse without crackles. HEART: Sounds are irregular. S1 and S2 are variable. No murmur or gallop. ABDOMEN: Benign. Bowel sounds positive. EXTREMITIES: Lower extremities without edema, clubbing, or cyanosis. Pulses are adequate. NEUROLOGIC: The patient is nonfocal. MUSCULOSKELETAL: No joint swelling or deformity. SKIN: Without rash. DATABASE: EKG is reviewed revealing a baseline atrial flutter, which possibly isthmus dependent in morphology. Rates are well controlled on the initial EKG at 105 beats per minute. Subsequent EKGs revealed rates in the 80s to 90s. LABORATORY DATA: White count is 13.9, hemoglobin 12.3, and platelet count is 223. Sodium 139, potassium 3.7, BUN is 34, and creatinine is 0.9. ASSESSMENT AND PLAN: 1. Mr. Melendrez is a pleasant 68-year-old man with prior history of morbid obesity, type 2 diabetes, and chronic atrial flutter. I have seen him back in February of this year, at which point, the similar rhythm was operational. Family opted for observation instead of intervention at that time due to his mental status changes. His mentation is still poor. We will likely have another discussion with the regarding future treatment plan. 2. CHADS-VASc score with history of heart failure, age, hypertension, diabetes at 4 on apixaban continued. 3. Hypertension, hypertensive crisis, diastolic heart failure, now with intermittently suboptimally controlled blood pressure as per Cardiology team. We will follow with you. Thank you for the consult. Job ID: [id number] [email or web address]
--- NOTE | 2019-02-12 15:54 | PDOC.HOSPP ---
- Subjective Subjective: Still encephalopathic in appearance. No change. Denies specific concerns. - Objective Vital Signs & Weight: Vital Signs (12 hours) Temp Pulse Pulse Pulse Resp BP BP 02/12/19 14:58 88 90 156/116 H 02/12/19 14:17 94 27 H 02/12/19 13:39 157/102 H 02/12/19 11:15 98.2 F 02/12/19 10:12 95 29 H 02/12/19 08:00 02/12/19 07:28 101 H 02/12/19 07:27 89 27 H 02/12/19 07:19 98.0 F 02/12/19 04:00 98.4 F BP Pulse Ox Pulse Ox Pulse Ox 02/12/19 14:58 156/87 H 94 L 92 L 02/12/19 14:17 94 L 02/12/19 13:39 02/12/19 11:15 02/12/19 10:12 97 02/12/19 08:00 95 02/12/19 07:28 02/12/19 07:27 96 02/12/19 07:19 02/12/19 04:00 Weight Weight 302 lb 6.4 oz Most Recent Monitor Data Heart Rate from ECG 90 NIBP 172/101 NIBP BP-Mean 124 Respiration from ECG 26 SpO2 93 I&O: 02/11/19 02/12/19 02/13/19 06:59 06:59 06:59 Intake Total 230 450 Output Total 560 Balance -330 450 Result Diagrams: 02/09/19 13:00 02/12/19 03:34 Additional Labs: Accuchecks 02/12/19 02/12/19 02/11/19 10:40 05:32 23:56 POC Glucose 109 105 120 H 02/11/19 02/11/19 20:13 16:14 POC Glucose 158 H 157 H Hospitalist ROS - Medication Medications: Active Medications Generic Name Dose Route Start Last Admin Trade Name Freq PRN Reason Stop Dose Admin Acetazolamide 250 mg 02/12/19 09:00 02/12/19 13:38 Diamox PO Not Given DAILY CEL[facility] Albuterol/Ipratropium 3 ml 02/11/19 15:00 02/12/19 14:17 Duoneb NEB 3 ml [id number] CELSA Administration Apixaban 5 mg 02/08/19 21:00 02/12/19 13:38 Eliquis PO Not Given BID [facility] Aspirin 81 mg 02/08/19 09:00 02/12/19 13:38 Aspirin Chewable PO Not Given DAILY [facility] Atorvastatin Calcium 20 mg 02/09/19 21:00 02/11/19 23:54 Lipitor PO 20 mg HS [facility] Administration Carvedilol 25 mg 02/08/19 17:00 02/12/19 13:38 Coreg PO Not Given BID-[facility] Donepezil HCl 5 mg 02/08/19 21:00 02/11/19 23:56 Aricept PO 5 mg HS [facility] Administration Famotidine 20 mg 02/08/19 09:00 02/12/19 13:38 Pepcid PO Not Given BID [facility] Gabapentin 600 mg 02/08/19 21:00 02/12/19 13:39 Neurontin PO Not Given BID [facility] Insulin Glargine 80 units/ 0.8 mls @ 0 mls/hr 02/09/19 21:00 02/12/19 13:39 Miscellaneous Medication SC Not Given BID [facility] As Directed Insulin Human Lispro 0 units 02/10/19 07:17 02/11/19 11:10 Humalog SC 6 unit .AGGRESSIVE SLIDING PRN Administration Aggressive Correctional Scale Lisinopril 20 mg 02/11/19 21:00 02/12/19 13:39 Zestril PO Not Given BID [facility] Metformin HCl 500 mg 02/10/19 08:00 02/12/19 13:38 Glucophage PO Not Given BID-[facility] Patient's Home 0 each 02/09/19 09:00 02/12/19 13:39 Medication Zinc 50 PO Not Given Mg DAILY [facility] - Exam General Appearance: NAD General - other findings: Obese. Heart: RRR, no murmur, no gallops, no rubs, normal peripheral pulses Respiratory: CTAB, no wheezes, no rales, no ronchi, normal chest expansion, no tachypnea, normal percussion Gastrointestinal: soft, non-tender, non-distended, normal bowel sounds, no palpable masses, no hepatomegaly, no splenomegaly, no bruit Extremities: no cyanosis, no clubbing, no edema Skin: normal turgor Musculoskeletal: normal tone Psychiatric: lethargic Hosp A/P (1) Acute on chronic diastolic ACC/AHA stage C congestive heart failure Code(s): I50.33 - ACUTE ON CHRONIC DIASTOLIC (CONGESTIVE) HEART FAILURE Status : Acute (2) Morbid obesity with BMI of 40.0-44.9, adult Code(s): E66.01 - MORBID (SEVERE) OBESITY DUE TO EXCESS CALORIES; Z68.41 - BODY MASS INDEX (BMI) 40.0-44.9, ADULT Status: Acute (3) Acute metabolic encephalopathy Code(s): G93.41 - METABOLIC ENCEPHALOPATHY Status: Acute (4) Acute respiratory acidosis Code(s): E87.2 - ACIDOSIS Status: Acute (5) Afib Code(s): I48.91 - UNSPECIFIED ATRIAL FIBRILLATION Status: Acute (6) Volume overload Code(s): E87.70 - FLUID OVERLOAD, UNSPECIFIED Status: Acute (7) CO2 narcosis Code(s): R06.89 - OTHER ABNORMALITIES OF BREATHING Status: Chronic (8) Diabetes type 2, uncontrolled Code(s): E11.65 - TYPE 2 DIABETES MELLITUS WITH HYPERGLYCEMIA Status: Chronic Qualifiers: Glycemic state: with hyperglycemia Qualified Code(s): E11.65 - Type 2 diabetes mellitus with hyperglycemia (9) GERD (gastroesophageal reflux disease) Code(s): K21.9 - GASTRO-ESOPHAGEAL REFLUX DISEASE WITHOUT ESOPHAGITIS Status: Chronic Qualifiers: Esophagitis presence: esophagitis presence not specified Qualified Code(s) : K21.9 - Gastro-esophageal reflux disease without esophagitis (10) Hypertension Code(s): I10 - ESSENTIAL (PRIMARY) HYPERTENSION Status: Chronic Qualifiers: Hypertension type: essential hypertension Qualified Code(s): I10 - Essential (primary) hypertension (11) NADIA (obstructive sleep apnea) Code(s): G47.33 - OBSTRUCTIVE SLEEP APNEA (ADULT) (PEDIATRIC) Status: Chronic (12) Acute respiratory failure with hypoxia Code(s): J96.01 - ACUTE RESPIRATORY FAILURE WITH HYPOXIA Status: Acute - Plan Transferred to [facility] 02/10 due to lethargy and the CO2 and pH trending in the wrong direction. He did not tolerate Bipap well. His oxygen was decreased a bit. Still looks encephalopathic. Seems to be more likely his baseline. Pulmonary following. He was acidotic, but there was apparently some concern about contraction alkalosis and he has had diamox added to his regimen. Continue diuresis for volume overload. Lasix, aldactone, metolazone. Appears to be working well. Good UOP and weight is down. Need to establish what his baseline mental status. Actually is. On meds for dementia with behavior disturbance. May be a little too much, but he does still demonstrate some agitation at times. Cardiology following. Isosorbide added for BP and DD. EP saw patient today. No planned intervention.
[2019-02-12] MEDS ORDERED: hydrALAZINE 20 MG/ML VIAL SLOW IVP PRN (20:15)
[2019-02-12] MEDS: Atorvastatin Calcium 20 MG TAB PO SCH (22:08)
[2019-02-12] MEDS: Donepezil HCl 5 MG TAB PO SCH (22:09)
[2019-02-12] MEDS: Isosorbide Dinitrate 20 MG TAB PO SCH (22:10)
[2019-02-13 03:51] LABS: Albumin 3.6 g/dL (3.4-4.8); BUN (Urea Nitrogen) 27 mg/dL (8.4-25.7); BUN/Creatinine Ratio 34.62; Calc. Creatinine Clearance 176 mL/min (70-130); Calcium 10.2 mg/dL (7.8-10.44); Estimated GFR-MDRD Greater than 90; Glucose 118 mg/dL (80-115)
[2019-02-13 04:00] LABS: Anion Gap 19 mmol/L (10-20); Carbon Dioxide 37 mmol/L (23-31); Chloride 91 mmol/L (98-107); Potassium 4.1 mmol/L (3.5-5.1); Sodium 143 mmol/L (136-145)
[2019-02-13] MEDS: Labetalol HCl 100 MG/20 ML VIAL SLOW IVP PRN ×2 (04:04→15:08)
--- NOTE | 2019-02-13 08:08 | PDOC.CPN ---
- Subjective Date: 02/13/19 Time: 08:09 Interval history: The pt seen and examined. No overnight events. No cardiac complaints. - Objective Allergies/Adverse Reactions: Allergies Allergy/AdvReac Type Severity Reaction Status Date / Time No Allergy Information Allergy Verified 02/08/19 03:38 Available Visit Medications: Current Medications Acetaminophen (Tylenol) 650 mg PO Q4H PRN PRN Reason: Headache/Fever/Mild Pain (1-3) Acetazolamide (Diamox) 250 mg PO DAILY [facility] Last Admin: 02/12/19 13:38 Dose: Not Given Albuterol/Ipratropium (Duoneb) 3 ml NEB [id number] [facility] Last Admin: 02/13/19 08:02 Dose: 3 ml Apixaban (Eliquis) 5 mg PO BID [facility] Last Admin: 02/12/19 22:08 Dose: Not Given Aspirin (Aspirin Chewable) 81 mg PO DAILY [facility] Last Admin: 02/12/19 13:38 Dose: Not Given Atorvastatin Calcium (Lipitor) 20 mg PO HS [facility] Last Admin: 02/12/19 22:08 Dose: Not Given Carvedilol (Coreg) 25 mg PO BID-[facility] Last Admin: 02/12/19 17:47 Dose: Not Given Dextrose/Water (Dextrose 50%) 25 gm SLOW IVP PRN PRN PRN Reason: Hypoglycemia Donepezil HCl (Aricept) 5 mg PO HS [facility] Last Admin: 02/12/19 22:09 Dose: Not Given Famotidine (Pepcid) 20 mg PO BID [facility] Last Admin: 02/12/19 22:09 Dose: Not Given Gabapentin (Neurontin) 600 mg PO BID [facility] Last Admin: 02/12/19 22:09 Dose: Not Given Glucagon (Glucagon) 1 mg IM PRN PRN PRN Reason: Hypoglycemia Hydralazine HCl (Apresoline) 10 mg SLOW IVP Q6H PRN PRN Reason: SBP > 180;DBP >110 Dextrose/Water (D5w) 1,000 mls @ 0 mls/hr IV .Q0M PRN PRN Reason: Hypoglycemia Insulin Glargine 80 units/ (Miscellaneous Medication) 0.8 mls @ 0 mls/hr SC BID [facility] Last Admin: 02/12/19 22:09 Dose: Not Given Insulin Human Lispro (Humalog) 0 units SC .AGGRESSIVE SLIDING PRN PRN Reason: Aggressive Correctional Scale Last Admin: 02/11/19 11:10 Dose: 6 unit Isosorbide Dinitrate (Isordil) 10 mg PO BID [facility] Last Admin: 02/12/19 22:10 Dose: Not Given Labetalol HCl (Normodyne) 20 mg SLOW IVP Q6H PRN PRN Reason: SBP GREATER THAN 160 Last Admin: 02/13/19 04:04 Dose: 20 mg Lisinopril (Zestril) 20 mg PO BID [facility] Last Admin: 02/12/19 22:10 Dose: Not Given Metformin HCl (Glucophage) 500 mg PO BID-[facility] Last Admin: 02/12/19 17:47 Dose: Not Given Patient's Home Medication Zinc 50 Mg 0 each PO DAILY [facility] Last Admin: 02/12/19 13:39 Dose: Not Given Vital Signs & Weight: Vital Signs Temp Pulse Resp BP Pulse Ox 02/13/19 08:05 90 33 H 02/13/19 08:02 90 33 H 95 02/13/19 07:10 98.1 F 02/13/19 04:04 92 161/111 H 02/13/19 03:39 97.1 F L 02/13/19 02:30 94 L 02/13/19 00:45 24 H 02/12/19 23:23 98.5 F 02/12/19 23:00 92 H 02/12/19 22:50 93 16 Weight 293 lb 11.2 oz - Physical Exam General: other (not follow commands) Cardiac: irregularly regular Lungs: decreased breath sounds - Labs Result Diagrams: 02/09/19 13:00 02/13/19 03:09 Troponin/CKMB Troponin I Less than 0.010 ng/mL (< 0.028) 02/08/19 02:29 - Telemetry Supraventricular conduction: atrial flutter - Assessment/Plan Assessment/Plan: 1. HTN urgency - According to his MAR, the pt has not taken med since yesterday due to confusion and unable to swallow 2. Acute on chronic diastolic HF - On Coreg and Lisinopril, but no diuretic 3. Afib/Aflutter - Tele record showing AFlutter with HR 80-100s. On Coreg 25mg BID and Eliquis 5mg BID; according to last Hospital note, CTI RFA by EP was planned when the family was agreeable. At this condition he is not a candidate for intervention. If he improves then he may be a reasonable candidate if the HR becomes uncontrolled. 4. Acute metabolic encephalopathy - sitter at bedside 5. Acute respiratory acidosis - on Bipap this AM 6. HLD - On statin 7. Insulin depend DM - 8. NADIA - on Bipap 9. Morbid Obesity - 10. Anxiety and depression - MAR reviewed According to his MAR, the pt has not taken med since yesterday due to confusion and unable to swallow * The pt's Clamp Remover is Dr Santino Emmanuel in [place], [place] May need to change to IV meds for HTH. I agree with the A/P by the TAX STAFF ACCOUNTANT otherwise. Add NTG paste.
[2019-02-13] MEDS: metFORMIN 500 MG TAB PO SCH ×2 (08:55→17:36)
[2019-02-13] MEDS: Carvedilol 25 MG TAB PO SCH ×2 (08:55→17:36)
[2019-02-13] MEDS: Aspirin Chewable 81 MG TAB PO SCH (09:36)
[2019-02-13] MEDS: AcetaZOLAMIDE 250 MG TAB PO SCH (09:36)
[2019-02-13] MEDS: ZINC 50 MG PO SCH (09:37)
[2019-02-13] MEDS: Gabapentin 300 MG CAP PO SCH ×2 (09:37→21:27)
[2019-02-13] MEDS: Famotidine 20 MG TAB PO SCH ×2 (09:37→21:27)
[2019-02-13] MEDS: Lisinopril 10 MG TAB PO SCH ×2 (09:37→21:28)
[2019-02-13] MEDS: Isosorbide Dinitrate 20 MG TAB PO SCH ×2 (09:37→21:28)
[2019-02-13] MEDS: Insulin Glargine 80 UNITS in Pre-Filled Syringe 1 EACH SC SCH ×2 (09:38→21:28)
[2019-02-13] MEDS: Apixaban 5 MG TAB PO SCH (10:12)
[2019-02-13] MEDS ORDERED: Nitroglycerin 2% Ointment 1 INCH/1 GM Packet TOP SCH (10:15)
[2019-02-13] MEDS ORDERED: Enoxaparin Sodium 120 MG/0.8 ML SYRINGE SC SCH (10:30)
[2019-02-13 11:52] LABS: Actual Bicarbonate (HCO3a) 45.6 mEq/L (22-28); Base Excess (BEa) 16.4 mEq/L (-2.0 to +3.0); Calcium, Ionized 1.16 mmol/L (1.12-1.30); Carboxyhemoglobin (COHb) 2.3 gm% (0.0-3.0); Hemoglobin (Hb) 12.3 g/dL (14.0-18.0); O2 Tension (PaO2) 60.7 mmHg (> 80.0); Potassium - ABG Lab 4.12 mmol/L (3.70-5.30); pH, Arterial 7.36 (7.35-7.45)
[2019-02-13 11:53] LABS: CO2 Tension 82.6 mmHg (35.0-45.0); Puncture Site RRA
[2019-02-13] MEDS ORDERED: Sodium Chloride 0.9% 500 ML IV SCH (12:15)
--- NOTE | 2019-02-13 12:50 | PRG ---
DATE OF SERVICE: 02/13/2019 SERVICE: Pulmonary Medicine. INTERVAL HISTORY: The patient is doing poorly from mentation standpoint. He is a little bit more encephalopathic today. He denies any current shortness of breath or chest discomfort. With some stimulation, he moves appropriately. Otherwise, there has been no interval change to his condition overnight. PHYSICAL EXAMINATION: VITAL SIGNS: Afebrile. Pulse 110, blood pressure 155/98, respirations 18, saturations 94%, currently on 33% FiO2 and a PEEP of 5. GENERAL: The patient is encephalopathic. HEENT: Normocephalic and atraumatic. Sclerae are white. Conjunctivae are pink. Oral mucosa is moist without lesions. LUNGS: Wonderful air entry. There is no prolonged expiratory phase or wheezing present. I do not hear any crackles today. HEART: Normal rate. Regular. ABDOMEN: Soft, nontender, and nondistended. Bowel sounds are positive. MUSCULOSKELETAL: No cyanosis or clubbing. There is no pitting any longer. He has skin tenting throughout now. NEUROLOGIC: Grossly nonfocal. He demonstrates diffuse encephalopathy. LABORATORY DATA: Bicarb is 37, chloride 91. Basic metabolic profile is otherwise unremarkable. Potassium 4.1, phosphorus 4.0, albumin 3.6. Calcium 10.2. Ammonia was previously unremarkable at 53. ASSESSMENT: 1. Acute hypoxic respiratory failure. 2. Chronic hypercapnic respiratory failure. 3. Acute on chronic diastolic heart failure. 4. Morbid obesity. 5. Obstructive sleep apnea, well established. DISCUSSION AND PLAN: We have gotten the patient a touch dry. As such, we will back off on all diuretics. I will give him a 0.5 L of normal saline. My suspicion is that he has a metabolic encephalopathy secondary to contraction alkalosis and retention of carbon dioxide. Hopefully by correcting his alkalosis, this will improve. We can use the BiPAP on as needed basis, but he is not going to blow off more carbon dioxide on the BiPAP because his brain is telling him he needs to hold onto CO2. We will keep him in the ICU and watch him very closely here. Job ID: [id number]
[2019-02-13] MEDS: Haloperidol Lactate 5 MG/ML VIAL IM PRN (16:51)
--- NOTE | 2019-02-13 16:58 | PDOC.EP ---
- Subjective Date: 02/13/19 Time: 09:00 Interval History: follow up for atrial flutter. family bedside. patient awake but remains confused with baseline dementia and encephalopathy. Not able to take any by mouth in current condition. - Review of Systems ROS unobtainable: due to mental status - Objective Allergies/Adverse Reactions: Allergies Allergy/AdvReac Type Severity Reaction Status Date / Time No Allergy Information Allergy Verified 02/08/19 03:38 Available Current Medications Acetaminophen (Tylenol) 650 mg PO Q4H PRN PRN Reason: Headache/Fever/Mild Pain (1-3) Albuterol/Ipratropium (Duoneb) 3 ml NEB [id number] [facility] Last Admin: 02/13/19 14:53 Dose: 3 ml Aspirin (Aspirin Chewable) 81 mg PO DAILY [facility] Last Admin: 02/13/19 09:36 Dose: Not Given Atorvastatin Calcium (Lipitor) [address] [facility] Last Admin: 02/12/19 22:08 Dose: Not Given Carvedilol (Coreg) 25 mg PO BID-[facility] Last Admin: 02/13/19 08:55 Dose: Not Given Dextrose/Water (Dextrose 50%) 25 gm SLOW IVP PRN PRN PRN Reason: Hypoglycemia Donepezil HCl (Aricept) [address] [facility] Last Admin: 02/12/19 22:09 Dose: Not Given Enoxaparin Sodium (Lovenox) 120 mg SC 0900,2100 [facility] Famotidine (Pepcid) 20 mg PO BID [facility] Last Admin: 02/13/19 09:37 Dose: Not Given Gabapentin (Neurontin) 600 mg PO BID [facility] Last Admin: 02/13/19 09:37 Dose: Not Given Glucagon (Glucagon) 1 mg IM PRN PRN PRN Reason: Hypoglycemia Haloperidol Lactate (Haldol) 10 mg IM Q6H PRN PRN Reason: . Last Admin: 02/13/19 16:51 Dose: 10 mg Hydralazine HCl (Apresoline) 10 mg SLOW IVP Q6H PRN PRN Reason: SBP > 180;DBP >110 Dextrose/Water (D5w) 1,000 mls @ 0 mls/hr IV .Q0M PRN PRN Reason: Hypoglycemia Insulin Glargine 80 units/ (Miscellaneous Medication) 0.8 mls @ 0 mls/hr SC BID [facility] Last Admin: 02/13/19 09:38 Dose: Not Given Insulin Human Lispro (Humalog) 0 units SC .AGGRESSIVE SLIDING PRN PRN Reason: Aggressive Correctional Scale Last Admin: 02/11/19 11:10 Dose: 6 unit Isosorbide Dinitrate (Isordil) 10 mg PO BID [facility] Last Admin: 02/13/19 09:37 Dose: Not Given Labetalol HCl (Normodyne) 20 mg SLOW IVP Q6H PRN PRN Reason: SBP GREATER THAN 160 Last Admin: 02/13/19 15:08 Dose: 20 mg Lisinopril (Zestril) 20 mg PO BID [facility] Last Admin: 02/13/19 09:37 Dose: Not Given Metformin HCl (Glucophage) 500 mg PO BID-[facility] Last Admin: 02/13/19 08:55 Dose: Not Given Nitroglycerin (Nitro-Bid 2% Ointment) 1 inch TOP BID [facility] Patient's Home Medication Zinc 50 Mg 0 each PO DAILY [facility] Last Admin: 02/13/19 09:37 Dose: Not Given Vital Signs & Weight: Vital Signs Temp Pulse Resp BP Pulse Ox 02/13/19 15:16 97.4 F L 02/13/19 15:08 110 H 199/118 H 02/13/19 14:53 110 H 28 H 02/13/19 11:00 97.7 F 02/13/19 10:54 110 H 28 H 94 L 02/13/19 08:05 90 33 H 02/13/19 08:02 90 33 H 95 02/13/19 08:00 92 L 02/13/19 07:10 98.1 F Weight 293 lb 11.2 oz I/O: I/O 02/12/19 02/13/19 02/14/19 06:59 06:59 06:59 Intake Total 450 20 Balance 450 20 - Quality Measures CV meds: Eliquis: Yes - Physical Exam General: no apparent distress, other (awake and responsive. no meaningful interactions) HEENT: mucus membranes moist Neck: supple neck, midline trachea, no JVD/HJR, no lymphadenopathy Cardiology: tachycardia (flutter) Lungs: no wheezes, no rales, scattered rhonchi Abdomen: active bowel sounds, soft, no masses, HJR negative Extremities: dry, strong pulses, warm. negative: clubbing, cyanosis - Chadsvasc Risk factors Congestive heart failure: 1 Hypertension: 1 Age 65-74: 1 Diabetes mellitus: 1 Risk Score: 4 - Labs Result Diagrams: 02/09/19 13:00 02/13/19 03:09 - EKG Interpretation EKG Method: Telemetry EKG shows: Typical atrial flutter - Assessment/Plan Assessment/Plan: 1. Atrial flutter - CTI dependent. family has declined ablation in the past. could consider ablation once medical issues are stable. 2. OAC, chronic - Not taking PO meds at this time. Switched to weight based lovenox until PO meds can be readily taken 3. Dementia 4. HTN Discussed possibility of ablation with his once again. She feels he is more confused than usual and would like to wait until it is corrected. In the mean time, we suggest rate control and continued anticoagulation.
[2019-02-13] MEDS: HumaLOG 300 UNITS/3 ML VIAL SC PRN (17:09)
[2019-02-13] MEDS: Atorvastatin Calcium 20 MG TAB PO SCH (21:27)
[2019-02-13] MEDS: Donepezil HCl 5 MG TAB PO SCH (21:27)
[2019-02-13] MEDS: Enoxaparin Sodium 120 MG/0.8 ML SYRINGE SC SCH (21:29)
[2019-02-13] MEDS: Nitroglycerin 2% Ointment 1 INCH/1 GM Packet TOP SCH (21:30)
--- NOTE | 2019-02-13 21:50 | PDOC.HOSPP ---
- Subjective Subjective: Still encephalopathic. Discussed with patient's . She indicated he had similar issue a year ago, but went to [facility] and was back home and mental status had been fairly good. However, the patient was not compliant with diet and has gained large amount of weight. Became increasingly SOB. - Objective Vital Signs & Weight: Vital Signs (12 hours) Temp Pulse Resp BP Pulse Ox 02/13/19 19:35 98.6 F 02/13/19 18:06 110 H 26 H 92 L 02/13/19 15:16 97.4 F L 02/13/19 15:08 110 H 199/118 H 02/13/19 14:53 110 H 28 H 02/13/19 11:00 97.7 F 02/13/19 10:54 110 H 28 H 94 L Weight Weight 293 lb 11.2 oz Most Recent Monitor Data Heart Rate from ECG 110 NIBP 153/101 NIBP BP-Mean 118 Respiration from ECG 23 SpO2 87 I&O: 02/12/19 02/13/19 02/14/19 06:59 06:59 06:59 Intake Total 450 20 504 Output Total 350 Balance 450 20 154 Result Diagrams: 02/09/19 13:00 02/13/19 03:09 Additional Labs: Accuchecks 02/13/19 02/13/19 02/13/19 20:07 16:48 10:32 POC Glucose 230 H 234 H 184 H 02/13/19 05:55 POC Glucose 136 H Hospitalist ROS - Medication Medications: Active Medications Generic Name Dose Route Start Last Admin Trade Name Freq PRN Reason Stop Dose Admin Albuterol/Ipratropium 3 ml 02/11/19 15:00 02/13/19 18:06 Duoneb NEB 3 ml [id number] Administration Aspirin 81 mg 02/08/19 09:00 02/13/19 09:36 Aspirin Chewable PO Not Given DAILY [facility] Atorvastatin Calcium 20 mg 02/09/19 21:00 02/13/19 21:27 Lipitor PO Not Given HS [facility] Carvedilol 25 mg 02/08/19 17:00 02/13/19 17:36 Coreg PO Not Given BID-[facility] Donepezil HCl 5 mg 02/08/19 21:00 02/13/19 21:27 Aricept PO Not Given HS [facility] Enoxaparin Sodium 120 mg 02/13/19 21:00 02/13/19 21:29 Lovenox SC 120 mg 0900,2100 [facility] Administration Famotidine 20 mg 02/08/19 09:00 02/13/19 21:27 Pepcid PO Not Given BID [facility] Gabapentin 600 mg 02/08/19 21:00 02/13/19 21:27 Neurontin PO Not Given BID [facility] Haloperidol Lactate 10 mg 02/13/19 16:39 02/13/19 16:51 Haldol IM 10 mg Q6H PRN Administration . Insulin Glargine 80 units/ 0.8 mls @ 0 mls/hr 02/09/19 21:00 02/13/19 21:28 Miscellaneous Medication SC Not Given BID [facility] As Directed Insulin Human Lispro 0 units 02/10/19 07:17 02/13/19 17:09 Humalog SC 6 unit .AGGRESSIVE SLIDING PRN Administration Aggressive Correctional Scale Isosorbide Dinitrate 10 mg 02/12/19 21:00 02/13/19 21:28 Isordil PO Not Given BID [facility] Labetalol HCl 20 mg 02/13/19 03:28 02/13/19 15:08 Normodyne SLOW IVP 20 mg Q6H PRN Administration SBP GREATER THAN 160 Lisinopril 20 mg 02/11/19 21:00 02/13/19 21:28 Zestril PO Not Given BID [facility] Metformin HCl 500 mg 02/10/19 08:00 02/13/19 17:36 Glucophage PO Not Given BID-[facility] Nitroglycerin 1 inch 02/13/19 21:00 02/13/19 21:30 Nitro-Bid 2% Ointment TOP 1 inch BID [facility] Administration Patient's Home 0 each 02/09/19 09:00 02/13/19 09:37 Medication Zinc 50 PO Not Given Mg DAILY [facility] - Exam Heart: RRR, no murmur, no gallops, no rubs, normal peripheral pulses Respiratory: CTAB, no wheezes, no rales, no ronchi, normal chest expansion, tachypneic Gastrointestinal: soft, non-distended, normal bowel sounds, no palpable masses, no hepatomegaly, no splenomegaly, no bruit Extremities: no cyanosis, no clubbing, no edema Skin: no lesions, no rashes, tenting Skin - other findings: Minimal scar of the sacrum/buttocks, but no breakdown. Musculoskeletal: normal tone Psychiatric - other findings: encephalopathic Hosp A/P (1) Acute on chronic diastolic ACC/AHA stage C congestive heart failure Code(s): I50.33 - ACUTE ON CHRONIC DIASTOLIC (CONGESTIVE) HEART FAILURE Status : Acute (2) Morbid obesity with BMI of 40.0-44.9, adult Code(s): E66.01 - MORBID (SEVERE) OBESITY DUE TO EXCESS CALORIES; Z68.41 - BODY MASS INDEX (BMI) 40.0-44.9, ADULT Status: Acute (3) Acute metabolic encephalopathy Code(s): G93.41 - METABOLIC ENCEPHALOPATHY Status: Acute (4) Acute respiratory acidosis Code(s): E87.2 - ACIDOSIS Status: Acute (5) Afib Code(s): I48.91 - UNSPECIFIED ATRIAL FIBRILLATION Status: Acute (6) Volume overload Code(s): E87.70 - FLUID OVERLOAD, UNSPECIFIED Status: Acute (7) CO2 narcosis Code(s): R06.89 - OTHER ABNORMALITIES OF BREATHING Status: Chronic (8) Diabetes type 2, uncontrolled Code(s): E11.65 - TYPE 2 DIABETES MELLITUS WITH HYPERGLYCEMIA Status: Chronic Qualifiers: Glycemic state: with hyperglycemia Qualified Code(s): E11.65 - Type 2 diabetes mellitus with hyperglycemia (9) GERD (gastroesophageal reflux disease) Code(s): K21.9 - GASTRO-ESOPHAGEAL REFLUX DISEASE WITHOUT ESOPHAGITIS Status: Chronic Qualifiers: Esophagitis presence: esophagitis presence not specified Qualified Code(s) : K21.9 - Gastro-esophageal reflux disease without esophagitis (10) Hypertension Code(s): I10 - ESSENTIAL (PRIMARY) HYPERTENSION Status: Chronic Qualifiers: Hypertension type: essential hypertension Qualified Code(s): I10 - Essential (primary) hypertension (11) NADIA (obstructive sleep apnea) Code(s): G47.33 - OBSTRUCTIVE SLEEP APNEA (ADULT) (PEDIATRIC) Status: Chronic (12) Acute respiratory failure with hypoxia Code(s): J96.01 - ACUTE RESPIRATORY FAILURE WITH HYPOXIA Status: Acute (13) Atrial flutter Code(s): I48.92 - UNSPECIFIED ATRIAL FLUTTER Status: Acute - Plan Transferred to [facility] 02/10 due to lethargy and the CO2 and pH trending in the wrong direction. He did not tolerate Bipap well. His oxygen was decreased a bit. Still looks encephalopathic. Discussed with Dr. Moreno. Likely some degree of contraction alkalosis driving up the CO2. Diuretics stopped and fluid bolus given. Continue Acetazolamide. Cardiology following. Isosorbide added for BP and DD. EP following for atrial flutter. Anticoag. Encephalopathy disallowing intake of po's.
[2019-02-14] MEDS: Labetalol HCl 100 MG/20 ML VIAL SLOW IVP PRN (01:10)
[2019-02-14] MEDS: Haloperidol Lactate 5 MG/ML VIAL IM PRN (01:26)
[2019-02-14 04:13] LABS: Albumin 3.2 g/dL (3.4-4.8); BUN (Urea Nitrogen) 32 mg/dL (8.4-25.7); Calc. Creatinine Clearance 159 mL/min (70-130); Calcium 10.1 mg/dL (7.8-10.44); Chloride 92 mmol/L (98-107); Estimated GFR-MDRD Greater than 90; Glucose 286 mg/dL (80-115); Phosphorus 3.1 mg/dL (2.3-4.7); Potassium 4.4 mmol/L (3.5-5.1); Sodium 143 mmol/L (136-145)
[2019-02-14 04:19] LABS: Carbon Dioxide 37 mmol/L (23-31)
[2019-02-14] MEDS: HumaLOG 300 UNITS/3 ML VIAL SC PRN (06:18)
[2019-02-14 06:32] LABS: #Eosinphils 0.1 thou/uL (0.0-0.7); #Lymphocytes 1.4 thou/uL (1.20-3.40); #Monocytes 2.1 thou/uL (0.11-0.59); #Neutrophils 14.8 thou/uL (1.40-6.50); %Eosinophils 0.3 % (0.0-10.0); %Lymphocytes 7.8 % (21.0-51.0); %Monocytes 11.2 % (0.0-10.0); %Neutrophils 80.7 % (42.0-75.0); Hemoglobin 12.2 g/dL (14.0-18.0); Mean Corpuscular Hemoglobin 26.6 pg (27.0-31.0); Mean Corpuscular Volume 85.7 fL (78.0-98.0); Mean Platelet Volume 8.8 fL (7.4-10.4); Platelet Count 344 thou/uL (130-400); RBC Distribution Width 15.2 % (11.5-14.5); Red Blood Cell (RBC) Count 4.57 mill/uL (4.70-6.10); White Blood Cell (WBC) Count 18.4 thou/uL (4.8-10.8)
[2019-02-14 06:53] LABS: ALT (SGPT) 38 U/L (8-55); AST (SGOT) 34 U/L (5-34); Albumin 3.3 g/dL (3.4-4.8); Alkaline Phosphatase 141 U/L (40-110); BUN (Urea Nitrogen) 32 mg/dL (8.4-25.7); Bilirubin, Total 1.1 mg/dL (0.2-1.2); Calc. Creatinine Clearance 157 mL/min (70-130); Calcium 10.1 mg/dL (7.8-10.44); Estimated GFR-MDRD 90; Globulin 4.4 g/dL (2.4-3.5); Glucose 302 mg/dL (80-115); Magnesium 2.2 mg/dL (1.6-2.6); Protein, Total 7.7 g/dL (5.8-8.1)
[2019-02-14 07:02] LABS: Anion Gap 17 mmol/L (10-20); Carbon Dioxide 38 mmol/L (23-31); Chloride 93 mmol/L (98-107); Potassium 4.4 mmol/L (3.5-5.1); Sodium 144 mmol/L (136-145)
--- NOTE | 2019-02-14 07:40 | PDOC.HOSPP ---
- Subjective Subjective: Non-verbal. Had haldol ordered yesterday to help him tolerate the BiPap. Last dose was around 1:00 am per nurse. - Objective Vital Signs & Weight: Vital Signs (12 hours) Temp Pulse Resp 02/14/19 07:38 98.0 F 02/14/19 03:11 99.3 F 02/14/19 02:56 111 H 33 H 02/14/19 01:16 88 29 H 02/13/19 23:33 99.9 F H 02/13/19 23:08 112 H 33 H 02/13/19 21:54 111 H 34 H Weight Weight 295 lb Most Recent Monitor Data Heart Rate from ECG 97 NIBP 148/88 NIBP BP-Mean 108 Respiration from ECG 38 SpO2 87 I&O: 02/13/19 02/14/19 02/15/19 06:59 06:59 06:59 Intake Total 20 504 Output Total 350 Balance 20 154 Result Diagrams: 02/14/19 06:19 02/14/19 06:19 Additional Labs: Accuchecks 02/14/19 02/13/19 02/13/19 06:20 20:07 16:48 POC Glucose 271 H 230 H 234 H 02/13/19 10:32 POC Glucose 184 H Hospitalist ROS - Medication Medications: Active Medications Generic Name Dose Route Start Last Admin Trade Name Freq PRN Reason Stop Dose Admin Albuterol/Ipratropium 3 ml 02/11/19 15:00 02/13/19 18:06 Duoneb NEB 3 ml [id number] CELSA Administration Aspirin 81 mg 02/08/19 09:00 02/13/19 09:36 Aspirin Chewable PO Not Given DAILY CELSA Atorvastatin Calcium 20 mg 02/09/19 21:00 02/13/19 21:27 Lipitor PO Not Given HS CELSA Carvedilol 25 mg 02/08/19 17:00 02/13/19 17:36 Coreg PO Not Given BID-WM CELSA Donepezil HCl 5 mg 02/08/19 21:00 02/13/19 21:27 Aricept PO Not Given HS CELSA Enoxaparin Sodium 120 mg 02/13/19 21:00 02/13/19 21:29 Lovenox SC 120 mg 0900,2100 CELSA Administration Famotidine 20 mg 02/08/19 09:00 02/13/19 21:27 Pepcid PO Not Given BID [facility] Gabapentin 600 mg 02/08/19 21:00 02/13/19 21:27 Neurontin PO Not Given BID [facility] Haloperidol Lactate 10 mg 02/13/19 16:39 02/14/19 01:26 Haldol IM 10 mg Q6H PRN Administration . Insulin Glargine 80 units/ 0.8 mls @ 0 mls/hr 02/09/19 21:00 02/13/19 21:28 Miscellaneous Medication SC Not Given BID [facility] As Directed Insulin Human Lispro 0 units 02/10/19 07:17 02/14/19 06:18 Humalog SC 9 unit .AGGRESSIVE SLIDING PRN Administration Aggressive Correctional Scale Isosorbide Dinitrate 10 mg 02/12/19 21:00 02/13/19 21:28 Isordil PO Not Given BID [facility] Labetalol HCl 20 mg 02/13/19 03:28 02/14/19 01:10 Normodyne SLOW IVP 20 mg Q6H PRN Administration SBP GREATER THAN 160 Lisinopril 20 mg 02/11/19 21:00 02/13/19 21:28 Zestril PO Not Given BID [facility] Metformin HCl 500 mg 02/10/19 08:00 02/13/19 17:36 Glucophage PO Not Given BID-F [facility] Nitroglycerin 1 inch 02/13/19 21:00 02/13/19 21:30 Nitro-Bid 2% Ointment TOP 1 inch BID CELSA Administration Patient's Home 0 each 02/09/19 09:00 02/13/19 09:37 Medication Zinc 50 PO Not Given Mg DAILY [facility] - Exam General - other findings: Encephalopathic, modest response to sternal rub. BiPAP Heart: no murmur, irregular Respiratory: CTAB, no rales, no ronchi, tachypneic Respiratory - other findings: Diminished Gastrointestinal: soft, non-distended Extremities: no cyanosis, no clubbing, no edema Musculoskeletal - other findings: Appears sedated, on bipap, spontaneous tachypnea Hosp A/P (1) Acute on chronic diastolic ACC/AHA stage C congestive heart failure Code(s): I50.33 - ACUTE ON CHRONIC DIASTOLIC (CONGESTIVE) HEART FAILURE Status : Acute (2) Morbid obesity with BMI of 40.0-44.9, adult Code(s): E66.01 - MORBID (SEVERE) OBESITY DUE TO EXCESS CALORIES; Z68.41 - BODY MASS INDEX (BMI) 40.0-44.9, ADULT Status: Acute (3) Acute metabolic encephalopathy Code(s): G93.41 - METABOLIC ENCEPHALOPATHY Status: Acute (4) Acute respiratory acidosis Code(s): E87.2 - ACIDOSIS Status: Acute (5) Afib Code(s): I48.91 - UNSPECIFIED ATRIAL FIBRILLATION Status: Acute (6) Volume overload Code(s): E87.70 - FLUID OVERLOAD, UNSPECIFIED Status: Acute (7) CO2 narcosis Code(s): R06.89 - OTHER ABNORMALITIES OF BREATHING Status: Chronic (8) Diabetes type 2, uncontrolled Code(s): E11.65 - TYPE 2 DIABETES MELLITUS WITH HYPERGLYCEMIA Status: Chronic Qualifiers: Glycemic state: with hyperglycemia Qualified Code(s): E11.65 - Type 2 diabetes mellitus with hyperglycemia (9) GERD (gastroesophageal reflux disease) Code(s): K21.9 - GASTRO-ESOPHAGEAL REFLUX DISEASE WITHOUT ESOPHAGITIS Status: Chronic Qualifiers: Esophagitis presence: esophagitis presence not specified Qualified Code(s) : K21.9 - Gastro-esophageal reflux disease without esophagitis (10) Hypertension Code(s): I10 - ESSENTIAL (PRIMARY) HYPERTENSION Status: Chronic Qualifiers: Hypertension type: essential hypertension Qualified Code(s): I10 - Essential (primary) hypertension (11) NADIA (obstructive sleep apnea) Code(s): G47.33 - OBSTRUCTIVE SLEEP APNEA (ADULT) (PEDIATRIC) Status: Chronic (12) Acute respiratory failure with hypoxia Code(s): J96.01 - ACUTE RESPIRATORY FAILURE WITH HYPOXIA Status: Acute (13) Atrial flutter Code(s): I48.92 - UNSPECIFIED ATRIAL FLUTTER Status: Acute - Plan He did not tolerate Bipap well again. Had some Haldol. Tolerating now, but ABG not significantly improved with BiPAP. Does not appear to work well for him. Still looks encephalopathic and possibly a little sedated with the haldol. Likely some degree of contraction alkalosis driving up the CO2. Diuretics stopped and another fluid bolus given this morning. Continue Acetazolamide. Cardiology following. Isosorbide added for BP and DD. Changed to topical nitro as he is not taking po 's now. EP following for atrial flutter. Anticoag changed to lovenox given the lack of po intake. Encephalopathy disallowing intake of po's. Mild leukocytosis has increased today. CXR, UA, Blood cultures.
[2019-02-14 07:41] LABS: Actual Bicarbonate (HCO3a) 46.9 mEq/L (22-28); Calcium, Ionized 1.18 mmol/L (1.12-1.30); Carboxyhemoglobin (COHb) 2.5 gm% (0.0-3.0); Hemoglobin (Hb) 12.4 g/dL (14.0-18.0); Potassium - ABG Lab 4.32 mmol/L (3.70-5.30); pH, Arterial 7.34 (7.35-7.45)
[2019-02-14 07:42] LABS: CO2 Tension 88.7 mmHg (35.0-45.0); O2 Tension (PaO2) 54.9 mmHg (> 80.0)
[2019-02-14] MEDS ORDERED: Sodium Chloride 0.9% 500 ML IV SCH (07:45)
[2019-02-14 08:51] LABS: Bilirubin 1+ (Negative); Blood, Urine Negative (Negative); Clarity Clear (Clear); Glucose, Urine (Dipstick) 70 mg/dL (Negative); Leukocyte Negative Leu/uL (Negative); Nitrite Negative (Negative); Protein, Urine (Dipstick) 100 mg/dL (Neg-Trace); RBC/HPF 0-3 HPF (0-3); Squamous Epithelial 0-3 HPF (0-3); Urobilinogen 12 mg/dL (Less than 2); WBC/HPF 0-3 HPF (0-3)
[2019-02-14 09:02] LABS: Bacteria/HPF 1+ HPF (None Seen)
[2019-02-14] MEDS: metFORMIN 500 MG TAB PO SCH ×2 (10:40→17:08)
[2019-02-14] MEDS: Carvedilol 25 MG TAB PO SCH ×2 (10:40→17:08)
[2019-02-14] MEDS: Aspirin Chewable 81 MG TAB PO SCH (10:40)
[2019-02-14] MEDS: Insulin Glargine 80 UNITS in Pre-Filled Syringe 1 EACH SC SCH ×2 (10:41→20:53)
[2019-02-14] MEDS: ZINC 50 MG PO SCH (10:41)
[2019-02-14] MEDS: Isosorbide Dinitrate 20 MG TAB PO SCH ×2 (10:41→21:30)
[2019-02-14] MEDS: Gabapentin 300 MG CAP PO SCH ×2 (10:41→21:30)
[2019-02-14] MEDS: Lisinopril 10 MG TAB PO SCH ×2 (10:41→21:30)
[2019-02-14] MEDS: Enoxaparin Sodium 120 MG/0.8 ML SYRINGE SC SCH ×2 (10:45→20:57)
[2019-02-14] MEDS: Pantoprazole 40 MG VIAL IVP SCH ×2 (10:46→20:54)
[2019-02-14] MEDS: Nitroglycerin 2% Ointment 1 INCH/1 GM Packet TOP SCH ×2 (10:46→22:21)
--- NOTE | 2019-02-14 10:59 | RAD ---
PORTABLE CHEST: HISTORY: Respiratory distress. COMPARISON: 02/07/2019 exam. FINDINGS: Heart size is enlarged. The patient is rotated on this exam. Parenchymal lung changes appear simila r to the prior study. IMPRESSION: Essentially stable chest. POS: TPC
--- NOTE | 2019-02-14 11:39 | PDOC.EP ---
- Subjective Date: 02/14/19 Time: 17:25 Interval History: follow up for atrial flutter. remains encephalopathic. Not able to take any by mouth in current condition. Attempted bipap over HS with limited success. - Review of Systems ROS unobtainable: due to mental status - Objective Allergies/Adverse Reactions: Allergies Allergy/AdvReac Type Severity Reaction Status Date / Time No Allergy Information Allergy Verified 02/08/19 03:38 Available Current Medications Acetaminophen (Tylenol) 650 mg PO Q4H PRN PRN Reason: Headache/Fever/Mild Pain (1-3) Albuterol/Ipratropium (Duoneb) 3 ml NEB [id number] [facility] Last Admin: 02/14/19 10:51 Dose: 3 ml Aspirin (Aspirin Chewable) 81 mg PO DAILY [facility] Last Admin: 02/14/19 10:40 Dose: Not Given Atorvastatin Calcium (Lipitor) 20 mg PO HS [facility] Last Admin: 02/13/19 21:27 Dose: Not Given Carvedilol (Coreg) 25 mg PO BID-[facility] Last Admin: 02/14/19 10:40 Dose: Not Given Dextrose/Water (Dextrose 50%) 25 gm SLOW IVP PRN PRN PRN Reason: Hypoglycemia Donepezil HCl (Aricept) 5 mg PO HS [facility] Last Admin: 02/13/19 21:27 Dose: Not Given Enoxaparin Sodium (Lovenox) 120 mg SC 0900,2100 [facility] Last Admin: 02/14/19 10:45 Dose: 120 mg Gabapentin (Neurontin) 600 mg PO BID [facility] Last Admin: 02/14/19 10:41 Dose: Not Given Glucagon (Glucagon) 1 mg IM PRN PRN PRN Reason: Hypoglycemia Haloperidol Lactate (Haldol) 10 mg IM Q6H PRN PRN Reason: . Last Admin: 02/14/19 01:26 Dose: 10 mg Hydralazine HCl (Apresoline) 10 mg SLOW IVP Q6H PRN PRN Reason: SBP > 180;DBP >110 Dextrose/Water (D5w) 1,000 mls @ 0 mls/hr IV .Q0M PRN PRN Reason: Hypoglycemia Insulin Glargine 80 units/ (Miscellaneous Medication) 0.8 mls @ 0 mls/hr SC BID [facility] Last Admin: 02/14/19 10:41 Dose: Not Given Insulin Human Lispro (Humalog) 0 units SC .AGGRESSIVE SLIDING PRN PRN Reason: Aggressive Correctional Scale Last Admin: 02/14/19 06:18 Dose: 9 unit Isosorbide Dinitrate (Isordil) 10 mg PO BID [facility] Last Admin: 02/14/19 10:41 Dose: Not Given Labetalol HCl (Normodyne) 20 mg SLOW IVP Q6H PRN PRN Reason: SBP GREATER THAN 160 Last Admin: 02/14/19 01:10 Dose: 20 mg Lisinopril (Zestril) 20 mg PO BID [facility] Last Admin: 02/14/19 10:41 Dose: Not Given Metformin HCl (Glucophage) 500 mg PO BID-WM [facility] Last Admin: 02/14/19 10:40 Dose: Not Given Nitroglycerin (Nitro-Bid 2% Ointment) 1 inch TOP BID [facility] Last Admin: 02/14/19 10:46 Dose: 1 inch Pantoprazole Sodium (Protonix) 40 mg IVP Q12HR [facility] Last Admin: 02/14/19 10:46 Dose: 40 mg Patient's Home Medication Zinc 50 Mg 0 each PO DAILY [facility] Last Admin: 02/14/19 10:41 Dose: Not Given Vital Signs & Weight: Vital Signs Temp Pulse Resp Pulse Ox 02/14/19 11:23 97.8 F 02/14/19 10:52 104 H 32 H 02/14/19 10:51 103 H 32 H 95 02/14/19 08:11 100 29 H 02/14/19 08:09 97 29 H 99 02/14/19 07:38 98.0 F 02/14/19 03:11 99.3 F 02/14/19 02:56 111 H 33 H 02/14/19 01:16 88 29 H Weight 295 lb I/O: I/O 02/13/19 02/14/19 02/15/19 06:59 06:59 06:59 Intake Total 20 504 Output Total 350 Balance 20 154 - Quality Measures Condition: Atrial Fibrillation/Flutter (hx or current) (usually on eliquis. changed to lovenox with NPO status) - Physical Exam General: no apparent distress, other (encephalopathic, non verbal). negative: alert & oriented x3 Neck: supple neck, no JVD/HJR, no lymphadenopathy Cardiology: tachycardia (atrial flutter) Lungs: clear to auscultation (tachypneic) Abdomen: soft, no hepatosplenomegaly, HJR negative Extremities: dry, strong pulses, warm - Chadsvasc Risk factors Hypertension: 1 Age 65-74: 1 Diabetes mellitus: 1 Risk Score: 3 - Labs Result Diagrams: 02/14/19 06:19 02/14/19 06:19 - EKG Interpretation EKG shows: Typical atrial flutter - Problem (1) Typical atrial flutter Code(s): I48.3 - TYPICAL ATRIAL FLUTTER (2) Encephalopathy Code(s): G93.40 - ENCEPHALOPATHY, UNSPECIFIED (3) Hypertension Code(s): I10 - ESSENTIAL (PRIMARY) HYPERTENSION Qualifiers: Hypertension type: essential hypertension Qualified Code(s): I10 - Essential (primary) hypertension (4) Morbid obesity with BMI of 50.0-59.9, adult Code(s): E66.01 - MORBID (SEVERE) OBESITY DUE TO EXCESS CALORIES; Z68.43 - BODY MASS INDEX (BMI) 50.0-59.9, ADULT - Assessment/Plan Assessment/Plan: Requires chronic OAC with ongoing atrial flutter. NPO, Eliquis stopped. On lovenox until PO meds can be readily taken . Discussed possibility of ablation with his on Tuesday. She would like to wait until his mental status improves. I certainly agree waiting until acute medical issues are resolved as the flutter does not appear to be causing any instability. In the mean time, we suggest rate control and continued anticoagulation.
--- NOTE | 2019-02-14 13:09 | PDOC.CPN ---
- Subjective Date: 02/14/19 Time: 08:30 Interval history: The pt seen and examined. No overnight events. No cardiac complaints. - Objective Allergies/Adverse Reactions: Allergies Allergy/AdvReac Type Severity Reaction Status Date / Time No Allergy Information Allergy Verified 02/08/19 03:38 Available Visit Medications: Current Medications Acetaminophen (Tylenol) 650 mg PO Q4H PRN PRN Reason: Headache/Fever/Mild Pain (1-3) Albuterol/Ipratropium (Duoneb) 3 ml NEB [id number] [facility] Last Admin: 02/14/19 10:51 Dose: 3 ml Aspirin (Aspirin Chewable) 81 mg PO DAILY [facility] Last Admin: 02/14/19 10:40 Dose: Not Given Atorvastatin Calcium (Lipitor) 20 mg PO [facility] Last Admin: 02/13/19 21:27 Dose: Not Given Carvedilol (Coreg) 25 mg PO BID-[facility] Last Admin: 02/14/19 10:40 Dose: Not Given Dextrose/Water (Dextrose 50%) 25 gm SLOW IVP PRN PRN PRN Reason: Hypoglycemia Donepezil HCl (Aricept) 5 mg PO HS [facility] Last Admin: 02/13/19 21:27 Dose: Not Given Enoxaparin Sodium (Lovenox) 120 mg SC 0900,2100 [facility] Last Admin: 02/14/19 10:45 Dose: 120 mg Gabapentin (Neurontin) 600 mg PO BID [facility] Last Admin: 02/14/19 10:41 Dose: Not Given Glucagon (Glucagon) 1 mg IM PRN PRN PRN Reason: Hypoglycemia Haloperidol Lactate (Haldol) 10 mg IM Q6H PRN PRN Reason: . Last Admin: 02/14/19 01:26 Dose: 10 mg Hydralazine HCl (Apresoline) 10 mg SLOW IVP Q6H PRN PRN Reason: SBP > 180;DBP >110 Dextrose/Water (D5w) 1,000 mls @ 0 mls/hr IV .Q0M PRN PRN Reason: Hypoglycemia Insulin Glargine 80 units/ (Miscellaneous Medication) 0.8 mls @ 0 mls/hr SC BID [facility] Last Admin: 02/14/19 10:41 Dose: Not Given Insulin Human Lispro (Humalog) 0 units SC .AGGRESSIVE SLIDING PRN PRN Reason: Aggressive Correctional Scale Last Admin: 02/14/19 06:18 Dose: 9 unit Isosorbide Dinitrate (Isordil) 10 mg PO BID [facility] Last Admin: 02/14/19 10:41 Dose: Not Given Labetalol HCl (Normodyne) 20 mg SLOW IVP Q6H PRN PRN Reason: SBP GREATER THAN 160 Last Admin: 02/14/19 01:10 Dose: 20 mg Lisinopril (Zestril) 20 mg PO BID [facility] Last Admin: 02/14/19 10:41 Dose: Not Given Metformin HCl (Glucophage) 500 mg PO BID-WM [facility] Last Admin: 02/14/19 10:40 Dose: Not Given Nitroglycerin (Nitro-Bid 2% Ointment) 1 inch TOP BID [facility] Last Admin: 02/14/19 10:46 Dose: 1 inch Pantoprazole Sodium (Protonix) 40 mg IVP Q12HR [facility] Last Admin: 02/14/19 10:46 Dose: 40 mg Patient's Home Medication Zinc 50 Mg 0 each PO DAILY [facility] Last Admin: 02/14/19 10:41 Dose: Not Given Vital Signs & Weight: Vital Signs Temp Pulse Resp Pulse Ox 02/14/19 11:23 97.8 F 02/14/19 10:52 104 H 32 H 02/14/19 10:51 103 H 32 H 95 02/14/19 08:11 100 29 H 02/14/19 08:09 97 29 H 99 02/14/19 08:00 90 L 02/14/19 07:38 98.0 F 02/14/19 03:11 99.3 F 02/14/19 02:56 111 H 33 H 02/14/19 01:16 88 29 H Weight 295 lb - Physical Exam General: other (lethergic) HEENT: mucus membranes moist Cardiac: irregularly regular - Labs Result Diagrams: 02/14/19 06:19 02/14/19 06:19 Troponin/CKMB Troponin I Less than 0.010 ng/mL (< 0.028) 02/08/19 02:29 - Telemetry Supraventricular conduction: atrial flutter - Assessment/Plan Assessment/Plan: 1. HTN urgency - According to his MAR, the pt has not taken med since yesterday due to confusion and unable to swallow; On NTG paste 2. Acute on chronic diastolic HF - On Coreg and Lisinopril, but no diuretic 3. Afib/Aflutter - Tele record showing AFlutter with HR 80-100s. On Coreg 25mg BID and Eliquis 5mg BID,which he has not taken due to AMS and unable to swallow ; according to last Hospital note, CTI RFA by EP was planned when the family was agreeable. At this condition he is not a candidate for intervention. If he improves then he may be a reasonable candidate if the HR becomes uncontrolled. On Lovenox BID; 4. Acute metabolic encephalopathy - sitter at bedside 5. Acute respiratory acidosis - on Bipap this AM 6. HLD - On statin 7. Insulin depend DM - 8. NADIA - on Bipap 9. Morbid Obesity - 10. 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 seen and eval.by me.I agree with the A/P by the MEDICAL BILLING SERVICE.Chest clear. IRReg/ irreg.. Encephalopathic.The atrial flutter is ventricular rate controlled. He was seen by EP. At this time I have no further recommendations. If he becomes more alert then I wll be happy to see him again . I will sign off for now.russ
--- NOTE | 2019-02-14 13:12 | PRG ---
DATE OF SERVICE: 02/14/2019 SERVICE: Pulmonary Medicine. INTERVAL HISTORY: We gave him a 500 mL bolus of fluid yesterday, he had a significant improvement in mentation. That being said, he was n.p.o. for the entire day. He did not get any additional IV fluids. Overnight, he got increasingly confused and became encephalopathic again. We once again repeated a small bolus of fluid, and his blood pressure actually settled down from 200 down to 160. His mentation improved ever so slightly again. My suspicion is that we are dealing with a little bit of dehydration here. As such, IV fluids were introduced. He had no significant events overnight otherwise. That being said, his white blood cell count continues to track upward. Panculture has been performed, which I believe to be perfectly appropriate. No antibiotics have been initiated at this point. PHYSICAL EXAMINATION: VITAL SIGNS: Afebrile. Pulse 101, blood pressure 177/93, respirations 28, saturation 98% on BiPAP. GENERAL: The patient is somnolent. HEENT: Normocephalic, atraumatic. Sclerae white. Conjunctivae pink. Oral mucosa is moist without lesions. LUNGS: Decreased air entry with a prolonged expiratory phase. I do not appreciate any crackling today. There is no expiratory wheezing. HEART: Normal rate, regular. ABDOMEN: Soft, nontender, nondistended. Bowel sounds are positive. MUSCULOSKELETAL: No cyanosis or clubbing. There is no pitting in the bilateral lower extremities. NEUROLOGIC: Grossly nonfocal. LABORATORY DATA: WBC 18.4, hemoglobin 12.2, platelets 344,000. PH 7.34, pCO2 of 88, pO2 of 55, corresponding to saturation of 87%. Basic metabolic profile is significant for a bicarb that is trending upward to 38, and a chloride of 93. Liver function studies are otherwise unremarkable. Urinalysis is negative for evidence of infection. IMAGING DATA: Chest x-ray demonstrates stable chest. There are low lung volumes. No obvious infiltrates are noted. Interstitial fullness is present, but may be simply accentuated by low lung volumes. I certainly do not see any air bronchograms. ASSESSMENT: 1. Acute hypoxic respiratory failure. 2. Chronic hypercapnic respiratory failure. 3. [id number] diastolic heart failure, currently slightly on the dehydrated side. 4. Morbid obesity. 5. Metabolic encephalopathy. 6. Obstructive sleep apnea, well established. DISCUSSION AND PLAN: We will gently introduce some IV fluids. I do not believe the patient is significantly volume overloaded. Panculture has been performed. Should the patient spike a temperature, we will likely empirically start up some antibiotics, but at this point, we will simply follow up on the results of the blood cultures and urine culture. We will give him breaks off the BiPAP as tolerated. As his alkalosis has become more severe, the patient has reflexively held on to more carbon dioxide. I am concerned that much of his encephalopathy could be associated with the hypercapnic failure, but much of that is secondary to his contracted state. If things do not improve, we will discuss how to move forward with the patient's . Job ID: [id number]
[2019-02-14] MEDS ORDERED: Metoprolol Tartrate 5 MG/5 ML VIAL IVP PRN (15:09)
[2019-02-14] MEDS: Atorvastatin Calcium 20 MG TAB PO SCH (21:29)
[2019-02-14] MEDS: Donepezil HCl 5 MG TAB PO SCH (21:30)
[2019-02-14] MEDS: Sodium Chloride 0.9% 1,000 ML IV SCH (22:21)
[2019-02-15] MEDS: Haloperidol Lactate 5 MG/ML VIAL IM PRN (00:41)
[2019-02-15] MEDS: Sodium Chloride 0.9% 1,000 ML IV SCH (02:17)
[2019-02-15] MEDS: Nitroglycerin 2% Ointment 1 INCH/1 GM Packet TOP SCH (08:27)
[2019-02-15] MEDS: Pantoprazole 40 MG VIAL IVP SCH ×2 (08:27→20:22)
[2019-02-15] MEDS: Insulin Glargine 80 UNITS in Pre-Filled Syringe 1 EACH SC SCH ×2 (08:27→20:22)
[2019-02-15] MEDS: Enoxaparin Sodium 120 MG/0.8 ML SYRINGE SC SCH ×2 (08:27→20:22)
[2019-02-15] MEDS: Isosorbide Dinitrate 20 MG TAB PO SCH ×2 (08:28→20:20)
[2019-02-15] MEDS: Aspirin Chewable 81 MG TAB PO SCH (08:28)
[2019-02-15] MEDS: Lisinopril 10 MG TAB PO SCH ×2 (08:28→20:20)
[2019-02-15] MEDS: ZINC 50 MG PO SCH (08:28)
[2019-02-15] MEDS: metFORMIN 500 MG TAB PO SCH ×2 (08:28→16:48)
[2019-02-15] MEDS: Carvedilol 25 MG TAB PO SCH ×2 (08:28→16:48)
[2019-02-15] MEDS: Gabapentin 300 MG CAP PO SCH ×2 (08:28→20:19)
[2019-02-15 09:10] LABS: Anion Gap 18 mmol/L (10-20)
[2019-02-15] MEDS: Labetalol HCl 100 MG/20 ML VIAL SLOW IVP PRN ×2 (09:53→14:56)
--- NOTE | 2019-02-15 10:28 | PRG ---
DATE OF SERVICE: 02/15/2019 SERVICE: Pulmonary Medicine. INTERVAL HISTORY: The patient is doing okay from a mentation standpoint. He is basically at baseline for him. He cannot provide any additional elements of the history. Otherwise, there are no significant overnight events. PHYSICAL EXAMINATION: VITAL SIGNS: Afebrile, pulse 88, blood pressure 164/94, respirations 34, and saturation 95% on BiPAP with 40% FiO2. GENERAL: The patient is somnolent. He will wake up with some stimulation. He is following some simple commands. That being said, in less than 3 seconds, he will go back to sleep without stimulation. HEENT: Normocephalic and atraumatic. Sclerae white. Conjunctivae pink. Oral mucosa is dry. LUNGS: Decent air entry. Slightly prolonged expiratory phase is present. No wheezing is appreciated. Rhonchi are present, but clear with cough. No crackles. HEART: Normal rate and regular. ABDOMEN: Soft, nontender, and nondistended. Bowel sounds are positive. MUSCULOSKELETAL: No cyanosis or clubbing. There is no pitting. Skin tenting has improved. NEUROLOGIC: Grossly nonfocal. He moves all 4 extremities. LABORATORY DATA: WBC 18.4, hemoglobin 12.2, platelets 344,000. A pH 7.34, pCO2 of 88, pO2 of 54. Creatinine 0.85 and roughly stable, bicarb 38. Basic metabolic profile and liver function studies are otherwise unremarkable. Anion gap previously 18. Urinalysis is negative. Blood cultures remain unremarkable to date. ASSESSMENT: 1. Acute hypoxic respiratory failure. 2. Chronic hypercapnic respiratory failure. 3. Metabolic encephalopathy. 4. Chronic diastolic heart failure, slightly dehydrated. 5. Morbid obesity. 6. Obstructive sleep apnea. DISCUSSION AND PLAN: We will continue supportive care. I would like to get some stat labs including CBC and basic metabolic profile, and procalcitonin. Pulmonary/Critical Care will continue to follow along. We will give him BiPAP breaks through time and increase as tolerated. We will need to remain in the IMCU for the time being. Job ID: [id number] [id number]
[2019-02-15 11:34] LABS: BUN (Urea Nitrogen) 25 mg/dL (8.4-25.7); Calc. Creatinine Clearance 160 mL/min (70-130); Calcium 9.6 mg/dL (7.8-10.44); Estimated GFR-MDRD Greater than 90; Glucose 177 mg/dL (80-115); Magnesium 2.1 mg/dL (1.6-2.6); Phosphorus 2.9 mg/dL (2.3-4.7)
[2019-02-15 11:40] LABS: Hemoglobin 12.6 g/dL (14.0-18.0); Mean Corpuscular HGB CONC 30.5 g/dL (32.0-36.0); Mean Corpuscular Hemoglobin 26.3 pg (27.0-31.0); Mean Corpuscular Volume 86.3 fL (78.0-98.0); Mean Platelet Volume 8.6 fL (7.4-10.4); Platelet Count 323 thou/uL (130-400); RBC Distribution Width 15.5 % (11.5-14.5); Red Blood Cell (RBC) Count 4.77 mill/uL (4.70-6.10); White Blood Cell (WBC) Count 20.1 thou/uL (4.8-10.8)
[2019-02-15 11:44] LABS: Anion Gap 15 mmol/L (10-20); Carbon Dioxide 39 mmol/L (23-31); Chloride 99 mmol/L (98-107); Sodium 149 mmol/L (136-145)
[2019-02-15 11:55] LABS: Band 22 % (5-11); Eosinophils 1 % (0-10); Hypochromia SLIGHT = 6-15 cells (100X) (0-5/hpf); Lymphocytes 11 % (21-51); MDiff Complete? YES; Metamyelocyte 1 % (0-0); Monocytes 6 % (0-10); Neutrophil 58 % (42-75); Platelet Morphology Comment Appears Adequate; Polychromasia SLIGHT = 2-3 cells (100X) (0-2/hpf); Reactive Lymphocytes 1 % (0-10)
[2019-02-15] MEDS ORDERED: methylPREDNISolone Sod Succ 40 MG VIAL IVP SCH (13:15)
[2019-02-15] MEDS: Dextrose 5% in Water 1,000 ML IV SCH ×2 (13:59→23:53)
--- NOTE | 2019-02-15 14:49 | PDOC.EP ---
- Subjective Date: 02/15/19 Time: 08:30 Interval History: follow up for atrial flutter. baseline dementia/confusion that is reportedly worse during this stay. Not able to take any by mouth in current condition. - Review of Systems ROS unobtainable: due to mental status - Objective Allergies/Adverse Reactions: Allergies Allergy/AdvReac Type Severity Reaction Status Date / Time No Allergy Information Allergy Verified 02/08/19 03:38 Available Current Medications Acetaminophen (Tylenol) 650 mg PO Q4H PRN PRN Reason: Headache/Fever/Mild Pain (1-3) Albuterol/Ipratropium (Duoneb) 3 ml NEB [id number] [facility] Last Admin: 02/15/19 14:17 Dose: 3 ml Aspirin (Aspirin Chewable) 81 mg PO DAILY [facility] Last Admin: 02/15/19 08:28 Dose: Not Given Atorvastatin Calcium (Lipitor) 20 mg PO [facility] Last Admin: 02/14/19 21:29 Dose: Not Given Carvedilol (Coreg) 25 mg PO BID-[facility] Last Admin: 02/15/19 08:28 Dose: Not Given Dextrose/Water (Dextrose 50%) 25 gm SLOW IVP PRN PRN PRN Reason: Hypoglycemia Donepezil HCl (Aricept) 5 mg PO HS [facility] Last Admin: 02/14/19 21:30 Dose: Not Given Enoxaparin Sodium (Lovenox) 120 mg SC 0900,2100 [facility] Last Admin: 02/15/19 08:27 Dose: 120 mg Gabapentin (Neurontin) 600 mg PO BID [facility] Last Admin: 02/15/19 08:28 Dose: Not Given Glucagon (Glucagon) 1 mg IM PRN PRN PRN Reason: Hypoglycemia Haloperidol Lactate (Haldol) 10 mg IM Q6H PRN PRN Reason: . Last Admin: 02/15/19 00:41 Dose: 10 mg Hydralazine HCl (Apresoline) 10 mg SLOW IVP Q6H PRN PRN Reason: SBP > 180;DBP >110 Dextrose/Water (D5w) 1,000 mls @ 0 mls/hr IV .Q0M PRN PRN Reason: Hypoglycemia Insulin Glargine 80 units/ (Miscellaneous Medication) 0.8 mls @ 0 mls/hr SC BID [facility] Last Admin: 02/15/19 08:27 Dose: 0.8 mls Dextrose/Water (D5w) 1,000 mls @ 100 mls/hr IV .Q10H [facility] Last Admin: 02/15/19 13:59 Dose: 1,000 mls Insulin Human Lispro (Humalog) 0 units SC .AGGRESSIVE SLIDING PRN PRN Reason: Aggressive Correctional Scale Last Admin: 02/14/19 06:18 Dose: 9 unit Isosorbide Dinitrate (Isordil) 10 mg PO BID [facility] Last Admin: 02/15/19 08:28 Dose: Not Given Labetalol HCl (Normodyne) 20 mg SLOW IVP Q6H PRN PRN Reason: SBP GREATER THAN 160 Last Admin: 02/15/19 09:53 Dose: 20 mg Lisinopril (Zestril) 20 mg PO BID [facility] Last Admin: 02/15/19 08:28 Dose: Not Given Metformin HCl (Glucophage) 500 mg PO BID-[facility] Last Admin: 02/15/19 08:28 Dose: Not Given Methylprednisolone Sodium Succinate (Solu-Medrol) 40 mg IVP NOW [facility] Stop: 02/15/19 15:15 Last Admin: 02/15/19 14:01 Dose: 40 mg Methylprednisolone Sodium Succinate (Solu-Medrol) 40 mg IVP DAILY [facility] Metoprolol Tartrate (Lopressor) 5 mg IVP PRN PRN PRN Reason: Hypertension Pantoprazole Sodium (Protonix) 40 mg IVP Q12HR [facility] Last Admin: 02/15/19 08:27 Dose: 40 mg Patient's Home Medication Zinc 50 Mg 0 each PO DAILY [facility] Last Admin: 02/15/19 08:28 Dose: Not Given Vital Signs & Weight: Vital Signs Temp Pulse Resp Pulse Ox 02/15/19 14:18 96 35 H 95 02/15/19 14:17 97 33 H 94 L 02/15/19 11:29 98.8 F 02/15/19 11:14 101 H 30 H 96 02/15/19 11:12 89 38 H 96 02/15/19 08:00 97 02/15/19 07:57 98 34 H 95 02/15/19 07:56 88 38 H 93 L 02/15/19 07:00 98.4 F 02/15/19 03:52 98.3 F Admit Weight 315 lb 12.8 oz Weight 288 lb 8 oz I/O: I/O 02/14/19 02/15/19 02/16/19 06:59 06:59 06:59 Intake Total 504 Output Total 350 Balance 154 - Quality Measures Condition: Atrial Fibrillation/Flutter (hx or current) (usually on eliquis. changed to lovenox with NPO status) CV meds: Eliquis: Yes (switched to lovenox) - Physical Exam General: no apparent distress, affect appropriate, other (disoriented) HEENT: mucus membranes moist, normocephaly Neck: supple neck, no JVD/HJR, no masses, no lymphadenopathy Cardiology: tachycardia (atrial flutter) Lungs: clear to auscultation, normal breath sounds, normal exam, no wheeze, rales, rhonchi, no wheezes, no rales, no rhonchi Abdomen: active bowel sounds, soft, no hepatosplenomegaly - Chadsvasc Risk factors Hypertension: 1 Age 65-74: 1 Diabetes mellitus: 1 Risk Score: 3 - Labs Result Diagrams: 02/15/19 10:45 02/15/19 10:45 - EKG Interpretation Status: image reviewed by me EKG Method: Telemetry EKG shows: Typical atrial flutter - Problem (1) Typical atrial flutter Code(s): I48.3 - TYPICAL ATRIAL FLUTTER (2) Encephalopathy Code(s): G93.40 - ENCEPHALOPATHY, UNSPECIFIED (3) Hypertension Code(s): I10 - ESSENTIAL (PRIMARY) HYPERTENSION Qualifiers: Hypertension type: essential hypertension Qualified Code(s): I10 - Essential (primary) hypertension (4) Morbid obesity with BMI of 50.0-59.9, adult Code(s): E66.01 - MORBID (SEVERE) OBESITY DUE TO EXCESS CALORIES; Z68.43 - BODY MASS INDEX (BMI) 50.0-59.9, ADULT - Assessment/Plan Assessment/Plan: Requires chronic OAC with ongoing atrial flutter. NPO, Eliquis stopped. On lovenox until PO meds can be readily taken then recommend switching back to eliquis 5mg BID. Discussed possibility of ablation with his on Tuesday. She would like to wait until his mental status improves. I certainly agree waiting until acute medical issues are resolved as the flutter does not appear to be causing any instability. In the mean time, we suggest rate control and continued anticoagulation. His mental status does not appear to be changing. EP signing off. If mental status clears and is wanting ablation or further EP input is needed do not hesitate to contact me. Thank you
[2019-02-15] MEDS: Atorvastatin Calcium 20 MG TAB PO SCH (20:19)
[2019-02-15] MEDS: Donepezil HCl 5 MG TAB PO SCH (20:19)
[2019-02-16 05:11] LABS: #Eosinphils 0.1 thou/uL (0.0-0.7); #Lymphocytes 1.9 thou/uL (1.20-3.40); #Monocytes 1.5 thou/uL (0.11-0.59); #Neutrophils 15.4 thou/uL (1.40-6.50); %Basophils 0.1 % (0.0-1.0); %Eosinophils 0.3 % (0.0-10.0); %Lymphocytes 9.9 % (21.0-51.0); %Monocytes 8.1 % (0.0-10.0); %Neutrophils 81.6 % (42.0-75.0); Hemoglobin 11.4 g/dL (14.0-18.0); Mean Corpuscular HGB CONC 30.5 g/dL (32.0-36.0); Mean Corpuscular Hemoglobin 26.1 pg (27.0-31.0); Mean Corpuscular Volume 85.5 fL (78.0-98.0); Mean Platelet Volume 8.4 fL (7.4-10.4); Platelet Count 364 thou/uL (130-400); RBC Distribution Width 15.5 % (11.5-14.5); Red Blood Cell (RBC) Count 4.37 mill/uL (4.70-6.10); White Blood Cell (WBC) Count 18.8 thou/uL (4.8-10.8)
[2019-02-16 05:18] LABS: BUN (Urea Nitrogen) 21 mg/dL (8.4-25.7); Calc. Creatinine Clearance 168 mL/min (70-130); Calcium 9.6 mg/dL (7.8-10.44); Estimated GFR-MDRD Greater than 90; Glucose 215 mg/dL (80-115)
[2019-02-16 05:27] LABS: Anion Gap 14 mmol/L (10-20); Chloride 98 mmol/L (98-107); Potassium 3.9 mmol/L (3.5-5.1); Sodium 149 mmol/L (136-145)
[2019-02-16 05:32] LABS: Carbon Dioxide 41 mmol/L (23-31)
--- NOTE | 2019-02-16 06:13 | PDOC.HOSPP ---
- Subjective Encounter Date: 02/15/19 Subjective: Currently still on Bipap and not verbally interactive. He does have some spontaneous movement and modest physical response to noxious stimuli. Has had some intermittent episodes of coming fully awake and getting a little agitated. - Objective Vital Signs & Weight: Vital Signs (12 hours) Temp Pulse Resp Pulse Ox 02/16/19 03:45 98.6 F 02/16/19 02:16 91 36 H 94 L 02/15/19 23:55 98.9 F 02/15/19 20:00 96 02/15/19 19:47 99.6 F 02/15/19 18:13 111 H 32 H 94 L Weight Admit Weight 315 lb 12.8 oz Weight 288 lb 8 oz Most Recent Monitor Data Heart Rate from ECG 98 NIBP 160/103 NIBP BP-Mean 122 Respiration from ECG 20 SpO2 94 I&O: 02/14/19 02/15/19 02/16/19 06:59 06:59 06:59 Intake Total 504 1200 Output Total 350 Balance 154 1200 Result Diagrams: 02/16/19 04:29 02/16/19 04:29 Additional Labs: Accuchecks 02/16/19 02/15/19 02/15/19 05:37 20:10 16:40 POC Glucose 202 H 232 H 145 H 02/15/19 02/15/19 10:40 06:03 POC Glucose 181 H 235 H Hospitalist ROS - Medication Medications: Active Medications Generic Name Dose Route Start Last Admin Trade Name Freq PRN Reason Stop Dose Admin Albuterol/Ipratropium 3 ml 02/11/19 15:00 02/15/19 18:13 Duoneb NEB 3 ml [id number] [facility] Administration Aspirin 81 mg 02/08/19 09:00 02/15/19 08:28 Aspirin Chewable PO Not Given DAILY [facility] Atorvastatin Calcium 20 mg 02/09/19 21:00 02/15/19 20:19 Lipitor PO Not Given HS CEL[facility] Carvedilol 25 mg 02/08/19 17:00 02/15/19 16:48 Coreg PO Not Given BID-WM [facility] Donepezil HCl 5 mg 02/08/19 21:00 02/15/19 20:19 Aricept PO Not Given HS [facility] Enoxaparin Sodium 120 mg 02/13/19 21:00 02/15/19 20:22 Lovenox SC 120 mg 0900,2100 [facility] Administration Gabapentin 600 mg 02/08/19 21:00 02/15/19 20:19 Neurontin PO Not Given BID [facility] Haloperidol Lactate 10 mg 02/13/19 16:39 02/15/19 00:41 Haldol IM 10 mg Q6H PRN Administration . Insulin Glargine 80 units/ 0.8 mls @ 0 mls/hr 02/09/19 21:00 02/15/19 20:22 Miscellaneous Medication SC 0.8 mls BID CEL[facility] Administration As Directed Dextrose/Water 1,000 mls @ 100 mls/hr 02/15/19 13:15 02/15/19 23:53 D5w IV 1,000 mls .Q10H [facility] Administration Insulin Human Lispro 0 units 02/10/19 07:17 02/14/19 06:18 Humalog SC 9 unit .AGGRESSIVE SLIDING PRN Administration Aggressive Correctional Scale Isosorbide Dinitrate 10 mg 02/12/19 21:00 02/15/19 20:20 Isordil PO Not Given BID [facility] Labetalol HCl 20 mg 02/13/19 03:28 02/15/19 14:56 Normodyne SLOW IVP 20 mg Q6H PRN Administration SBP GREATER THAN 160 Lisinopril 20 mg 02/11/19 21:00 02/15/19 20:20 Zestril PO Not Given BID [facility] Metformin HCl 500 mg 02/10/19 08:00 02/15/19 16:48 Glucophage PO Not Given BID-[facility] Pantoprazole Sodium 40 mg 02/14/19 09:00 02/15/19 20:22 Protonix IVP 40 mg Q12HR [facility] Administration Patient's Home 0 each 02/09/19 09:00 02/15/19 08:28 Medication Zinc 50 PO Not Given Mg DAILY [facility] - Exam General - other findings: Bipap, somnolent Heart: no murmur, irregular Respiratory: CTAB, no rales Gastrointestinal: soft, non-distended, normal bowel sounds Extremities: no cyanosis, no clubbing, no edema Psychiatric: somnolent Hosp A/P (1) Acute on chronic diastolic ACC/AHA stage C congestive heart failure Code(s): I50.33 - ACUTE ON CHRONIC DIASTOLIC (CONGESTIVE) HEART FAILURE Status : Acute (2) Morbid obesity with BMI of 40.0-44.9, adult Code(s): E66.01 - MORBID (SEVERE) OBESITY DUE TO EXCESS CALORIES; Z68.41 - BODY MASS INDEX (BMI) 40.0-44.9, ADULT Status: Acute (3) Acute metabolic encephalopathy Code(s): G93.41 - METABOLIC ENCEPHALOPATHY Status: Acute (4) Acute respiratory acidosis Code(s): E87.2 - ACIDOSIS Status: Acute (5) Afib Code(s): I48.91 - UNSPECIFIED ATRIAL FIBRILLATION Status: Acute (6) Volume overload Code(s): E87.70 - FLUID OVERLOAD, UNSPECIFIED Status: Acute (7) CO2 narcosis Code(s): R06.89 - OTHER ABNORMALITIES OF BREATHING Status: Chronic (8) Diabetes type 2, uncontrolled Code(s): E11.65 - TYPE 2 DIABETES MELLITUS WITH HYPERGLYCEMIA Status: Chronic Qualifiers: Glycemic state: with hyperglycemia Qualified Code(s): E11.65 - Type 2 diabetes mellitus with hyperglycemia (9) GERD (gastroesophageal reflux disease) Code(s): K21.9 - GASTRO-ESOPHAGEAL REFLUX DISEASE WITHOUT ESOPHAGITIS Status: Chronic Qualifiers: Esophagitis presence: esophagitis presence not specified Qualified Code(s) : K21.9 - Gastro-esophageal reflux disease without esophagitis (10) Hypertension Code(s): I10 - ESSENTIAL (PRIMARY) HYPERTENSION Status: Chronic Qualifiers: Hypertension type: essential hypertension Qualified Code(s): I10 - Essential (primary) hypertension (11) NADIA (obstructive sleep apnea) Code(s): G47.33 - OBSTRUCTIVE SLEEP APNEA (ADULT) (PEDIATRIC) Status: Chronic (12) Acute respiratory failure with hypoxia Code(s): J96.01 - ACUTE RESPIRATORY FAILURE WITH HYPOXIA Status: Acute (13) Atrial flutter Code(s): I48.92 - UNSPECIFIED ATRIAL FLUTTER Status: Acute - Plan Contraction alkalosis with compensatory hypercapnea. Diuretics stopped and another fluid boluses and maintenance IVF intiated. Continue Acetazolamide as possible with mental status and ability to take po's. Pulm. following. BIPAP. Trying to reverse the contraction alkalosis. Cardiology following. Isosorbide added for BP and DD. C hanged to topical nitro as he is not taking po's now. EP following for atrial flutter. Anticoag changed to lovenox given the lack of po intake. Ablation indicated, but not until patient is more stable. Encephalopathy disallowing intake of po's. May to consider alternative nutrition soon. Mild leukocytosis has increased. CXR, UA, Blood cultures obtained yesterday.
--- NOTE | 2019-02-16 09:16 | PDOC.HOSPP ---
- Subjective Encounter Date: 02/16/19 Encounter Time: 09:14 Subjective: Awake and talking. Denies pain. - Objective Vital Signs & Weight: Vital Signs (12 hours) Temp Pulse Resp Pulse Ox 02/16/19 07:37 98 02/16/19 07:35 98 25 H 98 02/16/19 07:34 98 27 H 97 02/16/19 07:11 97.8 F 02/16/19 03:45 98.6 F 02/16/19 02:16 91 36 H 94 L 02/15/19 23:55 98.9 F Weight Admit Weight 315 lb 12.8 oz Weight 294 lb 9.6 oz Most Recent Monitor Data Heart Rate from ECG 86 NIBP 160/103 NIBP BP-Mean 122 Respiration from ECG 30 SpO2 95 I&O: 02/15/19 02/16/19 02/17/19 06:59 06:59 06:59 Intake Total 2424 Balance 2424 Result Diagrams: 02/16/19 04:29 02/16/19 04:29 Additional Labs: Accuchecks 02/16/19 02/15/19 02/15/19 05:37 20:10 16:40 POC Glucose 202 H 232 H 145 H 02/15/19 10:40 POC Glucose 181 H Hospitalist ROS - Medication Medications: Active Medications Generic Name Dose Route Start Last Admin Trade Name Freq PRN Reason Stop Dose Admin Albuterol/Ipratropium 3 ml 02/11/19 15:00 02/16/19 07:34 Duoneb NEB 3 ml [id number] CEL[facility] Administration Aspirin 81 mg 02/08/19 09:00 02/15/19 08:28 Aspirin Chewable PO Not Given DAILY [facility] Atorvastatin Calcium 20 mg 02/09/19 21:00 02/15/19 20:19 Lipitor PO Not Given HS [facility] Carvedilol 25 mg 02/08/19 17:00 02/15/19 16:48 Coreg PO Not Given BID-WM [facility] Donepezil HCl 5 mg 02/08/19 21:00 02/15/19 20:19 Aricept PO Not Given HS [facility] Enoxaparin Sodium 120 mg 02/13/19 21:00 02/15/19 20:22 Lovenox SC 120 mg 0900,2100 [facility] Administration Gabapentin 600 mg 02/08/19 21:00 02/15/19 20:19 Neurontin PO Not Given BID [facility] Haloperidol Lactate 10 mg 02/13/19 16:39 02/15/19 00:41 Haldol IM 10 mg Q6H PRN Administration . Insulin Glargine 80 units/ 0.8 mls @ 0 mls/hr 02/09/19 21:00 02/15/19 20:22 Miscellaneous Medication SC 0.8 mls BID [facility] Administration As Directed Dextrose/Water 1,000 mls @ 100 mls/hr 02/15/19 13:15 02/15/19 23:53 D5w IV 1,000 mls .Q10H [facility] Administration Insulin Human Lispro 0 units 02/10/19 07:17 02/14/19 06:18 Humalog SC 9 unit .AGGRESSIVE SLIDING PRN Administration Aggressive Correctional Scale Isosorbide Dinitrate 10 mg 02/12/19 21:00 02/15/19 20:20 Isordil PO Not Given BID [facility] Labetalol HCl 20 mg 02/13/19 03:28 02/15/19 14:56 Normodyne SLOW IVP 20 mg Q6H PRN Administration SBP GREATER THAN 160 Lisinopril 20 mg 02/11/19 21:00 02/15/19 20:20 Zestril PO Not Given BID [facility] Metformin HCl 500 mg 02/10/19 08:00 02/15/19 16:48 Glucophage PO Not Given BID-[facility] Pantoprazole Sodium 40 mg 02/14/19 09:00 02/15/19 20:22 Protonix IVP 40 mg Q12HR [facility] Administration Patient's Home 0 each 02/09/19 09:00 02/15/19 08:28 Medication Zinc 50 PO Not Given Mg DAILY [facility] - Exam General Appearance: awake alert Heart: no murmur, no gallops, irregular Respiratory: CTAB, rales (Mild scattered.) Respiratory - other findings: Diminshed Gastrointestinal: soft, non-tender, non-distended, normal bowel sounds, no palpable masses, no hepatomegaly, no splenomegaly, no bruit Extremities: no cyanosis, no clubbing, no edema Neurological - other findings: Answering questions. Improved orientation. Hosp A/P (1) Acute on chronic diastolic ACC/AHA stage C congestive heart failure Code(s): I50.33 - ACUTE ON CHRONIC DIASTOLIC (CONGESTIVE) HEART FAILURE Status : Acute (2) Morbid obesity with BMI of 40.0-44.9, adult Code(s): E66.01 - MORBID (SEVERE) OBESITY DUE TO EXCESS CALORIES; Z68.41 - BODY MASS INDEX (BMI) 40.0-44.9, ADULT Status: Acute (3) Acute metabolic encephalopathy Code(s): G93.41 - METABOLIC ENCEPHALOPATHY Status: Acute (4) Acute respiratory acidosis Code(s): E87.2 - ACIDOSIS Status: Acute (5) Afib Code(s): I48.91 - UNSPECIFIED ATRIAL FIBRILLATION Status: Acute (6) Volume overload Code(s): E87.70 - FLUID OVERLOAD, UNSPECIFIED Status: Acute (7) CO2 narcosis Code(s): R06.89 - OTHER ABNORMALITIES OF BREATHING Status: Chronic (8) Diabetes type 2, uncontrolled Code(s): E11.65 - TYPE 2 DIABETES MELLITUS WITH HYPERGLYCEMIA Status: Chronic Qualifiers: Glycemic state: with hyperglycemia Qualified Code(s): E11.65 - Type 2 diabetes mellitus with hyperglycemia (9) GERD (gastroesophageal reflux disease) Code(s): K21.9 - GASTRO-ESOPHAGEAL REFLUX DISEASE WITHOUT ESOPHAGITIS Status: Chronic Qualifiers: Esophagitis presence: esophagitis presence not specified Qualified Code(s) : K21.9 - Gastro-esophageal reflux disease without esophagitis (10) Hypertension Code(s): I10 - ESSENTIAL (PRIMARY) HYPERTENSION Status: Chronic Qualifiers: Hypertension type: essential hypertension Qualified Code(s): I10 - Essential (primary) hypertension (11) NADIA (obstructive sleep apnea) Code(s): G47.33 - OBSTRUCTIVE SLEEP APNEA (ADULT) (PEDIATRIC) Status: Chronic (12) Acute respiratory failure with hypoxia Code(s): J96.01 - ACUTE RESPIRATORY FAILURE WITH HYPOXIA Status: Acute (13) Atrial flutter Code(s): I48.92 - UNSPECIFIED ATRIAL FLUTTER Status: Acute (14) Hypernatremia Code(s): E87.0 - HYPEROSMOLALITY AND HYPERNATREMIA Status: Acute - Plan Contraction alkalosis with compensatory hypercapnea. Diuretics stopped and another fluid boluses and maintenance IVF intiated. Continue Acetazolamide as possible with mental status and ability to take po's. Appears that may be possible today. Pulm. following. BIPAP. Trying to reverse the contraction alkalosis with fluids, diamox. Cardiology following. Isosorbide added for BP and DD. C hanged to topical nitro as he is not taking po's now. EP following for atrial flutter. Anticoag changed to lovenox given the lack of po intake. Ablation indicated, but not until patient is more stable. EP signed off. Encephalopathy disallowing intake of po's. [employer] eval today since his mental status has improved. Mild leukocytosis has increased. CXR, UA, Blood cultures negative. Slightly better today. Hypernatremia: D5 started. DVT prophylaxis: On therapeutic dose Lovenox. PUD prophylaxis: Pantoprazole.
[2019-02-16] MEDS: Gabapentin 300 MG CAP PO SCH ×2 (09:36→20:29)
[2019-02-16] MEDS: Isosorbide Dinitrate 20 MG TAB PO SCH ×2 (09:37→20:29)
[2019-02-16] MEDS: metFORMIN 500 MG TAB PO SCH ×2 (09:37→16:59)
[2019-02-16] MEDS: Lisinopril 10 MG TAB PO SCH ×2 (09:37→20:29)
[2019-02-16] MEDS: Aspirin Chewable 81 MG TAB PO SCH (09:37)
[2019-02-16] MEDS: Carvedilol 25 MG TAB PO SCH ×2 (09:37→16:59)
[2019-02-16] MEDS: Enoxaparin Sodium 120 MG/0.8 ML SYRINGE SC SCH ×2 (09:39→20:30)
[2019-02-16] MEDS: Pantoprazole 40 MG VIAL IVP SCH ×2 (09:39→20:30)
[2019-02-16] MEDS: methylPREDNISolone Sod Succ 40 MG VIAL IVP SCH (09:40)
[2019-02-16] MEDS: Insulin Glargine 80 UNITS in Pre-Filled Syringe 1 EACH SC SCH ×2 (09:40→20:34)
[2019-02-16] MEDS: Dextrose 5% in Water 1,000 ML IV SCH (09:40)
[2019-02-16] MEDS: ZINC 50 MG PO SCH (12:44)
[2019-02-16] MEDS: Dextrose 5 %-0.45 % NaCl 1,000 ML IV SCH ×2 (12:45→20:28)
--- NOTE | 2019-02-16 14:49 | PRG ---
DATE OF SERVICE: 02/16/2019 SERVICE: Pulmonary Medicine. INTERVAL HISTORY: The patient is doing a little bit better today from mentation standpoint. He is able to take a break off his BiPAP. He is actually talking in full sentences. That being said, his work of breathing started increasing slightly as the day went on and he was put back on BiPAP. Currently, he is resting once again. The hospital has run out of D5 water. As such, he got switched over to half NS. Otherwise, no interval changes occurred. PHYSICAL EXAMINATION: VITAL SIGNS: Afebrile, pulse 84, blood pressure is 160/103, respirations 24, saturation 97%, currently on BiPAP with 40% FiO2. GENERAL: The patient is somnolent. HEENT: Normocephalic and atraumatic. Sclerae white. Conjunctivae pink. Oral mucosa is moist without lesions. LUNGS: Good air entry. There is no prolonged expiratory phase or wheezing present. No crackles are appreciated. HEART: Normal rate, regular. ABDOMEN: Soft, nontender, nondistended. Bowel sounds are positive. MUSCULOSKELETAL: No cyanosis or clubbing. There is no pitting in the bilateral lower extremities. SKIN: Tenting is improved. NEUROLOGIC: Grossly nonfocal. LABORATORY DATA: WBC 18.8, hemoglobin 11.4, platelets 364,000. Neutrophil count is 82%. D-dimer is 0.49. Bicarb continues to trend upward, potassium 3.9, sodium 149. Basic metabolic profile is otherwise unremarkable. Blood culture x2 is negative. ASSESSMENT: 1. Acute hypoxic respiratory failure, improving. 2. Chronic hypercapnic respiratory failure. 3. Metabolic encephalopathy. 4. Chronic diastolic heart failure, slightly volume down. 5. Obstructive sleep apnea. 6. Morbid obesity. DISCUSSION AND PLAN: We will continue to hydrate the patient very gently through time. As we have given him some fluid and corrected his contraction alkalosis and hypernatremia, his mentation has improved slightly. He will remain in the ICU. We give him BiPAP breaks 3 times daily and increase as tolerated. Critical Care will follow in this location. Job ID: [id number]
[2019-02-16] MEDS: Atorvastatin Calcium 20 MG TAB PO SCH (20:29)
[2019-02-16] MEDS: Donepezil HCl 5 MG TAB PO SCH (20:29)
[2019-02-16] MEDS: Haloperidol Lactate 5 MG/ML VIAL IM PRN (23:12)
[2019-02-17 04:05] LABS: BUN (Urea Nitrogen) 20 mg/dL (8.4-25.7); Calc. Creatinine Clearance 176 mL/min (70-130); Calcium 9.6 mg/dL (7.8-10.44); Estimated GFR-MDRD Greater than 90; Glucose 83 mg/dL (80-115)
[2019-02-17 04:15] LABS: Anion Gap 17 mmol/L (10-20); Carbon Dioxide 35 mmol/L (23-31); Chloride 99 mmol/L (98-107); Potassium 3.5 mmol/L (3.5-5.1); Sodium 147 mmol/L (136-145)
[2019-02-17] MEDS: Dextrose 5 %-0.45 % NaCl 1,000 ML IV SCH ×3 (04:35→20:03)
[2019-02-17 04:45] LABS: Band 15 % (5-11); Hemoglobin 11.9 g/dL (14.0-18.0); Hypochromia SLIGHT = 6-15 cells (100X) (0-5/hpf); Lymphocytes 13 % (21-51); MDiff Complete? YES; Mean Corpuscular Hemoglobin 26.3 pg (27.0-31.0); Mean Corpuscular Volume 84.9 fL (78.0-98.0); Mean Platelet Volume 8.4 fL (7.4-10.4); Monocytes 7 % (0-10); Neutrophil 65 % (42-75); Platelet Count 364 thou/uL (130-400); Platelet Morphology Comment Appears Adequate; Polychromasia SLIGHT = 2-3 cells (100X) (0-2/hpf); RBC Distribution Width 15.4 % (11.5-14.5); Red Blood Cell (RBC) Count 4.53 mill/uL (4.70-6.10); White Blood Cell (WBC) Count 20.8 thou/uL (4.8-10.8)
[2019-02-17 06:59] LABS: Actual Bicarbonate (HCO3a) 34.3 mEq/L (22-28); Base Excess (BEa) 8.2 mEq/L (-2.0 to +3.0); CO2 Tension 54.4 mmHg (35.0-45.0); Calcium, Ionized 1.19 mmol/L (1.12-1.30); Carboxyhemoglobin (COHb) 1.9 gm% (0.0-3.0); O2 Tension (PaO2) 62.7 mmHg (> 80.0); Potassium - ABG Lab 3.26 mmol/L (3.70-5.30); pH, Arterial 7.42 (7.35-7.45)
[2019-02-17 07:20] LABS: Puncture Site RR
[2019-02-17] MEDS: Enoxaparin Sodium 120 MG/0.8 ML SYRINGE SC SCH ×2 (09:08→20:05)
[2019-02-17] MEDS: methylPREDNISolone Sod Succ 40 MG VIAL IVP SCH (09:09)
[2019-02-17] MEDS: Pantoprazole 40 MG VIAL IVP SCH (09:09)
[2019-02-17] MEDS: Insulin Glargine 80 UNITS in Pre-Filled Syringe 1 EACH SC SCH (09:23)
[2019-02-17] MEDS: metFORMIN 500 MG TAB PO SCH (09:27)
[2019-02-17] MEDS: Lisinopril 10 MG TAB PO SCH ×2 (09:28→20:03)
[2019-02-17] MEDS: Carvedilol 25 MG TAB PO SCH ×2 (09:28→17:35)
[2019-02-17] MEDS: Gabapentin 300 MG CAP PO SCH ×2 (09:28→20:04)
[2019-02-17] MEDS: Aspirin Chewable 81 MG TAB PO SCH (09:30)
[2019-02-17] MEDS: Isosorbide Dinitrate 20 MG TAB PO SCH ×2 (09:30→20:04)
[2019-02-17] MEDS: ZINC 50 MG PO SCH (09:45)
--- NOTE | 2019-02-17 15:22 | PDOC.HOSPP ---
- Subjective Encounter Date: 02/17/19 Encounter Time: 12:00 Subjective: lethargic, awakens to touch, not fully oriented is seen snoring, off bipap - Objective Vital Signs & Weight: Vital Signs (12 hours) Temp Pulse Resp BP Pulse Ox 02/17/19 14:59 97.0 F L 02/17/19 14:34 96 23 H 94 L 02/17/19 11:42 91 24 H 90 L 02/17/19 10:58 97.2 F L 02/17/19 09:28 145/81 H 02/17/19 07:51 91 L 02/17/19 07:12 97.0 F L 02/17/19 06:58 88 L 02/17/19 06:39 103 H 20 88 L 02/17/19 04:00 98.4 F 02/17/19 03:30 88 32 H 92 L Weight Admit Weight 315 lb 12.8 oz Weight 300 lb 1.6 oz Most Recent Monitor Data Heart Rate from ECG 93 NIBP 147/89 NIBP BP-Mean 108 Respiration from ECG 34 SpO2 91 I&O: 02/16/19 02/17/19 02/18/19 06:59 06:59 06:59 Intake Total 2424 1380 Balance 2424 1380 Result Diagrams: 02/17/19 03:19 02/17/19 03:19 Additional Labs: Accuchecks 02/17/19 02/17/19 02/17/19 10:37 08:40 07:18 POC Glucose 91 65 L 50 L* 02/17/19 02/16/19 02/16/19 06:29 20:31 16:05 POC Glucose 50 L* 196 H 170 H Hospitalist ROS - Medication Medications: Active Medications Generic Name Dose Route Start Last Admin Trade Name Freq PRN Reason Stop Dose Admin Albuterol/Ipratropium 3 ml 02/11/19 15:00 02/17/19 14:34 Duoneb NEB 3 ml [id number] CELSA Administration Aspirin 81 mg 02/08/19 09:00 02/17/19 09:30 Aspirin Chewable PO 81 mg DAILY CELSA Administration Atorvastatin Calcium 20 mg 02/09/19 21:00 02/16/19 20:29 Lipitor PO Not Given HS CELSA Carvedilol 25 mg 02/08/19 17:00 02/17/19 09:28 Coreg PO 25 mg BID-WM CELSA Administration Donepezil HCl 5 mg 02/08/19 21:00 02/16/19 20:29 Aricept PO Not Given HS [facility] Enoxaparin Sodium 120 mg 02/13/19 21:00 02/17/19 09:08 Lovenox SC 120 mg 0900,2100 CELSA Administration Gabapentin 600 mg 02/08/19 21:00 02/17/19 09:28 Neurontin PO 600 mg BID CELSA Administration Haloperidol Lactate 10 mg 02/13/19 16:39 02/16/19 23:12 Haldol IM 10 mg Q6H PRN Administration . Dextrose/Sodium Chloride 1,000 mls @ 125 mls/hr 02/16/19 12:00 02/17/19 13:10 D5 1/2 Ns IV 1,000 mls .Q8H CELSA Administration Insulin Human Lispro 0 units 02/10/19 07:17 02/14/19 06:18 Humalog SC 9 unit .AGGRESSIVE SLIDING PRN Administration Aggressive Correctional Scale Isosorbide Dinitrate 10 mg 02/12/19 21:00 02/17/19 09:30 Isordil PO 10 mg BID CELSA Administration Labetalol HCl 20 mg 02/13/19 03:28 02/15/19 14:56 Normodyne SLOW IVP 20 mg Q6H PRN Administration SBP GREATER THAN 160 Lisinopril 20 mg 02/11/19 21:00 02/17/19 09:28 Zestril PO 20 mg BID CELSA Administration Methylprednisolone Sodium Succinate 40 mg 02/16/19 09:00 02/17/19 09:09 Solu-Medrol IVP 40 mg DAILY CELSA Administration Patient's Home 0 each 02/09/19 09:00 02/17/19 09:45 Medication Zinc 50 PO Not Given Mg DAILY [facility] - Exam General Appearance: ill appearing Eye: PERRL, anicteric sclera ENT: no oropharyngeal lesions, dry oral mucosa Neck: supple, no JVD Heart: RRR, no murmur Respiratory: no wheezes, no rales Gastrointestinal: soft, non-tender, non-distended, normal bowel sounds Extremities: no cyanosis, no edema Neurological: cranial nerve grossly intact, no focal deficits Hosp A/P (1) Acute respiratory failure with hypoxia Code(s): J96.01 - ACUTE RESPIRATORY FAILURE WITH HYPOXIA Status: Acute (2) Atrial flutter Code(s): I48.92 - UNSPECIFIED ATRIAL FLUTTER Status: Suspected (3) Hypernatremia Code(s): E87.0 - HYPEROSMOLALITY AND HYPERNATREMIA Status: Acute (4) Morbid obesity with BMI of 40.0-44.9, adult Code(s): E66.01 - MORBID (SEVERE) OBESITY DUE TO EXCESS CALORIES; Z68.41 - BODY MASS INDEX (BMI) 40.0-44.9, ADULT Status: Chronic (5) Acute metabolic encephalopathy Code(s): G93.41 - METABOLIC ENCEPHALOPATHY Status: Acute (6) Acute on chronic diastolic ACC/AHA stage C congestive heart failure Code(s): I50.33 - ACUTE ON CHRONIC DIASTOLIC (CONGESTIVE) HEART FAILURE Status : Resolved (7) Anemia, normocytic normochromic Code(s): D64.9 - ANEMIA, UNSPECIFIED Status: Chronic (8) Anxiety and depression Code(s): F41.9 - ANXIETY DISORDER, UNSPECIFIED; F32.9 - MAJOR DEPRESSIVE DISORDER, SINGLE EPISODE, UNSPECIFIED Status: Chronic (9) Diabetes type 2, uncontrolled Code(s): E11.65 - TYPE 2 DIABETES MELLITUS WITH HYPERGLYCEMIA Status: Chronic Qualifiers: Glycemic state: with hyperglycemia Qualified Code(s): E11.65 - Type 2 diabetes mellitus with hyperglycemia (10) GERD (gastroesophageal reflux disease) Code(s): K21.9 - GASTRO-ESOPHAGEAL REFLUX DISEASE WITHOUT ESOPHAGITIS Status: Chronic Qualifiers: Esophagitis presence: esophagitis presence not specified Qualified Code(s) : K21.9 - Gastro-esophageal reflux disease without esophagitis (11) Hypertension Code(s): I10 - ESSENTIAL (PRIMARY) HYPERTENSION Status: Chronic Qualifiers: Hypertension type: essential hypertension Qualified Code(s): I10 - Essential (primary) hypertension (12) NADIA (obstructive sleep apnea) Code(s): G47.33 - OBSTRUCTIVE SLEEP APNEA (ADULT) (PEDIATRIC) Status: Chronic - Plan decrease lantus to 50u bid, may decrease even further if not eating encourage po intake, oob to chair and ambulate as tolerated when fully awake is on bipap off and on per pulm adv on full dose lovenox, asp, lipitor, coreg, lisinopril, isordil, gabapentin, protonix nebs, i.spirometry, solumedrol daily hemostable avoid narcotics/hypnotics and antianxiety meds if possible
[2019-02-17] MEDS: HumaLOG 300 UNITS/3 ML VIAL SC PRN (16:31)
--- NOTE | 2019-02-17 19:24 | PRG ---
DATE OF SERVICE: 02/17/2019 SUBJECTIVE: Tone Melendrez continues to be stable. OBJECTIVE: VITAL SIGNS: Have been reviewed. Heart rates in the 80s, respiratory rates in the teens to low 20s, oximetry is 93% on a cannula, and blood pressure 152/91. LUNGS: Clear. HEART: Regular rhythm. ABDOMEN: Soft. EXTREMITIES: Without edema. LABORATORY DATA: White count 20, hemoglobin 11.9, platelets 364. Electrolytes; sodium 147, potassium 3.5, chloride 99, bicarb 35, BUN 20, creatinine 0.76. IMPRESSION: 1. Respiratory failure requiring BiPAP. 2. Encephalopathy that is improving. 3. Diastolic heart failure. 4. Sleep apnea. 5. Obesity. PLAN: Continue current care. Job ID: [id number]
[2019-02-17] MEDS: Atorvastatin Calcium 20 MG TAB PO SCH (20:03)
[2019-02-17] MEDS: Donepezil HCl 5 MG TAB PO SCH (20:03)
[2019-02-17] MEDS: Insulin Glargine 50 UNITS in Pre-Filled Syringe 1 EACH SC SCH (20:08)
[2019-02-17] MEDS: Acetaminophen 325 MG TAB PO PRN (21:36)
[2019-02-17] MEDS: Haloperidol Lactate 5 MG/ML VIAL IM PRN (21:48)
[2019-02-18] MEDS: Acetaminophen 325 MG TAB PO PRN ×3 (02:30→17:41)
[2019-02-18] MEDS ORDERED: HYDROcodone/Acetaminophen 5/325 mg Tablet PO SCH (03:30)
[2019-02-18] MEDS: Dextrose 5 %-0.45 % NaCl 1,000 ML IV SCH ×3 (03:46→14:30)
[2019-02-18] MEDS: Haloperidol Lactate 5 MG/ML VIAL IM PRN (03:47)
[2019-02-18 03:55] LABS: #Eosinphils 0.1 thou/uL (0.0-0.7); #Lymphocytes 2.2 thou/uL (1.20-3.40); #Monocytes 1.6 thou/uL (0.11-0.59); #Neutrophils 13.5 thou/uL (1.40-6.50); %Basophils 0.3 % (0.0-1.0); %Eosinophils 0.8 % (0.0-10.0); %Lymphocytes 12.4 % (21.0-51.0); %Monocytes 9.4 % (0.0-10.0); %Neutrophils 77.1 % (42.0-75.0); Hemoglobin 11.4 g/dL (14.0-18.0); Mean Corpuscular HGB CONC 31.4 g/dL (32.0-36.0); Mean Corpuscular Hemoglobin 26.2 pg (27.0-31.0); Mean Corpuscular Volume 83.4 fL (78.0-98.0); Mean Platelet Volume 8.6 fL (7.4-10.4); Platelet Count 331 thou/uL (130-400); RBC Distribution Width 15.5 % (11.5-14.5); Red Blood Cell (RBC) Count 4.35 mill/uL (4.70-6.10); White Blood Cell (WBC) Count 17.5 thou/uL (4.8-10.8)
[2019-02-18 04:11] LABS: Anion Gap 13 mmol/L (10-20); BUN (Urea Nitrogen) 16 mg/dL (8.4-25.7); Calc. Creatinine Clearance 162 mL/min (70-130); Calcium 9.1 mg/dL (7.8-10.44); Carbon Dioxide 35 mmol/L (23-31); Chloride 97 mmol/L (98-107); Estimated GFR-MDRD Greater than 90; Glucose 256 mg/dL (80-115); Potassium 3.6 mmol/L (3.5-5.1); Sodium 141 mmol/L (136-145)
[2019-02-18] MEDS: HumaLOG 300 UNITS/3 ML VIAL SC PRN ×2 (06:39→16:46)
[2019-02-18] MEDS: Isosorbide Dinitrate 20 MG TAB PO SCH ×2 (08:50→20:30)
[2019-02-18] MEDS: Gabapentin 300 MG CAP PO SCH ×2 (08:50→20:29)
[2019-02-18] MEDS: Enoxaparin Sodium 120 MG/0.8 ML SYRINGE SC SCH ×2 (08:50→20:29)
[2019-02-18] MEDS: Lisinopril 10 MG TAB PO SCH ×2 (08:50→20:31)
[2019-02-18] MEDS: methylPREDNISolone Sod Succ 40 MG VIAL IVP SCH (08:51)
[2019-02-18] MEDS: Insulin Glargine 50 UNITS in Pre-Filled Syringe 1 EACH SC SCH ×2 (08:51→20:29)
[2019-02-18] MEDS: Carvedilol 25 MG TAB PO SCH ×2 (08:51→16:45)
[2019-02-18] MEDS: Aspirin Chewable 81 MG TAB PO SCH (08:51)
--- NOTE | 2019-02-18 13:42 | PDOC.HOSPP ---
- Subjective Encounter Date: 02/18/19 Encounter Time: 09:35 Subjective: more awake this am is working with speech therapist at bedside no sob responds to verbal stimuli well - Objective Vital Signs & Weight: Vital Signs (12 hours) Temp Pulse Resp BP Pulse Ox 02/18/19 10:24 79 20 93 L 02/18/19 10:23 97.2 F L 02/18/19 08:50 148/88 H 02/18/19 07:54 92 L 02/18/19 07:14 97.5 F L 02/18/19 06:57 79 20 90 L 02/18/19 06:00 90 L 02/18/19 03:04 97.0 F L Weight Admit Weight 315 lb 12.8 oz Weight 310 lb 6.4 oz Most Recent Monitor Data Heart Rate from ECG 75 NIBP 130/87 NIBP BP-Mean 101 Respiration from ECG 24 SpO2 87 I&O: 02/17/19 02/18/19 02/19/19 06:59 06:59 06:59 Intake Total 1380 3250 Output Total 1510 Balance 1380 1740 Result Diagrams: 02/18/19 03:42 02/18/19 03:42 Additional Labs: Accuchecks 02/18/19 02/18/19 02/17/19 09:55 06:02 20:11 POC Glucose 187 H 261 H 220 H 02/17/19 16:25 POC Glucose 236 H Hospitalist ROS - Medication Medications: Active Medications Generic Name Dose Route Start Last Admin Trade Name Freq PRN Reason Stop Dose Admin Acetaminophen 650 mg 02/07/19 22:14 02/18/19 08:50 Tylenol PO 650 mg Q4H PRN Administration Headache/Fever/Mild Pain (1-3) Albuterol/Ipratropium 3 ml 02/11/19 15:00 02/18/19 10:24 Duoneb NEB 3 ml [id number] CELSA Administration Aspirin 81 mg 02/08/19 09:00 02/18/19 08:51 Aspirin Chewable PO 81 mg DAILY CELSA Administration Atorvastatin Calcium 20 mg 02/09/19 21:00 02/17/19 20:03 Lipitor PO 20 mg HS CELSA Administration Carvedilol 25 mg 02/08/19 17:00 02/18/19 08:51 Coreg PO 25 mg BID-WM CELSA Administration Donepezil HCl 5 mg 02/08/19 21:00 02/17/19 20:03 Aricept PO 5 mg HS CELSA Administration Enoxaparin Sodium 120 mg 02/13/19 21:00 02/18/19 08:50 Lovenox SC 120 mg 0900,2100 CELSA Administration Gabapentin 600 mg 02/08/19 21:00 02/18/19 08:50 Neurontin PO 600 mg BID CELSA Administration Haloperidol Lactate 10 mg 02/13/19 16:39 02/18/19 03:47 Haldol IM 10 mg Q6H PRN Administration . Dextrose/Sodium Chloride 1,000 mls @ 125 mls/hr 02/16/19 12:00 02/18/19 03:46 D5 1/2 Ns IV 1,000 mls .Q8H CELSA Administration Insulin Glargine 50 units/ 0.5 mls @ 0 mls/hr 02/17/19 21:00 02/18/19 08:51 Miscellaneous Medication SC 0.5 mls BID CELSA Administration Insulin Human Lispro 0 units 02/10/19 07:17 02/18/19 06:39 Humalog SC 9 unit .AGGRESSIVE SLIDING PRN Administration Aggressive Correctional Scale Isosorbide Dinitrate 10 mg 02/12/19 21:00 02/18/19 08:50 Isordil PO 10 mg BID CELSA Administration Labetalol HCl 20 mg 02/13/19 03:28 02/15/19 14:56 Normodyne SLOW IVP 20 mg Q6H PRN Administration SBP GREATER THAN 160 Lisinopril 20 mg 02/11/19 21:00 02/18/19 08:50 Zestril PO 20 mg BID CELSA Administration Methylprednisolone Sodium Succinate 40 mg 02/16/19 09:00 02/18/19 08:51 Solu-Medrol IVP 40 mg DAILY CELSA Administration Pantoprazole Sodium 40 mg 02/18/19 09:00 02/18/19 08:51 Protonix PO 40 mg DAILY CELSA Administration Patient's Home 0 each 02/09/19 09:00 02/17/19 09:45 Medication Zinc 50 PO Not Given Mg DAILY [facility] - Exam General Appearance: awake alert Eye: PERRL, anicteric sclera ENT: no oropharyngeal lesions, dry oral mucosa Neck: supple, no JVD Heart: no murmur, irregular Respiratory: no wheezes, no rales Gastrointestinal: soft, non-tender, non-distended, normal bowel sounds Extremities: no cyanosis, no edema Neurological: cranial nerve grossly intact, no focal deficits Hosp A/P (1) Acute respiratory failure with hypoxia Code(s): J96.01 - ACUTE RESPIRATORY FAILURE WITH HYPOXIA Status: Acute (2) Atrial flutter Code(s): I48.92 - UNSPECIFIED ATRIAL FLUTTER Status: Suspected (3) Hypernatremia Code(s): E87.0 - HYPEROSMOLALITY AND HYPERNATREMIA Status: Acute (4) Morbid obesity with BMI of 40.0-44.9, adult Code(s): E66.01 - MORBID (SEVERE) OBESITY DUE TO EXCESS CALORIES; Z68.41 - BODY MASS INDEX (BMI) 40.0-44.9, ADULT Status: Chronic (5) Acute metabolic encephalopathy Code(s): G93.41 - METABOLIC ENCEPHALOPATHY Status: Acute (6) Acute on chronic diastolic ACC/AHA stage C congestive heart failure Code(s): I50.33 - ACUTE ON CHRONIC DIASTOLIC (CONGESTIVE) HEART FAILURE Status : Resolved (7) Anemia, normocytic normochromic Code(s): D64.9 - ANEMIA, UNSPECIFIED Status: Chronic (8) Anxiety and depression Code(s): F41.9 - ANXIETY DISORDER, UNSPECIFIED; F32.9 - MAJOR DEPRESSIVE DISORDER, SINGLE EPISODE, UNSPECIFIED Status: Chronic (9) Diabetes type 2, uncontrolled Code(s): E11.65 - TYPE 2 DIABETES MELLITUS WITH HYPERGLYCEMIA Status: Chronic Qualifiers: Glycemic state: with hyperglycemia Qualified Code(s): E11.65 - Type 2 diabetes mellitus with hyperglycemia (10) GERD (gastroesophageal reflux disease) Code(s): K21.9 - GASTRO-ESOPHAGEAL REFLUX DISEASE WITHOUT ESOPHAGITIS Status: Chronic Qualifiers: Esophagitis presence: esophagitis presence not specified Qualified Code(s) : K21.9 - Gastro-esophageal reflux disease without esophagitis (11) Hypertension Code(s): I10 - ESSENTIAL (PRIMARY) HYPERTENSION Status: Chronic Qualifiers: Hypertension type: essential hypertension Qualified Code(s): I10 - Essential (primary) hypertension (12) NADIA (obstructive sleep apnea) Code(s): G47.33 - OBSTRUCTIVE SLEEP APNEA (ADULT) (PEDIATRIC) Status: Chronic - Plan on lantus to 50u bid, may increase in am if eating well. encourage po intake, oob to chair and ambulate as tolerated is on bipap off and on per pulm adv on full dose lovenox, asp, lipitor, coreg, lisinopril, isordil, gabapentin, protonix nebs, i.spirometry, solumedrol daily hemostable will need ablation of a.flutter when stable, rate control for now. avoid narcotics/hypnotics and antianxiety meds if possible
[2019-02-18] MEDS: ZINC 50 MG PO SCH (14:26)
--- NOTE | 2019-02-18 19:22 | PRG ---
DATE OF SERVICE: 02/18/2019 SUBJECTIVE: Mr. Melendrez is confused. He is in no distress. OBJECTIVE: VITAL SIGNS: Blood pressure is 124/67, heart rate is 92, respiratory rate is 20, and oximetry is 94% on a cannula. LUNGS: Clear. HEART: Regular rhythm. ABDOMEN: Soft. LABORATORY DATA: White count 17.5, hemoglobin 11.4, and platelets 331. Sodium 141, potassium 3.6, chloride 97, bicarb 35, BUN 16, and creatinine 0.84. IMPRESSION: 1. Diastolic heart failure, stable. 2. Encephalopathy, not back to normal yet. 3. Respiratory failure requiring bilevel positive airway pressure. 4. Sleep apnea. 5. Obesity and deconditioning. PLAN: Continue supportive care. Job ID: [id number]
[2019-02-18] MEDS: Atorvastatin Calcium 20 MG TAB PO SCH (20:31)
[2019-02-18] MEDS: Donepezil HCl 5 MG TAB PO SCH (20:31)
[2019-02-19] MEDS: Haloperidol Lactate 5 MG/ML VIAL IM PRN (00:38)
[2019-02-19 03:57] LABS: #Eosinphils 0.1 thou/uL (0.0-0.7); #Lymphocytes 1.9 thou/uL (1.20-3.40); #Monocytes 1.4 thou/uL (0.11-0.59); #Neutrophils 14.2 thou/uL (1.40-6.50); %Basophils 0.1 % (0.0-1.0); %Eosinophils 0.6 % (0.0-10.0); %Lymphocytes 10.6 % (21.0-51.0); %Monocytes 8.1 % (0.0-10.0); %Neutrophils 80.6 % (42.0-75.0); Hemoglobin 11.9 g/dL (14.0-18.0); Mean Corpuscular HGB CONC 31.3 g/dL (32.0-36.0); Mean Corpuscular Volume 83.1 fL (78.0-98.0); Mean Platelet Volume 8.7 fL (7.4-10.4); Platelet Count 332 thou/uL (130-400); RBC Distribution Width 15.3 % (11.5-14.5); Red Blood Cell (RBC) Count 4.58 mill/uL (4.70-6.10); White Blood Cell (WBC) Count 17.6 thou/uL (4.8-10.8)
[2019-02-19 04:22] LABS: Anion Gap 11 mmol/L (10-20); BUN (Urea Nitrogen) 15 mg/dL (8.4-25.7); Calc. Creatinine Clearance 164 mL/min (70-130); Calcium 9.3 mg/dL (7.8-10.44); Carbon Dioxide 36 mmol/L (23-31); Chloride 97 mmol/L (98-107); Estimated GFR-MDRD 88; Glucose 347 mg/dL (80-115); Sodium 140 mmol/L (136-145)
[2019-02-19] MEDS: HumaLOG 300 UNITS/3 ML VIAL SC PRN ×3 (06:04→16:52)
[2019-02-19] MEDS: Dextrose 5 %-0.45 % NaCl 1,000 ML IV SCH (08:42)
[2019-02-19] MEDS: Enoxaparin Sodium 120 MG/0.8 ML SYRINGE SC SCH ×2 (08:43→22:20)
[2019-02-19] MEDS: Gabapentin 300 MG CAP PO SCH ×2 (08:43→22:26)
[2019-02-19] MEDS: Lisinopril 10 MG TAB PO SCH ×2 (08:44→22:26)
[2019-02-19] MEDS: metFORMIN 500 MG TAB PO SCH ×2 (08:44→22:21)
[2019-02-19] MEDS: Acetaminophen 325 MG TAB PO PRN (08:46)
[2019-02-19] MEDS: Isosorbide Dinitrate 20 MG TAB PO SCH ×2 (08:46→22:26)
[2019-02-19] MEDS: Carvedilol 25 MG TAB PO SCH ×2 (08:46→16:52)
[2019-02-19] MEDS: methylPREDNISolone Sod Succ 40 MG VIAL IVP SCH (08:47)
[2019-02-19 08:50] LABS: Actual Bicarbonate (HCO3a) 32.7 mEq/L (22-28); Base Excess (BEa) 8.2 mEq/L (-2.0 to +3.0); CO2 Tension 44.9 mmHg (35.0-45.0); Carboxyhemoglobin (COHb) 1.5 gm% (0.0-3.0); Hemoglobin (Hb) 12.1 g/dL (14.0-18.0); Potassium - ABG Lab 3.47 mmol/L (3.70-5.30); pH, Arterial 7.48 (7.35-7.45)
[2019-02-19] MEDS: Aspirin Chewable 81 MG TAB PO SCH (08:50)
[2019-02-19 08:52] LABS: ALV-art Gradient 43.605 (0-20); Puncture Site L.R.
[2019-02-19] MEDS: ZINC 50 MG PO SCH (09:04)
[2019-02-19] MEDS: Insulin Glargine 70 UNITS in Pre-Filled Syringe 1 EACH SC SCH ×2 (09:27→22:18)
--- NOTE | 2019-02-19 09:28 | PRG ---
DATE OF SERVICE: 02/19/2019 SUBJECTIVE: The patient is doing reasonably well and has no issues. He has been noncooperative with most nursing intervention; I believe, he is encephalopathic at baseline. OBJECTIVE: VITAL SIGNS: His temperature is 98.1, pulse 87, and blood pressure 139/117. HEENT: Unremarkable. NECK: No adenopathy or JVD. CHEST: Clear, but distant breath sounds. CARDIAC: S1, S2. Regular. ABDOMEN: Soft. EXTREMITIES: No edema. LABORATORY DATA: White blood cell count 17.6, hematocrit 38.1, and platelet count 332. The pH of 7.48, pCO2 of 44, pO2 of 50 on room air. Sodium 140, potassium 4, chloride 97, CO2 of 36, BUN 15, creatinine 0.8, and glucose 347. ASSESSMENT: 1. Acute hypoxic respiratory failure. 2. Metabolic encephalopathy. 3. Chronic diastolic heart failure. 4. Morbid obesity. 5. Underlying obstructive sleep apnea, noncompliant with CPAP. PLAN: He can transfer out to telemetry. He is probably involved to the point where he needs to be in some type of group home situation if he is not already there. I would withhold Haldol and try to minimize any extraneous medications. I will go ahead and stop the steroids. Job ID: [id number]
--- NOTE | 2019-02-19 12:01 | PDOC.HOSPP ---
- Subjective Encounter Date: 02/19/19 Encounter Time: 11:00 Subjective: is sitting on bed, not fully oriented, follows verbal stimuli on repeated prompts ate his breakfast - Objective Vital Signs & Weight: Vital Signs (12 hours) Temp Pulse Resp BP Pulse Ox 02/19/19 11:20 78 23 H 90 L 02/19/19 11:06 97.5 F L 02/19/19 08:44 112/76 02/19/19 08:04 84 20 02/19/19 07:19 97 02/19/19 07:12 98.1 F 02/19/19 03:47 97.6 F 02/19/19 00:03 92 L Weight Admit Weight 315 lb 12.8 oz Weight 296 lb 9.6 oz Most Recent Monitor Data Heart Rate from ECG 86 NIBP 100/58 NIBP BP-Mean 72 Respiration from ECG 23 SpO2 88 I&O: 02/18/19 02/19/19 02/20/19 06:59 06:59 06:59 Intake Total 3250 1720 240 Output Total 1510 900 Balance 1740 820 240 Result Diagrams: 02/19/19 03:41 02/19/19 03:41 Additional Labs: Accuchecks 02/19/19 02/19/19 02/18/19 10:36 05:44 19:53 POC Glucose 290 H 308 H 321 H 02/18/19 15:50 POC Glucose 280 H Hospitalist ROS - Medication Medications: Active Medications Generic Name Dose Route Start Last Admin Trade Name Freq PRN Reason Stop Dose Admin Acetaminophen 650 mg 02/07/19 22:14 02/19/19 08:46 Tylenol PO 650 mg Q4H PRN Administration Headache/Fever/Mild Pain (1-3) Albuterol/Ipratropium 3 ml 02/11/19 15:00 02/19/19 11:20 Duoneb NEB 3 ml [id number] CELSA Administration Aspirin 81 mg 02/08/19 09:00 02/19/19 08:50 Aspirin Chewable PO 81 mg DAILY CELSA Administration Atorvastatin Calcium 20 mg 02/09/19 21:00 02/18/19 20:31 Lipitor PO 20 mg HS CELSA Administration Carvedilol 25 mg 02/08/19 17:00 02/19/19 08:46 Coreg PO 25 mg BID-WM CELSA Administration Donepezil HCl 5 mg 02/08/19 21:00 02/18/19 20:31 Aricept PO 5 mg HS CELSA Administration Enoxaparin Sodium 120 mg 02/13/19 21:00 02/19/19 08:43 Lovenox SC 120 mg 0900,2100 CELSA Administration Gabapentin 600 mg 02/08/19 21:00 02/19/19 08:43 Neurontin PO 600 mg BID CELSA Administration Dextrose/Sodium Chloride 1,000 mls @ 60 mls/hr 02/18/19 13:39 02/19/19 08:42 D5 1/2 Ns IV 1,000 mls .[id number] CELSA Administration Insulin Glargine 70 units/ 0.7 mls @ 0 mls/hr 02/19/19 09:00 02/19/19 09:27 Miscellaneous Medication SC 0.7 mls BID CELSA Administration Insulin Human Lispro 0 units 02/10/19 07:17 02/19/19 11:08 Humalog SC 9 unit .AGGRESSIVE SLIDING PRN Administration Aggressive Correctional Scale Isosorbide Dinitrate 10 mg 02/12/19 21:00 02/19/19 08:46 Isordil PO 10 mg BID CELSA Administration Labetalol HCl 20 mg 02/13/19 03:28 02/15/19 14:56 Normodyne SLOW IVP 20 mg Q6H PRN Administration SBP GREATER THAN 160 Lisinopril 20 mg 02/11/19 21:00 02/19/19 08:44 Zestril PO 20 mg BID CELSA Administration Metformin HCl 1,000 mg 02/19/19 09:00 02/19/19 08:44 Glucophage PO 1,000 mg BID CELSA Administration Pantoprazole Sodium 40 mg 02/18/19 09:00 02/19/19 08:44 Protonix PO 40 mg DAILY CELSA Administration Patient's Home 0 each 02/09/19 09:00 02/19/19 09:04 Medication Zinc 50 PO Not Given Mg DAILY [facility] - Exam General Appearance: ill appearing Eye: PERRL, anicteric sclera ENT: no oropharyngeal lesions, dry oral mucosa Neck: symmetric, no JVD Heart: RRR, no murmur Respiratory: no wheezes, no rales Gastrointestinal: soft, non-tender, non-distended, normal bowel sounds Extremities: no cyanosis, 1+ LE edema Neurological: cranial nerve grossly intact, no focal deficits Hosp A/P (1) Acute respiratory failure with hypoxia Code(s): J96.01 - ACUTE RESPIRATORY FAILURE WITH HYPOXIA Status: Acute (2) Atrial flutter Code(s): I48.92 - UNSPECIFIED ATRIAL FLUTTER Status: Suspected (3) Hypernatremia Code(s): E87.0 - HYPEROSMOLALITY AND HYPERNATREMIA Status: Resolved (4) Morbid obesity with BMI of 40.0-44.9, adult Code(s): E66.01 - MORBID (SEVERE) OBESITY DUE TO EXCESS CALORIES; Z68.41 - BODY MASS INDEX (BMI) 40.0-44.9, ADULT Status: Chronic (5) Acute metabolic encephalopathy Code(s): G93.41 - METABOLIC ENCEPHALOPATHY Status: Acute (6) Acute on chronic diastolic ACC/AHA stage C congestive heart failure Code(s): I50.33 - ACUTE ON CHRONIC DIASTOLIC (CONGESTIVE) HEART FAILURE Status : Resolved (7) Anemia, normocytic normochromic Code(s): D64.9 - ANEMIA, UNSPECIFIED Status: Chronic (8) Anxiety and depression Code(s): F41.9 - ANXIETY DISORDER, UNSPECIFIED; F32.9 - MAJOR DEPRESSIVE DISORDER, SINGLE EPISODE, UNSPECIFIED Status: Chronic (9) Diabetes type 2, uncontrolled Code(s): E11.65 - TYPE 2 DIABETES MELLITUS WITH HYPERGLYCEMIA Status: Chronic Qualifiers: Glycemic state: with hyperglycemia Qualified Code(s): E11.65 - Type 2 diabetes mellitus with hyperglycemia (10) GERD (gastroesophageal reflux disease) Code(s): K21.9 - GASTRO-ESOPHAGEAL REFLUX DISEASE WITHOUT ESOPHAGITIS Status: Chronic Qualifiers: Esophagitis presence: esophagitis presence not specified Qualified Code(s) : K21.9 - Gastro-esophageal reflux disease without esophagitis (11) Hypertension Code(s): I10 - ESSENTIAL (PRIMARY) HYPERTENSION Status: Chronic Qualifiers: Hypertension type: essential hypertension Qualified Code(s): I10 - Essential (primary) hypertension (12) NADIA (obstructive sleep apnea) Code(s): G47.33 - OBSTRUCTIVE SLEEP APNEA (ADULT) (PEDIATRIC) Status: Chronic - Plan increase lantus dose, add home dose metformin, is off steroids. encourage po intake, oob to chair and ambulate as tolerated is not wearing bipap and keeps removing his nasal canula oxygen as well on full dose lovenox, asp, lipitor, coreg, lisinopril, isordil, gabapentin, protonix nebs, i.spirometry hemostable will need ablation of a.flutter when stable, rate control for now. avoid narcotics/hypnotics and antianxiety meds if possible will need skilled placement/swing bed
[2019-02-19] MEDS: Labetalol HCl 100 MG/20 ML VIAL SLOW IVP PRN (15:19)
[2019-02-19] MEDS: Atorvastatin Calcium 20 MG TAB PO SCH (22:25)
[2019-02-19] MEDS: Donepezil HCl 5 MG TAB PO SCH (22:26)
[2019-02-20] MEDS: Acetaminophen 325 MG TAB PO PRN (03:27)
[2019-02-20 04:41] LABS: Anion Gap 12 mmol/L (10-20); BUN (Urea Nitrogen) 15 mg/dL (8.4-25.7); Calc. Creatinine Clearance 172 mL/min (70-130); Calcium 9.2 mg/dL (7.8-10.44); Carbon Dioxide 33 mmol/L (23-31); Chloride 100 mmol/L (98-107); Estimated GFR-MDRD Greater than 90; Glucose 185 mg/dL (80-115); Potassium 3.8 mmol/L (3.5-5.1); Sodium 141 mmol/L (136-145)
[2019-02-20 06:21] LABS: Band 20 % (5-11); Eosinophils 1 % (0-10); Hemoglobin 11.1 g/dL (14.0-18.0); Lymphocytes 7 % (21-51); MDiff Complete? YES; Mean Corpuscular HGB CONC 31.2 g/dL (32.0-36.0); Mean Corpuscular Hemoglobin 25.9 pg (27.0-31.0); Mean Platelet Volume 8.9 fL (7.4-10.4); Monocytes 3 % (0-10); Myelocyte 1 % (0-0); Neutrophil 68 % (42-75); Platelet Count 315 thou/uL (130-400); RBC Distribution Width 15.3 % (11.5-14.5); Red Blood Cell (RBC) Count 4.29 mill/uL (4.70-6.10); White Blood Cell (WBC) Count 23.8 thou/uL (4.8-10.8)
[2019-02-20] MEDS: Dextrose 5 %-0.45 % NaCl 1,000 ML IV SCH (07:16)
[2019-02-20] MEDS: Gabapentin 300 MG CAP PO SCH ×2 (08:34→21:31)
[2019-02-20] MEDS: metFORMIN 500 MG TAB PO SCH ×2 (08:34→21:31)
[2019-02-20] MEDS: Carvedilol 25 MG TAB PO SCH ×2 (08:34→18:31)
[2019-02-20] MEDS: Aspirin Chewable 81 MG TAB PO SCH (08:35)
[2019-02-20] MEDS: Lisinopril 10 MG TAB PO SCH ×2 (08:35→21:32)
[2019-02-20] MEDS: Isosorbide Dinitrate 20 MG TAB PO SCH ×2 (08:35→21:32)
[2019-02-20] MEDS: Enoxaparin Sodium 120 MG/0.8 ML SYRINGE SC SCH (08:35)
[2019-02-20] MEDS: Insulin Glargine 70 UNITS in Pre-Filled Syringe 1 EACH SC SCH ×2 (08:36→21:39)
[2019-02-20] MEDS: ZINC 50 MG PO SCH (08:36)
--- NOTE | 2019-02-20 11:55 | PDOC.HOSPP ---
- Subjective Encounter Date: 02/20/19 Encounter Time: 09:45 Subjective: lethargic, awakens to touch not fully oriented ate his breakfast and took his meds per staff is sitting in chair, eyes closed - Objective Vital Signs & Weight: Vital Signs (12 hours) Temp Pulse Resp BP BP Pulse Ox 02/20/19 11:20 98 F 80 20 123/66 92 L 02/20/19 10:31 96 20 94 L 02/20/19 08:22 97.9 F 90 20 143/73 H 93 L 02/20/19 07:08 83 18 97 02/20/19 04:15 98.6 F 83 16 164/99 H 97 Weight Admit Weight 315 lb 12.8 oz Weight 300 lb 1.6 oz Most Recent Monitor Data Heart Rate from ECG 96 NIBP 145/80 NIBP BP-Mean 101 Respiration from ECG 22 SpO2 98 I&O: 02/19/19 02/20/19 02/21/19 06:59 06:59 06:59 Intake Total 1720 2760 Output Total 900 250 Balance 820 2510 Result Diagrams: 02/20/19 04:06 02/20/19 04:06 Additional Labs: Accuchecks 02/20/19 02/20/19 02/20/19 10:57 05:42 02:26 POC Glucose 170 H 124 H 227 H 02/19/19 02/19/19 20:31 16:38 POC Glucose 305 H 308 H Hospitalist ROS - Medication Medications: Active Medications Generic Name Dose Route Start Last Admin Trade Name Freq PRN Reason Stop Dose Admin Acetaminophen 650 mg 02/07/19 22:14 02/20/19 03:27 Tylenol PO 650 mg Q4H PRN Administration Headache/Fever/Mild Pain (1-3) Albuterol/Ipratropium 3 ml 02/11/19 15:00 02/20/19 10:31 Duoneb NEB 3 ml [id number] CELSA Administration Aspirin 81 mg 02/08/19 09:00 02/20/19 08:35 Aspirin Chewable PO 81 mg DAILY CELSA Administration Atorvastatin Calcium 20 mg 02/09/19 21:00 02/19/19 22:25 Lipitor PO Not Given HS CELSA Carvedilol 25 mg 02/08/19 17:00 02/20/19 08:34 Coreg PO 25 mg BID-WM CELSA Administration Donepezil HCl 5 mg 02/08/19 21:00 02/19/19 22:26 Aricept PO Not Given HS CELSA Gabapentin 600 mg 02/08/19 21:00 02/20/19 08:34 Neurontin PO 600 mg BID CELSA Administration Insulin Glargine 70 units/ 0.7 mls @ 0 mls/hr 02/19/19 09:00 02/20/19 08:36 Miscellaneous Medication SC 0.7 mls BID CELSA Administration Insulin Human Lispro 0 units 02/10/19 07:17 02/19/19 16:52 Humalog SC 11 unit .AGGRESSIVE SLIDING PRN Administration Aggressive Correctional Scale Isosorbide Dinitrate 10 mg 02/12/19 21:00 02/20/19 08:35 Isordil PO 10 mg BID CELSA Administration Lisinopril 20 mg 02/11/19 21:00 02/20/19 08:35 Zestril PO 20 mg BID CELSA Administration Metformin HCl 1,000 mg 02/19/19 09:00 02/20/19 08:34 Glucophage PO 1,000 mg BID CELSA Administration Pantoprazole Sodium 40 mg 02/18/19 09:00 02/20/19 08:35 Protonix PO 40 mg DAILY CELSA Administration Patient's Home 0 each 02/09/19 09:00 02/20/19 08:36 Medication Zinc 50 PO Not Given Mg DAILY CELSA - Exam Eye: PERRL, anicteric sclera ENT: no oropharyngeal lesions, dry oral mucosa Neck: supple, no JVD Heart: RRR, no murmur Respiratory: no wheezes, no rales, rhonchi Gastrointestinal: soft, non-tender, non-distended, normal bowel sounds Extremities: no cyanosis, no edema Neurological: cranial nerve grossly intact, no focal deficits Hosp A/P (1) Acute respiratory failure with hypoxia Code(s): J96.01 - ACUTE RESPIRATORY FAILURE WITH HYPOXIA Status: Acute (2) Atrial flutter Code(s): I48.92 - UNSPECIFIED ATRIAL FLUTTER Status: Chronic (3) Hypernatremia Code(s): E87.0 - HYPEROSMOLALITY AND HYPERNATREMIA Status: Resolved (4) Morbid obesity with BMI of 40.0-44.9, adult Code(s): E66.01 - MORBID (SEVERE) OBESITY DUE TO EXCESS CALORIES; Z68.41 - BODY MASS INDEX (BMI) 40.0-44.9, ADULT Status: Chronic (5) Acute metabolic encephalopathy Code(s): G93.41 - METABOLIC ENCEPHALOPATHY Status: Acute (6) Acute on chronic diastolic ACC/AHA stage C congestive heart failure Code(s): I50.33 - ACUTE ON CHRONIC DIASTOLIC (CONGESTIVE) HEART FAILURE Status : Resolved (7) Anemia, normocytic normochromic Code(s): D64.9 - ANEMIA, UNSPECIFIED Status: Chronic (8) Anxiety and depression Code(s): F41.9 - ANXIETY DISORDER, UNSPECIFIED; F32.9 - MAJOR DEPRESSIVE DISORDER, SINGLE EPISODE, UNSPECIFIED Status: Chronic (9) Diabetes type 2, uncontrolled Code(s): E11.65 - TYPE 2 DIABETES MELLITUS WITH HYPERGLYCEMIA Status: Chronic Qualifiers: Glycemic state: with hyperglycemia Qualified Code(s): E11.65 - Type 2 diabetes mellitus with hyperglycemia (10) GERD (gastroesophageal reflux disease) Code(s): K21.9 - GASTRO-ESOPHAGEAL REFLUX DISEASE WITHOUT ESOPHAGITIS Status: Chronic Qualifiers: Esophagitis presence: esophagitis presence not specified Qualified Code(s) : K21.9 - Gastro-esophageal reflux disease without esophagitis (11) Hypertension Code(s): I10 - ESSENTIAL (PRIMARY) HYPERTENSION Status: Chronic Qualifiers: Hypertension type: essential hypertension Qualified Code(s): I10 - Essential (primary) hypertension (12) NADIA (obstructive sleep apnea) Code(s): G47.33 - OBSTRUCTIVE SLEEP APNEA (ADULT) (PEDIATRIC) Status: Chronic - Plan on lantus dose, metformin. encourage po intake, oob to chair and ambulate as tolerated is not wearing bipap and keeps removing his nasal canula oxygen as well on eliquis, asp, lipitor, coreg, lisinopril, isordil, gabapentin, protonix nebs, i.spirometry hemostable add risperdal 1mg qhs, has burst of anxiety/agitation when he is off oxygen likely co2 narcosis. Currently has a 1:1 sitter for above reason will need skilled placement/swing bed
[2019-02-20] MEDS: Apixaban 5 MG TAB PO SCH (21:30)
[2019-02-20] MEDS: Atorvastatin Calcium 20 MG TAB PO SCH (21:30)
[2019-02-20] MEDS: Donepezil HCl 5 MG TAB PO SCH (21:33)
[2019-02-20] MEDS: risperiDONE 1 MG TAB PO SCH (21:33)
[2019-02-21 05:23] LABS: #Eosinphils 0.2 thou/uL (0.0-0.7); #Lymphocytes 2.4 thou/uL (1.20-3.40); #Monocytes 1.7 thou/uL (0.11-0.59); #Neutrophils 16.6 thou/uL (1.40-6.50); %Basophils 0.1 % (0.0-1.0); %Eosinophils 1.1 % (0.0-10.0); %Lymphocytes 11.5 % (21.0-51.0); %Neutrophils 79.4 % (42.0-75.0); Mean Corpuscular HGB CONC 31.3 g/dL (32.0-36.0); Mean Corpuscular Hemoglobin 26.1 pg (27.0-31.0); Mean Corpuscular Volume 83.2 fL (78.0-98.0); Platelet Count 313 thou/uL (130-400); RBC Distribution Width 15.6 % (11.5-14.5); Red Blood Cell (RBC) Count 4.23 mill/uL (4.70-6.10); White Blood Cell (WBC) Count 20.9 thou/uL (4.8-10.8)
[2019-02-21 05:40] LABS: Anion Gap 12 mmol/L (10-20); BUN (Urea Nitrogen) 16 mg/dL (8.4-25.7); Calc. Creatinine Clearance 172 mL/min (70-130); Calcium 9.1 mg/dL (7.8-10.44); Carbon Dioxide 35 mmol/L (23-31); Chloride 100 mmol/L (98-107); Estimated GFR-MDRD Greater than 90; Glucose 101 mg/dL (80-115); Potassium 3.9 mmol/L (3.5-5.1); Sodium 143 mmol/L (136-145)
[2019-02-21] MEDS: metFORMIN 500 MG TAB PO SCH ×2 (08:28→22:10)
[2019-02-21] MEDS: Gabapentin 300 MG CAP PO SCH ×2 (08:29→22:10)
[2019-02-21] MEDS: Lisinopril 10 MG TAB PO SCH ×2 (08:29→22:10)
[2019-02-21] MEDS: Carvedilol 25 MG TAB PO SCH ×2 (08:29→17:00)
[2019-02-21] MEDS: Aspirin Chewable 81 MG TAB PO SCH (08:29)
[2019-02-21] MEDS: Isosorbide Dinitrate 20 MG TAB PO SCH ×2 (08:29→22:10)
[2019-02-21] MEDS: Insulin Glargine 70 UNITS in Pre-Filled Syringe 1 EACH SC SCH ×2 (08:30→22:10)
[2019-02-21] MEDS: ZINC 50 MG PO SCH (08:30)
[2019-02-21] MEDS: Apixaban 5 MG TAB PO SCH ×2 (08:30→22:09)
--- NOTE | 2019-02-21 13:03 | PDOC.HOSPP ---
- Subjective Encounter Date: 02/21/19 Encounter Time: 11:45 Subjective: more oriented this morning and follows verbal stimuli no sob or chest pain - Objective Vital Signs & Weight: Vital Signs (12 hours) Temp Pulse Resp BP BP Pulse Ox 02/21/19 11:01 98.6 F 77 18 115/58 L 94 L 02/21/19 08:23 98.5 F 78 18 135/72 96 02/21/19 07:34 84 18 02/21/19 04:00 99.0 F 86 20 136/75 95 Weight Admit Weight 315 lb 12.8 oz Weight 298 lb 6.4 oz Most Recent Monitor Data Heart Rate from ECG 96 NIBP 145/80 NIBP BP-Mean 101 Respiration from ECG 22 SpO2 98 I&O: 02/20/19 02/21/19 02/22/19 06:59 06:59 06:59 Intake Total 2760 Output Total 250 Balance 2510 Result Diagrams: 02/21/19 04:34 02/21/19 04:34 Additional Labs: Accuchecks 02/21/19 02/21/19 02/20/19 10:53 05:46 20:54 POC Glucose 114 H 103 111 H 02/20/19 18:06 POC Glucose 114 H Hospitalist ROS - Medication Medications: Active Medications Generic Name Dose Route Start Last Admin Trade Name Leonardoq PRN Reason Stop Dose Admin Acetaminophen 650 mg 02/07/19 22:14 02/20/19 03:27 Tylenol PO 650 mg Q4H PRN Administration Headache/Fever/Mild Pain (1-3) Albuterol/Ipratropium 3 ml 02/11/19 15:00 02/21/19 12:58 Duoneb NEB Not Given [id number] CELSA Apixaban 5 mg 02/20/19 21:00 02/21/19 08:30 Eliquis PO 5 mg BID CELSA Administration Aspirin 81 mg 02/08/19 09:00 02/21/19 08:29 Aspirin Chewable PO 81 mg DAILY CELSA Administration Atorvastatin Calcium 20 mg 02/09/19 21:00 02/20/19 21:30 Lipitor PO 20 mg HS CELSA Administration Carvedilol 25 mg 02/08/19 17:00 02/21/19 08:29 Coreg PO 25 mg BID-WM CELSA Administration Donepezil HCl 5 mg 02/08/19 21:00 02/20/19 21:33 Aricept PO 5 mg HS CELSA Administration Gabapentin 600 mg 02/08/19 21:00 02/21/19 08:29 Neurontin PO 600 mg BID CELSA Administration Insulin Glargine 70 units/ 0.7 mls @ 0 mls/hr 02/19/19 09:00 02/21/19 08:30 Miscellaneous Medication SC 0.7 mls BID CELSA Administration Insulin Human Lispro 0 units 02/10/19 07:17 02/19/19 16:52 Humalog SC 11 unit .AGGRESSIVE SLIDING PRN Administration Aggressive Correctional Scale Isosorbide Dinitrate 10 mg 02/12/19 21:00 02/21/19 08:29 Isordil PO 10 mg BID CELSA Administration Lisinopril 20 mg 02/11/19 21:00 02/21/19 08:29 Zestril PO 20 mg BID CELSA Administration Metformin HCl 1,000 mg 02/19/19 09:00 02/21/19 08:28 Glucophage PO 1,000 mg BID CELAS Administration Pantoprazole Sodium 40 mg 02/18/19 09:00 02/21/19 08:29 Protonix PO 40 mg DAILY CELSA Administration Patient's Home 0 each 02/09/19 09:00 02/21/19 08:30 Medication Zinc 50 PO Not Given Mg DAILY CELSA Risperidone 1 mg 02/20/19 21:00 02/20/19 21:33 Risperidone PO 1 mg HS CELSA Administration - Exam General Appearance: NAD, awake alert Eye: PERRL, anicteric sclera ENT: no oropharyngeal lesions, moist mucosa Neck: supple, no JVD Heart: RRR, no murmur Respiratory: no wheezes, no rales Gastrointestinal: soft, non-tender, non-distended, normal bowel sounds Extremities: no cyanosis, 1+ LE edema Neurological: cranial nerve grossly intact, no focal deficits Hosp A/P (1) Acute respiratory failure with hypoxia Code(s): J96.01 - ACUTE RESPIRATORY FAILURE WITH HYPOXIA Status: Resolved (2) Atrial flutter Code(s): I48.92 - UNSPECIFIED ATRIAL FLUTTER Status: Acute (3) Hypernatremia Code(s): E87.0 - HYPEROSMOLALITY AND HYPERNATREMIA Status: Resolved (4) Morbid obesity with BMI of 40.0-44.9, adult Code(s): E66.01 - MORBID (SEVERE) OBESITY DUE TO EXCESS CALORIES; Z68.41 - BODY MASS INDEX (BMI) 40.0-44.9, ADULT Status: Chronic (5) Acute metabolic encephalopathy Code(s): G93.41 - METABOLIC ENCEPHALOPATHY Status: Acute (6) Acute on chronic diastolic ACC/AHA stage C congestive heart failure Code(s): I50.33 - ACUTE ON CHRONIC DIASTOLIC (CONGESTIVE) HEART FAILURE Status : Resolved (7) Anemia, normocytic normochromic Code(s): D64.9 - ANEMIA, UNSPECIFIED Status: Chronic (8) Anxiety and depression Code(s): F41.9 - ANXIETY DISORDER, UNSPECIFIED; F32.9 - MAJOR DEPRESSIVE DISORDER, SINGLE EPISODE, UNSPECIFIED Status: Chronic (9) Diabetes type 2, uncontrolled Code(s): E11.65 - TYPE 2 DIABETES MELLITUS WITH HYPERGLYCEMIA Status: Chronic Qualifiers: Glycemic state: with hyperglycemia Qualified Code(s): E11.65 - Type 2 diabetes mellitus with hyperglycemia (10) GERD (gastroesophageal reflux disease) Code(s): K21.9 - GASTRO-ESOPHAGEAL REFLUX DISEASE WITHOUT ESOPHAGITIS Status: Chronic Qualifiers: Esophagitis presence: esophagitis presence not specified Qualified Code(s) : K21.9 - Gastro-esophageal reflux disease without esophagitis (11) Hypertension Code(s): I10 - ESSENTIAL (PRIMARY) HYPERTENSION Status: Chronic Qualifiers: Hypertension type: essential hypertension Qualified Code(s): I10 - Essential (primary) hypertension (12) NADIA (obstructive sleep apnea) Code(s): G47.33 - OBSTRUCTIVE SLEEP APNEA (ADULT) (PEDIATRIC) Status: Chronic - Plan on lantus, metformin. encourage po intake, oob to chair and ambulate as tolerated keeps removing his nasal canula oxygen as well on eliquis, asp, lipitor, coreg, lisinopril, isordil, gabapentin, protonix nebs, i.spirometry hemostable risperdal 1mg qhs, has bursts of anxiety/agitation when he is off oxygen likely co2 narcosis. Currently has a 1:1 sitter for above reason, encephalopathy is resolving, may dc 1:1 sitter will need skilled placement/swing bed
[2019-02-21] MEDS: Atorvastatin Calcium 20 MG TAB PO SCH (22:09)
[2019-02-21] MEDS: Donepezil HCl 5 MG TAB PO SCH (22:09)
[2019-02-21] MEDS: risperiDONE 1 MG TAB PO SCH (22:10)
[2019-02-22] MEDS ORDERED: Dextrose 50 % In Water 50 ML SYRINGE ONE (01:22)
[2019-02-22 04:27] LABS: #Eosinphils 0.2 thou/uL (0.0-0.7); #Monocytes 1.6 thou/uL (0.11-0.59); #Neutrophils 15.7 thou/uL (1.40-6.50); %Basophils 0.1 % (0.0-1.0); %Eosinophils 0.9 % (0.0-10.0); %Lymphocytes 10.1 % (21.0-51.0); %Monocytes 8.1 % (0.0-10.0); %Neutrophils 80.8 % (42.0-75.0); Hemoglobin 11.3 g/dL (14.0-18.0); Mean Corpuscular HGB CONC 30.5 g/dL (32.0-36.0); Mean Corpuscular Hemoglobin 25.7 pg (27.0-31.0); Mean Corpuscular Volume 84.3 fL (78.0-98.0); Mean Platelet Volume 9.3 fL (7.4-10.4); Platelet Count 299 thou/uL (130-400); RBC Distribution Width 15.5 % (11.5-14.5); Red Blood Cell (RBC) Count 4.39 mill/uL (4.70-6.10); White Blood Cell (WBC) Count 19.5 thou/uL (4.8-10.8)
[2019-02-22 04:48] LABS: Anion Gap 14 mmol/L (10-20); BUN (Urea Nitrogen) 13 mg/dL (8.4-25.7); Calc. Creatinine Clearance 185 mL/min (70-130); Calcium 9.2 mg/dL (7.8-10.44); Carbon Dioxide 34 mmol/L (23-31); Chloride 101 mmol/L (98-107); Estimated GFR-MDRD Greater than 90; Glucose 83 mg/dL (80-115); Potassium 3.8 mmol/L (3.5-5.1); Sodium 145 mmol/L (136-145)
[2019-02-22] MEDS: Lisinopril 10 MG TAB PO SCH ×3 (09:15→20:51)
[2019-02-22] MEDS: Isosorbide Dinitrate 20 MG TAB PO SCH ×3 (09:15→20:50)
[2019-02-22] MEDS: Carvedilol 25 MG TAB PO SCH ×3 (09:15→18:30)
[2019-02-22] MEDS: Gabapentin 300 MG CAP PO SCH ×3 (09:15→20:50)
[2019-02-22] MEDS: Apixaban 5 MG TAB PO SCH ×3 (09:16→20:50)
[2019-02-22] MEDS: metFORMIN 500 MG TAB PO SCH ×2 (09:16→09:32)
[2019-02-22] MEDS: Aspirin Chewable 81 MG TAB PO SCH ×2 (09:16→10:14)
[2019-02-22] MEDS: ZINC 50 MG PO SCH (09:17)
[2019-02-22] MEDS: Insulin Glargine 70 UNITS in Pre-Filled Syringe 1 EACH SC SCH (09:31)
[2019-02-22] MEDS: Dextrose 5% in Water 1,000 ML IV SCH (12:42)
--- NOTE | 2019-02-22 12:49 | PDOC.HOSPP ---
- Subjective Encounter Date: 02/22/19 Encounter Time: 09:00 Subjective: was unresponsive this am and code erickson was called is now awake but doesn't talk or follow verbal stimuli fingerstick around 70's - Objective Vital Signs & Weight: Vital Signs (12 hours) Temp Pulse Resp BP BP Pulse Ox 02/22/19 11:50 99.8 F H 78 16 139/75 94 L 02/22/19 10:37 79 20 94 L 02/22/19 07:47 98.4 F 91 18 132/60 95 02/22/19 07:17 83 18 95 02/22/19 04:00 98.0 F 88 18 174/82 H 94 L Weight Admit Weight 315 lb 12.8 oz Weight 290 lb 1.6 oz Most Recent Monitor Data Heart Rate from ECG 96 NIBP 145/80 NIBP BP-Mean 101 Respiration from ECG 22 SpO2 98 I&O: 02/21/19 02/22/19 02/23/19 06:59 06:59 06:59 Intake Total 540 Balance 540 Result Diagrams: 02/22/19 04:03 02/22/19 04:03 Additional Labs: Accuchecks 02/22/19 02/22/19 02/22/19 10:53 09:16 08:02 POC Glucose 134 H 76 71 02/22/19 02/22/19 02/21/19 05:44 01:16 21:02 POC Glucose 82 62 L 77 02/21/19 16:56 POC Glucose 76 Hospitalist ROS - Medication Medications: Active Medications Generic Name Dose Route Start Last Admin Trade Name Freq PRN Reason Stop Dose Admin Acetaminophen 650 mg 02/07/19 22:14 02/20/19 03:27 Tylenol PO 650 mg Q4H PRN Administration Headache/Fever/Mild Pain (1-3) Albuterol/Ipratropium 3 ml 02/11/19 15:00 02/22/19 10:37 Duoneb NEB 3 ml [id number] CELSA Administration Apixaban 5 mg 02/20/19 21:00 02/22/19 10:13 Eliquis PO Not Given BID CELSA Aspirin 81 mg 02/08/19 09:00 02/22/19 10:14 Aspirin Chewable PO Not Given DAILY [facility] Atorvastatin Calcium 20 mg 02/09/19 21:00 02/21/19 22:09 Lipitor PO Not Given HS [facility] Carvedilol 25 mg 02/08/19 17:00 02/22/19 10:12 Coreg PO Not Given BID-WM [facility] Donepezil HCl 5 mg 02/08/19 21:00 02/21/19 22:09 Aricept PO Not Given HS [facility] Gabapentin 600 mg 02/08/19 21:00 02/22/19 10:14 Neurontin PO Not Given BID [facility] Dextrose/Water 1,000 mls @ 75 mls/hr 02/22/19 10:15 02/22/19 12:42 D5w IV 1,000 mls .[id number] CELSA Administration Insulin Human Lispro 0 units 02/10/19 07:17 02/19/19 16:52 Humalog SC 11 unit .AGGRESSIVE SLIDING PRN Administration Aggressive Correctional Scale Isosorbide Dinitrate 10 mg 02/12/19 21:00 02/22/19 10:15 Isordil PO Not Given BID [facility] Lisinopril 20 mg 02/11/19 21:00 02/22/19 10:15 Zestril PO Not Given BID [facility] Pantoprazole Sodium 40 mg 02/18/19 09:00 02/22/19 10:15 Protonix PO Not Given DAILY [facility] Patient's Home 0 each 02/09/19 09:00 02/22/19 09:17 Medication Zinc 50 PO Not Given Mg DAILY [facility] Risperidone 1 mg 02/20/19 21:00 02/21/19 22:10 Risperidone PO Not Given HS [facility] - Exam Eye: PERRL, anicteric sclera ENT: no oropharyngeal lesions, dry oral mucosa Neck: supple, no JVD Heart: RRR, no murmur Respiratory: no wheezes, no rales Gastrointestinal: soft, non-tender, non-distended, normal bowel sounds Extremities: no cyanosis, 1+ LE edema Neurological: cranial nerve grossly intact, no focal deficits Hosp A/P (1) Acute respiratory failure with hypoxia Code(s): J96.01 - ACUTE RESPIRATORY FAILURE WITH HYPOXIA Status: Resolved (2) Atrial flutter Code(s): I48.92 - UNSPECIFIED ATRIAL FLUTTER Status: Acute (3) Hypernatremia Code(s): E87.0 - HYPEROSMOLALITY AND HYPERNATREMIA Status: Resolved (4) Morbid obesity with BMI of 40.0-44.9, adult Code(s): E66.01 - MORBID (SEVERE) OBESITY DUE TO EXCESS CALORIES; Z68.41 - BODY MASS INDEX (BMI) 40.0-44.9, ADULT Status: Chronic (5) Acute metabolic encephalopathy Code(s): G93.41 - METABOLIC ENCEPHALOPATHY Status: Acute (6) Acute on chronic diastolic ACC/AHA stage C congestive heart failure Code(s): I50.33 - ACUTE ON CHRONIC DIASTOLIC (CONGESTIVE) HEART FAILURE Status : Resolved (7) Anemia, normocytic normochromic Code(s): D64.9 - ANEMIA, UNSPECIFIED Status: Chronic (8) Anxiety and depression Code(s): F41.9 - ANXIETY DISORDER, UNSPECIFIED; F32.9 - MAJOR DEPRESSIVE DISORDER, SINGLE EPISODE, UNSPECIFIED Status: Chronic (9) Diabetes type 2, uncontrolled Code(s): E11.65 - TYPE 2 DIABETES MELLITUS WITH HYPERGLYCEMIA Status: Chronic Qualifiers: Glycemic state: with hyperglycemia Qualified Code(s): E11.65 - Type 2 diabetes mellitus with hyperglycemia (10) GERD (gastroesophageal reflux disease) Code(s): K21.9 - GASTRO-ESOPHAGEAL REFLUX DISEASE WITHOUT ESOPHAGITIS Status: Chronic Qualifiers: Esophagitis presence: esophagitis presence not specified Qualified Code(s) : K21.9 - Gastro-esophageal reflux disease without esophagitis (11) Hypertension Code(s): I10 - ESSENTIAL (PRIMARY) HYPERTENSION Status: Chronic Qualifiers: Hypertension type: essential hypertension Qualified Code(s): I10 - Essential (primary) hypertension (12) NADIA (obstructive sleep apnea) Code(s): G47.33 - OBSTRUCTIVE SLEEP APNEA (ADULT) (PEDIATRIC) Status: Chronic (13) Physical deconditioning Code(s): R53.81 - OTHER MALAISE Status: Acute - Plan DC lantus, metformin due to labile dm and erratic eating habits, is on d5w now. d/w over phone, she wants him to be DNAR, is aware of multiple medical issues including current code green this am wants MRI to confirm dementia, I have counselled reg dementia diagnosis etc , will try to obtain one if he can fit in the scanner if not ct brain wo encourage po intake, oob to chair and ambulate as tolerated keeps removing his nasal canula oxygen as well on eliquis, asp, lipitor, coreg, lisinopril, isordil, gabapentin, protonix nebs, i.spirometry hemostable risperdal 1mg qhs, has bursts of anxiety/agitation when he is off oxygen likely co2 narcosis. Prognosis guarded with multiple med issues, morbid obesity, poor functional status. will need skilled placement/swing bed
[2019-02-22 16:40] LABS: Actual Bicarbonate (HCO3a) 34.2 mEq/L (22-28); Base Excess (BEa) 8.8 mEq/L (-2.0 to +3.0); CO2 Tension 50.8 mmHg (35.0-45.0); Calcium, Ionized 1.18 mmol/L (1.12-1.30); Carboxyhemoglobin (COHb) 1.7 gm% (0.0-3.0); Hemoglobin (Hb) 11.2 g/dL (14.0-18.0); Potassium - ABG Lab 3.97 mmol/L (3.70-5.30); pH, Arterial 7.45 (7.35-7.45)
[2019-02-22 16:47] LABS: O2 Tension (PaO2) 50.7 mmHg (> 80.0)
[2019-02-22] MEDS: Chlorhexidine Gluconate 15 ML UDCUP SSP SCH ×2 (18:30→21:18)
[2019-02-22] MEDS: Donepezil HCl 5 MG TAB PO SCH (20:50)
[2019-02-22] MEDS: Atorvastatin Calcium 20 MG TAB PO SCH (20:50)
[2019-02-22] MEDS: risperiDONE 1 MG TAB PO SCH (20:51)
[2019-02-22] MEDS: Clindamycin/D5W 600 MG in Premix Bag 1 BAG IVPB SCH (21:15)
[2019-02-23] MEDS: Chlorhexidine Gluconate 15 ML UDCUP SSP SCH ×6 (00:24→22:29)
[2019-02-23] MEDS: Dextrose 5% in Water 1,000 ML IV SCH ×2 (04:03→13:40)
[2019-02-23 04:28] LABS: Anion Gap 15 mmol/L (10-20); BUN (Urea Nitrogen) 12 mg/dL (8.4-25.7); Calc. Creatinine Clearance 183 mL/min (70-130); Calcium 8.8 mg/dL (7.8-10.44); Carbon Dioxide 30 mmol/L (23-31); Chloride 99 mmol/L (98-107); Estimated GFR-MDRD Greater than 90; Glucose 163 mg/dL (80-115); Potassium 4.2 mmol/L (3.5-5.1); Sodium 140 mmol/L (136-145)
[2019-02-23 04:35] LABS: #Eosinphils 0.2 thou/uL (0.0-0.7); #Lymphocytes 1.6 thou/uL (1.20-3.40); #Monocytes 1.3 thou/uL (0.11-0.59); #Neutrophils 11.2 thou/uL (1.40-6.50); %Eosinophils 1.4 % (0.0-10.0); %Lymphocytes 10.9 % (21.0-51.0); %Monocytes 9.2 % (0.0-10.0); %Neutrophils 78.6 % (42.0-75.0); Hemoglobin 11.5 g/dL (14.0-18.0); Mean Corpuscular HGB CONC 27.1 g/dL (32.0-36.0); Mean Corpuscular Hemoglobin 22.5 pg (27.0-31.0); Mean Corpuscular Volume 82.9 fL (78.0-98.0); Mean Platelet Volume 9.5 fL (7.4-10.4); Platelet Count 249 thou/uL (130-400); RBC Distribution Width 15.8 % (11.5-14.5); Red Blood Cell (RBC) Count 5.12 mill/uL (4.70-6.10); White Blood Cell (WBC) Count 14.3 thou/uL (4.8-10.8)
[2019-02-23] MEDS: Clindamycin/D5W 600 MG in Premix Bag 1 BAG IVPB SCH ×3 (05:38→22:28)
[2019-02-23] MEDS: Carvedilol 25 MG TAB PO SCH ×2 (08:54→18:04)
[2019-02-23] MEDS: Apixaban 5 MG TAB PO SCH ×2 (08:54→20:16)
[2019-02-23] MEDS: Isosorbide Dinitrate 20 MG TAB PO SCH ×2 (08:55→20:15)
[2019-02-23] MEDS: Aspirin Chewable 81 MG TAB PO SCH (08:55)
[2019-02-23] MEDS: Gabapentin 300 MG CAP PO SCH ×2 (08:55→20:14)
[2019-02-23] MEDS: ZINC 50 MG PO SCH (08:55)
[2019-02-23] MEDS: Lisinopril 10 MG TAB PO SCH ×2 (08:55→20:14)
--- NOTE | 2019-02-23 14:12 | PRG ---
DATE OF SERVICE: 02/23/2019 SUBJECTIVE: The patient was moved back to the [facility] basically because they were having a difficult time taking care of him on the floor. He remains about the same. He is largely inactive, just sits there and confabulates, answers to questions when asked. Right now, he is sitting in a chair. He has no acute complaints. OBJECTIVE: VITAL SIGNS: His temperature is 98.4, pulse 102, blood pressure 170/110. HEENT: Unremarkable. NECK: No adenopathy or JVD. CHEST: Clear anteriorly. CARDIAC: S1 and S2. Regular. ABDOMEN: Soft. EXTREMITIES: No edema. LABORATORY DATA: Sodium 140, potassium 4.2, BUN 12, creatinine 0.7, glucose 163. White blood cell count 14.3, hematocrit 42.5, platelet count 249. ASSESSMENT: 1. Encephalopathy. 2. Chronic diastolic heart failure. 3. Morbid obesity. 4. Failure to thrive. 5. Obstructive sleep apnea, noncompliant with CPAP. PLAN: Not much to offer from Pulmonary standpoint. I would focus on palliative care. Job ID: [id number]
--- NOTE | 2019-02-23 16:30 | PDOC.HOSPP ---
- Subjective Encounter Date: 02/23/19 Encounter Time: 12:00 Subjective: more awake, sitting in chair responds minimally to verbal stimuli not in distress - Objective Vital Signs & Weight: Vital Signs (12 hours) Temp Pulse Pulse Pulse Resp BP BP 02/23/19 16:07 98.5 F 02/23/19 15:12 94 16 02/23/19 11:25 94 98 134/66 131/65 02/23/19 11:21 98.4 F 02/23/19 10:20 98 20 02/23/19 07:59 02/23/19 07:16 97.9 F 02/23/19 07:14 02/23/19 07:11 92 20 Pulse Ox Pulse Ox Pulse Ox 02/23/19 16:07 02/23/19 15:12 90 L 02/23/19 11:25 98 96 02/23/19 11:21 02/23/19 10:20 92 L 02/23/19 07:59 94 L 02/23/19 07:16 02/23/19 07:14 92 L 02/23/19 07:11 92 L Weight Admit Weight 315 lb 12.8 oz Weight 290 lb 1.6 oz Most Recent Monitor Data Heart Rate from ECG 102 NIBP 170/110 NIBP BP-Mean 130 Respiration from ECG 19 SpO2 93 I&O: 02/22/19 02/23/19 02/24/19 06:59 06:59 06:59 Intake Total 540 851 Balance 540 851 Result Diagrams: 02/23/19 03:53 02/23/19 03:53 Additional Labs: Accuchecks 02/23/19 02/22/19 02/22/19 10:32 21:57 16:41 POC Glucose 233 H 148 H 123 H Hospitalist ROS - Medication Medications: Active Medications Generic Name Dose Route Start Last Admin Trade Name Freq PRN Reason Stop Dose Admin Acetaminophen 650 mg 02/07/19 22:14 02/20/19 03:27 Tylenol PO 650 mg Q4H PRN Administration Headache/Fever/Mild Pain (1-3) Albuterol/Ipratropium 3 ml 02/11/19 15:00 02/23/19 15:12 Duoneb NEB 3 ml [id number] CELSA Administration Apixaban 5 mg 02/20/19 21:00 02/23/19 08:54 Eliquis PO Not Given BID [facility] Aspirin 81 mg 02/08/19 09:00 02/23/19 08:55 Aspirin Chewable PO Not Given DAILY [facility] Atorvastatin Calcium 20 mg 02/09/19 21:00 02/22/19 20:50 Lipitor PO Not Given HS [facility] Carvedilol 25 mg 02/08/19 17:00 02/22/19 18:30 Coreg PO Not Given BID-WM [facility] Chlorhexidine Gluconate 15 ml 02/22/19 17:00 02/23/19 10:00 Chlorhexidine Gluconate SSP 15 ml Q4HR [facility] Administration Donepezil HCl 5 mg 02/08/19 21:00 02/22/19 20:50 Aricept PO Not Given HS [facility] Gabapentin 600 mg 02/08/19 21:00 02/23/19 08:55 Neurontin PO Not Given BID [facility] Hydralazine HCl 10 mg 02/12/19 20:15 02/23/19 04:05 Apresoline SLOW IVP 10 mg Q6H PRN Administration SBP > 180;DBP >110 Dextrose/Water 1,000 mls @ 75 mls/hr 02/22/19 10:15 02/23/19 04:03 D5w IV 1,000 mls .[id number] [facility] Administration Clindamycin Phosphate/Dextrose 50 mls @ 100 mls/hr 02/22/19 22:00 02/23/19 05 :38 600 mg/ Device IVPB 50 mls Q8HR [facility] Administration Insulin Human Lispro 0 units 02/10/19 07:17 02/19/19 16:52 Humalog SC 11 unit .AGGRESSIVE SLIDING PRN Administration Aggressive Correctional Scale Isosorbide Dinitrate 10 mg 02/12/19 21:00 02/23/19 08:55 Isordil PO Not Given BID [facility] Lisinopril 20 mg 02/11/19 21:00 02/23/19 08:55 Zestril PO Not Given BID [facility] Pantoprazole Sodium 40 mg 02/18/19 09:00 02/23/19 08:55 Protonix PO Not Given DAILY [facility] Patient's Home 0 each 02/09/19 09:00 02/23/19 08:55 Medication Zinc 50 PO Not Given Mg DAILY [facility] Risperidone 1 mg 02/20/19 21:00 02/22/19 20:51 Risperidone PO Not Given HS [facility]EL[facility] - Exam General Appearance: awake alert Eye: anicteric sclera ENT: no oropharyngeal lesions, moist mucosa Neck: supple, no JVD Heart: RRR, no murmur Respiratory: no wheezes, no rales Gastrointestinal: soft, non-tender, non-distended, normal bowel sounds Extremities: no cyanosis, 1+ LE edema Neurological: cranial nerve grossly intact, no focal deficits Hosp A/P (1) Acute respiratory failure with hypoxia Code(s): J96.01 - ACUTE RESPIRATORY FAILURE WITH HYPOXIA Status: Acute (2) Atrial flutter Code(s): I48.92 - UNSPECIFIED ATRIAL FLUTTER Status: Acute (3) Hypernatremia Code(s): E87.0 - HYPEROSMOLALITY AND HYPERNATREMIA Status: Resolved (4) Morbid obesity with BMI of 40.0-44.9, adult Code(s): E66.01 - MORBID (SEVERE) OBESITY DUE TO EXCESS CALORIES; Z68.41 - BODY MASS INDEX (BMI) 40.0-44.9, ADULT Status: Chronic (5) Acute metabolic encephalopathy Code(s): G93.41 - METABOLIC ENCEPHALOPATHY Status: Acute (6) Acute on chronic diastolic ACC/AHA stage C congestive heart failure Code(s): I50.33 - ACUTE ON CHRONIC DIASTOLIC (CONGESTIVE) HEART FAILURE Status : Resolved (7) Anemia, normocytic normochromic Code(s): D64.9 - ANEMIA, UNSPECIFIED Status: Chronic (8) Anxiety and depression Code(s): F41.9 - ANXIETY DISORDER, UNSPECIFIED; F32.9 - MAJOR DEPRESSIVE DISORDER, SINGLE EPISODE, UNSPECIFIED Status: Chronic (9) Diabetes type 2, uncontrolled Code(s): E11.65 - TYPE 2 DIABETES MELLITUS WITH HYPERGLYCEMIA Status: Chronic Qualifiers: Glycemic state: with hyperglycemia Qualified Code(s): E11.65 - Type 2 diabetes mellitus with hyperglycemia (10) GERD (gastroesophageal reflux disease) Code(s): K21.9 - GASTRO-ESOPHAGEAL REFLUX DISEASE WITHOUT ESOPHAGITIS Status: Chronic Qualifiers: Esophagitis presence: esophagitis presence not specified Qualified Code(s) : K21.9 - Gastro-esophageal reflux disease without esophagitis (11) Hypertension Code(s): I10 - ESSENTIAL (PRIMARY) HYPERTENSION Status: Chronic Qualifiers: Hypertension type: essential hypertension Qualified Code(s): I10 - Essential (primary) hypertension (12) NADIA (obstructive sleep apnea) Code(s): G47.33 - OBSTRUCTIVE SLEEP APNEA (ADULT) (PEDIATRIC) Status: Chronic (13) Physical deconditioning Code(s): R53.81 - OTHER MALAISE Status: Acute - Plan has developed b/l parotitis likely from poor oral hygiene, on clindamycin, is clinically improving, sour candy/lozenges, cholhexidine mouth wash q4h x 3 days has had erratic eating habits/mental status changes with poor eating and very labile swinging of fingerstick glucose, may dc d5w, to add anti dm meds in am if stable d/w over phone, she wants him to be DNAR, is aware of multiple medical issues (02/22/2019) wants MRI to confirm dementia, I have counselled reg how dementia is diagnosed etc, will try to obtain one if he can fit in the scanner to see for cva/parenchymal changes/hydro encourage po intake, oob to chair and ambulate as tolerated keeps removing his nasal canula oxygen/bipap mask as well on eliquis, asp, lipitor, coreg, lisinopril, isordil, gabapentin, protonix nebs, i.spirometry hemostable risperdal 1mg qhs, has bursts of anxiety/agitation when he is off oxygen likely co2 narcosis. Prognosis guarded with multiple med issues, morbid obesity, poor functional status. will need skilled placement/swing bed Major issue right now is parotitis, very poor functional status, need to mobilize more
[2019-02-23] MEDS: risperiDONE 1 MG TAB PO SCH (20:14)
[2019-02-23] MEDS: Atorvastatin Calcium 20 MG TAB PO SCH (20:15)
[2019-02-23] MEDS: Donepezil HCl 5 MG TAB PO SCH (20:16)
[2019-02-24] MEDS: Chlorhexidine Gluconate 15 ML UDCUP SSP SCH ×6 (00:57→22:11)
[2019-02-24] MEDS: Clindamycin/D5W 600 MG in Premix Bag 1 BAG IVPB SCH ×4 (04:55→22:40)
[2019-02-24 05:05] LABS: Anion Gap 13 mmol/L (10-20); BUN (Urea Nitrogen) 13 mg/dL (8.4-25.7); Calc. Creatinine Clearance 150 mL/min (70-130); Carbon Dioxide 34 mmol/L (23-31); Chloride 97 mmol/L (98-107); Estimated GFR-MDRD 85; Glucose 361 mg/dL (80-115); Potassium 4.1 mmol/L (3.5-5.1); Sodium 140 mmol/L (136-145)
[2019-02-24] MEDS: HumaLOG 300 UNITS/3 ML VIAL SC PRN ×3 (06:40→22:41)
[2019-02-24] MEDS ORDERED: Insulin Glargine 12 UNITS in Pre-Filled Syringe 1 EACH SC SCH (09:15)
[2019-02-24] MEDS: Gabapentin 300 MG CAP PO SCH ×2 (09:57→22:11)
[2019-02-24] MEDS: Lisinopril 10 MG TAB PO SCH ×2 (09:58→22:12)
[2019-02-24] MEDS: Zinc Sulfate 220 MG CAP PO SCH (09:58)
[2019-02-24] MEDS: Apixaban 5 MG TAB PO SCH ×2 (09:59→22:10)
[2019-02-24] MEDS: Isosorbide Dinitrate 20 MG TAB PO SCH ×2 (09:59→22:11)
[2019-02-24] MEDS: Carvedilol 25 MG TAB PO SCH ×2 (10:00→17:00)
[2019-02-24] MEDS: Aspirin Chewable 81 MG TAB PO SCH (10:00)
[2019-02-24] MEDS: Acetaminophen 325 MG TAB PO PRN (12:48)
[2019-02-24 13:33] LABS: #Eosinphils 0.2 thou/uL (0.0-0.7); #Lymphocytes 1.6 thou/uL (1.20-3.40); #Monocytes 1.2 thou/uL (0.11-0.59); #Neutrophils 7.5 thou/uL (1.40-6.50); %Basophils 0.2 % (0.0-1.0); %Eosinophils 1.8 % (0.0-10.0); %Lymphocytes 14.9 % (21.0-51.0); %Monocytes 11.3 % (0.0-10.0); %Neutrophils 71.9 % (42.0-75.0); Hemoglobin 10.6 g/dL (14.0-18.0); Mean Corpuscular HGB CONC 31.2 g/dL (32.0-36.0); Mean Corpuscular Hemoglobin 25.9 pg (27.0-31.0); Mean Corpuscular Volume 82.9 fL (78.0-98.0); Mean Platelet Volume 8.5 fL (7.4-10.4); Platelet Count 356 thou/uL (130-400); RBC Distribution Width 15.4 % (11.5-14.5); Red Blood Cell (RBC) Count 4.11 mill/uL (4.70-6.10); White Blood Cell (WBC) Count 10.5 thou/uL (4.8-10.8)
[2019-02-24 16:28] LABS: Actual Bicarbonate (HCO3a) 33.8 mEq/L (22-28); Base Excess (BEa) 8.7 mEq/L (-2.0 to +3.0); CO2 Tension 49.2 mmHg (35.0-45.0); Calcium, Ionized 1.16 mmol/L (1.12-1.30); Carboxyhemoglobin (COHb) 1.6 gm% (0.0-3.0); Potassium - ABG Lab 4.14 mmol/L (3.70-5.30); pH, Arterial 7.46 (7.35-7.45)
[2019-02-24 16:39] LABS: O2 Tension (PaO2) 52.6 mmHg (> 80.0)
[2019-02-24 16:40] LABS: Puncture Site RRA
--- NOTE | 2019-02-24 16:53 | PDOC.HOSPP ---
- Subjective Encounter Date: 02/24/19 Encounter Time: 11:51 Subjective: 68 y/o male with morbid obesity associated with NADIA and OHS, chronic CHF, DM, atrial fib/flutter admitted with worsening SOB. Developed bilateral parotitis thought to be related to poor oral hygein and started on oral care with improvement. Feeling better. Still with some confusion. No fever. - Objective Vital Signs & Weight: Vital Signs (12 hours) Temp Pulse Resp Pulse Ox 02/24/19 16:44 92 23 H 97 02/24/19 16:42 88 27 H 97 02/24/19 16:00 98.3 F 02/24/19 12:02 80 13 94 L 02/24/19 10:23 98.1 F 02/24/19 07:45 94 L 02/24/19 07:34 94 L 02/24/19 07:32 96 19 94 L 02/24/19 07:22 98.6 F Weight Admit Weight 315 lb 12.8 oz Weight 288 lb 1.6 oz Most Recent Monitor Data Heart Rate from ECG 76 NIBP 165/87 NIBP BP-Mean 113 Respiration from ECG 15 SpO2 92 I&O: 02/23/19 02/24/19 02/25/19 06:59 06:59 06:59 Intake Total 851 1410 Balance 851 1410 Result Diagrams: 02/24/19 04:17 02/24/19 04:17 Additional Labs: Accuchecks 02/24/19 02/24/19 02/24/19 15:58 10:11 06:43 POC Glucose 433 H 292 H 369 H 02/23/19 20:16 POC Glucose 286 H Hospitalist ROS - Medication Medications: Active Medications Generic Name Dose Route Start Last Admin Trade Name Freq PRN Reason Stop Dose Admin Acetaminophen 650 mg 02/07/19 22:14 02/24/19 12:48 Tylenol PO 650 mg Q4H PRN Administration Headache/Fever/Mild Pain (1-3) Albuterol/Ipratropium 3 ml 02/11/19 15:00 02/24/19 16:42 Duoneb NEB 3 ml [id number] CELSA Administration Apixaban 5 mg 02/20/19 21:00 02/24/19 09:59 Eliquis PO 5 mg BID [facility] Administration Aspirin 81 mg 02/08/19 09:00 02/24/19 10:00 Aspirin Chewable PO 81 mg DAILY [facility] Administration Atorvastatin Calcium 20 mg 02/09/19 21:00 02/23/19 20:15 Lipitor PO 20 mg HS [facility]EL[facility] Administration Carvedilol 25 mg 02/08/19 17:00 02/24/19 10:00 Coreg PO 25 mg BID-WM [facility] Administration Chlorhexidine Gluconate 15 ml 02/22/19 17:00 02/24/19 14:17 Chlorhexidine Gluconate SSP Not Given Q4HR [facility] Donepezil HCl 5 mg 02/08/19 21:00 02/23/19 20:16 Aricept PO 5 mg HS [facility] Administration Gabapentin 600 mg 02/08/19 21:00 02/24/19 09:57 Neurontin PO 600 mg BID [facility] Administration Hydralazine HCl 10 mg 02/12/19 20:15 02/23/19 04:05 Apresoline SLOW IVP 10 mg Q6H PRN Administration SBP > 180;DBP >110 Clindamycin Phosphate/Dextrose 50 mls @ 100 mls/hr 02/22/19 22:00 02/24/19 06 :27 600 mg/ Device IVPB Not Given Q8HR [facility] Insulin Human Lispro 0 units 02/10/19 07:17 02/24/19 06:40 Humalog SC 9 unit .AGGRESSIVE SLIDING PRN Administration Aggressive Correctional Scale Isosorbide Dinitrate 10 mg 02/12/19 21:00 02/24/19 09:59 Isordil PO 10 mg BID [facility] Administration Lisinopril 20 mg 02/11/19 21:00 02/24/19 09:58 Zestril PO 20 mg BID [facility] Administration Pantoprazole Sodium 40 mg 02/18/19 09:00 02/24/19 10:00 Protonix PO 40 mg DAILY [facility] Administration Risperidone 1 mg 02/20/19 21:00 02/23/19 20:14 Risperidone PO 1 mg HS [facility] Administration Zinc Sulfate 220 mg 02/24/19 09:00 02/24/19 09:58 Zinc Sulfate PO 220 mg DAILY [facility] Administration - Exam General Appearance: awake alert Eye: anicteric sclera ENT: normocephalic atraumatic ENT - other findings: moderate bilateral parotid area swelling without tenderness Neck: symmetric, no JVD Heart: RRR Respiratory: no wheezes, no ronchi, normal chest expansion, no tachypnea Gastrointestinal: soft, non-tender, non-distended, normal bowel sounds Extremities: no cyanosis, no edema Neurological: cranial nerve grossly intact, no focal deficits Neurological - other findings: oriented to person at least. memory lapses and confusion noted Hosp A/P (1) Acute parotitis Code(s): K11.21 - ACUTE SIALOADENITIS Status: Acute (2) Acute respiratory failure Code(s): J96.00 - ACUTE RESPIRATORY FAILURE, UNSP W HYPOXIA OR HYPERCAPNIA Status: Resolved Qualifiers: Respiratory failure complication: hypercapnia Qualified Code(s): J96.02 - Acute respiratory failure with hypercapnia (3) Acute metabolic encephalopathy Code(s): G93.41 - METABOLIC ENCEPHALOPATHY Status: Acute (4) Acute on chronic diastolic ACC/AHA stage C congestive heart failure Code(s): I50.33 - ACUTE ON CHRONIC DIASTOLIC (CONGESTIVE) HEART FAILURE Status : Resolved (5) Acute respiratory acidosis Code(s): E87.2 - ACIDOSIS Status: Acute (6) Afib Code(s): I48.91 - UNSPECIFIED ATRIAL FIBRILLATION Status: Acute (7) Volume overload Code(s): E87.70 - FLUID OVERLOAD, UNSPECIFIED Status: Acute (8) Atrial fibrillation and flutter Code(s): I48.91 - UNSPECIFIED ATRIAL FIBRILLATION; I48.92 - UNSPECIFIED ATRIAL FLUTTER Status: Chronic (9) CO2 narcosis Code(s): R06.89 - OTHER ABNORMALITIES OF BREATHING Status: Chronic (10) Diabetes type 2, uncontrolled Code(s): E11.65 - TYPE 2 DIABETES MELLITUS WITH HYPERGLYCEMIA Status: Chronic Qualifiers: Glycemic state: with hyperglycemia Qualified Code(s): E11.65 - Type 2 diabetes mellitus with hyperglycemia (11) GERD (gastroesophageal reflux disease) Code(s): K21.9 - GASTRO-ESOPHAGEAL REFLUX DISEASE WITHOUT ESOPHAGITIS Status: Chronic Qualifiers: Esophagitis presence: esophagitis presence not specified Qualified Code(s) : K21.9 - Gastro-esophageal reflux disease without esophagitis (12) Hypertension Code(s): I10 - ESSENTIAL (PRIMARY) HYPERTENSION Status: Chronic Qualifiers: Hypertension type: essential hypertension Qualified Code(s): I10 - Essential (primary) hypertension (13) Morbid obesity with BMI of 50.0-59.9, adult Code(s): E66.01 - MORBID (SEVERE) OBESITY DUE TO EXCESS CALORIES; Z68.43 - BODY MASS INDEX (BMI) 50.0-59.9, ADULT Status: Chronic (14) NADIA (obstructive sleep apnea) Code(s): G47.33 - OBSTRUCTIVE SLEEP APNEA (ADULT) (PEDIATRIC) Status: Chronic (15) Atrial flutter Code(s): I48.92 - UNSPECIFIED ATRIAL FLUTTER Status: Acute (16) Critical illness myopathy Code(s): G72.81 - CRITICAL ILLNESS MYOPATHY Status: Acute - Plan Continue clindamycin and oral care PT/OT Restart lantus at a lower dose Continue sliding scale insulin Monitor electrolytes and replete as needed.
[2019-02-24] MEDS: Donepezil HCl 5 MG TAB PO SCH (22:11)
[2019-02-24] MEDS: Atorvastatin Calcium 20 MG TAB PO SCH (22:11)
[2019-02-24] MEDS: risperiDONE 1 MG TAB PO SCH (22:12)
[2019-02-25 03:57] LABS: #Basophils 0.1 thou/uL (0.0-0.2); #Eosinphils 0.2 thou/uL (0.0-0.7); #Monocytes 1.1 thou/uL (0.11-0.59); #Neutrophils 7.4 thou/uL (1.40-6.50); %Basophils 0.5 % (0.0-1.0); %Lymphocytes 18.2 % (21.0-51.0); %Monocytes 10.4 % (0.0-10.0); %Neutrophils 68.9 % (42.0-75.0); Hemoglobin 10.9 g/dL (14.0-18.0); Mean Corpuscular HGB CONC 31.5 g/dL (32.0-36.0); Mean Corpuscular Hemoglobin 25.8 pg (27.0-31.0); Mean Platelet Volume 8.1 fL (7.4-10.4); Platelet Count 383 thou/uL (130-400); RBC Distribution Width 15.3 % (11.5-14.5); Red Blood Cell (RBC) Count 4.22 mill/uL (4.70-6.10); White Blood Cell (WBC) Count 10.7 thou/uL (4.8-10.8)
[2019-02-25 04:11] LABS: Anion Gap 14 mmol/L (10-20); BUN (Urea Nitrogen) 10 mg/dL (8.4-25.7); Calc. Creatinine Clearance 147 mL/min (70-130); Carbon Dioxide 35 mmol/L (23-31); Chloride 99 mmol/L (98-107); Estimated GFR-MDRD 85; Glucose 299 mg/dL (80-115); Potassium 4.6 mmol/L (3.5-5.1); Sodium 143 mmol/L (136-145)
[2019-02-25] MEDS: Chlorhexidine Gluconate 15 ML UDCUP SSP SCH ×6 (05:32→21:12)
[2019-02-25] MEDS: Clindamycin/D5W 600 MG in Premix Bag 1 BAG IVPB SCH ×3 (05:33→21:15)
[2019-02-25] MEDS: HumaLOG 300 UNITS/3 ML VIAL SC PRN ×2 (05:44→10:40)
[2019-02-25] MEDS ORDERED: Insulin Glargine 12 UNITS in Pre-Filled Syringe 1 EACH SC SCH (09:00)
[2019-02-25] MEDS ORDERED: Insulin Glargine 36 UNITS in Pre-Filled Syringe 1 EACH SC SCH (09:01)
[2019-02-25] MEDS: Zinc Sulfate 220 MG CAP PO SCH (10:32)
[2019-02-25] MEDS: Gabapentin 300 MG CAP PO SCH ×2 (10:32→21:13)
[2019-02-25] MEDS: Aspirin Chewable 81 MG TAB PO SCH (10:32)
[2019-02-25] MEDS: Carvedilol 25 MG TAB PO SCH ×2 (10:32→16:13)
[2019-02-25] MEDS: Lisinopril 10 MG TAB PO SCH ×2 (10:33→21:14)
[2019-02-25] MEDS: Apixaban 5 MG TAB PO SCH ×2 (10:34→21:14)
[2019-02-25] MEDS: Isosorbide Dinitrate 20 MG TAB PO SCH ×2 (10:36→23:00)
[2019-02-25] MEDS ORDERED: Insulin Glargine 24 UNITS in Pre-Filled Syringe 1 EACH SC SCH (12:30)
--- NOTE | 2019-02-25 12:38 | PRG ---
DATE OF SERVICE: 02/25/2019 SUBJECTIVE: The patient had another spell yesterday, where he basically becomes unresponsive to stimuli, but does not become hypoxic. He was placed back on the BiPAP temporarily. He seems back to his baseline this morning. OBJECTIVE: VITAL SIGNS: Temperature is 97.9, pulse 77, and blood pressure 146/78. HEENT: Unremarkable. NECK: No adenopathy or JVD. LUNGS: Clear. CARDIAC: S1 and S2. Regular. ABDOMEN: Soft. EXTREMITIES: Edematous. ASSESSMENT: 1. The patient continues to have this intermittent encephalopathy, which is not well explained. 2. Obstructive sleep apnea, noncompliant with CPAP. RECOMMENDATIONS: 1. Maybe at some point he needs a Neurology consult as I am not sure why this keeps happening to him. 2. I would withhold all sedative medications if at all possible. Job ID: [id number]
--- NOTE | 2019-02-25 16:06 | PDOC.HOSPP ---
- Subjective Encounter Date: 02/25/19 Encounter Time: 11:24 Subjective: 68 y/o male with morbid obesity associated with NADIA and OHS, chronic CHF, DM, atrial fib/flutter admitted with worsening SOB. Developed bilateral parotitis thought to be related to poor oral hygein and started on oral care with improvement. Had an episode on acute somnolence yesterday evening and was hard to arouse. Slept for several hours and later woke. ECG monitor and vitals were unremarkable. This was reminiscent of code green on the medical follow several days back. Feeling better. No fever. - Objective Vital Signs & Weight: Vital Signs (12 hours) Temp Pulse Resp BP Pulse Ox 02/25/19 15:41 97.8 F 02/25/19 11:51 100 20 108/62 92 L 02/25/19 11:15 97.9 F 02/25/19 08:00 98 02/25/19 07:30 97.9 F Weight Admit Weight 315 lb 12.8 oz Weight 288 lb 1.601 oz Most Recent Monitor Data Heart Rate from ECG 77 NIBP 146/78 NIBP BP-Mean 100 Respiration from ECG 22 SpO2 90 I&O: 02/24/19 02/25/19 02/26/19 06:59 06:59 06:59 Intake Total 1410 1080 Balance 1410 1080 Result Diagrams: 02/25/19 03:42 02/25/19 03:42 Additional Labs: Accuchecks 02/25/19 02/25/19 02/24/19 10:38 05:41 20:17 POC Glucose 324 H 308 H 379 H 02/24/19 15:58 POC Glucose 433 H Hospitalist ROS - Medication Medications: Active Medications Generic Name Dose Route Start Last Admin Trade Name Freq PRN Reason Stop Dose Admin Acetaminophen 650 mg 02/07/19 22:14 02/24/19 12:48 Tylenol PO 650 mg Q4H PRN Administration Headache/Fever/Mild Pain (1-3) Albuterol/Ipratropium 3 ml 02/11/19 15:00 02/25/19 15:49 Duoneb NEB Not Given [id number] CEL[facility] Apixaban 5 mg 02/20/19 21:00 02/25/19 10:34 Eliquis PO 5 mg BID [facility] Administration Aspirin 81 mg 02/08/19 09:00 02/25/19 10:32 Aspirin Chewable PO 81 mg DAILY [facility] Administration Atorvastatin Calcium 20 mg 02/09/19 21:00 02/24/19 22:11 Lipitor PO Not Given HS [facility] Carvedilol 25 mg 02/08/19 17:00 02/25/19 10:32 Coreg PO 25 mg BID-WM [facility] Administration Chlorhexidine Gluconate 15 ml 02/22/19 17:00 02/25/19 10:36 Chlorhexidine Gluconate SSP 15 ml Q4HR [facility] Administration Donepezil HCl 5 mg 02/08/19 21:00 02/24/19 22:11 Aricept PO Not Given HS [facility] Gabapentin 600 mg 02/08/19 21:00 02/25/19 10:32 Neurontin PO 600 mg BID [facility] Administration Hydralazine HCl 10 mg 02/12/19 20:15 02/23/19 04:05 Apresoline SLOW IVP 10 mg Q6H PRN Administration SBP > 180;DBP >110 Clindamycin Phosphate/Dextrose 50 mls @ 100 mls/hr 02/22/19 22:00 02/25/19 05 :33 600 mg/ Device IVPB 50 mls Q8HR [facility] Administration Insulin Human Lispro 0 units 02/10/19 07:17 02/25/19 10:40 Humalog SC 11 unit .AGGRESSIVE SLIDING PRN Administration Aggressive Correctional Scale Isosorbide Dinitrate 10 mg 02/12/19 21:00 02/25/19 10:36 Isordil PO 10 mg BID CEL[facility] Administration Lisinopril 20 mg 02/11/19 21:00 02/25/19 10:33 Zestril PO 20 mg BID CEL[facility] Administration Pantoprazole Sodium 40 mg 02/18/19 09:00 02/25/19 10:34 Protonix PO 40 mg DAILY [facility] Administration Zinc Sulfate 220 mg 02/24/19 09:00 02/25/19 10:32 Zinc Sulfate PO 220 mg DAILY [facility] Administration - Exam General Appearance: awake alert Eye: anicteric sclera ENT: normocephalic atraumatic ENT - other findings: mild bilateral parotid swelling. non tender Neck: no JVD Heart: RRR Respiratory: no wheezes, no ronchi, normal chest expansion, no tachypnea Gastrointestinal: soft, non-tender, non-distended, normal bowel sounds Extremities: no edema Neurological: cranial nerve grossly intact, normal sensation to touch, no focal deficits Hosp A/P (1) Acute parotitis Code(s): K11.21 - ACUTE SIALOADENITIS Status: Acute (2) Acute respiratory failure Code(s): J96.00 - ACUTE RESPIRATORY FAILURE, UNSP W HYPOXIA OR HYPERCAPNIA Status: Resolved Qualifiers: Respiratory failure complication: hypercapnia Qualified Code(s): J96.02 - Acute respiratory failure with hypercapnia (3) Acute metabolic encephalopathy Code(s): G93.41 - METABOLIC ENCEPHALOPATHY Status: Acute (4) Acute on chronic diastolic ACC/AHA stage C congestive heart failure Code(s): I50.33 - ACUTE ON CHRONIC DIASTOLIC (CONGESTIVE) HEART FAILURE Status : Resolved (5) Acute respiratory acidosis Code(s): E87.2 - ACIDOSIS Status: Acute (6) Afib Code(s): I48.91 - UNSPECIFIED ATRIAL FIBRILLATION Status: Acute (7) Volume overload Code(s): E87.70 - FLUID OVERLOAD, UNSPECIFIED Status: Acute (8) Atrial fibrillation and flutter Code(s): I48.91 - UNSPECIFIED ATRIAL FIBRILLATION; I48.92 - UNSPECIFIED ATRIAL FLUTTER Status: Chronic (9) CO2 narcosis Code(s): R06.89 - OTHER ABNORMALITIES OF BREATHING Status: Chronic (10) Diabetes type 2, uncontrolled Code(s): E11.65 - TYPE 2 DIABETES MELLITUS WITH HYPERGLYCEMIA Status: Chronic Qualifiers: Glycemic state: with hyperglycemia Qualified Code(s): E11.65 - Type 2 diabetes mellitus with hyperglycemia (11) GERD (gastroesophageal reflux disease) Code(s): K21.9 - GASTRO-ESOPHAGEAL REFLUX DISEASE WITHOUT ESOPHAGITIS Status: Chronic Qualifiers: Esophagitis presence: esophagitis presence not specified Qualified Code(s) : K21.9 - Gastro-esophageal reflux disease without esophagitis (12) Hypertension Code(s): I10 - ESSENTIAL (PRIMARY) HYPERTENSION Status: Chronic Qualifiers: Hypertension type: essential hypertension Qualified Code(s): I10 - Essential (primary) hypertension (13) Morbid obesity with BMI of 50.0-59.9, adult Code(s): E66.01 - MORBID (SEVERE) OBESITY DUE TO EXCESS CALORIES; Z68.43 - BODY MASS INDEX (BMI) 50.0-59.9, ADULT Status: Chronic (14) NADIA (obstructive sleep apnea) Code(s): G47.33 - OBSTRUCTIVE SLEEP APNEA (ADULT) (PEDIATRIC) Status: Chronic (15) Atrial flutter Code(s): I48.92 - UNSPECIFIED ATRIAL FLUTTER Status: Acute (16) Critical illness myopathy Code(s): G72.81 - CRITICAL ILLNESS MYOPATHY Status: Acute - Plan Continue clindamycin and oral care Increase lantus to 36 units daily. Continue sliding scale insulin Monitor electrolytes and replete as needed.
[2019-02-25] MEDS: Donepezil HCl 5 MG TAB PO SCH (21:13)
[2019-02-25] MEDS: Atorvastatin Calcium 20 MG TAB PO SCH (21:14)
[2019-02-25] MEDS ORDERED: HumaLOG 300 UNITS/3 ML VIAL SC PRN (22:34)
[2019-02-26] MEDS: Chlorhexidine Gluconate 15 ML UDCUP SSP SCH ×5 (02:42→20:54)
[2019-02-26 03:57] LABS: #Eosinphils 0.2 thou/uL (0.0-0.7); #Lymphocytes 2.2 thou/uL (1.20-3.40); #Monocytes 0.8 thou/uL (0.11-0.59); #Neutrophils 5.9 thou/uL (1.40-6.50); %Basophils 0.2 % (0.0-1.0); %Eosinophils 2.6 % (0.0-10.0); %Lymphocytes 24.4 % (21.0-51.0); %Monocytes 8.7 % (0.0-10.0); %Neutrophils 64.2 % (42.0-75.0); Hemoglobin 10.5 g/dL (14.0-18.0); Mean Corpuscular HGB CONC 32.3 g/dL (32.0-36.0); Mean Corpuscular Hemoglobin 26.3 pg (27.0-31.0); Mean Corpuscular Volume 81.4 fL (78.0-98.0); Mean Platelet Volume 8.4 fL (7.4-10.4); Platelet Count 397 thou/uL (130-400); RBC Distribution Width 15.6 % (11.5-14.5); Red Blood Cell (RBC) Count 3.98 mill/uL (4.70-6.10); White Blood Cell (WBC) Count 9.1 thou/uL (4.8-10.8)
[2019-02-26 04:24] LABS: Anion Gap 11 mmol/L (10-20); BUN (Urea Nitrogen) 11 mg/dL (8.4-25.7); Calc. Creatinine Clearance 150 mL/min (70-130); Calcium 8.9 mg/dL (7.8-10.44); Carbon Dioxide 34 mmol/L (23-31); Chloride 98 mmol/L (98-107); Estimated GFR-MDRD 87; Glucose 399 mg/dL (80-115); Potassium 4.1 mmol/L (3.5-5.1); Sodium 139 mmol/L (136-145)
[2019-02-26] MEDS: Clindamycin/D5W 600 MG in Premix Bag 1 BAG IVPB SCH ×3 (06:27→22:58)
[2019-02-26] MEDS: HumaLOG 300 UNITS/3 ML VIAL SC PRN ×2 (06:28→11:20)
--- NOTE | 2019-02-26 08:35 | PRG ---
DATE OF SERVICE: 02/26/2019 SUBJECTIVE: The patient is walking in the room with assistance from nursing staff, had a good night, did not require BiPAP. OBJECTIVE: VITAL SIGNS: Temperature is 97. Last pulse measured was 97, last blood pressure measured 107/83. HEENT: Unremarkable. NECK: No JVD. CHEST: Clear. CARDIAC: S1, S2. Regular. ABDOMEN: Soft. EXTREMITIES: No edema. LABORATORY DATA: White blood cell count 9.1, hematocrit 32.4, platelet count 397. Sodium 139, potassium 4.1, chloride 98, CO2 of 34, BUN 11, creatinine 0.8, glucose 399. ASSESSMENT: 1. The patient seems relatively stable with his encephalopathy. I stopped his Risperdal yesterday. 2. Obstructive sleep apnea, but he is noncompliant with CPAP. PLAN: Seems to be back to baseline, I would recommend transferring him to Medical. Job ID: [id number]
[2019-02-26] MEDS: Zinc Sulfate 220 MG CAP PO SCH (08:59)
[2019-02-26] MEDS: Lisinopril 10 MG TAB PO SCH ×2 (09:00→20:39)
[2019-02-26] MEDS: Apixaban 5 MG TAB PO SCH ×2 (09:00→20:40)
[2019-02-26] MEDS: Carvedilol 25 MG TAB PO SCH ×2 (09:00→17:12)
[2019-02-26] MEDS: Aspirin Chewable 81 MG TAB PO SCH (09:01)
[2019-02-26] MEDS: Gabapentin 300 MG CAP PO SCH ×2 (09:04→20:39)
[2019-02-26] MEDS: Isosorbide Dinitrate 20 MG TAB PO SCH ×2 (09:45→20:40)
[2019-02-26] MEDS: Insulin Glargine 80 UNITS in Pre-Filled Syringe 1 EACH SC SCH (09:45)
[2019-02-26 10:09] LABS: Measles (Rubeola) IgG AB Greater than 300.0 AU/mL (Immune >16.4); Mumps IgG ABS 63.6 AU/mL (Immune >10.9)
--- NOTE | 2019-02-26 17:05 | PDOC.HOSPP ---
- Subjective Encounter Date: 02/26/19 Encounter Time: 12:03 Subjective: 68 y/o male with morbid obesity associated with NADIA and OHS, chronic CHF, DM, atrial fib/flutter admitted with worsening SOB. Developed bilateral parotitis thought to be related to poor oral hygein and started on oral care with improvement. Having episodes of acute somnolence with no changes on telemetry and vitals. No new problem. No fever. - Objective Vital Signs & Weight: Vital Signs (12 hours) Temp Pulse Pulse Resp BP Pulse Ox 02/26/19 16:21 97.2 F L 02/26/19 14:33 80 18 02/26/19 10:24 98.0 F 02/26/19 09:58 89 126/71 02/26/19 08:00 94 L 02/26/19 07:16 97.0 F L Weight Admit Weight 315 lb 12.8 oz Weight 288 lb 1.601 oz Most Recent Monitor Data Heart Rate from ECG 77 NIBP 146/78 NIBP BP-Mean 100 Respiration from ECG 22 SpO2 90 I&O: 02/25/19 02/26/19 02/27/19 06:59 06:59 06:59 Intake Total 1080 1180 Balance 1080 1180 Result Diagrams: 02/26/19 03:12 02/26/19 03:12 Additional Labs: Accuchecks 02/26/19 02/26/19 02/26/19 16:12 10:17 05:53 POC Glucose 71 332 H 374 H 02/25/19 02/25/19 20:35 16:45 POC Glucose 387 H 362 H Hospitalist ROS - Medication Medications: Active Medications Generic Name Dose Route Start Last Admin Trade Name Freq PRN Reason Stop Dose Admin Acetaminophen 650 mg 02/07/19 22:14 02/24/19 12:48 Tylenol PO 650 mg Q4H PRN Administration Headache/Fever/Mild Pain (1-3) Albuterol/Ipratropium 3 ml 02/11/19 15:00 02/26/19 14:33 Duoneb NEB 3 ml [id number] CELSA Administration Apixaban 5 mg 02/20/19 21:00 02/26/19 09:00 Eliquis PO 5 mg BID CELAS Administration Aspirin 81 mg 02/08/19 09:00 02/26/19 09:01 Aspirin Chewable PO 81 mg DAILY CELSA Administration Atorvastatin Calcium 20 mg 02/09/19 21:00 02/25/19 21:14 Lipitor PO 20 mg HS CELSA Administration Carvedilol 25 mg 02/08/19 17:00 02/26/19 09:00 Coreg PO 25 mg BID-WM CELSA Administration Chlorhexidine Gluconate 15 ml 02/22/19 17:00 02/26/19 09:01 Chlorhexidine Gluconate SSP Not Given Q4HR CELSA Donepezil HCl 5 mg 02/08/19 21:00 02/25/19 21:13 Aricept PO 5 mg HS CELSA Administration Gabapentin 600 mg 02/08/19 21:00 02/26/19 09:04 Neurontin PO 600 mg BID CELSA Administration Hydralazine HCl 10 mg 02/12/19 20:15 02/23/19 04:05 Apresoline SLOW IVP 10 mg Q6H PRN Administration SBP > 180;DBP >110 Clindamycin Phosphate/Dextrose 50 mls @ 100 mls/hr 02/22/19 22:00 02/26/19 06 :27 600 mg/ Device IVPB 50 mls Q8HR CELSA Administration Insulin Glargine 80 units/ 0.8 mls @ 0.3 mls/hr 02/26/19 09:00 02/26/19 09:45 Miscellaneous Medication SC 0.8 mls QAM CELSA Administration Insulin Human Lispro 0 units 02/10/19 07:17 02/26/19 11:20 Humalog SC 11 unit .AGGRESSIVE SLIDING PRN Administration Aggressive Correctional Scale Isosorbide Dinitrate 10 mg 02/12/19 21:00 02/26/19 09:45 Isordil PO Not Given BID [facility] Lisinopril 20 mg 02/11/19 21:00 02/26/19 09:00 Zestril PO 20 mg BID CELSA Administration Pantoprazole Sodium 40 mg 02/18/19 09:00 02/26/19 09:00 Protonix PO 40 mg DAILY CELSA Administration Zinc Sulfate 220 mg 02/24/19 09:00 02/26/19 08:59 Zinc Sulfate PO 220 mg DAILY CELSA Administration - Exam General Appearance: awake alert General - other findings: obese Eye: anicteric sclera ENT: normocephalic atraumatic Neck: symmetric, no JVD Heart: RRR Respiratory: no wheezes, no rales, no ronchi, normal chest expansion Gastrointestinal: soft, non-tender, non-distended, normal bowel sounds Extremities: no cyanosis, 1+ LE edema Neurological: cranial nerve grossly intact, no focal deficits Neurological - other findings: some confusion and memeory lapses noted. Hosp A/P (1) Acute parotitis Code(s): K11.21 - ACUTE SIALOADENITIS Status: Acute (2) Acute respiratory failure Code(s): J96.00 - ACUTE RESPIRATORY FAILURE, UNSP W HYPOXIA OR HYPERCAPNIA Status: Resolved Qualifiers: Respiratory failure complication: hypercapnia Qualified Code(s): J96.02 - Acute respiratory failure with hypercapnia (3) Acute metabolic encephalopathy Code(s): G93.41 - METABOLIC ENCEPHALOPATHY Status: Acute (4) Acute on chronic diastolic ACC/AHA stage C congestive heart failure Code(s): I50.33 - ACUTE ON CHRONIC DIASTOLIC (CONGESTIVE) HEART FAILURE Status : Resolved (5) Acute respiratory acidosis Code(s): E87.2 - ACIDOSIS Status: Acute (6) Afib Code(s): I48.91 - UNSPECIFIED ATRIAL FIBRILLATION Status: Acute (7) Volume overload Code(s): E87.70 - FLUID OVERLOAD, UNSPECIFIED Status: Acute (8) Atrial fibrillation and flutter Code(s): I48.91 - UNSPECIFIED ATRIAL FIBRILLATION; I48.92 - UNSPECIFIED ATRIAL FLUTTER Status: Chronic (9) CO2 narcosis Code(s): R06.89 - OTHER ABNORMALITIES OF BREATHING Status: Chronic (10) Diabetes type 2, uncontrolled Code(s): E11.65 - TYPE 2 DIABETES MELLITUS WITH HYPERGLYCEMIA Status: Chronic Qualifiers: Glycemic state: with hyperglycemia Qualified Code(s): E11.65 - Type 2 diabetes mellitus with hyperglycemia (11) GERD (gastroesophageal reflux disease) Code(s): K21.9 - GASTRO-ESOPHAGEAL REFLUX DISEASE WITHOUT ESOPHAGITIS Status: Chronic Qualifiers: Esophagitis presence: esophagitis presence not specified Qualified Code(s) : K21.9 - Gastro-esophageal reflux disease without esophagitis (12) Hypertension Code(s): I10 - ESSENTIAL (PRIMARY) HYPERTENSION Status: Chronic Qualifiers: Hypertension type: essential hypertension Qualified Code(s): I10 - Essential (primary) hypertension (13) Morbid obesity with BMI of 50.0-59.9, adult Code(s): E66.01 - MORBID (SEVERE) OBESITY DUE TO EXCESS CALORIES; Z68.43 - BODY MASS INDEX (BMI) 50.0-59.9, ADULT Status: Chronic (14) NADIA (obstructive sleep apnea) Code(s): G47.33 - OBSTRUCTIVE SLEEP APNEA (ADULT) (PEDIATRIC) Status: Chronic (15) Atrial flutter Code(s): I48.92 - UNSPECIFIED ATRIAL FLUTTER Status: Acute (16) Critical illness myopathy Code(s): G72.81 - CRITICAL ILLNESS MYOPATHY Status: Acute (17) Excessive somnolence disorder Code(s): G47.10 - HYPERSOMNIA, UNSPECIFIED Status: Acute - Plan Start low dose lasix. Continue clindamycin and oral care Increase lantus to 80 units daily. Continue sliding scale insulin Monitor electrolytes and replete as needed. Consult Neurology for paroxysmal excessive somnolence.
[2019-02-26] MEDS ORDERED: Lorazepam 0.5 MG TAB PO SCH (20:30)
[2019-02-26] MEDS: Donepezil HCl 5 MG TAB PO SCH (20:38)
[2019-02-26] MEDS: Atorvastatin Calcium 20 MG TAB PO SCH (20:40)
[2019-02-27] MEDS: Chlorhexidine Gluconate 15 ML UDCUP SSP SCH ×7 (02:06→23:16)
[2019-02-27 06:41] LABS: #Basophils 0.1 thou/uL (0.0-0.2); #Eosinphils 0.2 thou/uL (0.0-0.7); #Lymphocytes 2.4 thou/uL (1.20-3.40); #Monocytes 0.8 thou/uL (0.11-0.59); #Neutrophils 6.6 thou/uL (1.40-6.50); %Basophils 0.8 % (0.0-1.0); %Eosinophils 2.1 % (0.0-10.0); %Lymphocytes 23.9 % (21.0-51.0); %Monocytes 8.1 % (0.0-10.0); %Neutrophils 65.1 % (42.0-75.0); Hemoglobin 11.2 g/dL (14.0-18.0); Mean Corpuscular HGB CONC 31.3 g/dL (32.0-36.0); Mean Corpuscular Hemoglobin 26.4 pg (27.0-31.0); Mean Corpuscular Volume 84.2 fL (78.0-98.0); Mean Platelet Volume 8.2 fL (7.4-10.4); Platelet Count 424 thou/uL (130-400); RBC Distribution Width 15.9 % (11.5-14.5); Red Blood Cell (RBC) Count 4.26 mill/uL (4.70-6.10); White Blood Cell (WBC) Count 10.1 thou/uL (4.8-10.8)
[2019-02-27 06:56] LABS: Anion Gap 12 mmol/L (10-20); BUN (Urea Nitrogen) 12 mg/dL (8.4-25.7); Calc. Creatinine Clearance 157 mL/min (70-130); Calcium 9.1 mg/dL (7.8-10.44); Carbon Dioxide 31 mmol/L (23-31); Chloride 101 mmol/L (98-107); Estimated GFR-MDRD Greater than 90; Glucose 202 mg/dL (80-115); Potassium 4.3 mmol/L (3.5-5.1); Sodium 140 mmol/L (136-145)
[2019-02-27] MEDS: HumaLOG 300 UNITS/3 ML VIAL SC PRN ×2 (07:04→18:41)
[2019-02-27] MEDS: Clindamycin/D5W 600 MG in Premix Bag 1 BAG IVPB SCH ×3 (07:05→23:15)
[2019-02-27] MEDS ORDERED: Furosemide 20 MG TAB PO SCH ×2 (09:00→14:15)
[2019-02-27] MEDS ORDERED: Haloperidol Lactate 5 MG/ML VIAL SLOW IVP SCH (10:15)
[2019-02-27] MEDS: Zinc Sulfate 220 MG CAP PO SCH (11:32)
[2019-02-27] MEDS: Gabapentin 300 MG CAP PO SCH ×2 (11:33→21:42)
[2019-02-27] MEDS: Lisinopril 10 MG TAB PO SCH ×2 (11:33→21:38)
[2019-02-27] MEDS: Carvedilol 25 MG TAB PO SCH ×2 (11:33→16:28)
[2019-02-27] MEDS: Aspirin Chewable 81 MG TAB PO SCH (11:34)
[2019-02-27] MEDS: Apixaban 5 MG TAB PO SCH ×2 (11:34→21:42)
[2019-02-27] MEDS: Insulin Glargine 80 UNITS in Pre-Filled Syringe 1 EACH SC SCH (11:34)
[2019-02-27] MEDS: Isosorbide Dinitrate 20 MG TAB PO SCH ×2 (11:35→21:42)
--- NOTE | 2019-02-27 14:10 | PDOC.HOSPP ---
- Subjective Encounter Date: 02/27/19 Encounter Time: 14:08 Subjective: 68 y/o male with morbid obesity associated with NADIA and OHS, chronic CHF, DM, atrial fib/flutter admitted with worsening SOB. Developed bilateral parotitis thought to be related to poor oral hygein and started on oral care with improvement. Having episodes of acute somnolence with no changes on telemetry and vitals. Getting more agitated. Desires to be discharged. - Objective Vital Signs & Weight: Vital Signs (12 hours) Temp BP BP Pulse Ox 02/27/19 11:45 97.8 F 02/27/19 11:33 149/90 H 02/27/19 11:25 149/90 H 02/27/19 08:00 94 L 02/27/19 07:32 97.6 F Weight Admit Weight 315 lb 12.8 oz Weight 288 lb 1.601 oz Most Recent Monitor Data Heart Rate from ECG 77 NIBP 146/78 NIBP BP-Mean 100 Respiration from ECG 22 SpO2 90 I&O: 02/26/19 02/27/19 02/28/19 06:59 06:59 06:59 Intake Total 1180 1050 Balance 1180 1050 Result Diagrams: 02/27/19 06:21 02/27/19 06:21 Additional Labs: Accuchecks 02/27/19 02/27/19 02/26/19 10:45 06:06 20:11 POC Glucose 217 H 202 H 167 H 02/26/19 16:12 POC Glucose 71 Hospitalist ROS - Medication Medications: Active Medications Generic Name Dose Route Start Last Admin Trade Name Freq PRN Reason Stop Dose Admin Acetaminophen 650 mg 02/07/19 22:14 02/24/19 12:48 Tylenol PO 650 mg Q4H PRN Administration Headache/Fever/Mild Pain (1-3) Albuterol/Ipratropium 3 ml 02/11/19 15:00 02/27/19 11:11 Duoneb NEB Not Given [id number] CELSA Apixaban 5 mg 02/20/19 21:00 02/27/19 11:34 Eliquis PO 5 mg BID CELSA Administration Aspirin 81 mg 02/08/19 09:00 02/27/19 11:34 Aspirin Chewable PO 81 mg DAILY CELSA Administration Atorvastatin Calcium 20 mg 02/09/19 21:00 02/26/19 20:40 Lipitor PO 20 mg HS CELSA Administration Carvedilol 25 mg 02/08/19 17:00 02/27/19 11:33 Coreg PO 25 mg BID-WM CELSA Administration Chlorhexidine Gluconate 15 ml 02/22/19 17:00 02/27/19 11:34 Chlorhexidine Gluconate SSP Not Given Q4HR CELSA Donepezil HCl 5 mg 02/08/19 21:00 02/26/19 20:38 Aricept PO 5 mg HS CELSA Administration Furosemide 20 mg 02/27/19 09:00 02/27/19 11:34 Lasix PO 20 mg DAILY CELSA Administration Gabapentin 600 mg 02/08/19 21:00 02/27/19 11:33 Neurontin PO 600 mg BID CELSA Administration Hydralazine HCl 10 mg 02/12/19 20:15 02/23/19 04:05 Apresoline SLOW IVP 10 mg Q6H PRN Administration SBP > 180;DBP >110 Clindamycin Phosphate/Dextrose 50 mls @ 100 mls/hr 02/22/19 22:00 02/27/19 07 :05 600 mg/ Device IVPB 50 mls Q8HR CELSA Administration Insulin Glargine 80 units/ 0.8 mls @ 0.3 mls/hr 02/26/19 09:00 02/27/19 11:34 Miscellaneous Medication SC 0.8 mls QAM CELSA Administration Insulin Human Lispro 0 units 02/10/19 07:17 02/27/19 07:04 Humalog SC 6 unit .AGGRESSIVE SLIDING PRN Administration Aggressive Correctional Scale Isosorbide Dinitrate 10 mg 02/12/19 21:00 02/27/19 11:35 Isordil PO 10 mg BID CELSA Administration Lisinopril 20 mg 02/11/19 21:00 02/27/19 11:33 Zestril PO 20 mg BID CELSA Administration Pantoprazole Sodium 40 mg 02/18/19 09:00 02/27/19 11:35 Protonix PO 40 mg DAILY CELSA Administration Zinc Sulfate 220 mg 02/24/19 09:00 02/27/19 11:32 Zinc Sulfate PO 220 mg DAILY CELSA Administration - Exam General Appearance: awake alert Eye: anicteric sclera ENT: normocephalic atraumatic Neck: symmetric, no JVD Heart: RRR Respiratory: no wheezes, no ronchi, normal chest expansion Respiratory - other findings: few bibasal crackles noted Gastrointestinal: soft, non-tender, non-distended, normal bowel sounds Extremities - other findings: mild to moderate bilateral leg edema Neurological: cranial nerve grossly intact, no focal deficits Neurological - other findings: some confusion and memeory lapses Hosp A/P (1) Acute parotitis Code(s): K11.21 - ACUTE SIALOADENITIS Status: Acute (2) Acute respiratory failure Code(s): J96.00 - ACUTE RESPIRATORY FAILURE, UNSP W HYPOXIA OR HYPERCAPNIA Status: Resolved Qualifiers: Respiratory failure complication: hypercapnia Qualified Code(s): J96.02 - Acute respiratory failure with hypercapnia (3) Acute metabolic encephalopathy Code(s): G93.41 - METABOLIC ENCEPHALOPATHY Status: Acute (4) Acute on chronic diastolic ACC/AHA stage C congestive heart failure Code(s): I50.33 - ACUTE ON CHRONIC DIASTOLIC (CONGESTIVE) HEART FAILURE Status : Resolved (5) Acute respiratory acidosis Code(s): E87.2 - ACIDOSIS Status: Acute (6) Afib Code(s): I48.91 - UNSPECIFIED ATRIAL FIBRILLATION Status: Acute (7) Volume overload Code(s): E87.70 - FLUID OVERLOAD, UNSPECIFIED Status: Acute (8) Atrial fibrillation and flutter Code(s): I48.91 - UNSPECIFIED ATRIAL FIBRILLATION; I48.92 - UNSPECIFIED ATRIAL FLUTTER Status: Chronic (9) CO2 narcosis Code(s): R06.89 - OTHER ABNORMALITIES OF BREATHING Status: Chronic (10) Diabetes type 2, uncontrolled Code(s): E11.65 - TYPE 2 DIABETES MELLITUS WITH HYPERGLYCEMIA Status: Chronic Qualifiers: Glycemic state: with hyperglycemia Qualified Code(s): E11.65 - Type 2 diabetes mellitus with hyperglycemia (11) GERD (gastroesophageal reflux disease) Code(s): K21.9 - GASTRO-ESOPHAGEAL REFLUX DISEASE WITHOUT ESOPHAGITIS Status: Chronic Qualifiers: Esophagitis presence: esophagitis presence not specified Qualified Code(s) : K21.9 - Gastro-esophageal reflux disease without esophagitis (12) Hypertension Code(s): I10 - ESSENTIAL (PRIMARY) HYPERTENSION Status: Chronic Qualifiers: Hypertension type: essential hypertension Qualified Code(s): I10 - Essential (primary) hypertension (13) Morbid obesity with BMI of 50.0-59.9, adult Code(s): E66.01 - MORBID (SEVERE) OBESITY DUE TO EXCESS CALORIES; Z68.43 - BODY MASS INDEX (BMI) 50.0-59.9, ADULT Status: Chronic (14) NADIA (obstructive sleep apnea) Code(s): G47.33 - OBSTRUCTIVE SLEEP APNEA (ADULT) (PEDIATRIC) Status: Chronic (15) Atrial flutter Code(s): I48.92 - UNSPECIFIED ATRIAL FLUTTER Status: Acute (16) Critical illness myopathy Code(s): G72.81 - CRITICAL ILLNESS MYOPATHY Status: Acute (17) Excessive somnolence disorder Code(s): G47.10 - HYPERSOMNIA, UNSPECIFIED Status: Acute - Plan Awaiting Neurology input Continue clindamycin and oral care Increase lantus to 80 units daily. Continue sliding scale insulin Monitor electrolytes and replete as needed. For Discharge after Neurology evaluation Start haldol as needed for agitation
[2019-02-27] MEDS ORDERED: Ziprasidone 20 MG VIAL IM PRN (14:16)
--- NOTE | 2019-02-27 14:27 | PRG ---
DATE OF SERVICE: 02/27/2019 SUBJECTIVE: He is pleasant, but remains encephalopathic. OBJECTIVE: VITAL SIGNS: His temperature is 97.8, pulse 90, blood pressure 140/90, and respiratory rate 18. HEENT: Unremarkable. NECK: No adenopathy or JVD. LUNGS: Clear. CARDIAC: S1 and S2. Regular. ABDOMEN: Soft. EXTREMITIES: No edema. ASSESSMENT AND PLAN: Stable encephalopathy - I think a lot of what we are seeing is probably dementia. I am not sure why he has these spells, where he appears to blackout. Recommendation is to be transferred to Medical any time from my standpoint. I have suggested to Dr. Mckeon that he get a neurologic consultation. Job ID: [id number]
[2019-02-27 15:16] VITALS: BMI 40.1
--- NOTE | 2019-02-27 16:11 | CON ---
DATE OF CONSULTATION: 02/27/2019 IMPRESSION: 1. Chronic lethargy and insomnia. 2. Obesity. 3. Parotiditis. 4. Probable congestive heart failure. 5. Diabetes. PLAN: Nothing specific needs to be done. HISTORY OF PRESENT ILLNESS: Mr. Melendrez is a 68-year-old man, who was admitted with parotid pain. Since admission, he was noted to have problems with both insomnia as well as lethargy. He reports that this has been a chronic problem that he has had most of his life. He does not feel like there is anything out of the ordinary going on. He reports that he was given something to help with his insomnia a few days ago, but it was ineffective. He feels like he is back to his baseline. His facial pain is doing much better. He is hoping to get discharged shortly. PAST MEDICAL HISTORY: As listed above. ALLERGIES: NONE. SOCIAL HISTORY: No tobacco or alcohol. FAMILY HISTORY: Noncontributory. REVIEW OF SYSTEMS: Ten-system review of systems is otherwise negative. PHYSICAL EXAMINATION: GENERAL: He is an overweight middle-aged man, in no acute distress. VITAL SIGNS: Stable. He is afebrile. HEENT: Pupils equal and reactive. Conjunctivae clear. Oropharynx clear. NECK: Supple and short. NEUROLOGIC: He is alert and appropriate. His speech is fluent and clear. His cranial nerves are intact. There are no focal motor deficits. He has good balance for his sitting. I did not test his gait. No abnormal movements were seen. LABORATORY DATA: EKG shows atrial fib and flutter. Laboratory studies were reviewed, which were notable earlier in the hospitalization for fairly significant hypercapnia with CO2 levels in the 80s. SUMMARY: This is a 68-year-old gentleman, who reports chronic issues with sleep and drowsiness during the day. He does not feel like there is any ongoing problem that is out of the ordinary for him. I do not have anything to offer in particular to address this. He refuses the idea of being checked for sleep apnea and wearing a CPAP machine. Job ID: [id number]
[2019-02-27] MEDS: Donepezil HCl 5 MG TAB PO SCH (21:38)
[2019-02-27] MEDS: Atorvastatin Calcium 20 MG TAB PO SCH (21:42)
[2019-02-28] MEDS: Clindamycin/D5W 600 MG in Premix Bag 1 BAG IVPB SCH (06:55)
[2019-02-28] MEDS: Chlorhexidine Gluconate 15 ML UDCUP SSP SCH ×2 (06:55→09:54)
[2019-02-28] MEDS: HumaLOG 300 UNITS/3 ML VIAL SC PRN (07:00)
[2019-02-28 07:15] VITALS: TEMP 97.4
[2019-02-28] MEDS ORDERED: Furosemide 40 MG TAB PO SCH (09:00)
[2019-02-28] MEDS: Isosorbide Dinitrate 20 MG TAB PO SCH (09:52)
[2019-02-28] MEDS: Gabapentin 300 MG CAP PO SCH (09:52)
[2019-02-28] MEDS: Aspirin Chewable 81 MG TAB PO SCH (09:53)
[2019-02-28] MEDS: Carvedilol 25 MG TAB PO SCH (09:53)
[2019-02-28] MEDS: Apixaban 5 MG TAB PO SCH (09:54)
[2019-02-28] MEDS: Lisinopril 10 MG TAB PO SCH (09:54)
[2019-02-28] MEDS: Zinc Sulfate 220 MG CAP PO SCH (09:54)
[2019-02-28] MEDS: Insulin Glargine 80 UNITS in Pre-Filled Syringe 1 EACH SC SCH (09:55)
[2019-02-28 09:56] VITALS: BP 140/112
--- NOTE | 2019-03-01 03:45 | DIS ---
DATE OF ADMISSION: 02/07/2019 DATE OF DISCHARGE: 02/28/2019 REASON FOR HOSPITALIZATION: Shortness of breath. SIGNIFICANT FINDINGS: The patient with history of diastolic congestive heart failure; obstructive sleep apnea; obesity; diabetes mellitus, type 2; atrial fibrillation; and depression. The patient was admitted on 02/07/2019 - please see full history and physical, consultation notes, radiographic imaging, and consultations from all specialists for details. The patient was seen and evaluated by Pulmonology and had all appropriate medical therapy. The patient was seen and evaluated by Cardiology and had all appropriate medical therapy. Please see full consultations and progress notes for details. The patient was seen and evaluated by network specialist on 02/12/2019 - please see full consultation notes for details. The patient did have improvement with maximum medical therapy and was titrated off oxygen completely. The patient with some generalized weakness now over the past 21 days. He has been effectively rehabilitated in the acute care hospital. The patient was seen and evaluated by Neurology, Dr. Parada on 02/27/[address] Parada recommended that there needed to be no further inpatient neurologic workup and the patient was stable for discharge. The patient was recommended safe for discharge by all specialists to lower level of care. The patient had been evaluated by Physical Therapy and Occupational Therapy and had been recommended safe for discharge to custodial facility. The patient was pending discharge to custodial facility; however, unfortunately on 02/28/2019, the patient decided he was going to leave against medical advice. In the presence of the patient's at bedside, I evaluated him in addition with nursing staff and the charge nurse. The patient's willing to take the patient home and care for him. I explicitly asked the patient and his if they have all of his medications. The patient is able to tell me his home medications including Lasix and states that he will be compliant. I explicitly informed the patient that he must follow up with evaluation for obstructive sleep apnea and he must see Pulmonology in the next 1 to 2 weeks. The patient and his told me that he will be able to see Pulmonology in the next 1 to 2 weeks and will treat his obstructive sleep apnea. I explicitly informed the patient and his that he will have further evaluation and treatment for possible dementia in the Neurology Clinic, and he and his state that they will be able to do this. The patient did have transient episodes, where he would be confused in the hospital and this is likely resulting in sundowning and possible dementia. Occasionally, the patient would require medications to keep him calm as he would get agitated at the nursing staff. The patient has been off any antipsychotic medications for greater than 24 hours prior to discharge. I, in the presence of leather case finisher, nursing staff, and the patient's , have witnessed him ambulating around the room and around the halls of the hospital without assistance. I reminded the patient that he should use his walker to avoid falls. The patient and his state that he will try to use his walker. Unfortunately, as the patient has been recommended for rehabilitation placement and they are not willing to stay for further transfer process and they are frustrated that on the holiday he cannot go home, they decided to leave against medical advice. CONDITION ON DISCHARGE: Stable. SPECIFIC INSTRUCTIONS FOR THE PATIENT/FAMILY: 1. The patient recommended to take all medications as directed, to be re-evaluated by primary care physician, Neurology, Cardiology, and Pulmonology in the upcoming weeks at his appointments. 2. The patient recommended to follow up with primary care physician in the next 5 to 7 days - or return to acute care hospital immediately. 3. The patient recommended to follow up with Pulmonology for outpatient sleep study - in the next 1 to 2 weeks - or return to acute care hospital immediately if unable to be seen. 4. The patient recommended to follow up with Cardiology in the next 1 to 2 weeks - or return to acute care hospital immediately if unable to be seen. 5. The patient recommended to follow up with Neurology in the next 1 to 2 weeks - or return to acute care hospital immediately if unable to be seen. 6. The patient recommended to stay well hydrated and drink consistent amount of fluids to avoid congestive heart failure or renal insufficiency - the patient and his state that he will monitor his fluid intake and take Lasix as directed. 7. The patient recommended to ambulate with his walker at all times, even on short trips to and from the restroom. 8. The patient recommended to be supervised by his , who is at bedside on the time of discharge 24 hours a day or return to acute care hospital immediately if she is unable to care for him. 9. I explicitly asked the patient and his if I could fill any prescriptions for them and they state that he has all of his medications at home and he will follow up with the primary care physician for any other medications that he may need in the future. DISCHARGE MEDICATIONS: Please see full discharge medication list for details. Greater than 40 minutes of time spent coordinating care, discussing explicit instructions with the patient and his , and discussing findings with nursing staff and charge nurse. The patient and his are happy with plan of care as he has been effectively rehabilitated in the hospital over the past 21 days. Job ID: [id number]
== END 2019-02-28 11:30 | disposition left against medical advice (07) | DRG 291 ==
LOC: ERS 20:24 → ERHOLD 22:25 → 2NO 02-08 02:21 → IMCU/EMU 02-10 15:37 → 2NO 02-19 18:37 → IMCU/EMU 02-22 17:36
PROVIDERS: ADMIT Internal Medicine; ATTEND Internal Medicine
PROC: 5A09457 Assistance with Respiratory Ventilation, 24-96 Consecutive Hours, Continuous Positive Airway Pressure (ICD-10-PCS; principal; 2019-02-10)
DX: I11.0 Hypertensive heart disease with heart failure (principal); G93.41 Metabolic encephalopathy; J96.21 Acute and chronic respiratory failure with hypoxia; J96.22 Acute and chronic respiratory failure with hypercapnia; Z66 Do not resuscitate; E66.2 Morbid (severe) obesity with alveolar hypoventilation; I48.3 Typical atrial flutter; E87.0 Hyperosmolality and hypernatremia; G72.81 Critical illness myopathy; F03.91 Unspecified dementia, unspecified severity, with behavioral disturbance; Z68.41 Body mass index [BMI] 40.0-44.9, adult; I50.33 Acute on chronic diastolic (congestive) heart failure; E11.65 Type 2 diabetes mellitus with hyperglycemia; I48.91 Unspecified atrial fibrillation; F41.9 Anxiety disorder, unspecified; F32.9 Major depressive disorder, single episode, unspecified; K21.9 Gastro-esophageal reflux disease without esophagitis; D64.9 Anemia, unspecified; K11.21 Acute sialoadenitis; I16.0 Hypertensive urgency; E86.0 Dehydration; G47.00 Insomnia, unspecified; Z79.01 Long term (current) use of anticoagulants; Z90.49 Acquired absence of other specified parts of digestive tract; Z79.4 Long term (current) use of insulin; Z87.891 Personal history of nicotine dependence; Z91.14 Patient's other noncompliance with medication regimen; Z91.11 Patient's noncompliance with dietary regimen; Z91.19 Patient's noncompliance with other medical treatment and regimen; Z78.1 Physical restraint status; Z79.899 Other long term (current) drug therapy
CPT/HCPCS: 36415; 36416; 70551; 71045; 80048; 80053; 80069; 81003; 81015; 82140; 82805; 83036; 83735; 83880; 84100; 84145; 84484; 85007; 85025; 85027; 85379; 86735; 86762; 86765; 87040; 87086; 87324; 87449; 93005; 93306; 93798; 94640; 94660; 96374; 96375; C9113; J0360; J1630; J1650; J1815; J1940; J2060; J2920; J3486; J3490; J7620